=== PATIENT | female | born 1955 | race Caucasian/White ===

== ENCOUNTER → 2016-02-09 | Outpatient (CLI) | payer OTHER ==
[~2016-02-09] MED LIST: /CELE20CA OR; /DULO30CA; /DULO30CA OR; ACET500C; ACET500C OR; ADVAIR INH; ALLE180T33 PO; ALLO100T PO; ASPI32ECTA PO; ASPI81TA83 OR; ASTELIN; BENT20TA OR; BUPIVACAINE HCL 0.25% 30 ML VIAL As Ordered ONE; CALC500T49 OR; CAPRYLIC ACID OR; CELE100C; CETI10TA OR; CYMB60CA3 PO; DICY10EL; DICY10EL OR; DOSTINEX OR; DOSTINEX PO; DULO20CA; FLUC10TA OR; FOLI1TAB OR; GLUC500T OR; HYDR12CA PO; HYDR25TA6 OR; IODORAL PO; ISOVUE-M 300 61% 15ML VIAL (Q9967) As Ordered ONE; K-TA10TA PO; KLOR10TA OR; LATA5OPD OU; LEVA31IN IN; LEVA31IN OR; LIDO5DIS EX; LIDO5DIS TOP; LIDOCAINE 1% SDV INJ 30 ML VIAL As Ordered ONE; MELATONIN OR; MULTIVIT OR; OXYB5TAB PO; OYST500T OR; PRIL20CA OR; PROB1TAB PO; RESTASIS EYE DROPS; RHINOCORT; SING10TA31 OR; SKEL-29 PO; SKEL800T5 OR; SUPETAB27 OR; SYMB80AE INH; TOVI4TAB PO; TPS PAIN TOP; TRAM50TA2 OR; TRAM50TA2 PO; VENTAER INH; VESICARE OR; ZANT150T PO; ZYRT10CA PO; [UNRECOGNIZED DRUG - OTHER]; [UNRECOGNIZED DRUG - OTHER]; [UNRECOGNIZED DRUG - OTHER]; [UNRECOGNIZED DRUG - OTHER] OR; [UNRECOGNIZED DRUG - OTHER] PO; [UNRECOGNIZED DRUG - OTHER] PO; [UNRECOGNIZED DRUG - OTHER] PO; [UNRECOGNIZED DRUG - OTHER] TOP; [UNRECOGNIZED DRUG - REMARK] PO; curamed PO
--- NOTE | 2016-02-09 18:38 | REP ---
FACET BLOCK: The images were reviewed with Dr. Worrell. The patient has a history of low back pain. The portable C-Arm is provided in the OR for Dr. Hoover for fluoroscopic guidance. Four intraoperative fluoro spot films were obtained for needle placement verification for bilateral lumbar facet injection. The films are on the PACs system and are available for review. 36 seconds of fluoroscopy time was utilized for this procedure. Reviewed by WILDER Cody 02/10/2016 09:08 AEdited and Signed by Ryan Worrell MD 02/10/2016 03:18 P
--- NOTE | 2016-02-19 01:25 | ECWPNPC ---
PATIENT NAME: NATALIE CABALLERO : 1955 GENDER: FEMALE VISIT DATE: 02/09/2016 DISCHARGE DATE: 02/09/161713 VISIT LOCKED DATE TIME: PHYSICIAN: ZELDA KRAMER RESOURCE: ZELDA KRAMER REASON FOR APPOINTMENT 1. LFBD HISTORY OF PRESENT ILLNESS HISTORY OF PRESENT ILLNESS: PAIN THE PATIENT DESCRIBES THE PAIN... FALL RISK SCREENING: SCREENING :NO FALLS IN THE PAST YEAR CURRENT MEDICATIONS TAKING CYMBALTA 60 MG CAPSULE DELAYED RELEASE PARTICLES 1 CAPSULE ORALLY TWICE A DAY, NOTES: 02/09/16 0800 TAKING SKELAXIN 800 MG TABLET 1 TABLET ORALLY BID PRN, NOTES: 02/09/16 08 TAKING GABAPENTIN 300 MG CAPSULE 1 CAPSULE ORALLY THREE TIMES A DAY FOR PAINMDD3, NOTES: 02/06/16 TAKING ALLOPURINOL 300 MG TABLET 1 TABLET ORALLY ONCE A DAY, NOTES: 02/09/16 08 TAKING SINGULAIR 10 MG TABLET 1 TABLET IN THE EVENING ORALLY ONCE A DAY, NOTES: 02/09/16 08 TAKING BENTYL 20 MG TABLET 1 TABLET ORALLY EVERY 4 HOURS NEEDED, NOTES: 02/09/16 0800 TAKING VENTOLIN HFA 108 (90 BASE) MCG/ACT AEROSOL SOLUTION 2 PUFFS INHALATION NEEDED, NOTES: NONE RECENTLY TAKING VITAMIN B COMPLEX CAPSULE DIRECTED ORALLY DAILY, NOTES: 02/09/16 0800 TAKING HYDROCHLOROTHIAZIDE 25 25 MG TABLET DIRECTED ORAL DAILY, NOTES: 02/09/16 0800 TAKING LATANOPROST 0.005 % SOLUTION 1 DROP INTO BOTH EYES EVENING OPHTHALMIC ONCE A DAY, NOTES: 02/08/16 2100 TAKING SYMBICORT 80-4.5 MCG/ACT AEROSOL 2 PUFFS INHALATION TWICE A DAY, NOTES: 02/09/16 0800 TAKING PREMARIN 0.625 MG/GM CREAM VAGINAL THREE TIMES A WEEK, NOTES: 02/06/16 TAKING TYLENOL 500 MG TABLET 1 TABLET NEEDED ORALLY EVERY 6 HRS, NOTES: NONE RECENTLY TAKING BENTYL 10 MG CAPSULE 1 CAPSULE ORALLY TWO TIMES A DAY, NOTES: NONE RECENTLY TAKING REFRESH CELLUVISC 1 % SOLUTION 1 DROP INTO AFFECTED EYE NEEDED OPHTHALMIC 24 TIME(S) A DAY, NOTES: 02/09/16 1400 TAKING DIFLUCAN 200 MG TABLET 1 TABLET ORALLY DIRECTED, NOTES: MONTHS TAKING FIBER 58.6 % POWDER ORALLY NEEDED, NOTES: 02/09/16 0800 TAKING CRANBERRY 405 MG CAPSULE ORALLY DAILY, NOTES: 02/09/16 0800 TAKING ZYRTEC 10 MG TABLET CHEWABLE 1 TABLET ORALLY ONCE A DAY, NOTES: 02/09/16 10095 TAKING TRAMADOL HCL 50 MG TABLET 1 TABLET NEEDED ORALLY Q8H PRN MDD3, NOTES: 02/04/17 TAKING FLONASE ALLERGY RELIEF 50 MCG/ACT SUSPENSION 1 SPRAY IN EACH NOSTRIL NASALLY ONCE A DAY, NOTES: 02/09/16 0800 TAKING OXYBUTYNIN CHLORIDE 5 MG TABLET 2 TABLETS ORALLY 2 TIMES A DAY, NOTES: 02/09/16 0800 TAKING CABERGOLINE 0.5 MG TABLET 0.5 TABLET ORALLY TWICE A WEEK (TAKES 0.05 MG 1/2 TABLET), NOTES: MEDICATION DISCONTINUED NOT-TAKING XIIDRA 5 % SOLUTION 1 DROP INTO AFFECTED EYE OPHTHALMIC TWICE A DAY NOT-TAKING MONOVISC 88 MG/4ML SOLUTION PREFILLED SYRINGE INTRA-ARTICULAR EVERY 6 MONTHS, NOTES: EVERY 6 MO (LAST 12/17/15) NOT-TAKING RHINOCORT AQUA 32 MCG/ACT SUSPENSION 1 SPRAY IN EACH NOSTRIL NASALLY NEEDED NOT-TAKING OXYBUTYNIN CHLORIDE ER 10 MG TABLET EXTENDED RELEASE 24 HOUR 1 TABLET ORALLY BID NOT-TAKING ULTRAM 50 MG TABLET 1 TABLET NEEDED FOR PAIN ORALLY EVERY 6 HRS MDD1 NOT-TAKING NASACORT ALLERGY 24HR 55 MCG/ACT AEROSOL 1 PUFF IN EACH NOSTRIL NASALLY ONCE A DAY NOT-TAKING CELEBREX 100 MG CAPSULE 1 CAPSULE ORALLY TWICE A DAY NOT-TAKING VITAMIN C 500 MG TABLET DIRECTED ORALLY DAILY, NOTES: 09/02/15 0900 MEDICATION LIST REVIEWED AND RECONCILED WITH THE PATIENT PAST MEDICAL HISTORY DIABETES BLOOD PRESSURE ASTHMA PITUITARY ADENOMA ARTHRITIS 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 NO . CHILLS NO . FEVER NO . INFECTION: DO YOU HAVE NEW INFECTIONS? NO . DO YOU HAVE HISTORY OF MRSA? NO . MUSCULOSKELETAL: ANY NEW PATTERNS OF PAIN OR NUMBNESS? NO . GASTROENTEROLOGY: ANY NEW CHANGE IN BOWEL CONTROL? NO . GENITOURINARY: ANY NEW CHANGE IN BLADDER CONTROL? NO . IS THERE A CHANCE YOU COULD BE ? NO . HEMATOLOGY/LYMPH: DO YOU TAKE ANY BLOOD THINNERS? (FOR EXAMPLE- COUMADIN, PLAVIX, AGGRENOX, PLATEL, PRADAXA, OR XARELTO) NO . WHEN WAS YOUR LAST DOSE? DATE: TIME: . NEUROLOGY: HAVE YOU FALLEN IN THE PAST 6 MONTHS? NO . ANY NEW EXTREMITY NUMBNESS OR WEAKNESS? NO . CARDIOLOGY: DO YOU HAVE A PACEMAKER OR DEFIBRILLATOR? NO . RESPIRATORY: HAVE YOU BEEN SICK IN THE PAST WEEK? NO . FEVER NO . FLU LIKE SYMPTOMS? NO . COUGH NO . INTEGUMENTARY: DO YOU HAVE ANY RASHES OR OPEN SORES? NO . ALLERGIC/IMMUNO: ARE YOU ALLERGIC TO SHELLFISH OR IV DYE? NO . ANY NEW ALLERGIES? NO . PSYCHIATRIC: DO YOU HAVE THOUGHTS OF HURTING YOURSELF OR SOMEONE ELSE? NO . ARE YOU ABUSED, NEGLECTED, OR IN AN UNSAFE ENVIRONMENT? NO . ENDOCRINOLOGY: ARE YOU DIABETIC? NO . OTHER: DO YOU NEED ANY PRESCRIPTIONS? NO . IF YES, PLEASE LIST: ____ . ANY NEW PROBLEMS WITH YOUR MEDICATIONS? NO . WHEN DID YOU LAST EAT? 02/08 8AM . WHEN DID YOU LAST DRINK? 12AM . WHAT DID YOU LAST DRINK? COFFEE . NAME OF PERSON DRIVING YOU HOME? DELBERT . DO YOU HAVE ANY OTHER QUESTIONS OR CONCERNS PT STATES THAT SHE IS NOT ABLE TO FILL NEURONTIN SCRIPT, CALL SPECIAL FUNDS . REVIEWED BY: PROVIDER: . VITAL SIGNS WT 235 LBS, HT 65", BMI 39.10 INDEX, BP 117/68 MM HG, HR 61 /MIN, RR 16 /MIN, TEMP 95.6 F, OXYGEN SAT % 92%, NA INITIALS SC 14:30, REVIEWED BY: LS. ASSESSMENTS SPONDYLOSIS WITHOUT MYELOPATHY OR RADICULOPATHY, LUMBAR REGION - M47.816 (PRIMARY) SPONDYLOSIS WITHOUT MYELOPATHY OR RADICULOPATHY, LUMBOSACRAL REGION - M47.817 PROCEDURES PN LUMBAR FACET BLOCK DIAGNOSTIC PRE PROCEDURE DIAGNOSIS LUMBAR SPONDYLOSIS, LUMBOSACRAL SPONDYLOSIS POST PROCEDURE DIAGNOSIS LUMBAR SPONDYLOSIS, LUMBOSACRAL SPONDYLOSIS PROCEDURE BILATERAL L4-L5 AND BILATERAL L5-S1 FACET BLOCK DIAGNOSTIC NUMBER [address] ZELDA KRAMER BULK PLANT OPERATOR NONE ANESTHESIA LOCAL PRE PROCEDURE NOTE THE PATIENT WITH HISTORY OF CHRONIC LOW BACK PAIN. I EVALUATED THE PATIENT AND REVIEWED THE CHART. I WENT OVER THE RISKS, ALTERNATIVES, AND BENEFITS ASSOCIATED WITH THIS PROCEDURE. THE PATIENT WOULD LIKE TO PROCEED AND GAVE CONSENT TO PERFORM THE PROCEDURE. AGREED WITH THE PATIENT WE ARE DOING THIS PROCEDURE TO DETERMINE IF THE PATIENT IS A CANDIDATE FOR A RADIOFREQUENCY ABLATION OF THE FACETS JOINTS. THE PATIENT DENIES UNEXPLAINABLE WEIGHT LOSS, FEVER, CHILLS, OR NEW CHANGES IN URINARY OR BOWEL CONTROL DESCRIPTION OF PROCEDURE THE PATIENT WAS BROUGHT TO THE PROCEDURE ROOM AND PLACED IN THE PRONE POSITION. THE LUMBOSACRAL AREA WAS CLEANED WITH CHLORAPREP SOLUTION AND DRAPED ASEPTICALLY. THE PROCEDURE WAS DONE UNDER STERILE CONDITIONS. I CHECKED LATERALITY AND THE LEVEL WHERE THE PROCEDURE WAS GOING TO BE PERFORMED WITH THE PATIENT AND THE SUPPORTING STAFF AT THE MOMENT OF THE TIME OUT IN THE PROCEDURE ROOM. UNDER FLUOROSCOPIC GUIDANCE, TARGETS WERE SELECTED AT THE INTERSECTION OF THE RIGHT AND LEFT TRANSVERSE PROCESS OF L4, L5 AND ALA OF S1 WITH ITS RESPECTIVE SUPERIOR ARTICULAR PROCESS. LIDOCAINE WAS USED TO NUMB THE SKIN AND THE SUBCUTANEOUS TISSUE BELOW IT. SPINAL NEEDLE, 22-GAUGE WAS ADVANCED UNDER FLUOROSCOPIC GUIDANCE AND FOLLOWING PATIENT FEEDBACK UNTIL THE TARGETS WERE REACHED. POSITION OF THE NEEDLES WAS VERIFIED WITH AP AND LATERAL VIEWS. AFTER PROPER POSITION OF THE NEEDLES WAS ACHIEVED, ISOVUE-M DYE 30% 0.1 ML WAS INJECTED AT EACH SITE SHOWING ADEQUATE SPREAD OF THE DYE. THEN A SOLUTION OF 0.4 ML OF BUPIVACAINE 0.25% WAS INJECTED AT EACH SITE. THERE WAS NO EVIDENCE OF BLOOD, PARESTHESIA OR CEREBROSPINAL FLUID DURING THE PROCEDURE. THE PATIENT WAS SENT TO THE RECOVERY ROOM. THE PATIENT WAS MOVING THE EXTREMITIES AND DOING WELL. THERE WAS NO COMPLICATION DURING THE PROCEDURE. FLUOROSCOPY TIME WAS 36 SECONDS POST PROCEDURE NOTE THE PATIENT WILL DOCUMENT HIS PAIN LEVEL AND RESPONSE TO THIS PROCEDURE EVERY 30 MINUTES. THE PATIENT WILL BE SEEN IN A FOLLOW UP IN THE NEXT FEW WEEKS. FURTHER DETERMINATION FOR HIS CASE WILL BE DONE AT THE NEXT VISIT. INSTRUCTIONS WERE GIVEN, QUESTIONS WERE ANSWERED, AND THE PATIENT EXPRESSED UNDERSTANDING AND AGREED WITH THE PLAN. I, MARILYN SANTAMARIA, DOCUMENTED THE ABOVE INFORMATION ACTING A SCRIBE FOR DR. KRAMER. I, DR. KRAMER, HAVE REVIEWED THE ABOVE DOCUMENT, SCRIBED BY MARILYN SANTAMARIA, AND I VERIFY THAT IT IS ACCURATE DIAGNOSTIC IMAGING [facility] FACET BLOCK (PAIN)[id number] PROCEDURE CODES 85090 INJ PARAVERT F JNT L/S 1 LEV 27418 INJ PARAVERT F JNT L/S 2 LEV 6045F RADXPS IN END [id number] PXD FOLLOW UP 3 WEEKS ELECTRONICALLY SIGNED BY ZELDA KRAMER MD ON 02/18/2016 AT 02:31 PM EST DISCLAIMER : THIS IS A VISIT SUMMARY EXTRACTED FROM THE [employer] CHART. IT IS NOT A COPY OF THE [employer] PROGRESS NOTE. MTDD
== END ==
LOC: M PAIN 14:20
PROVIDERS: ATTEND Anesthesiology
DX: G89.21 Chronic pain due to trauma (principal); M47.816 Spondylosis without myelopathy or radiculopathy, lumbar region; M47.817 Spondylosis without myelopathy or radiculopathy, lumbosacral region; E11.9 Type 2 diabetes mellitus without complications; I10 Essential (primary) hypertension; J45.909 Unspecified asthma, uncomplicated; D35.2 Benign neoplasm of pituitary gland; M19.90 Unspecified osteoarthritis, unspecified site; K58.0 Irritable bowel syndrome with diarrhea; H40.059 Ocular hypertension, unspecified eye; Z88.0 Allergy status to penicillin; Z88.2 Allergy status to sulfonamides; Z91.040 Latex allergy status; L23.0 Allergic contact dermatitis due to metals; Z88.8 Allergy status to other drugs, medicaments and biological substances; Z79.891 Long term (current) use of opiate analgesic; Z79.899 Other long term (current) drug therapy; Z87.39 Personal history of other diseases of the musculoskeletal system and connective tissue
CPT/HCPCS: 64493; 64494; Q9967

== ENCOUNTER → 2016-02-23 | Outpatient (CLI) | payer OTHER ==
[~2016-02-23] MED LIST changes: -BUPIVACAINE HCL 0.25% 30 ML VIAL As Ordered ONE; -ISOVUE-M 300 61% 15ML VIAL (Q9967) As Ordered ONE; -LIDOCAINE 1% SDV INJ 30 ML VIAL As Ordered ONE
--- NOTE | 2016-02-24 00:10 | ECWPNPC ---
PATIENT NAME: NATALIE CABALLERO : 1955 GENDER: FEMALE VISIT DATE: 02/23/2016 DISCHARGE DATE: 02/23/16 1012 VISIT LOCKED DATE TIME: PHYSICIAN: ZELDA KRAMER RESOURCE: ZELDA KRAMER REASON FOR APPOINTMENT 1. LOW BACK PAIN W/C HISTORY OF PRESENT ILLNESS HISTORY OF PRESENT ILLNESS: PAIN THE PATIENT DESCRIBES THE PAIN... 60 YEAR OLD FEMALE PATIENT WITH HISTORY OF CHRONIC LOW BACK PAIN. PATIENT DESCRIBES THE PAIN ACHING, TENDER, THROBBING, SORE, AND SHOOTING. 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 PATIENT RECEIVED A DIAGNOSTIC LUMBAR FACET BLOCK ON 02/09/16 AND REPORTS HAVING OVER 50% PAIN RELIEF FOR 24 HOURS. CURRENTLY THE PATIENT IS USING TRAMADOL NEEDED, SKELAXIN 800 MG 2 TIMES A DAY, AND CYMBALTA 2 TIMES A DAY. PATIENT STATES THAT THE MEDICATION HELPS HER TO STAY FUNCTIONAL AND MOBILE. MRS. CABALLERO IS WAITING FOR COMP TO APPROVE THE GABAPENTIN PRESCRIPTION. AT THIS TIME THE PATIENT STATES THAT SITTING, STANDING, OR WALKING FOR LONG PERIODS OF TIME THE PAIN IN HER LOWER BACK IS INCREASED. MEDICATIONS, INTERVENTIONS, RESTING, ICE AND HEAT HELP TO RELIEVE THE BACK PAIN. PATIENT DENIES UNEXPLAINABLE WEIGHT LOSS, FEVER, CHILLS, NEW CHANGES ON HER URINARY OR BOWEL CONTROL. FALL RISK SCREENING: SCREENING :NO FALLS IN THE PAST YEAR CURRENT MEDICATIONS TAKING CYMBALTA 30 MG CAPSULE DELAYED RELEASE PARTICLES 1 CAPSULE ORALLY TWICE A DAY, NOTES: 02/09/16 08 TAKING SKELAXIN 800 MG TABLET 1 TABLET ORALLY BID PRN, NOTES: 02/09/16799 TAKING GABAPENTIN 300 MG CAPSULE 1 CAPSULE ORALLY THREE TIMES A DAY FOR PAINMDD3, NOTES: 02/06/16 TAKING ALLOPURINOL 300 MG TABLET 1 TABLET ORALLY ONCE A DAY, NOTES: 02/09/16799 TAKING SINGULAIR 10 MG TABLET 1 TABLET IN THE EVENING ORALLY ONCE A DAY, NOTES: 02/09/16 08 TAKING BENTYL 20 MG TABLET 1 TABLET ORALLY EVERY 4 HOURS NEEDED, NOTES: 02/09/16 0800 TAKING VENTOLIN HFA 108 (90 BASE) MCG/ACT AEROSOL SOLUTION 2 PUFFS INHALATION NEEDED, NOTES: NONE RECENTLY TAKING VITAMIN B COMPLEX CAPSULE DIRECTED ORALLY DAILY, NOTES: 02/09/16 08 TAKING HYDROCHLOROTHIAZIDE 25 25 MG TABLET DIRECTED ORAL DAILY, NOTES: 02/09/16 08 TAKING LATANOPROST 0.005 % SOLUTION 1 DROP INTO BOTH EYES EVENING OPHTHALMIC ONCE A DAY, NOTES: 02/08/16 2100 TAKING SYMBICORT 80-4.5 MCG/ACT AEROSOL 2 PUFFS INHALATION TWICE A DAY, NOTES: 02/09/16 08 TAKING PREMARIN 0.625 MG/GM CREAM VAGINAL THREE TIMES A WEEK, NOTES: 02/06/16 TAKING TYLENOL 500 MG TABLET 1 TABLET NEEDED ORALLY EVERY 6 HRS, NOTES: NONE RECENTLY TAKING BENTYL 10 MG CAPSULE 1 CAPSULE ORALLY TWO TIMES A DAY, NOTES: NONE RECENTLY TAKING REFRESH CELLUVISC 1 % SOLUTION 1 DROP INTO AFFECTED EYE NEEDED OPHTHALMIC 24 TIME(S) A DAY, NOTES: 02/09/16 1400 TAKING DIFLUCAN 200 MG TABLET 1 TABLET ORALLY DIRECTED, NOTES: MONTHS TAKING FIBER 58.6 % POWDER ORALLY NEEDED, NOTES: 02/09/16 08 TAKING CRANBERRY 405 MG CAPSULE ORALLY DAILY, NOTES: 02/09/16 08 TAKING ZYRTEC 10 MG TABLET CHEWABLE 1 TABLET ORALLY ONCE A DAY, NOTES: 02/09/16 14953 TAKING TRAMADOL HCL 50 MG TABLET 1 TABLET NEEDED ORALLY Q8H PRN MDD3, NOTES: 02/04/17 TAKING FLONASE ALLERGY RELIEF 50 MCG/ACT SUSPENSION 1 SPRAY IN EACH NOSTRIL NASALLY ONCE A DAY, NOTES: 02/09/16 08 TAKING OXYBUTYNIN CHLORIDE 5 MG TABLET 2 TABLETS ORALLY 2 TIMES A DAY, NOTES: 02/09/16 08 TAKING CABERGOLINE 0.5 MG TABLET 0.5 TABLET ORALLY TWICE A WEEK (TAKES 0.05 MG 1/2 TABLET), NOTES: MEDICATION DISCONTINUED TAKING ALPHA LIPOIC ACID 100 MG CAPSULE 1 CAP ORALLY DAILY NOT-TAKING XIIDRA 5 % SOLUTION 1 DROP INTO AFFECTED EYE OPHTHALMIC TWICE A DAY NOT-TAKING MONOVISC 88 MG/4ML SOLUTION PREFILLED SYRINGE INTRA-ARTICULAR EVERY 6 MONTHS, NOTES: EVERY 6 MO (LAST 12/17/15) NOT-TAKING RHINOCORT AQUA 32 MCG/ACT SUSPENSION 1 SPRAY IN EACH NOSTRIL NASALLY NEEDED NOT-TAKING OXYBUTYNIN CHLORIDE ER 10 MG TABLET EXTENDED RELEASE 24 HOUR 1 TABLET ORALLY BID NOT-TAKING ULTRAM 50 MG TABLET 1 TABLET NEEDED FOR PAIN ORALLY EVERY 6 HRS MDD1 NOT-TAKING NASACORT ALLERGY 24HR 55 MCG/ACT AEROSOL 1 PUFF IN EACH NOSTRIL NASALLY ONCE A DAY NOT-TAKING CELEBREX 100 MG CAPSULE 1 CAPSULE ORALLY TWICE A DAY NOT-TAKING VITAMIN C 500 MG TABLET DIRECTED ORALLY DAILY, NOTES: 09/02/15 0900 MEDICATION LIST REVIEWED AND RECONCILED WITH THE PATIENT PAST MEDICAL HISTORY DIABETES BLOOD PRESSURE ASTHMA PITUITARY ADENOMA ARTHRITIS 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 SOCIAL HISTORY GENERAL: TOBACCO USE ARE YOU A:NONSMOKER LEARNING BARRIERS / SPECIAL NEEDS ORIENTED TO PLAN OF CARE: PATIENT, PAIN MANAGEMENT PATIENT, ORIENTED TO PLAN OF CARE: PATIENT, PAIN MANAGEMENT PATIENT. NEW PATIENT PAIN DIARY TODAY'S VISITNOTES FROM 0-10, WHAT LEVEL IS YOUR PAIN TODAY?0 PAIN CLINIC PFS, CLERGY, PUBLIC HEALTH REFERRALS PFS REFERRAL NEEDED?NO CLERGY REFERRAL NEEDED?NO PUBLIC HEALTH REFERRAL NEEDED?NO WAS THE PROVIDER NOTIFIED OF ANY PERTINENT INFO?NO PFS REFERRAL NEEDED?NO CLERGY REFERRAL NEEDED?NO PUBLIC HEALTH REFERRAL NEEDED?NO WAS THE PROVIDER NOTIFIED OF ANY PERTINENT INFO?NO HOSPITALIZATION/MAJOR DIAGNOSTIC PROCEDURE SURGERY RELATED ASTHMA REVIEW OF SYSTEMS CONSTITUTIONAL: ANY CHANGE IN YOUR MEDICAL CONDITION? NO . CHILLS NO . FEVER NO . INFECTION: DO YOU HAVE NEW INFECTIONS? NO . DO YOU HAVE HISTORY OF MRSA? NO . MUSCULOSKELETAL: ANY NEW PATTERNS OF PAIN OR NUMBNESS? NO . GASTROENTEROLOGY: ANY NEW CHANGE IN BOWEL CONTROL? NO . GENITOURINARY: ANY NEW CHANGE IN BLADDER CONTROL? NO . IS THERE A CHANCE YOU COULD BE ? NO . HEMATOLOGY/LYMPH: DO YOU TAKE ANY BLOOD THINNERS? (FOR EXAMPLE- COUMADIN, PLAVIX, AGGRENOX, PLATEL, PRADAXA, OR XARELTO) NO . WHEN WAS YOUR LAST DOSE? DATE: TIME: . NEUROLOGY: HAVE YOU FALLEN IN THE PAST 6 MONTHS? NO . ANY NEW EXTREMITY NUMBNESS OR WEAKNESS? NO . CARDIOLOGY: DO YOU HAVE A PACEMAKER OR DEFIBRILLATOR? NO . RESPIRATORY: HAVE YOU BEEN SICK IN THE PAST WEEK? NO . FEVER NO . FLU LIKE SYMPTOMS? NO . COUGH NO . INTEGUMENTARY: DO YOU HAVE ANY RASHES OR OPEN SORES? NO . ALLERGIC/IMMUNO: ARE YOU ALLERGIC TO SHELLFISH OR IV DYE? NO . ANY NEW ALLERGIES? NO . PSYCHIATRIC: DO YOU HAVE THOUGHTS OF HURTING YOURSELF OR SOMEONE ELSE? NO . ARE YOU ABUSED, NEGLECTED, OR IN AN UNSAFE ENVIRONMENT? NO . ENDOCRINOLOGY: ARE YOU DIABETIC? NO . OTHER: DO YOU NEED ANY PRESCRIPTIONS? NO . IF YES, PLEASE LIST: ____ . ANY NEW PROBLEMS WITH YOUR MEDICATIONS? NO . WHEN DID YOU LAST EAT? ____ . WHEN DID YOU LAST DRINK? ____ . WHAT DID YOU LAST DRINK? ____ . NAME OF PERSON DRIVING YOU HOME? ____ . DO YOU HAVE ANY OTHER QUESTIONS OR CONCERNS YES, GABAPENTIN STILL HAS NOT BEEN FILLED, INSURANCE HASN'T APPROVED IT YET. . REVIEWED BY: PROVIDER: ZELDA KRAMER MD . VITAL SIGNS WT 232 LBS, HT 65", BMI 38.60 INDEX, BP 138/74 MM HG, HR 84 /MIN, RR 16 /MIN, TEMP 97.4 F, OXYGEN SAT % 97, REVIEWED BY: AD. EXAMINATION : PATIENT IS ALERT O X 3 AND COOPERATIVE. ANTALGIC GAIT, LIMPING FROM THE LEFT SIDE. TENDERNESS IN THE LOWER BACK AND PARASPINAL MUSCLE GROUP MOSTLY THE LEFT SIDE. PATIENT ABLE TO FLEX BACK 90 DEGREES AND EXTEND THE BACK 35 WITH DISCOMFORT. MRI DONE ON 05/25/15 OF THE LUMBAR SPINE SHOWS DISC BULGES AT L2-L3 AND L3-L4 ALONG WITH STENOSIS AT L3-L4. 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 CABALLERO'S PAIN MANAGEMENT CASE. PATIENT WILL CONTINUE WITH THE SAME MEDICATION MANAGEMENT BEFORE. PATIENT DENIES ABUSE OF ANY MEDICATION, DENIES USE OF ILLEGAL SUBSTANCES, AND STATES THAT SHE IS ONLY USING THE MEDICATION FOR PAIN MANAGEMENT. DUE TO THE FIRST DIAGNOSTIC TEST HAVING ADEQUATE RESULTS I WOULD LIKE TO MOVE FORWARD WITH A LEFT DIAGNOSTIC LUMBAR FACET TO CONSIDER RADIOFREQUENCY. WE DISCUSSED THE RISKS, BENEFITS, AND ALTERNATIVES OF THE INJECTION AND THE PATIENT WOULD LIKE TO PROCEED. INSTRUCTIONS WERE GIVEN, QUESTIONS WERE ANSWERED, PATIENT REPORTS UNDERSTANDING AND AGREES WITH THE PLAN. I, MARILYN SANTAMARIA, DOCUMENTED THE ABOVE INFORMATION ACTING A SCRIBE FOR DR. KRAMER. I HAVE REVIEWED THE ABOVE DOCUMENT, WRITTEN BY MARILYN SANTAMARIA SCRIBRuth AND I VERIFY THAT IT IS ACCURATE. OTHERS REFILL GABAPENTIN CAPSULE, 300 MG, 1 CAPSULE, ORALLY SPECIAL FUNDS, TWO TIMES A DAY FOR PAINMDD2, 30 DAY(S), 60, REFILLS 2, NOTES: 02/06/16 PROCEDURES PN WORKMANS' COMP OPINION IN YOUR OPINION, WAS THE INCIDENT THAT THE PATIENT DESCRIBED THE COMPETENT MEDICAL CAUSE OF THIS INJURY/ILLNESS? YES ARE THE PATIENT'S COMPLAINTS CONSISTENT WITH HIS/HER HISTORY OF THE INJURY/ILLNESS? YES IS THE PATIENT'S HISTORY OF THE INJURY/ILLNESS CONSISTENT WITH YOUR OBJECTIVE FINDING? YES WHAT IS THE PERCENTAGE OF TEMPORARY IMPAIRMENT? MODERATE TO MARKED = 66.7% IS THE PATIENT WORKING? NO DOCTOR ON SITE: ZELDA JOHNSTON MD PREVENTIVE MEDICINE PAIN CLINIC TEACHING: PROCEDURE TEACHING PT. DECLINED PRINTED INFORMATION ON DIAGNOSTIC FACET BLOCK. AD. PROCEDURE CODES FA211 ESTABILISHED PATIENT [facility] FAC[facility] CHARGE G8427 DOC MEDS VERIFIED W/PT OR RE G8730 PAIN ASSESS POS TOOL F/U PLAN DOC FOLLOW UP LFBD AFTER APPROVAL ELECTRONICALLY SIGNED BY ZELDA KRAMER MD ON 02/23/2016 AT 04:21 PM EST DISCLAIMER : THIS IS A VISIT SUMMARY EXTRACTED FROM THE [employer] CHART. IT IS NOT A COPY OF THE [employer] PROGRESS NOTE. ALLI
== END ==
LOC: M PAIN 09:20
PROVIDERS: ATTEND Anesthesiology
DX: M47.816 Spondylosis without myelopathy or radiculopathy, lumbar region (principal); M47.817 Spondylosis without myelopathy or radiculopathy, lumbosacral region; M51.16 Intervertebral disc disorders with radiculopathy, lumbar region; M51.17 Intervertebral disc disorders with radiculopathy, lumbosacral region; Z79.891 Long term (current) use of opiate analgesic; Z79.899 Other long term (current) drug therapy; I10 Essential (primary) hypertension; E11.9 Type 2 diabetes mellitus without complications; M19.90 Unspecified osteoarthritis, unspecified site; Z88.0 Allergy status to penicillin; Z88.8 Allergy status to other drugs, medicaments and biological substances; Z88.1 Allergy status to other antibiotic agents; Z88.2 Allergy status to sulfonamides; Z91.040 Latex allergy status; Z91.09 Other allergy status, other than to drugs and biological substances; Z91.018 Allergy to other foods

== ENCOUNTER → 2016-03-03 | Outpatient (CLI) | payer OTHER ==
[~2016-03-03] MED LIST changes: +BUPIVACAINE HCL 0.25% 30 ML VIAL As Ordered ONE; +ISOVUE-M 300 61% 15ML VIAL (Q9967) As Ordered ONE; +LIDOCAINE 1% SDV INJ 30 ML VIAL As Ordered ONE
--- NOTE | 2016-03-03 16:35 | REP ---
Partial lumbar spine series: Single view. History: Facet block for pain. 27 seconds of fluoroscopy time is reported. Findings: A single fluoroscopically obtained intraprocedural spot radiograph of the lumbar spine documents various needle positions and contrast injections associated with lumbar facet injection procedure. Signed by Joaquin Carias MD 03/03/2016 04:58 P
--- NOTE | 2016-03-12 23:51 | ECWPNPC ---
PATIENT NAME: NATALIE CABALLERO : 1955 GENDER: FEMALE VISIT DATE: 03/03/2016 DISCHARGE DATE: 03/03/16 1443 VISIT LOCKED DATE TIME: PHYSICIAN: ZELDA KRAMER RESOURCE: ZELDA KRAMER REASON FOR APPOINTMENT 1. LFBD #2 MTG HISTORY OF PRESENT ILLNESS HISTORY OF PRESENT ILLNESS: PAIN THE PATIENT DESCRIBES THE PAIN... FALL RISK SCREENING: SCREENING :NO FALLS IN THE PAST YEAR CURRENT MEDICATIONS TAKING GABAPENTIN 300 MG CAPSULE 1 CAPSULE ORALLY SPECIAL FUNDS TWO TIMES A DAY FOR PAINMDD2, NOTES: 3 DAYS AGO TAKING CYMBALTA 30 MG CAPSULE DELAYED RELEASE PARTICLES 1 CAPSULE ORALLY TWICE A DAY, NOTES: 03/02 9AM TAKING SKELAXIN 800 MG TABLET 1 TABLET ORALLY BID PRN, NOTES: 2 WEEKS AGO TAKING ALLOPURINOL 300 MG TABLET 1 TABLET ORALLY ONCE A DAY, NOTES: 03/02 9AM TAKING SINGULAIR 10 MG TABLET 1 TABLET IN THE EVENING ORALLY ONCE A DAY, NOTES: 03/02 9PM TAKING BENTYL 20 MG TABLET 1 TABLET ORALLY EVERY 4 HOURS NEEDED, NOTES: 03/03 9AM TAKING VENTOLIN HFA 108 (90 BASE) MCG/ACT AEROSOL SOLUTION 2 PUFFS INHALATION NEEDED, NOTES: 2 MONTHS AGO TAKING VITAMIN B COMPLEX CAPSULE DIRECTED ORALLY DAILY, NOTES: 03/02 9AM TAKING HYDROCHLOROTHIAZIDE 25 25 MG TABLET DIRECTED ORAL DAILY, NOTES: 03/03 9AM TAKING LATANOPROST 0.005 % SOLUTION 1 DROP INTO BOTH EYES EVENING OPHTHALMIC ONCE A DAY, NOTES: 03/02 11PM TAKING SYMBICORT 80-4.5 MCG/ACT AEROSOL 2 PUFFS INHALATION TWICE A DAY, NOTES: 03/03 8AM TAKING PREMARIN 0.625 MG/GM CREAM VAGINAL THREE TIMES A WEEK, NOTES: SUNDAY TAKING TYLENOL 500 MG TABLET 1 TABLET NEEDED ORALLY EVERY 6 HRS, NOTES: NONE RECENTLY TAKING BENTYL 10 MG CAPSULE 1 CAPSULE ORALLY TWO TIMES A DAY, NOTES: NONE RECENTLY TAKING REFRESH CELLUVISC 1 % SOLUTION 1 DROP INTO AFFECTED EYE NEEDED OPHTHALMIC 24 TIME(S) A DAY, NOTES: 03/03 10AM TAKING DIFLUCAN 200 MG TABLET 1 TABLET ORALLY DIRECTED, NOTES: MONTHS TAKING FIBER 58.6 % POWDER ORALLY NEEDED, NOTES: 03/03 9AM TAKING CRANBERRY 405 MG CAPSULE ORALLY DAILY, NOTES: 03/03 9AM TAKING ZYRTEC 10 MG TABLET CHEWABLE 1 TABLET ORALLY ONCE A DAY, NOTES: 03/03 9AM TAKING TRAMADOL HCL 50 MG TABLET 1 TABLET NEEDED ORALLY Q8H PRN MDD3, NOTES: 1 WEEK AGO TAKING FLONASE ALLERGY RELIEF 50 MCG/ACT SUSPENSION 1 SPRAY IN EACH NOSTRIL NASALLY ONCE A DAY, NOTES: 03/02 9AM TAKING OXYBUTYNIN CHLORIDE 5 MG TABLET 2 TABLETS ORALLY 2 TIMES A DAY, NOTES: 03/03 9AM TAKING ALPHA LIPOIC ACID 100 MG CAPSULE 1 CAP ORALLY DAILY, NOTES: 03/03 9AM TAKING XIIDRA 5 % SOLUTION 1 DROP INTO AFFECTED EYE OPHTHALMIC TWICE A DAY, NOTES: 03/03 10AM NOT-TAKING CABERGOLINE 0.5 MG TABLET 0.5 TABLET ORALLY TWICE A WEEK (TAKES 0.05 MG 1/2 TABLET), NOTES: MEDICATION DISCONTINUED NOT-TAKING MONOVISC 88 MG/4ML SOLUTION PREFILLED SYRINGE INTRA-ARTICULAR EVERY 6 MONTHS, NOTES: EVERY 6 MO (LAST 12/17/15) NOT-TAKING RHINOCORT AQUA 32 MCG/ACT SUSPENSION 1 SPRAY IN EACH NOSTRIL NASALLY NEEDED NOT-TAKING OXYBUTYNIN CHLORIDE ER 10 MG TABLET EXTENDED RELEASE 24 HOUR 1 TABLET ORALLY BID NOT-TAKING ULTRAM 50 MG TABLET 1 TABLET NEEDED FOR PAIN ORALLY EVERY 6 HRS MDD1 NOT-TAKING NASACORT ALLERGY 24HR 55 MCG/ACT AEROSOL 1 PUFF IN EACH NOSTRIL NASALLY ONCE A DAY NOT-TAKING CELEBREX 100 MG CAPSULE 1 CAPSULE ORALLY TWICE A DAY NOT-TAKING VITAMIN C 500 MG TABLET DIRECTED ORALLY DAILY, NOTES: 09/02/15 0900 MEDICATION LIST REVIEWED AND RECONCILED WITH THE PATIENT PAST MEDICAL HISTORY DIABETES BLOOD PRESSURE ASTHMA PITUITARY ADENOMA ARTHRITIS 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 NEW PATIENT PAIN DIARY TODAY'S VISITNOTES FROM 0-10, WHAT LEVEL IS YOUR PAIN TODAY?0 PAIN CLINIC PFS, CLERGY, PUBLIC HEALTH REFERRALS PFS REFERRAL NEEDED?NO CLERGY REFERRAL NEEDED?NO PUBLIC HEALTH REFERRAL NEEDED?NO WAS THE PROVIDER NOTIFIED OF ANY PERTINENT INFO?NO PFS REFERRAL NEEDED?NO CLERGY REFERRAL NEEDED?NO PUBLIC HEALTH REFERRAL NEEDED?NO WAS THE PROVIDER NOTIFIED OF ANY PERTINENT INFO?NO REVIEW OF SYSTEMS CONSTITUTIONAL: ANY CHANGE IN YOUR MEDICAL CONDITION? NO . CHILLS NO . FEVER NO . INFECTION: DO YOU HAVE NEW INFECTIONS? NO . DO YOU HAVE HISTORY OF MRSA? NO . MUSCULOSKELETAL: ANY NEW PATTERNS OF PAIN OR NUMBNESS? NO . GASTROENTEROLOGY: ANY NEW CHANGE IN BOWEL CONTROL? NO . GENITOURINARY: ANY NEW CHANGE IN BLADDER CONTROL? NO . IS THERE A CHANCE YOU COULD BE ? NO . HEMATOLOGY/LYMPH: DO YOU TAKE ANY BLOOD THINNERS? (FOR EXAMPLE- COUMADIN, PLAVIX, AGGRENOX, PLATEL, PRADAXA, OR XARELTO) NO . WHEN WAS YOUR LAST DOSE? DATE: TIME: . NEUROLOGY: HAVE YOU FALLEN IN THE PAST 6 MONTHS? NO . ANY NEW EXTREMITY NUMBNESS OR WEAKNESS? NO . CARDIOLOGY: DO YOU HAVE A PACEMAKER OR DEFIBRILLATOR? NO . RESPIRATORY: HAVE YOU BEEN SICK IN THE PAST WEEK? NO . FEVER NO . FLU LIKE SYMPTOMS? NO . COUGH NO . INTEGUMENTARY: DO YOU HAVE ANY RASHES OR OPEN SORES? NO . ALLERGIC/IMMUNO: ARE YOU ALLERGIC TO SHELLFISH OR IV DYE? NO . ANY NEW ALLERGIES? NO . PSYCHIATRIC: DO YOU HAVE THOUGHTS OF HURTING YOURSELF OR SOMEONE ELSE? NO . ARE YOU ABUSED, NEGLECTED, OR IN AN UNSAFE ENVIRONMENT? NO . ENDOCRINOLOGY: ARE YOU DIABETIC? NO . OTHER: DO YOU NEED ANY PRESCRIPTIONS? NO . IF YES, PLEASE LIST: ____ . ANY NEW PROBLEMS WITH YOUR MEDICATIONS? NO . WHEN DID YOU LAST EAT? 03/03 7:15AM . WHEN DID YOU LAST DRINK? 03/03 11:15AM . WHAT DID YOU LAST DRINK? KOOLAID . NAME OF PERSON DRIVING YOU HOME? DELBERT . DO YOU HAVE ANY OTHER QUESTIONS OR CONCERNS NO . REVIEWED BY: PROVIDER: . VITAL SIGNS WT 232 LBS, HT 65", BMI 38.60 INDEX, BP 143/81 MM HG, HR 64 /MIN, RR 16 /MIN, TEMP 96.0 F, OXYGEN SAT % 98, SAFE IN ENV? (Y/N) Y, NA INITIALS TL 1328, REVIEWED BY: GRISELDA. ASSESSMENTS SPONDYLOSIS WITHOUT MYELOPATHY OR RADICULOPATHY, LUMBAR REGION - M47.816 (PRIMARY) SPONDYLOSIS WITHOUT MYELOPATHY OR RADICULOPATHY, LUMBOSACRAL REGION - M47.817 PROCEDURES PN WORKMANS' COMP OPINION IN YOUR OPINION, WAS THE INCIDENT THAT THE PATIENT DESCRIBED THE COMPETENT MEDICAL CAUSE OF THIS INJURY/ILLNESS? YES ARE THE PATIENT'S COMPLAINTS CONSISTENT WITH HIS/HER HISTORY OF THE INJURY/ILLNESS? YES IS THE PATIENT'S HISTORY OF THE INJURY/ILLNESS CONSISTENT WITH YOUR OBJECTIVE FINDING? YES WHAT IS THE PERCENTAGE OF TEMPORARY IMPAIRMENT? MODERATE TO MARKED = 66.7% IS THE PATIENT WORKING? NO DOCTOR ON SITE: ZELDA JOHNSTON MD PN LUMBAR FACET BLOCK DIAGNOSTIC PRE PROCEDURE DIAGNOSIS LUMBAR SPONDYLOSIS, LUMBOSACRAL SPONDYLOSIS POST PROCEDURE DIAGNOSIS LUMBAR SPONDYLOSIS, LUMBOSACRAL SPONDYLOSIS PROCEDURE LEFT L4-L5 AND LEFT L5-S1 FACET BLOCK DIAGNOSTIC NUMBER [address] ZELDA KRAMER ICE CREAM SERVER NONE ANESTHESIA LOCAL PRE PROCEDURE NOTE THE PATIENT WITH HISTORY OF CHRONIC LOW BACK PAIN. I EVALUATED THE PATIENT AND REVIEWED THE CHART. I WENT OVER THE RISKS, ALTERNATIVES, AND BENEFITS ASSOCIATED WITH THIS PROCEDURE. THE PATIENT WOULD LIKE TO PROCEED AND GAVE CONSENT TO PERFORM THE PROCEDURE. AGREED WITH THE PATIENT WE ARE DOING THIS PROCEDURE TO DETERMINE IF THE PATIENT IS A CANDIDATE FOR A RADIOFREQUENCY ABLATION OF THE FACETS JOINTS. THE PATIENT DENIES UNEXPLAINABLE WEIGHT LOSS, FEVER, CHILLS, OR NEW CHANGES IN URINARY OR BOWEL CONTROL DESCRIPTION OF PROCEDURE THE PATIENT WAS BROUGHT TO THE PROCEDURE ROOM AND PLACED IN THE PRONE POSITION. THE LUMBOSACRAL AREA WAS CLEANED WITH CHLORAPREP SOLUTION AND DRAPED ASEPTICALLY. THE PROCEDURE WAS DONE UNDER STERILE CONDITIONS. I CHECKED LATERALITY AND THE LEVEL WHERE THE PROCEDURE WAS GOING TO BE PERFORMED WITH THE PATIENT AND THE SUPPORTING STAFF AT THE MOMENT OF THE TIME OUT IN THE PROCEDURE ROOM. UNDER FLUOROSCOPIC GUIDANCE, TARGETS WERE SELECTED AT THE INTERSECTION OF THE LEFT TRANSVERSE PROCESS OF L4, L5 AND ALA OF S1 WITH ITS RESPECTIVE SUPERIOR ARTICULAR PROCESS. LIDOCAINE WAS USED TO NUMB THE SKIN AND THE SUBCUTANEOUS TISSUE BELOW IT. SPINAL NEEDLE, 22-GAUGE WAS ADVANCED UNDER FLUOROSCOPIC GUIDANCE AND FOLLOWING PATIENT FEEDBACK UNTIL THE TARGETS WERE REACHED. POSITION OF THE NEEDLES WAS VERIFIED WITH AP AND LATERAL VIEWS. AFTER PROPER POSITION OF THE NEEDLES WAS ACHIEVED, ISOVUE-M DYE 30% 0.1 ML WAS INJECTED AT EACH SITE SHOWING ADEQUATE SPREAD OF THE DYE. THEN A SOLUTION OF 0.4 ML OF BUPIVACAINE 0.25% WAS INJECTED AT EACH SITE. THERE WAS NO EVIDENCE OF BLOOD, PARESTHESIA OR CEREBROSPINAL FLUID DURING THE PROCEDURE. THE PATIENT WAS SENT TO THE RECOVERY ROOM. THE PATIENT WAS MOVING THE EXTREMITIES AND DOING WELL. THERE WAS NO COMPLICATION DURING THE PROCEDURE. FLUOROSCOPY TIME WAS 27 SECONDS POST PROCEDURE NOTE THE PATIENT WILL DOCUMENT HIS PAIN LEVEL AND RESPONSE TO THIS PROCEDURE EVERY 30 MINUTES. THE PATIENT WILL BE SEEN IN A FOLLOW UP IN THE NEXT FEW WEEKS. FURTHER DETERMINATION FOR HIS CASE WILL BE DONE AT THE NEXT VISIT. INSTRUCTIONS WERE GIVEN, QUESTIONS WERE ANSWERED, AND THE PATIENT EXPRESSED UNDERSTANDING AND AGREED WITH THE PLAN. INSTRUCTIONS WERE GIVEN, QUESTIONS WERE ANSWERED, PATIENT REPORTS UNDERSTANDING AND AGREES WITH THE PLAN. I, LARON HOLMAN, DOCUMENTED THE ABOVE INFORMATION ACTING A SCRIBE FOR DR. KRAMER. I HAVE REVIEWED THE ABOVE DOCUMENT, WRITTEN BY LARON HOLMAN SCRIBRuth AND I VERIFY THAT IT IS ACCURATE. DIAGNOSTIC IMAGING [facility] FACET BLOCK (PAIN)[id number] PROCEDURE CODES 53467 INJ PARAVERT F JNT L/S 1 LEV 53707 INJ PARAVERT F JNT L/S 2 LEV 6045F RADXPS IN END [id number] PXD FOLLOW UP 3 WEEKS ELECTRONICALLY SIGNED BY ZELDA KRAMER MD ON 03/12/2016 AT 07:47 PM EST DISCLAIMER : THIS IS A VISIT SUMMARY EXTRACTED FROM THE [employer] CHART. IT IS NOT A COPY OF THE [employer] PROGRESS NOTE. MTDD
== END ==
LOC: M PAIN 13:20
PROVIDERS: ATTEND Anesthesiology
DX: G89.29 Other chronic pain (principal); M47.816 Spondylosis without myelopathy or radiculopathy, lumbar region; M47.817 Spondylosis without myelopathy or radiculopathy, lumbosacral region; E11.9 Type 2 diabetes mellitus without complications; J45.909 Unspecified asthma, uncomplicated; M19.90 Unspecified osteoarthritis, unspecified site; K58.0 Irritable bowel syndrome with diarrhea; H40.059 Ocular hypertension, unspecified eye; Z88.0 Allergy status to penicillin; Z88.2 Allergy status to sulfonamides; Z88.8 Allergy status to other drugs, medicaments and biological substances; Z91.040 Latex allergy status; Z88.1 Allergy status to other antibiotic agents; L23.0 Allergic contact dermatitis due to metals; Z91.018 Allergy to other foods; Z79.891 Long term (current) use of opiate analgesic; Z79.899 Other long term (current) drug therapy
CPT/HCPCS: 64493; 64494; Q9967

== ENCOUNTER → 2016-03-20 | Outpatient (CLI) | payer OTHER ==
[~2016-03-20] MED LIST changes: -BUPIVACAINE HCL 0.25% 30 ML VIAL As Ordered ONE; -ISOVUE-M 300 61% 15ML VIAL (Q9967) As Ordered ONE; -LIDOCAINE 1% SDV INJ 30 ML VIAL As Ordered ONE
--- NOTE | 2016-03-25 23:34 | ECWPNPC ---
PATIENT NAME: NATALIE CABALLERO : 1955 GENDER: FEMALE VISIT DATE: 03/20/2016 DISCHARGE DATE: 03/20/16 1001 VISIT LOCKED DATE TIME: PHYSICIAN: ZELDA KRAMER RESOURCE: ZELDA KRAMER REASON FOR APPOINTMENT 1. W/C POST PROCEDURE HISTORY OF PRESENT ILLNESS HISTORY OF PRESENT ILLNESS: PAIN THE PATIENT DESCRIBES THE PAIN... 60 YEAR OLD FEMALE PATIENT WITH HISTORY OF CHRONIC BACK PAIN. PATIENT DESCRIBES THE PAIN ACHING, SHARP, TENDER, THROBBING, SORE, AND HAVING IT ALL THE TIME WITH A PAIN SCORE OF 8/10 ON TODAY'S VISIT. 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 PATIENT RECEIVE A LUMBAR FACET BLOCK DIAGNOSTIC ON 03/03/2016 AND HER PAIN WENT FROM A 8/10 TO 0/10 FOR 5 HOURS. PATIENT REPORTS THAT MEDICATIONS SHE IS TAKING HELPS WITH KEEPING HER PAIN MANAGEABLE. PATIENT STATES THAT SHE DOES GENTLE PT EXERCISES AT HOME. PATIENT DENIES UNEXPLAINABLE WEIGHT LOSS, FEVER, CHILLS, NEW CHANGES ON HIS/HER URINARY OR BOWEL CONTROL. FALL RISK SCREENING: SCREENING :NO FALLS IN THE PAST YEAR CURRENT MEDICATIONS TAKING GABAPENTIN 300 MG CAPSULE 1 CAPSULE ORALLY [facility] TWO TIMES A DAY FOR PAINMDD2 TAKING CYMBALTA 30 MG CAPSULE DELAYED RELEASE PARTICLES 1 CAPSULE ORALLY TWICE A DAY TAKING SKELAXIN 800 MG TABLET 1 TABLET ORALLY BID PRN TAKING ALLOPURINOL 300 MG TABLET 1 TABLET ORALLY ONCE A DAY TAKING SINGULAIR 10 MG TABLET 1 TABLET IN THE EVENING ORALLY ONCE A DAY TAKING BENTYL 20 MG TABLET 1 TABLET ORALLY EVERY 4 HOURS NEEDED TAKING VENTOLIN HFA 108 (90 BASE) MCG/ACT AEROSOL SOLUTION 2 PUFFS INHALATION NEEDED TAKING VITAMIN B COMPLEX CAPSULE DIRECTED ORALLY DAILY TAKING HYDROCHLOROTHIAZIDE 25 25 MG TABLET DIRECTED ORAL DAILY TAKING LATANOPROST 0.005 % SOLUTION 1 DROP INTO BOTH EYES EVENING OPHTHALMIC ONCE A DAY TAKING SYMBICORT 80-4.5 MCG/ACT AEROSOL 2 PUFFS INHALATION TWICE A DAY TAKING PREMARIN 0.625 MG/GM CREAM VAGINAL THREE TIMES A WEEK TAKING TYLENOL 500 MG TABLET 1 TABLET NEEDED ORALLY EVERY 6 HRS TAKING BENTYL 10 MG CAPSULE 1 CAPSULE ORALLY TWO TIMES A DAY TAKING REFRESH CELLUVISC 1 % SOLUTION 1 DROP INTO AFFECTED EYE NEEDED OPHTHALMIC 24 TIME(S) A DAY TAKING DIFLUCAN 200 MG TABLET 1 TABLET ORALLY DIRECTED TAKING FIBER 58.6 % POWDER 2 CAPSULES WITH 8 OUNCES OF LIQUID ORALLY DAILY TAKING CRANBERRY 405 MG CAPSULE ORALLY DAILY TAKING ZYRTEC 10 MG TABLET CHEWABLE 1 TABLET ORALLY ONCE A DAY TAKING TRAMADOL HCL 50 MG TABLET 1 TABLET NEEDED ORALLY Q8H PRN MDD3 TAKING FLONASE ALLERGY RELIEF 50 MCG/ACT SUSPENSION 1 SPRAY IN EACH NOSTRIL NASALLY ONCE A DAY TAKING OXYBUTYNIN CHLORIDE 5 MG TABLET 2 TABLETS ORALLY 2 TIMES A DAY TAKING ALPHA LIPOIC ACID 100 MG CAPSULE 1 CAP ORALLY DAILY TAKING XIIDRA 5 % SOLUTION 1 DROP INTO AFFECTED EYE OPHTHALMIC TWICE A DAY NOT-TAKING CABERGOLINE 0.5 MG TABLET 0.5 TABLET ORALLY TWICE A WEEK (TAKES 0.05 MG 1/2 TABLET), NOTES: MEDICATION DISCONTINUED NOT-TAKING MONOVISC 88 MG/4ML SOLUTION PREFILLED SYRINGE INTRA-ARTICULAR EVERY 6 MONTHS, NOTES: EVERY 6 MO (LAST 12/17/15) NOT-TAKING RHINOCORT AQUA 32 MCG/ACT SUSPENSION 1 SPRAY IN EACH NOSTRIL NASALLY NEEDED NOT-TAKING OXYBUTYNIN CHLORIDE ER 10 MG TABLET EXTENDED RELEASE 24 HOUR 1 TABLET ORALLY BID NOT-TAKING ULTRAM 50 MG TABLET 1 TABLET NEEDED FOR PAIN ORALLY EVERY 6 HRS MDD1 NOT-TAKING NASACORT ALLERGY 24HR 55 MCG/ACT AEROSOL 1 PUFF IN EACH NOSTRIL NASALLY ONCE A DAY NOT-TAKING CELEBREX 100 MG CAPSULE 1 CAPSULE ORALLY TWICE A DAY NOT-TAKING VITAMIN C 500 MG TABLET DIRECTED ORALLY DAILY, NOTES: 09/02/15 0900 MEDICATION LIST REVIEWED AND RECONCILED WITH THE PATIENT PAST MEDICAL HISTORY DIABETES BLOOD PRESSURE ASTHMA PITUITARY ADENOMA ARTHRITIS 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 SOCIAL HISTORY GENERAL: TOBACCO USE ARE YOU A:NONSMOKER LEARNING BARRIERS / SPECIAL NEEDS ORIENTED TO PLAN OF CARE: PATIENT, PAIN MANAGEMENT PATIENT, ORIENTED TO PLAN OF CARE: PATIENT, PAIN MANAGEMENT PATIENT. NEW PATIENT PAIN DIARY TODAY'S VISITNOTES FROM 0-10, WHAT LEVEL IS YOUR PAIN TODAY?0 PAIN CLINIC PFS, CLERGY, PUBLIC HEALTH REFERRALS PFS REFERRAL NEEDED?NO CLERGY REFERRAL NEEDED?NO PUBLIC HEALTH REFERRAL NEEDED?NO WAS THE PROVIDER NOTIFIED OF ANY PERTINENT INFO?NO PFS REFERRAL NEEDED?NO CLERGY REFERRAL NEEDED?NO PUBLIC HEALTH REFERRAL NEEDED?NO WAS THE PROVIDER NOTIFIED OF ANY PERTINENT INFO?NO HOSPITALIZATION/MAJOR DIAGNOSTIC PROCEDURE SURGERY RELATED ASTHMA REVIEW OF SYSTEMS CONSTITUTIONAL: ANY CHANGE IN YOUR MEDICAL CONDITION? NO . CHILLS NO . FEVER NO . INFECTION: DO YOU HAVE NEW INFECTIONS? NO . DO YOU HAVE HISTORY OF MRSA? NO . MUSCULOSKELETAL: ANY NEW PATTERNS OF PAIN OR NUMBNESS? NO . GASTROENTEROLOGY: ANY NEW CHANGE IN BOWEL CONTROL? NO . GENITOURINARY: ANY NEW CHANGE IN BLADDER CONTROL? NO . IS THERE A CHANCE YOU COULD BE ? NO . HEMATOLOGY/LYMPH: DO YOU TAKE ANY BLOOD THINNERS? (FOR EXAMPLE- COUMADIN, PLAVIX, AGGRENOX, PLATEL, PRADAXA, OR XARELTO) NO . WHEN WAS YOUR LAST DOSE? DATE: TIME: . NEUROLOGY: HAVE YOU FALLEN IN THE PAST 6 MONTHS? NO . ANY NEW EXTREMITY NUMBNESS OR WEAKNESS? NO . CARDIOLOGY: DO YOU HAVE A PACEMAKER OR DEFIBRILLATOR? NO . RESPIRATORY: HAVE YOU BEEN SICK IN THE PAST WEEK? NO . FEVER NO . FLU LIKE SYMPTOMS? NO . COUGH NO . INTEGUMENTARY: DO YOU HAVE ANY RASHES OR OPEN SORES? NO . ALLERGIC/IMMUNO: ARE YOU ALLERGIC TO SHELLFISH OR IV DYE? NO . ANY NEW ALLERGIES? NO . PSYCHIATRIC: DO YOU HAVE THOUGHTS OF HURTING YOURSELF OR SOMEONE ELSE? NO . ARE YOU ABUSED, NEGLECTED, OR IN AN UNSAFE ENVIRONMENT? NO . ENDOCRINOLOGY: ARE YOU DIABETIC? NO . OTHER: DO YOU NEED ANY PRESCRIPTIONS? NO . IF YES, PLEASE LIST: ____ . ANY NEW PROBLEMS WITH YOUR MEDICATIONS? NO . WHEN DID YOU LAST EAT? ____ . WHEN DID YOU LAST DRINK? ____ . WHAT DID YOU LAST DRINK? ____ . NAME OF PERSON DRIVING YOU HOME? ____ . DO YOU HAVE ANY OTHER QUESTIONS OR CONCERNS NO . REVIEWED BY: PROVIDER: ZELDA KRAMER MD . VITAL SIGNS WT 232.2 LBS, HT 65", BMI 38.64 INDEX, BP 143/76 MM HG, HR 69 /MIN, RR 16 /MIN, TEMP 96.7 F, OXYGEN SAT % 98%, NA INITIALS SC 09:15, REVIEWED BY: LS. EXAMINATION : PATIENT IS ALERT O X 3 AND COOPERATIVE. ANTALGIC GAIT, LIMPING FROM THE LEFT SIDE. TENDERNESS IN THE LOWER BACK AND PARASPINAL MUSCLE GROUP MOSTLY THE LEFT SIDE. PATIENT IS ABLE TO EXTEND HER BACK AT 15 DEGREES WITH PAIN AND DISCOMFORT, PATIENT IS FLEXIBLE IS FLEXING HER BACK. MRI DONE ON 05/25/15 OF THE LUMBAR SPINE SHOWS DISC BULGES AT L2-L3 AND L3-L4 ALONG WITH STENOSIS AT L3-L4. ASSESSMENTS SPONDYLOSIS WITHOUT MYELOPATHY OR RADICULOPATHY, LUMBAR REGION - M47.816 (PRIMARY) SPONDYLOSIS WITHOUT MYELOPATHY OR RADICULOPATHY, LUMBOSACRAL REGION - M47.817 INTERVERTEBRAL DISC DISORDERS WITH RADICULOPATHY, LUMBAR REGION - M51.16 INTERVERTEBRAL DISC DISORDERS WITH RADICULOPATHY, LUMBOSACRAL REGION - M51.17 TREATMENT SPONDYLOSIS WITHOUT MYELOPATHY OR RADICULOPATHY, LUMBAR REGION NOTES: WE DISCUSSED SEVERAL ISSUES WITH MS. CABALLERO'S PAIN MANAGEMENT CASE. AT THIS TIME THE PATIENT WILL CONTINUE ON THE SAME MEDICATION REGIMEN BEFORE, AND WILL RECEIVE A REFILL OF THE NEEDED MEDICATIONS. DUE TO THE SUCCESS OF THE DIAGNOSTIC BLOCK PATIENT IS A GOOD CANDIDATE FOR A LEFT L4-L5 AND LEFT L5-S1 RADIOFREQUENCY, WE DISCUSSED THE RISK, BENEFITS, AND ALTERNATIVES AND THE PATIENT WOULD LIKE TO PROCEED. PATIENT WILL BE BOOKED PENDING APPROVAL. INSTRUCTIONS WERE GIVEN, QUESTIONS WERE ANSWERED, PATIENT REPORTS UNDERSTANDING AND AGREES WITH THE PLAN. I, LARON HOLMAN, DOCUMENTED THE ABOVE INFORMATION ACTING A SCRIBE FOR DR. KRAMER. I HAVE REVIEWED THE ABOVE DOCUMENT, WRITTEN BY LARON ENGLANDIBRuth AND I VERIFY THAT IT IS ACCURATE. OTHERS CONTINUE CYMBALTA CAPSULE DELAYED RELEASE PARTICLES, 30 MG, 1 CAPSULE, ORALLY FOR PAIN, TWICE A DAY MDD2, 30 DAY(S), 60, REFILLS 2 PROCEDURES PN WORKMANS' COMP OPINION IN YOUR OPINION, WAS THE INCIDENT THAT THE PATIENT DESCRIBED THE COMPETENT MEDICAL CAUSE OF THIS INJURY/ILLNESS? YES ARE THE PATIENT'S COMPLAINTS CONSISTENT WITH HIS/HER HISTORY OF THE INJURY/ILLNESS? YES IS THE PATIENT'S HISTORY OF THE INJURY/ILLNESS CONSISTENT WITH YOUR OBJECTIVE FINDING? YES WHAT IS THE PERCENTAGE OF TEMPORARY IMPAIRMENT? MODERATE TO MARKED = 66.7% IS THE PATIENT WORKING? YES DOCTOR ON SITE: ZELDA JOHNSTON MD PREVENTIVE MEDICINE PAIN CLINIC TEACHING: PROCEDURE TEACHING PRE RADIOFREQUENCY FACET BLOCK INSTRUCTIONS REVIEWED WITH PT. VERBALZIED UNDERSTANDING.. PROCEDURE CODES FA211 ESTABILISHED PATIENT [facility] CHARGE [id number] PAIN ASSESS POS TOOL F/U PLAN DOC [id number] DOC MEDS VERIFIED W/PT OR RE DISPOSITION & COMMUNICATION FOLLOW UP LT L4-L5 N LT L5-S1 RF PENDING APPROVAL ELECTRONICALLY SIGNED BY ZELDA KRAMER MD ON 03/25/2016 AT 09:15 PM EST DISCLAIMER : THIS IS A VISIT SUMMARY EXTRACTED FROM THE [employer] CHART. IT IS NOT A COPY OF THE [employer] PROGRESS NOTE. ALLI
== END ==
LOC: M PAIN 09:00
PROVIDERS: ATTEND Anesthesiology
DX: Z09 Encounter for follow-up examination after completed treatment for conditions other than malignant neoplasm (principal); G89.29 Other chronic pain; M47.816 Spondylosis without myelopathy or radiculopathy, lumbar region; M47.817 Spondylosis without myelopathy or radiculopathy, lumbosacral region; M51.16 Intervertebral disc disorders with radiculopathy, lumbar region; M51.17 Intervertebral disc disorders with radiculopathy, lumbosacral region; E11.9 Type 2 diabetes mellitus without complications; J45.909 Unspecified asthma, uncomplicated; D35.2 Benign neoplasm of pituitary gland; M19.90 Unspecified osteoarthritis, unspecified site; I10 Essential (primary) hypertension; K58.0 Irritable bowel syndrome with diarrhea; J32.9 Chronic sinusitis, unspecified; H40.059 Ocular hypertension, unspecified eye; R26.9 Unspecified abnormalities of gait and mobility; Z88.0 Allergy status to penicillin; Z88.2 Allergy status to sulfonamides; Z91.040 Latex allergy status; Z88.1 Allergy status to other antibiotic agents; Z91.018 Allergy to other foods; Z79.899 Other long term (current) drug therapy; Z79.891 Long term (current) use of opiate analgesic

== ENCOUNTER → 2016-05-02 | Outpatient (CLI) | payer OTHER ==
[~2016-05-02] MED LIST changes: +BUPIVACAINE HCL 0.25% 30 ML VIAL As Ordered ONE; +ISOVUE-M 300 61% 15ML VIAL (Q9967) As Ordered ONE; +LIDOCAINE 1% SDV INJ 30 ML VIAL As Ordered ONE; +TRIAMCINOLONE ACETONIDE SUSP 40 MG/ML VIAL (J3301) As Ordered ONE
--- NOTE | 2016-05-02 14:05 | REP ---
FLUOROSCOPIC GUIDANCE FOR LUMBAR FACET BLOCK: 05/02/2016 CLINICAL HISTORY: back pain. Three images from fluoroscopic guidance for lumbar radiofrequency ablation left facets from L3-4 through L5, S1. Three needles were seen on the AP oblique and lateral views. Fluoroscopy time: 1 minute 16 seconds. Signed by Brett Cordova MD 05/02/2016 05:08 P
--- NOTE | 2016-05-05 00:46 | ECWPNPC ---
PATIENT NAME: NATALIE CABALLERO : 1955 GENDER: FEMALE VISIT DATE: 05/02/2016 DISCHARGE DATE: 05/02/16 1315 VISIT LOCKED DATE TIME: PHYSICIAN: ZELDA KRAMER RESOURCE: ZELDA KRAMER REASON FOR APPOINTMENT 1. LEFT L4-L5 AND LEFT L5-S1 RADIOFREQUENCY HISTORY OF PRESENT ILLNESS HISTORY OF PRESENT ILLNESS: PAIN THE PATIENT DESCRIBES THE PAIN... FALL RISK SCREENING: SCREENING :NO FALLS IN THE PAST YEAR CURRENT MEDICATIONS TAKING CYMBALTA 30 MG CAPSULE DELAYED RELEASE PARTICLES 1 CAPSULE ORALLY FOR PAIN TWICE A DAY MDD2, NOTES: 04-30-16 TAKING GABAPENTIN 300 MG CAPSULE 1 CAPSULE ORALLY SPECIAL FUNDS TWO TIMES A DAY FOR PAINMDD2, NOTES: 04-30-16 TAKING SKELAXIN 800 MG TABLET 1 TABLET ORALLY BID PRN, NOTES: NONE TAKING ALLOPURINOL 300 MG TABLET 1 TABLET ORALLY ONCE A DAY, NOTES: 04-30-16 TAKING SINGULAIR 10 MG TABLET 1 TABLET IN THE EVENING ORALLY ONCE A DAY, NOTES: 04-30-16 TAKING BENTYL 20 MG TABLET 1 TABLET ORALLY EVERY 4 HOURS NEEDED, NOTES: 04-30-16 TAKING VENTOLIN HFA 108 (90 BASE) MCG/ACT AEROSOL SOLUTION 2 PUFFS INHALATION NEEDED, NOTES: NONE TAKING VITAMIN B COMPLEX CAPSULE DIRECTED ORALLY DAILY, NOTES: 04-30-16 TAKING HYDROCHLOROTHIAZIDE 25 25 MG TABLET DIRECTED ORAL DAILY, NOTES: 04-30-16 TAKING LATANOPROST 0.005 % SOLUTION 1 DROP INTO BOTH EYES EVENING OPHTHALMIC ONCE A DAY, NOTES: 05-01-16 PM TAKING SYMBICORT 80-4.5 MCG/ACT AEROSOL 2 PUFFS INHALATION TWICE A DAY, NOTES: NONE TAKING PREMARIN 0.625 MG/GM CREAM VAGINAL THREE TIMES A WEEK, NOTES: WEEKS AGO TAKING TYLENOL 500 MG TABLET 1 TABLET NEEDED ORALLY EVERY 6 HRS, NOTES: NONE TAKING BENTYL 10 MG CAPSULE 1 CAPSULE ORALLY TWO TIMES A DAY, NOTES: NONE TAKING REFRESH CELLUVISC 1 % SOLUTION 1 DROP INTO AFFECTED EYE NEEDED OPHTHALMIC 24 TIME(S) A DAY, NOTES: 05-02-16 TAKING DIFLUCAN 200 MG TABLET 1 TABLET ORALLY DIRECTED TAKING FIBER 58.6 % POWDER 2 CAPSULES WITH 8 OUNCES OF LIQUID ORALLY DAILY, NOTES: 04-30-16 TAKING CRANBERRY 405 MG CAPSULE ORALLY DAILY, NOTES: 04-30-16 TAKING TRAMADOL HCL 50 MG TABLET 1 TABLET NEEDED ORALLY Q8H PRN MDD3, NOTES: 04-29-16 TAKING FLONASE ALLERGY RELIEF 50 MCG/ACT SUSPENSION 1 SPRAY IN EACH NOSTRIL NASALLY ONCE A DAY, NOTES: 05-02-16 TAKING OXYBUTYNIN CHLORIDE 5 MG TABLET 2 TABLETS ORALLY 2 TIMES A DAY, NOTES: 04-30-16 TAKING ALPHA LIPOIC ACID 100 MG CAPSULE 1 CAP ORALLY DAILY, NOTES: 04-30-16 TAKING POTASSIUM CHLORIDE 10 MEQ CAPSULE EXTENDED RELEASE 1 CAPSULE WITH FOOD ORALLY ONCE A DAY, NOTES: 04-30-16 TAKING OMEPRAZOLE 20 MG CAPSULE DELAYED RELEASE 2 CAPSULES ORALLY ONCE A DAY, NOTES: 04-30-16 TAKING PROBIOTIC - CAPSULE ORALLY DAILY, NOTES: 04-30-16 NOT-TAKING XIIDRA 5 % SOLUTION 1 DROP INTO AFFECTED EYE OPHTHALMIC TWICE A DAY NOT-TAKING CABERGOLINE 0.5 MG TABLET 0.5 TABLET ORALLY TWICE A WEEK (TAKES 0.05 MG 1/2 TABLET), NOTES: MEDICATION DISCONTINUED NOT-TAKING MONOVISC 88 MG/4ML SOLUTION PREFILLED SYRINGE INTRA-ARTICULAR EVERY 6 MONTHS, NOTES: EVERY 6 MO (LAST 12/17/15) NOT-TAKING RHINOCORT AQUA 32 MCG/ACT SUSPENSION 1 SPRAY IN EACH NOSTRIL NASALLY NEEDED NOT-TAKING OXYBUTYNIN CHLORIDE ER 10 MG TABLET EXTENDED RELEASE 24 HOUR 1 TABLET ORALLY BID NOT-TAKING ULTRAM 50 MG TABLET 1 TABLET NEEDED FOR PAIN ORALLY EVERY 6 HRS MDD1 NOT-TAKING NASACORT ALLERGY 24HR 55 MCG/ACT AEROSOL 1 PUFF IN EACH NOSTRIL NASALLY ONCE A DAY NOT-TAKING CELEBREX 100 MG CAPSULE 1 CAPSULE ORALLY TWICE A DAY NOT-TAKING VITAMIN C 500 MG TABLET DIRECTED ORALLY DAILY, NOTES: 09/02/15 0900 DISCONTINUED ZYRTEC 10 MG TABLET CHEWABLE 1 TABLET ORALLY ONCE A DAY MEDICATION LIST REVIEWED AND RECONCILED WITH THE PATIENT PAST MEDICAL HISTORY DIABETES BLOOD PRESSURE ASTHMA PITUITARY ADENOMA ARTHRITIS 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 NO . CHILLS NO . FEVER NO . INFECTION: DO YOU HAVE NEW INFECTIONS? NO . DO YOU HAVE HISTORY OF MRSA? NO . MUSCULOSKELETAL: ANY NEW PATTERNS OF PAIN OR NUMBNESS? NO . GASTROENTEROLOGY: ANY NEW CHANGE IN BOWEL CONTROL? NO . GENITOURINARY: ANY NEW CHANGE IN BLADDER CONTROL? NO . IS THERE A CHANCE YOU COULD BE ? NO . HEMATOLOGY/LYMPH: DO YOU TAKE ANY BLOOD THINNERS? (FOR EXAMPLE- COUMADIN, PLAVIX, AGGRENOX, PLATEL, PRADAXA, OR XARELTO) NO . WHEN WAS YOUR LAST DOSE? DATE: TIME: . NEUROLOGY: HAVE YOU FALLEN IN THE PAST 6 MONTHS? NO . ANY NEW EXTREMITY NUMBNESS OR WEAKNESS? NO . CARDIOLOGY: DO YOU HAVE A PACEMAKER OR DEFIBRILLATOR? NO . RESPIRATORY: HAVE YOU BEEN SICK IN THE PAST WEEK? NO . FEVER NO . FLU LIKE SYMPTOMS? NO . COUGH NO . INTEGUMENTARY: DO YOU HAVE ANY RASHES OR OPEN SORES? NO . ALLERGIC/IMMUNO: ARE YOU ALLERGIC TO SHELLFISH OR IV DYE? NO . ANY NEW ALLERGIES? NO . PSYCHIATRIC: DO YOU HAVE THOUGHTS OF HURTING YOURSELF OR SOMEONE ELSE? NO . ARE YOU ABUSED, NEGLECTED, OR IN AN UNSAFE ENVIRONMENT? NO . ENDOCRINOLOGY: ARE YOU DIABETIC? NO . OTHER: DO YOU NEED ANY PRESCRIPTIONS? NO . IF YES, PLEASE LIST: ____ . ANY NEW PROBLEMS WITH YOUR MEDICATIONS? NO . WHEN DID YOU LAST EAT? 05-01-16 2100 . WHEN DID YOU LAST DRINK? 05-02-16 0800 . WHAT DID YOU LAST DRINK? WATER . NAME OF PERSON DRIVING YOU HOME? DELBERT . DO YOU HAVE ANY OTHER QUESTIONS OR CONCERNS NO . REVIEWED BY: PROVIDER: . VITAL SIGNS WT 232.0 LBS, HT 65", BMI 38.60 INDEX, BP 124/84 MM HG, HR 69 /MIN, RR 18 /MIN, TEMP 98.0 F, OXYGEN SAT % 98, NA INITIALS [id number], REVIEWED BY: CM. ASSESSMENTS SPONDYLOSIS WITHOUT MYELOPATHY OR RADICULOPATHY, LUMBAR REGION - M47.816 (PRIMARY) SPONDYLOSIS WITHOUT MYELOPATHY OR RADICULOPATHY, LUMBOSACRAL REGION - M47.817 TREATMENT OTHERS CONTINUE OMEPRAZOLE CAPSULE DELAYED RELEASE, 20 MG, 1 CAP, ORALLY, ONCE A DAY, 30 DAY(S), 30 CAPSULE, REFILLS 2, NOTES: 3--17 PROCEDURES PN RADIOFREQUENCY PRE PROCEDURE DIAGNOSES 1. LUMBAR SPONDYLOSIS 2. LUMBOSACRAL SPONDYLOSIS POST PROCEDURE DIAGNOSES 1. LUMBAR SPONDYLOSIS 2. LUMBOSACRAL SPONDYLOSIS PROCEDURE LEFT L4-L5 AND LEFT L5-S1 LUMBAR FACET RADIOFREQUENCY SURGEON DR. ZELDA KRAMER BUILDING CODE ADMINISTRATOR NONE ANESTHESIA LOCAL PRE PROCEDURE REPORT THE PATIENT HAS HISTORY OF CHRONIC LOW BACK PAIN. I EVALUATE THE PATIENT AND REVIEWED THE CHART. I WENT OVER THE RISKS, ALTERNATIVES, AND BENEFITS ASSOCIATED WITH THIS PROCEDURE. THE PATIENT WOULD LIKE TO PROCEED AND GIVE CONSENT TO PERFORMED THE PROCEDURE. THE PATIENT DENIES UNEXPLAINABLE WEIGHT LOSS, FEVER, CHILLS, OR NEW CHANGES IN URINARY OR BOWEL CONTROL DESCRIPTION OF PROCEDURE THE PATIENT WAS BROUGHT TO THE PROCEDURE ROOM AND PLACED IN THE PRONE POSITION. THE LUMBOSACRAL AREA WAS CLEANED WITH CHLORAPREP SOLUTION AND DRAPED ASEPTICALLY. THE PROCEDURE WAS DONE UNDER STERILE CONDITIONS. I CHECKED LATERALITY AND THE LEVEL WHERE THE PROCEDURE WAS GOING TO BE PERFORMED WITH THE PATIENT AND THE SUPPORTING STAFF AT THE MOMENT OF THE TIME OUT IN THE PROCEDURE ROOM. UNDER FLUOROSCOPIC GUIDANCE, TARGETS WERE SELECTED AT THE INTERSECTION OF THE LEFT TRANSVERSE PROCESS OF L4, L5 AND ALA OF S1 WITH ITS RESPECTIVE SUPERIOR ARTICULAR PROCESS. LIDOCAINE WAS USED TO NUMB THE SKIN AND THE SUBCUTANEOUS TISSUE BELOW IT. RADIOFREQUENCY NEEDLES 22-GAUGE 15 CM LONG WITH 10 MM ACTIVE CURVE TIP WERE ADVANCED UNDER FLUOROSCOPIC GUIDANCE AND FOLLOWING PATIENT FEEDBACK UNTIL THE TARGET AREA WAS REACHED. POSITION OF THE NEEDLES WAS VERIFIED WITH AP AND LATERAL VIEWS. AFTER PROPER POSITION OF THE NEEDLE WAS ACHIEVED, WE WORKED WITH THE LEFT SELECTED MEDIAN BRANCHES OF L3, L4 AND THE DORSAL RAMI OF L5. WE MEASURED THE CORRESPONDING IMPEDANCES, SENSORY STIMULATION AND MOTOR RESPONSES INDICATED IN THE RADIOFREQUENCY WORK SHEET. POSITION OF THE NEEDLES WAS VERIFIED AGAIN WITH AP AND LATERAL VIEWS. LIDOCAINE 1%, 2 ML, WAS INJECTED AT EACH LEVEL. RADIOFREQUENCY WAS DONE AT EACH LEVEL AT 80 DEGREES FOR 90 SECONDS. AFTER RADIOFREQUENCY WAS DONE, THE PATIENT RECEIVED BUPIVACAINE 0.125% 1 CC WITH KENALOG 5 MG AT EACH SITE. THERE WAS NO EVIDENCE OF BLOOD, PARESTHESIA OR CEREBROSPINAL FLUID DURING THE PROCEDURE. THE PATIENT WAS SENT TO THE RECOVERY ROOM. THE PATIENT WAS MOVING THE EXTREMITIES AND DOING WELL. THERE WAS NO COMPLICATION DURING THE PROCEDURE. FLUOROSCOPY TIME WAS 1 MIN 16 SECONDS POST PROCEDURE NOTE THE PATIENT WILL BE SEEN IN A FOLLOW UP IN THE NEXT FEW WEEKS. INSTRUCTIONS WERE GIVEN, QUESTIONS WERE ANSWERED, AND THE PATIENT EXPRESSED UNDERSTANDING AND AGREES WITH THE PLAN. I, MARILYN SANTAMARIA, DOCUMENTED THE ABOVE INFORMATION ACTING A SCRIBE FOR DR. KRAMER. I, DR. KRAMER, HAVE REVIEWED THE ABOVE DOCUMENT, SCRIBED BY MARILYN SANTAMARIA, AND I VERIFY THAT IT IS ACCURATE DIAGNOSTIC IMAGING [facility] FACET BLOCK (PAIN)[id number] PROCEDURE CODES FA211 ESTABILISHED PATIENT [facility] FACILITY CHARGE 33756 DESTROY LUMB/S[place] JNT 28764 DESTROY L/S FACET JNT ADDL [id number] RADXPS IN END [id number] PXD DISPOSITION & COMMUNICATION FOLLOW UP 3 WEEKS ELECTRONICALLY SIGNED BY ZELDA KRAMER MD ON 05/04/2016 AT 01:46 PM EDT DISCLAIMER : THIS IS A VISIT SUMMARY EXTRACTED FROM THE [employer] CHART. IT IS NOT A COPY OF THE N[email or web address] PROGRESS NOTE. MTDOdalis
== END ==
LOC: M PAIN 10:20
PROVIDERS: ATTEND Anesthesiology
DX: G89.29 Other chronic pain (principal); M47.816 Spondylosis without myelopathy or radiculopathy, lumbar region; M47.817 Spondylosis without myelopathy or radiculopathy, lumbosacral region; E11.9 Type 2 diabetes mellitus without complications; I10 Essential (primary) hypertension; J45.909 Unspecified asthma, uncomplicated; M19.90 Unspecified osteoarthritis, unspecified site; Z88.0 Allergy status to penicillin; Z88.2 Allergy status to sulfonamides; Z91.040 Latex allergy status; Z88.1 Allergy status to other antibiotic agents; L23.0 Allergic contact dermatitis due to metals; Z91.018 Allergy to other foods; Z79.899 Other long term (current) drug therapy
CPT/HCPCS: 64635; 64636; J3301; Q9967

== ENCOUNTER → 2016-06-07 | Outpatient (CLI) | payer OTHER ==
[~2016-06-07] MED LIST changes: -BUPIVACAINE HCL 0.25% 30 ML VIAL As Ordered ONE; -ISOVUE-M 300 61% 15ML VIAL (Q9967) As Ordered ONE; -LIDOCAINE 1% SDV INJ 30 ML VIAL As Ordered ONE; -TRIAMCINOLONE ACETONIDE SUSP 40 MG/ML VIAL (J3301) As Ordered ONE
--- NOTE | 2016-06-19 00:02 | ECWPNPC ---
PATIENT NAME: NATALIE CABALLERO : 1955 GENDER: FEMALE VISIT DATE: 06/07/2016 DISCHARGE DATE: 06/07/16 1607 VISIT LOCKED DATE TIME: PHYSICIAN: ZELDA KRAMER RESOURCE: ZELDA KRAMER REASON FOR APPOINTMENT 1. LOW BACK PAIN W/C HISTORY OF PRESENT ILLNESS HISTORY OF PRESENT ILLNESS: PAIN THE PATIENT DESCRIBES THE PAIN... 60 YEAR OLD FEMALE PATIENT WITH HISTORY OF CHRONIC LOW BACK PAIN. PATIENT DESCRIBES THE PAIN ACHING, STABBING, TENDER, THROBBING, SORE, SHOOTING, AND HAVING IT ALL THE TIME ON THE LEFT LOWER BACK WITH A PAIN SCORE OF 7/10. 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 MRS. CABALLERO RECEIVED A RIGHT RADIOFREQUENCY ON 05/02/16 AND REPORTS HAVING OVER 50% RELIEF IN PAIN AND INCREASED MOBILITY AND FUNCTIONALITY HOWEVER SHE FEELS A LOT OF PAIN OVER THE LEFT SIDE AT THIS TIME. CURRENTLY THE PATIENT IS USING GABAPENTIN, SKELAXIN, CYMBALTA, AND TRAMADOL AND STATES THAT THE MEDICATION KEEPS HER MOBILE AND FUNCTIONAL. PATIENT DENIES UNEXPLAINABLE WEIGHT LOSS, FEVER, CHILLS, NEW CHANGES ON HER URINARY OR BOWEL CONTROL. FALL RISK SCREENING: SCREENING :NO FALLS IN THE PAST YEAR CURRENT MEDICATIONS TAKING CYMBALTA 30 MG CAPSULE DELAYED RELEASE PARTICLES 1 CAPSULE ORALLY FOR PAIN TWICE A DAY MDD2 TAKING GABAPENTIN 300 MG CAPSULE 1 CAPSULE ORALLY [facility] TWO TIMES A DAY FOR PAINMDD2 TAKING SKELAXIN 800 MG TABLET 1 TABLET ORALLY BID PRN TAKING ALLOPURINOL 300 MG TABLET 1 TABLET ORALLY ONCE A DAY TAKING SINGULAIR 10 MG TABLET 1 TABLET IN THE EVENING ORALLY ONCE A DAY TAKING BENTYL 20 MG TABLET 1 TABLET ORALLY EVERY 4 HOURS NEEDED TAKING VENTOLIN HFA 108 (90 BASE) MCG/ACT AEROSOL SOLUTION 2 PUFFS INHALATION NEEDED TAKING VITAMIN B COMPLEX CAPSULE DIRECTED ORALLY DAILY TAKING HYDROCHLOROTHIAZIDE 25 25 MG TABLET DIRECTED ORAL DAILY TAKING LATANOPROST 0.005 % SOLUTION 1 DROP INTO BOTH EYES EVENING OPHTHALMIC ONCE A DAY TAKING SYMBICORT 80-4.5 MCG/ACT AEROSOL 2 PUFFS INHALATION TWICE A DAY TAKING PREMARIN 0.625 MG/GM CREAM VAGINAL THREE TIMES A WEEK TAKING TYLENOL 500 MG TABLET 1 TABLET NEEDED ORALLY EVERY 6 HRS TAKING BENTYL 10 MG CAPSULE 1 CAPSULE ORALLY TWO TIMES A DAY TAKING REFRESH CELLUVISC 1 % SOLUTION 1 DROP OU OPHTHALMIC 24 TIME(S) A DAY TAKING DIFLUCAN 200 MG TABLET 1 TABLET ORALLY DIRECTED TAKING FIBER 58.6 % POWDER 2 CAPSULES WITH 8 OUNCES OF LIQUID ORALLY DAILY TAKING CRANBERRY 405 MG CAPSULE ORALLY DAILY TAKING TRAMADOL HCL 50 MG TABLET 1 TABLET NEEDED ORALLY Q8H PRN MDD3 TAKING FLONASE ALLERGY RELIEF 50 MCG/ACT SUSPENSION 1 SPRAY IN EACH NOSTRIL NASALLY ONCE A DAY TAKING OXYBUTYNIN CHLORIDE 5 MG TABLET 2 TABLETS ORALLY 2 TIMES A DAY TAKING ALPHA LIPOIC ACID 100 MG CAPSULE 1 CAP ORALLY DAILY TAKING POTASSIUM CHLORIDE 10 MEQ CAPSULE EXTENDED RELEASE 1 CAPSULE WITH FOOD ORALLY ONCE A DAY TAKING PROBIOTIC - CAPSULE ORALLY DAILY TAKING OMEPRAZOLE 20 MG CAPSULE DELAYED RELEASE 1 CAP ORALLY ONCE A DAY TAKING ALLERX 1 DROP OU BID NOT-TAKING XIIDRA 5 % SOLUTION 1 DROP INTO AFFECTED EYE OPHTHALMIC TWICE A DAY NOT-TAKING CABERGOLINE 0.5 MG TABLET 0.5 TABLET ORALLY TWICE A WEEK (TAKES 0.05 MG 1/2 TABLET), NOTES: MEDICATION DISCONTINUED NOT-TAKING MONOVISC 88 MG/4ML SOLUTION PREFILLED SYRINGE INTRA-ARTICULAR EVERY 6 MONTHS, NOTES: EVERY 6 MO (LAST 12/17/15) NOT-TAKING RHINOCORT AQUA 32 MCG/ACT SUSPENSION 1 SPRAY IN EACH NOSTRIL NASALLY NEEDED NOT-TAKING OXYBUTYNIN CHLORIDE ER 10 MG TABLET EXTENDED RELEASE 24 HOUR 1 TABLET ORALLY BID NOT-TAKING ULTRAM 50 MG TABLET 1 TABLET NEEDED FOR PAIN ORALLY EVERY 6 HRS MDD1 NOT-TAKING NASACORT ALLERGY 24HR 55 MCG/ACT AEROSOL 1 PUFF IN EACH NOSTRIL NASALLY ONCE A DAY NOT-TAKING CELEBREX 100 MG CAPSULE 1 CAPSULE ORALLY TWICE A DAY NOT-TAKING VITAMIN C 500 MG TABLET DIRECTED ORALLY DAILY, NOTES: 09/02/15 0900 MEDICATION LIST REVIEWED AND RECONCILED WITH THE PATIENT PAST MEDICAL HISTORY DIABETES BLOOD PRESSURE ASTHMA PITUITARY ADENOMA ARTHRITIS 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 DUE TO HYPERTENSION CHRONIC SINUSITIS ALLERGIES PENICILLIN (FOR ALLERGIES USE ONLY): RASH: ALLERGY SULFA (FOR ALLERGY USE ONLY): RASH: ALLERGY PHENERGAN: BLOOD CLOT: SIDE EFFECTS LATEX CONDOMS, RUBBER BANDS, GLOVES: RASH: ALLERGY ERYTHROMYCIN: RASH: ALLERGY NICLKEL: RASH: ALLERGY SULFITES: DYSPNEA: ALLERGY WHEAT: GI UPSET, WATERY EYES AND SINUS CONGERSTION: SIDE EFFECTS SURGICAL HISTORY BTL 1987 GB 1991 ACL 2001 RIGHT ROTATOR CUFF 02/2014 FAMILY HISTORY NO FAMILY HISTORY DOCUMENTED. SOCIAL HISTORY GENERAL: TOBACCO USE ARE YOU A:NONSMOKER LEARNING BARRIERS / SPECIAL NEEDS ORIENTED TO PLAN OF CARE: PATIENT, PAIN MANAGEMENT PATIENT, ORIENTED TO PLAN OF CARE: PATIENT, PAIN MANAGEMENT PATIENT. NEW PATIENT PAIN DIARY TODAY'S VISITNOTES FROM 0-10, WHAT LEVEL IS YOUR PAIN TODAY?0 PAIN CLINIC PFS, CLERGY, PUBLIC HEALTH REFERRALS PFS REFERRAL NEEDED?NO CLERGY REFERRAL NEEDED?NO PUBLIC HEALTH REFERRAL NEEDED?NO WAS THE PROVIDER NOTIFIED OF ANY PERTINENT INFO?NO PFS REFERRAL NEEDED?NO CLERGY REFERRAL NEEDED?NO PUBLIC HEALTH REFERRAL NEEDED?NO WAS THE PROVIDER NOTIFIED OF ANY PERTINENT INFO?NO HOSPITALIZATION/MAJOR DIAGNOSTIC PROCEDURE SURGERY RELATED ASTHMA REVIEW OF SYSTEMS CONSTITUTIONAL: ANY CHANGE IN YOUR MEDICAL CONDITION? NO . CHILLS NO . FEVER NO . INFECTION: DO YOU HAVE NEW INFECTIONS? NO . DO YOU HAVE HISTORY OF MRSA? NO . MUSCULOSKELETAL: ANY NEW PATTERNS OF PAIN OR NUMBNESS? NO . GASTROENTEROLOGY: ANY NEW CHANGE IN BOWEL CONTROL? NO . GENITOURINARY: ANY NEW CHANGE IN BLADDER CONTROL? NO . IS THERE A CHANCE YOU COULD BE ? NO . HEMATOLOGY/LYMPH: DO YOU TAKE ANY BLOOD THINNERS? (FOR EXAMPLE- COUMADIN, PLAVIX, AGGRENOX, PLATEL, PRADAXA, OR XARELTO) NO . WHEN WAS YOUR LAST DOSE? DATE: TIME: . NEUROLOGY: HAVE YOU FALLEN IN THE PAST 6 MONTHS? NO . ANY NEW EXTREMITY NUMBNESS OR WEAKNESS? NO . CARDIOLOGY: DO YOU HAVE A PACEMAKER OR DEFIBRILLATOR? NO . RESPIRATORY: HAVE YOU BEEN SICK IN THE PAST WEEK? NO . FEVER NO . FLU LIKE SYMPTOMS? NO . COUGH NO . INTEGUMENTARY: DO YOU HAVE ANY RASHES OR OPEN SORES? NO . ALLERGIC/IMMUNO: ARE YOU ALLERGIC TO SHELLFISH OR IV DYE? NO . ANY NEW ALLERGIES? NO . PSYCHIATRIC: DO YOU HAVE THOUGHTS OF HURTING YOURSELF OR SOMEONE ELSE? NO . ARE YOU ABUSED, NEGLECTED, OR IN AN UNSAFE ENVIRONMENT? NO . ENDOCRINOLOGY: ARE YOU DIABETIC? NO . OTHER: DO YOU NEED ANY PRESCRIPTIONS? NO . IF YES, PLEASE LIST: ____ . ANY NEW PROBLEMS WITH YOUR MEDICATIONS? NO . WHEN DID YOU LAST EAT? ____ . WHEN DID YOU LAST DRINK? ____ . WHAT DID YOU LAST DRINK? ____ . NAME OF PERSON DRIVING YOU HOME? ____ . DO YOU HAVE ANY OTHER QUESTIONS OR CONCERNS WOULD LIKE RF ON RIGHT . REVIEWED BY: PROVIDER: ZELDA KRAMER MD . VITAL SIGNS WT 238 LBS, HT 65", BMI 39.60 INDEX, BP 133/69 MM HG, HR 73 /MIN, RR 16 /MIN, TEMP 98.2 F, OXYGEN SAT % 99, REVIEWED BY: AD. EXAMINATION : PATIENT IS ALERT O X 3 AND COOPERATIVE. ANTALGIC GAIT. TENDERNESS IN THE LOWER BACK AND PARASPINAL MUSCLE GROUP MOSTLY THE RIGHT SIDE. PATIENT IS ABLE TO EXTEND HER BACK AT 15 DEGREES WITH PAIN AND DISCOMFORT, PATIENT IS FLEXIBLE IS FLEXING HER BACK. MRI DONE ON 05/25/15 OF THE LUMBAR SPINE SHOWS DISC BULGES AT L2-L3 AND L3-L4 ALONG WITH STENOSIS AT L3-L4. ASSESSMENTS SPONDYLOSIS WITHOUT MYELOPATHY OR RADICULOPATHY, LUMBAR REGION - M47.816 (PRIMARY) SPONDYLOSIS WITHOUT MYELOPATHY OR RADICULOPATHY, LUMBOSACRAL REGION - M47.817 INTERVERTEBRAL DISC DISORDERS WITH RADICULOPATHY, LUMBAR REGION - M51.16 TREATMENT SPONDYLOSIS WITHOUT MYELOPATHY OR RADICULOPATHY, LUMBAR REGION NOTES: WE DISCUSSED SEVERAL ISSUES WITH MRS. CABALLERO'S PAIN MANAGEMENT CASE. AT THIS TIME THE PATIENT WILL CONTINUE WITH THE SAME MEDICATION REGIME BEFORE. PATIENT WILL USE THE CYMBALTA FOR THE NEUROPATHIC PAIN, GABAPENTIN FOR THE NEUROPATHIC PAIN, TRAMADOL FOR THE SOMATIC PAIN, AND SKELAXIN FOR THE MUSCLE SPASMS. PATIENT RECEIVED A LEFT RADIOFREQUENCY ON 05/02/16 AND STATES THAT SHE HAS HAD OVER 50% PAIN RELIEF AND INCREASED MOBILITY AND FUNCTIONALITY. PATIENT REPORTS HAVING SEVERE PAIN ON THE RIGHT SIDE NOW. WE DISCUSSED MOVING FORWARD WITH A DIAGNOSTIC TEST ON THE RIGHT SIDE TO CONSIDER RADIOFREQUENCY. WE DISCUSSED THE RISKS, BENENFITS, AND ALTNERATIVES OF THE INJECTION AND THE PATIENT WOULD LIKE TO PROCEED AT THIS TIME. INSTRUCTIONS WERE GIVEN, QUESTIONS WERE ANSWERED, PATIENT REPORTS UNDERSTANDING AND AGREES WITH THE PLAN. I, MARILYN SANTAMARIA, DOCUMENTED THE ABOVE INFORMATION ACTING A SCRIBE FOR DR. KRAMER. I HAVE REVIEWED THE ABOVE DOCUMENT, WRITTEN BY MARILYN CLEANING AND I VERIFY THAT IT IS ACCURATE. OTHERS REFILL CYMBALTA CAPSULE DELAYED RELEASE PARTICLES, 30 MG, 1 CAPSULE, ORALLY FOR PAIN, TWICE A DAY MDD2, 30 DAY(S), 60, REFILLS 2 REFILL GABAPENTIN CAPSULE, 300 MG, 1 CAPSULE, ORALLY SPECIAL FUNDS, TWO TIMES A DAY FOR PAINMDD2, 30 DAY(S), 60, REFILLS 2 NOTES: FACET JOINT INJECTION MATERIAL WAS PRINTED. PROCEDURES PN WORKMANS' COMP OPINION IN YOUR OPINION, WAS THE INCIDENT THAT THE PATIENT DESCRIBED THE COMPETENT MEDICAL CAUSE OF THIS INJURY/ILLNESS? YES ARE THE PATIENT'S COMPLAINTS CONSISTENT WITH HIS/HER HISTORY OF THE INJURY/ILLNESS? YES IS THE PATIENT'S HISTORY OF THE INJURY/ILLNESS CONSISTENT WITH YOUR OBJECTIVE FINDING? YES WHAT IS THE PERCENTAGE OF TEMPORARY IMPAIRMENT? MODERATE TO MARKED = 66.7% IS THE PATIENT WORKING? YES DOCTOR ON SITE: ZELDA JOHNSTON MD PROCEDURE CODES FA211 ESTABILISHED PATIENT [facility] FACILITY CHARGE G8427 DOC MEDS VERIFIED W/PT OR RE G8730 PAIN ASSESS POS TOOL F/U PLAN DOC DISPOSITION & COMMUNICATION FOLLOW UP RIGHT LFBD AFTER APPROVAL ELECTRONICALLY SIGNED BY ZELDA KRAMER MD ON 06/18/2016 AT 12:14 PM EDT DISCLAIMER : THIS IS A VISIT SUMMARY EXTRACTED FROM THE [employer] CHART. IT IS NOT A COPY OF THE [employer] PROGRESS NOTE. ALLI
== END ==
LOC: M PAIN 14:40
PROVIDERS: ATTEND Anesthesiology
DX: G89.29 Other chronic pain (principal); M47.816 Spondylosis without myelopathy or radiculopathy, lumbar region; M47.817 Spondylosis without myelopathy or radiculopathy, lumbosacral region; M51.16 Intervertebral disc disorders with radiculopathy, lumbar region; E11.9 Type 2 diabetes mellitus without complications; J45.909 Unspecified asthma, uncomplicated; M19.90 Unspecified osteoarthritis, unspecified site; Z88.0 Allergy status to penicillin; Z88.2 Allergy status to sulfonamides; Z88.8 Allergy status to other drugs, medicaments and biological substances; Z91.040 Latex allergy status; Z88.1 Allergy status to other antibiotic agents; L23.0 Allergic contact dermatitis due to metals; Z91.018 Allergy to other foods; Z79.899 Other long term (current) drug therapy

== ENCOUNTER → 2016-07-07 | Outpatient (CLI) | payer OTHER ==
[~2016-07-07] MED LIST changes: +BUPIVACAINE HCL 0.25% 30 ML VIAL As Ordered ONE; +ISOVUE-M 300 61% 15ML VIAL (Q9967) As Ordered ONE; +LIDOCAINE 1% SDV INJ 30 ML VIAL As Ordered ONE
--- NOTE | 2016-07-07 14:47 | REP ---
C-ARM VIEWS OF THE LUMBAR SPINE: CLINICAL HISTORY: Pain. Two C-arm views of the lumbar spine are performed during injection by Dr. Hoover. Gilbert are seen along the lower lumbar spine. 19 seconds of fluoroscopy time is utilized for the procedure. Signed by Ryan Worrell MD 07/07/2016 03:59 P
--- NOTE | 2016-07-12 01:02 | ECWPNPC ---
PATIENT NAME: NATALIE CABALLERO : 1955 GENDER: FEMALE VISIT DATE: 07/07/2016 DISCHARGE DATE: 07/07/16 1133 VISIT LOCKED DATE TIME: PHYSICIAN: ZELDA KRAMER RESOURCE: ZELDA KRAMER REASON FOR APPOINTMENT 1. LFBD #2 HISTORY OF PRESENT ILLNESS HISTORY OF PRESENT ILLNESS: PAIN THE PATIENT DESCRIBES THE PAIN... FALL RISK SCREENING: SCREENING :NO FALLS IN THE PAST YEAR CURRENT MEDICATIONS TAKING CYMBALTA 30 MG CAPSULE DELAYED RELEASE PARTICLES 1 CAPSULE ORALLY FOR PAIN TWICE A DAY MDD2, NOTES: 07-06-162199 TAKING GABAPENTIN 300 MG CAPSULE 1 CAPSULE ORALLY SPECIAL FUNDS TWO TIMES A DAY FOR PAINMDD2, NOTES: 07-06-162199 TAKING SKELAXIN 800 MG TABLET 1 TABLET ORALLY BID PRN, NOTES: 899 TAKING ALLOPURINOL 300 MG TABLET 1 TABLET ORALLY ONCE A DAY, NOTES: 07-06-16899 TAKING SINGULAIR 10 MG TABLET 1 TABLET IN THE EVENING ORALLY ONCE A DAY, NOTES: 07-06-16899 TAKING BENTYL 20 MG TABLET 1 TABLET ORALLY EVERY 4 HOURS NEEDED, NOTES: 07-06-162199 TAKING VENTOLIN HFA 108 (90 BASE) MCG/ACT AEROSOL SOLUTION 2 PUFFS INHALATION NEEDED, NOTES: 2099 TAKING VITAMIN B COMPLEX CAPSULE DIRECTED ORALLY DAILY, NOTES: 07-06-16899 TAKING HYDROCHLOROTHIAZIDE 25 25 MG TABLET DIRECTED ORAL DAILY, NOTES: 07-06-16899 TAKING LATANOPROST 0.005 % SOLUTION 1 DROP INTO BOTH EYES EVENING OPHTHALMIC ONCE A DAY, NOTES: 07-06-162199 TAKING SYMBICORT 80-4.5 MCG/ACT AEROSOL 2 PUFFS INHALATION TWICE A DAY, NOTES: 07-06-162199 TAKING PREMARIN 0.625 MG/GM CREAM VAGINAL THREE TIMES A WEEK, NOTES: 07-06-16 TAKING TYLENOL 500 MG TABLET 1 TABLET NEEDED ORALLY EVERY 6 HRS, NOTES: [id number] TAKING BENTYL 10 MG CAPSULE 1 CAPSULE ORALLY TWO TIMES A DAY, NOTES: 06-19-162199 TAKING REFRESH CELLUVISC 1 % SOLUTION 1 DROP OU OPHTHALMIC 24 TIME(S) A DAY, NOTES: 07-06-162199 TAKING DIFLUCAN 200 MG TABLET 1 TABLET ORALLY DIRECTED, NOTES: 06-19-162199 TAKING FIBER 58.6 % POWDER 2 CAPSULES WITH 8 OUNCES OF LIQUID ORALLY DAILY, NOTES: 07-06-16899 TAKING CRANBERRY 405 MG CAPSULE ORALLY DAILY, NOTES: 07-06-162199 TAKING TRAMADOL HCL 50 MG TABLET 1 TABLET NEEDED ORALLY Q8H PRN MDD3, NOTES: 07-06-162099 TAKING FLONASE ALLERGY RELIEF 50 MCG/ACT SUSPENSION 1 SPRAY IN EACH NOSTRIL NASALLY ONCE A DAY, NOTES: 07-06-16899 TAKING OXYBUTYNIN CHLORIDE 5 MG TABLET 2 TABLETS ORALLY 2 TIMES A DAY, NOTES: 07-07-16799 TAKING ALPHA LIPOIC ACID 100 MG CAPSULE 1 CAP ORALLY DAILY, NOTES: 07-06-16899 TAKING POTASSIUM CHLORIDE 10 MEQ CAPSULE EXTENDED RELEASE 1 CAPSULE WITH FOOD ORALLY ONCE A DAY, NOTES: 07-06-16899 TAKING PROBIOTIC - CAPSULE ORALLY DAILY, NOTES: 07-06-16899 TAKING OMEPRAZOLE 20 MG CAPSULE DELAYED RELEASE 1 CAP ORALLY ONCE A DAY, NOTES: 07-06-16899 TAKING ALLERX 1 DROP OU BID, NOTES: 07-06-162199 NOT-TAKING XIIDRA 5 % SOLUTION 1 DROP INTO AFFECTED EYE OPHTHALMIC TWICE A DAY NOT-TAKING CABERGOLINE 0.5 MG TABLET 0.5 TABLET ORALLY TWICE A WEEK (TAKES 0.05 MG 1/2 TABLET), NOTES: MEDICATION DISCONTINUED NOT-TAKING MONOVISC 88 MG/4ML SOLUTION PREFILLED SYRINGE INTRA-ARTICULAR EVERY 6 MONTHS, NOTES: EVERY 6 MO (LAST 12/17/15) NOT-TAKING RHINOCORT AQUA 32 MCG/ACT SUSPENSION 1 SPRAY IN EACH NOSTRIL NASALLY NEEDED NOT-TAKING OXYBUTYNIN CHLORIDE ER 10 MG TABLET EXTENDED RELEASE 24 HOUR 1 TABLET ORALLY BID NOT-TAKING ULTRAM 50 MG TABLET 1 TABLET NEEDED FOR PAIN ORALLY EVERY 6 HRS MDD1 NOT-TAKING NASACORT ALLERGY 24HR 55 MCG/ACT AEROSOL 1 PUFF IN EACH NOSTRIL NASALLY ONCE A DAY NOT-TAKING CELEBREX 100 MG CAPSULE 1 CAPSULE ORALLY TWICE A DAY NOT-TAKING VITAMIN C 500 MG TABLET DIRECTED ORALLY DAILY, NOTES: 09/02/15 0900 MEDICATION LIST REVIEWED AND RECONCILED WITH THE PATIENT PAST MEDICAL HISTORY DIABETES BLOOD PRESSURE ASTHMA PITUITARY ADENOMA ARTHRITIS 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 NO . CHILLS NO . FEVER NO . INFECTION: DO YOU HAVE NEW INFECTIONS? NO . DO YOU HAVE HISTORY OF MRSA? NO . MUSCULOSKELETAL: ANY NEW PATTERNS OF PAIN OR NUMBNESS? NO . GASTROENTEROLOGY: ANY NEW CHANGE IN BOWEL CONTROL? NO . GENITOURINARY: ANY NEW CHANGE IN BLADDER CONTROL? NO . IS THERE A CHANCE YOU COULD BE ? NO . HEMATOLOGY/LYMPH: DO YOU TAKE ANY BLOOD THINNERS? (FOR EXAMPLE- COUMADIN, PLAVIX, AGGRENOX, PLATEL, PRADAXA, OR XARELTO) NO . WHEN WAS YOUR LAST DOSE? DATE: TIME: . NEUROLOGY: HAVE YOU FALLEN IN THE PAST 6 MONTHS? NO . ANY NEW EXTREMITY NUMBNESS OR WEAKNESS? NO . CARDIOLOGY: DO YOU HAVE A PACEMAKER OR DEFIBRILLATOR? NO . RESPIRATORY: HAVE YOU BEEN SICK IN THE PAST WEEK? NO . FEVER NO . FLU LIKE SYMPTOMS? NO . COUGH NO . INTEGUMENTARY: DO YOU HAVE ANY RASHES OR OPEN SORES? NO . ALLERGIC/IMMUNO: ARE YOU ALLERGIC TO SHELLFISH OR IV DYE? NO . ANY NEW ALLERGIES? NO . PSYCHIATRIC: DO YOU HAVE THOUGHTS OF HURTING YOURSELF OR SOMEONE ELSE? NO . ARE YOU ABUSED, NEGLECTED, OR IN AN UNSAFE ENVIRONMENT? NO . ENDOCRINOLOGY: ARE YOU DIABETIC? NO . OTHER: DO YOU NEED ANY PRESCRIPTIONS? NO . IF YES, PLEASE LIST: ____ . ANY NEW PROBLEMS WITH YOUR MEDICATIONS? NO . WHEN DID YOU LAST EAT? ____7 PM LAST NIGHT . WHEN DID YOU LAST DRINK? ____0800 TODAY . WHAT DID YOU LAST DRINK? ____WATER . NAME OF PERSON DRIVING YOU HOME? ____MARK . DO YOU HAVE ANY OTHER QUESTIONS OR CONCERNS NO . REVIEWED BY: PROVIDER: . VITAL SIGNS WT 230.0 LBS, HT 65", BMI 38.27 INDEX, BP 133/60 MM HG, HR 69 /MIN, RR 16 /MIN, TEMP 98.0 F, OXYGEN SAT % 98%, NA INITIALS TL 0958. ASSESSMENTS SPONDYLOSIS WITHOUT MYELOPATHY OR RADICULOPATHY, LUMBAR REGION - M47.816 (PRIMARY) SPONDYLOSIS WITHOUT MYELOPATHY OR RADICULOPATHY, LUMBOSACRAL REGION - M47.817 PROCEDURES PN WORKMANS' COMP OPINION IN YOUR OPINION, WAS THE INCIDENT THAT THE PATIENT DESCRIBED THE COMPETENT MEDICAL CAUSE OF THIS INJURY/ILLNESS? YES ARE THE PATIENT'S COMPLAINTS CONSISTENT WITH HIS/HER HISTORY OF THE INJURY/ILLNESS? YES IS THE PATIENT'S HISTORY OF THE INJURY/ILLNESS CONSISTENT WITH YOUR OBJECTIVE FINDING? YES WHAT IS THE PERCENTAGE OF TEMPORARY IMPAIRMENT? MODERATE TO MARKED = 66.7% IS THE PATIENT WORKING? YES DOCTOR ON SITE: ZELDA JOHNSTON MD PN LUMBAR FACET BLOCK DIAGNOSTIC PRE PROCEDURE DIAGNOSIS LUMBAR SPONDYLOSIS, LUMBOSACRAL SPONDYLOSIS POST PROCEDURE DIAGNOSIS LUMBAR SPONDYLOSIS, LUMBOSACRAL SPONDYLOSIS PROCEDURE RIGHT L4-L5 AND L5-S1 FACET BLOCK DIAGNOSTIC NUMBER #[address] ZELDA KRAMER DIRECTOR BUSINESS TRAVEL NONE ANESTHESIA LOCAL PRE PROCEDURE NOTE THE PATIENT WITH HISTORY OF CHRONIC LOW BACK PAIN. I EVALUATED THE PATIENT AND REVIEWED THE CHART. I WENT OVER THE RISKS, ALTERNATIVES, AND BENEFITS ASSOCIATED WITH THIS PROCEDURE. THE PATIENT WOULD LIKE TO PROCEED AND GAVE CONSENT TO PERFORM THE PROCEDURE. AGREED WITH THE PATIENT WE ARE DOING THIS PROCEDURE TO DETERMINE IF THE PATIENT IS A CANDIDATE FOR A RADIOFREQUENCY ABLATION OF THE FACETS JOINTS. THE PATIENT DENIES UNEXPLAINABLE WEIGHT LOSS, FEVER, CHILLS, OR NEW CHANGES IN URINARY OR BOWEL CONTROL DESCRIPTION OF PROCEDURE THE PATIENT WAS BROUGHT TO THE PROCEDURE ROOM AND PLACED IN THE PRONE POSITION. THE LUMBOSACRAL AREA WAS CLEANED WITH CHLORAPREP SOLUTION AND DRAPED ASEPTICALLY. THE PROCEDURE WAS DONE UNDER STERILE CONDITIONS. I CHECKED LATERALITY AND THE LEVEL WHERE THE PROCEDURE WAS GOING TO BE PERFORMED WITH THE PATIENT AND THE SUPPORTING STAFF AT THE MOMENT OF THE TIME OUT IN THE PROCEDURE ROOM. UNDER FLUOROSCOPIC GUIDANCE, TARGETS WERE SELECTED AT THE INTERSECTION OF THE RIGHT TRANSVERSE PROCESS OF L4, L5 AND ALA OF S1 WITH ITS RESPECTIVE SUPERIOR ARTICULAR PROCESS. LIDOCAINE WAS USED TO NUMB THE SKIN AND THE SUBCUTANEOUS TISSUE BELOW IT. SPINAL NEEDLE, 22-GAUGE WAS ADVANCED UNDER FLUOROSCOPIC GUIDANCE AND FOLLOWING PATIENT FEEDBACK UNTIL THE TARGETS WERE REACHED. POSITION OF THE NEEDLES WAS VERIFIED WITH AP AND LATERAL VIEWS. AFTER PROPER POSITION OF THE NEEDLES WAS ACHIEVED, ISOVUE-M DYE 30% 0.1 ML WAS INJECTED AT EACH SITE SHOWING ADEQUATE SPREAD OF THE DYE. THEN A SOLUTION OF 0.4 ML OF BUPIVACAINE 0.25% WAS INJECTED AT EACH SITE. THERE WAS NO EVIDENCE OF BLOOD, PARESTHESIA OR CEREBROSPINAL FLUID DURING THE PROCEDURE. THE PATIENT WAS SENT TO THE RECOVERY ROOM. THE PATIENT WAS MOVING THE EXTREMITIES AND DOING WELL. THERE WAS NO COMPLICATION DURING THE PROCEDURE. FLUOROSCOPY TIME WAS 19 SECONDS POST PROCEDURE NOTE THE PATIENT WILL DOCUMENT HIS PAIN LEVEL AND RESPONSE TO THIS PROCEDURE EVERY 30 MINUTES. THE PATIENT WILL BE SEEN IN A FOLLOW UP IN THE NEXT FEW WEEKS. FURTHER DETERMINATION FOR HIS CASE WILL BE DONE AT THE NEXT VISIT. INSTRUCTIONS WERE GIVEN, QUESTIONS WERE ANSWERED, AND THE PATIENT EXPRESSED UNDERSTANDING AND AGREED WITH THE PLAN. I, LARON HOLMAN, DOCUMENTED THE ABOVE INFORMATION ACTING A SCRIBE FOR DR. KRAMER. I HAVE REVIEWED THE ABOVE DOCUMENT, WRITTEN BY LARON HOLMAN SCRIBE AND I VERIFY THAT IT IS ACCURATE DIAGNOSTIC IMAGING [facility] FACET BLOCK (PAIN)[id number] PROCEDURE CODES 39168 INJ PARAVERT F JNT L/S 1 LEV 19093 INJ PARAVERT F JNT L/S 2 LEV 6045F RADXPS IN END [id number] PXD DISPOSITION & COMMUNICATION FOLLOW UP 3 WEEKS ELECTRONICALLY SIGNED BY ZELDA KRAMER MD ON 07/11/2016 AT 06:56 PM EDT DISCLAIMER : THIS IS A VISIT SUMMARY EXTRACTED FROM THE [employer] CHART. IT IS NOT A COPY OF THE [employer] PROGRESS NOTE. MTDD
== END ==
LOC: M PAIN 10:20
PROVIDERS: ATTEND Anesthesiology
DX: G89.29 Other chronic pain (principal); M47.816 Spondylosis without myelopathy or radiculopathy, lumbar region; M47.817 Spondylosis without myelopathy or radiculopathy, lumbosacral region; E11.9 Type 2 diabetes mellitus without complications; J45.909 Unspecified asthma, uncomplicated; M19.90 Unspecified osteoarthritis, unspecified site; I10 Essential (primary) hypertension; Z88.0 Allergy status to penicillin; Z88.2 Allergy status to sulfonamides; Z88.8 Allergy status to other drugs, medicaments and biological substances; Z91.040 Latex allergy status; Z88.1 Allergy status to other antibiotic agents; L23.0 Allergic contact dermatitis due to metals; Z91.018 Allergy to other foods; Z79.891 Long term (current) use of opiate analgesic; Z79.899 Other long term (current) drug therapy
CPT/HCPCS: 64493; 64494; Q9967

== ENCOUNTER → 2016-07-21 | Outpatient (CLI) | payer OTHER ==
[~2016-07-21] MED LIST changes: +ALLO15TA GT; +BENT20TA PO; -BUPIVACAINE HCL 0.25% 30 ML VIAL As Ordered ONE; +COUM2.5T11 PO; +DITR5TAB PO; +DULO30CA PO; +HYDR12.55 PO; -ISOVUE-M 300 61% 15ML VIAL (Q9967) As Ordered ONE; -LIDOCAINE 1% SDV INJ 30 ML VIAL As Ordered ONE; +MULT1CHW39 PO; +OYST1TAB PO; +PERC5TAB6 PO; +PROA1AER INH; +SING10TA32 PO; +SYMB16INH INH; +TYLE500T78 PO
--- NOTE | 2016-07-29 00:38 | ECWPNPC ---
PATIENT NAME: NATALIE CABALLERO : 1955 GENDER: FEMALE VISIT DATE: 07/21/2016 DISCHARGE DATE: 07/21/16 1429 VISIT LOCKED DATE TIME: PHYSICIAN: ZELDA KRAMER RESOURCE: ZELDA KRAMER REASON FOR APPOINTMENT 1. LOW BACK PAIN W/C HISTORY OF PRESENT ILLNESS HISTORY OF PRESENT ILLNESS: PAIN THE PATIENT DESCRIBES THE PAIN... 60 YEAR OLD FEMALE PATIENT WITH HISTORY OF CHRONIC LOW BACK PAIN. PATIENT DESCRIBES THE PAIN ACHING, STABBING, TENDER, THROBBING, SORE, SHOOTING, AND HAVING IT ALL THE TIME ON THE LEFT LOWER BACK WITH A PAIN SCORE OF 7/10. 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 MRS. CABALLERO RECEIVED A DIAGNOSTIC FACET BLOCK ON 07/07/16 AND REPORTS HAVING OVER 50% RELIEF IN PAIN AND INCREASED MOBILITY AND FUNCTIONALITY FOR OVER 12 HOURS. CURRENTLY THE PATIENT IS USING GABAPENTIN, SKELAXIN, CYMBALTA, AND TRAMADOL AND STATES THAT THE MEDICATION KEEPS HER MOBILE AND FUNCTIONAL. PATIENT DENIES UNEXPLAINABLE WEIGHT LOSS, FEVER, CHILLS, NEW CHANGES ON HER URINARY OR BOWEL CONTROL. FALL RISK SCREENING: SCREENING :NO FALLS IN THE PAST YEAR CURRENT MEDICATIONS TAKING CYMBALTA 30 MG CAPSULE DELAYED RELEASE PARTICLES 1 CAPSULE ORALLY FOR PAIN TWICE A DAY MDD2 TAKING GABAPENTIN 300 MG CAPSULE 1 CAPSULE ORALLY [facility] TWO TIMES A DAY FOR PAINMDD2 TAKING SKELAXIN 800 MG TABLET 1 TABLET ORALLY BID PRN TAKING ALLOPURINOL 300 MG TABLET 1 TABLET ORALLY ONCE A DAY TAKING SINGULAIR 10 MG TABLET 1 TABLET IN THE EVENING ORALLY ONCE A DAY TAKING BENTYL 20 MG TABLET 1 TABLET ORALLY EVERY 4 HOURS NEEDED TAKING VENTOLIN HFA 108 (90 BASE) MCG/ACT AEROSOL SOLUTION 2 PUFFS INHALATION NEEDED TAKING VITAMIN B COMPLEX CAPSULE DIRECTED ORALLY DAILY TAKING HYDROCHLOROTHIAZIDE 25 25 MG TABLET DIRECTED ORAL DAILY TAKING LATANOPROST 0.005 % SOLUTION 1 DROP INTO BOTH EYES EVENING OPHTHALMIC ONCE A DAY TAKING SYMBICORT 80-4.5 MCG/ACT AEROSOL 2 PUFFS INHALATION TWICE A DAY TAKING PREMARIN 0.625 MG/GM CREAM VAGINAL THREE TIMES A WEEK TAKING TYLENOL 500 MG TABLET 1 TABLET NEEDED ORALLY EVERY 6 HRS TAKING BENTYL 10 MG CAPSULE 1 CAPSULE ORALLY TWO TIMES A DAY TAKING REFRESH CELLUVISC 1 % SOLUTION 1 DROP OU OPHTHALMIC 24 TIME(S) A DAY TAKING DIFLUCAN 200 MG TABLET 1 TABLET ORALLY DIRECTED TAKING FIBER 58.6 % POWDER 2 CAPSULES WITH 8 OUNCES OF LIQUID ORALLY DAILY TAKING CRANBERRY 405 MG CAPSULE ORALLY DAILY TAKING TRAMADOL HCL 50 MG TABLET 1 TABLET NEEDED ORALLY Q8H PRN MDD3 TAKING FLONASE ALLERGY RELIEF 50 MCG/ACT SUSPENSION 1 SPRAY IN EACH NOSTRIL NASALLY ONCE A DAY TAKING OXYBUTYNIN CHLORIDE 5 MG TABLET 2 TABLETS ORALLY 2 TIMES A DAY TAKING ALPHA LIPOIC ACID 100 MG CAPSULE 1 CAP ORALLY DAILY TAKING POTASSIUM CHLORIDE 10 MEQ CAPSULE EXTENDED RELEASE 1 CAPSULE WITH FOOD ORALLY ONCE A DAY TAKING PROBIOTIC - CAPSULE ORALLY DAILY TAKING OMEPRAZOLE 20 MG CAPSULE DELAYED RELEASE 1 CAP ORALLY ONCE A DAY TAKING ALLERX 1 DROP OU BID NOT-TAKING XIIDRA 5 % SOLUTION 1 DROP INTO AFFECTED EYE OPHTHALMIC TWICE A DAY NOT-TAKING CABERGOLINE 0.5 MG TABLET 0.5 TABLET ORALLY TWICE A WEEK (TAKES 0.05 MG 1/2 TABLET), NOTES: MEDICATION DISCONTINUED NOT-TAKING MONOVISC 88 MG/4ML SOLUTION PREFILLED SYRINGE INTRA-ARTICULAR EVERY 6 MONTHS, NOTES: EVERY 6 MO (LAST 12/17/15) NOT-TAKING RHINOCORT AQUA 32 MCG/ACT SUSPENSION 1 SPRAY IN EACH NOSTRIL NASALLY NEEDED NOT-TAKING OXYBUTYNIN CHLORIDE ER 10 MG TABLET EXTENDED RELEASE 24 HOUR 1 TABLET ORALLY BID NOT-TAKING ULTRAM 50 MG TABLET 1 TABLET NEEDED FOR PAIN ORALLY EVERY 6 HRS MDD1 NOT-TAKING NASACORT ALLERGY 24HR 55 MCG/ACT AEROSOL 1 PUFF IN EACH NOSTRIL NASALLY ONCE A DAY NOT-TAKING CELEBREX 100 MG CAPSULE 1 CAPSULE ORALLY TWICE A DAY NOT-TAKING VITAMIN C 500 MG TABLET DIRECTED ORALLY DAILY, NOTES: 09/02/15 0900 MEDICATION LIST REVIEWED AND RECONCILED WITH THE PATIENT PAST MEDICAL HISTORY DIABETES BLOOD PRESSURE ASTHMA PITUITARY ADENOMA ARTHRITIS 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 DUE TO HYPERTENSION CHRONIC SINUSITIS ALLERGIES PENICILLIN (FOR ALLERGIES USE ONLY): RASH: ALLERGY SULFA (FOR ALLERGY USE ONLY): RASH: ALLERGY PHENERGAN: BLOOD CLOT: SIDE EFFECTS LATEX CONDOMS, RUBBER BANDS, GLOVES: RASH: ALLERGY ERYTHROMYCIN: RASH: ALLERGY NICLKEL: RASH: ALLERGY SULFITES: DYSPNEA: ALLERGY WHEAT: GI UPSET, WATERY EYES AND SINUS CONGERSTION: SIDE EFFECTS REVIEW OF SYSTEMS REVIEWED BY: PROVIDER: . CONSTITUTIONAL: ANY CHANGE IN YOUR MEDICAL CONDITION? HAVING TOTAL KNEE ON JULY 31 . CHILLS NO . FEVER NO . INFECTION: DO YOU HAVE NEW INFECTIONS? NO . DO YOU HAVE HISTORY OF MRSA? NO . MUSCULOSKELETAL: ANY NEW PATTERNS OF PAIN OR NUMBNESS? NO . GASTROENTEROLOGY: ANY NEW CHANGE IN BOWEL CONTROL? NO . GENITOURINARY: ANY NEW CHANGE IN BLADDER CONTROL? NO . IS THERE A CHANCE YOU COULD BE ? NO . HEMATOLOGY/LYMPH: DO YOU TAKE ANY BLOOD THINNERS? (FOR EXAMPLE- COUMADIN, PLAVIX, AGGRENOX, PLATEL, PRADAXA, OR XARELTO) NO . WHEN WAS YOUR LAST DOSE? DATE: TIME: . NEUROLOGY: HAVE YOU FALLEN IN THE PAST 6 MONTHS? NO . ANY NEW EXTREMITY NUMBNESS OR WEAKNESS? NO . CARDIOLOGY: DO YOU HAVE A PACEMAKER OR DEFIBRILLATOR? NO . RESPIRATORY: HAVE YOU BEEN SICK IN THE PAST WEEK? NO . FEVER NO . FLU LIKE SYMPTOMS? NO . COUGH NO . INTEGUMENTARY: DO YOU HAVE ANY RASHES OR OPEN SORES? NO . ALLERGIC/IMMUNO: ARE YOU ALLERGIC TO SHELLFISH OR IV DYE? NO . ANY NEW ALLERGIES? NO . PSYCHIATRIC: DO YOU HAVE THOUGHTS OF HURTING YOURSELF OR SOMEONE ELSE? NO . ARE YOU ABUSED, NEGLECTED, OR IN AN UNSAFE ENVIRONMENT? NO . ENDOCRINOLOGY: ARE YOU DIABETIC? NO . OTHER: DO YOU NEED ANY PRESCRIPTIONS? NO . IF YES, PLEASE LIST: ____ . ANY NEW PROBLEMS WITH YOUR MEDICATIONS? NO . WHEN DID YOU LAST EAT? ____ . WHEN DID YOU LAST DRINK? ____ . WHAT DID YOU LAST DRINK? ____ . NAME OF PERSON DRIVING YOU HOME? ____ . DO YOU HAVE ANY OTHER QUESTIONS OR CONCERNS NO . VITAL SIGNS WT 236 LBS, HT 65", BMI 39.27 INDEX, BP 137/71 MM HG, HR 79 /MIN, RR 16 /MIN, TEMP 96.7 F, OXYGEN SAT % 95%, NA INITIALS AW 1334. EXAMINATION : PATIENT IS ALERT O X 3 AND COOPERATIVE. ANTALGIC GAIT. TENDERNESS IN THE LOWER BACK AND PARASPINAL MUSCLE GROUP MOSTLY THE RIGHT SIDE. PATIENT IS ABLE TO EXTEND HER BACK AT 15 DEGREES WITH PAIN AND DISCOMFORT, PATIENT IS FLEXIBLE IS FLEXING HER BACK. MRI DONE ON 05/25/15 OF THE LUMBAR SPINE SHOWS DISC BULGES AT L2-L3 AND L3-L4 ALONG WITH STENOSIS AT L3-L4. ASSESSMENTS SPONDYLOSIS WITHOUT MYELOPATHY OR RADICULOPATHY, LUMBAR REGION - M47.816 (PRIMARY) LOW BACK PAIN OF OVER 3 MONTHS DURATION - M54.5 SPONDYLOSIS WITHOUT MYELOPATHY OR RADICULOPATHY, LUMBOSACRAL REGION - M47.817 TREATMENT SPONDYLOSIS WITHOUT MYELOPATHY OR RADICULOPATHY, LUMBAR REGION NOTES: WE DISCUSSED SEVERAL ISSUES WITH MRS. CABALLERO'S PAIN MANAGEMENT CASE. AT THIS TIME THE PATIENT WILL CONTINUE WITH THE SAME MEDICATION REGIME BEFORE. PATIENT WILL USE THE CYMBALTA FOR THE NEUROPATHIC PAIN, GABAPENTIN FOR THE NEUROPATHIC PAIN, TRAMADOL FOR THE SOMATIC PAIN, AND SKELAXIN FOR THE MUSCLE SPASMS. PATIENT DENIES ABUSE OF ANY MEDICATION, DENIES USE OF ILLEGAL SUBSTANCES, AND STATES THAT SHE IS ONLY USING THE MEDICATION FOR PAIN MANAGEMENT. PATIENT WILL PREFORM A URINE TOXICOLOGY REPORT AT TODAY'S VISIT. PATIENT HAS HAD TWO DIAGNOSTIC TEST FOR A RADIOFREQUENCY AND BOTH TESTS HAVE HAD ADEQUATE RESULTS TO MOVE FORWARD WITH A RADIOFREQUENCY. WE DISCUSSED THE RISKS, BENENFITS, AND ALTNERATIVES OF THE INJECTION AND THE PATIENT WOULD LIKE TO PROCEED AT THIS TIME. INSTRUCTIONS WERE GIVEN, QUESTIONS WERE ANSWERED, PATIENT REPORTS UNDERSTANDING AND AGREES WITH THE PLAN. I, MARILYN SANTAMARIA, DOCUMENTED THE ABOVE INFORMATION ACTING A SCRIBE FOR DR. KRAMER. I HAVE REVIEWED THE ABOVE DOCUMENT, WRITTEN BY MARILYN CLEANING AND I VERIFY THAT IT IS ACCURATE. LOW BACK PAIN OF OVER 3 MONTHS DURATION REFILL TRAMADOL HCL TABLET, 50 MG, 1 TABLET NEEDED, ORALLY, Q8H PRN MDD3, 30 DAY(S), 45, REFILLS 2 OTHERS REFILL CYMBALTA CAPSULE DELAYED RELEASE PARTICLES, 30 MG, 1 CAPSULE, ORALLY FOR PAIN, TWICE A DAY MDD2, 30 DAY(S), 60, REFILLS 2 REFILL GABAPENTIN CAPSULE, 300 MG, 1 CAPSULE, ORALLY SPECIAL FUNDS, TWO TIMES A DAY FOR PAINMDD2, 30 DAY(S), 60, REFILLS 2 REFILL SKELAXIN TABLET, 800 MG, 1 TABLET, ORALLY, BID PRN FOR SPASMS AND PAIN MDD 2, 30 DAY(S), 55, REFILLS 2 START ACETAMINOPHEN TABLET, 500 MG, 2 TABLETS NEEDED, ORALLY, EVERY 6 HRS FOR PAIN MDD4, 30 DAY(S), 120, REFILLS 2 PROCEDURES PN WORKMANS' COMP OPINION IN YOUR OPINION, WAS THE INCIDENT THAT THE PATIENT DESCRIBED THE COMPETENT MEDICAL CAUSE OF THIS INJURY/ILLNESS? YES ARE THE PATIENT'S COMPLAINTS CONSISTENT WITH HIS/HER HISTORY OF THE INJURY/ILLNESS? YES IS THE PATIENT'S HISTORY OF THE INJURY/ILLNESS CONSISTENT WITH YOUR OBJECTIVE FINDING? YES WHAT IS THE PERCENTAGE OF TEMPORARY IMPAIRMENT? MODERATE TO MARKED = 66.7% IS THE PATIENT WORKING? 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 PROCEDURE CODES FA211 ESTABILISHED PATIENT [facility] FACILITY CHARGE [id number] DOC MEDS VERIFIED W/PT OR RE G8730 PAIN ASSESS POS TOOL F/U PLAN DOC DISPOSITION & COMMUNICATION FOLLOW UP RF AFTER APPROVAL ELECTRONICALLY SIGNED BY ZELDA KRAMER MD ON 07/28/2016 AT 08:28 AM EDT DISCLAIMER : THIS IS A VISIT SUMMARY EXTRACTED FROM THE [employer] CHART. IT IS NOT A COPY OF THE [employer] PROGRESS NOTE. ALLI
== END ==
LOC: M PAIN 13:20
PROVIDERS: ATTEND Anesthesiology
DX: G89.29 Other chronic pain (principal); M47.816 Spondylosis without myelopathy or radiculopathy, lumbar region; M54.5 Low back pain; M47.817 Spondylosis without myelopathy or radiculopathy, lumbosacral region; E11.9 Type 2 diabetes mellitus without complications; J45.909 Unspecified asthma, uncomplicated; M19.90 Unspecified osteoarthritis, unspecified site; Z88.0 Allergy status to penicillin; Z88.2 Allergy status to sulfonamides; Z91.040 Latex allergy status; Z88.1 Allergy status to other antibiotic agents; L23.0 Allergic contact dermatitis due to metals; Z91.018 Allergy to other foods; Z79.899 Other long term (current) drug therapy

== ENCOUNTER → 2016-07-24 | Outpatient (CLI) | payer OTHER ==
[2016-07-24 11:54] LABS: MEAN CORPUSCULAR HEMOGLOBIN 31.9 pg (27.0-33.0); MEAN CORPUSCULAR HGB CONC 33.6 g/dl (32.0-36.5); MEAN CORPUSCULAR VOLUME 95.1 fl (80.0-96.0); RED CELL DISTRIBUTION WIDTH 13.2 % (11.5-14.5); WHITE BLOOD COUNT 4.9 K/mm3 (4.0-10.0)
[2016-07-24 11:55] LABS: INR 1.04
[2016-07-24 11:57] LABS: ALBUMIN 3.9 GM/DL (3.2-5.2); ALBUMIN/GLOBULIN RATIO 1.44 (1.00-1.93); ALKALINE PHOSPHATASE 77 U/L (45-117); ALT/SGPT 30 U/L (12-78); ANION GAP 6 MEQ/L (8-16); AST/SGOT 19 U/L (15-37); BILIRUBIN,TOTAL 0.3 MG/DL (0.2-1.0); BLOOD UREA NITROGEN 10 MG/DL (7-18); CALCIUM LEVEL 9.9 MG/DL (8.8-10.2); CARBON DIOXIDE LEVEL 31 MEQ/L (21-32); CHLORIDE LEVEL 106 MEQ/L (98-107); CREATININE FOR GFR 0.79 MG/DL (0.55-1.02); GLOMERULAR FILTRATION RATE > 60.0 (>45); GLUCOSE, FASTING 118 MG/DL (80-110); POTASSIUM SERUM 4.1 MEQ/L (3.5-5.1); SODIUM LEVEL 143 MEQ/L (136-145); TOTAL PROTEIN 6.6 GM/DL (6.4-8.2)
--- NOTE | 2016-07-25 00:33 | ECGEPIP ---
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
--- NOTE | 2016-07-25 00:44 | REP ---
Clinical: Sleep apnea . Comparison: 02/24/2013 . Technique: PA and lateral. Findings: The mediastinum and cardiac silhouette are normal. The lung littlejohn are clear and without acute consolidation, effusion, or pneumothorax. The skeletal structures are intact and normal. Impression: 1. No acute cardiopulmonary process. Signed by Michael Aguirre MD 07/25/2016 12:36 A
== END ==
LOC: M ADMPAT 09:25
PROVIDERS: ATTEND Orthopaedic Surgery
DX: M17.9 Osteoarthritis of knee, unspecified (principal); Z18.89 Other specified retained foreign body fragments

== ENCOUNTER 2016-07-31 07:30 | Inpatient (IN) | payer OTHER ==
[2016-07-24 09:46] VITALS: BP 139/78
--- NOTE | 2016-07-27 13:44 | HPE ---
DATE OF ADMISSION: 07/31/2016 REASON FOR ADMISSION: Left knee pain and stiffness. ATTENDING PHYSICIAN: Dr. Jamal Cramer HISTORY OF PRESENT ILLNESS: This is a pleasant 61-year-old female patient who comes in for her persistent pain in her left knee. She has pain with weightbearing activities and activities of daily living. She has elected for surgery for continued symptoms. She has consented for a left total knee arthroplasty by Dr. Cramer. X-rays of her left knee are notable for end-stage degenerative changes of the left knee, as well as Interferon screw consistent with anterior cruciate ligament (ACL) reconstruction. ALLERGIES: PENICILLIN, SULFA DRUGS, PHENERGAN, ERYTHROMYCIN, LATEX, NICKEL, SULFITES. MEDICAL HISTORY: Includes asthma, hypertension, chronic urinary incontinence, history of a pituitary adenoma, chronic back pain, as well as history of gout. SURGICAL HISTORY: Includes eye surgery, tubal ligation, ACL reconstruction of her left knee, rotator cuff repair and gallbladder removed. CURRENT MEDICATIONS: - allopurinol 300 mg one tablet once per day - Singulair 10 mg one tablet once a day - hydrochlorothiazide 25 mg one tablet once per day - Proventil inhaler two puffs as needed - Cymbalta 60 mg one tablet twice per day - Tylenol as needed for pain - Symbicort one puff two times a day - Skelaxin 100 mg one tablet three times a day as needed - potassium 10 mEq one tablet in the morning - tramadol as needed for pain - cabergoline 0.5 mg half a tab twice weekly Tuesdays and Fridays - lipoic acid 200 mg three tablets twice a day - Aleve as needed, she will discontinue that 5 days prior to surgery - daily multivitamin FAMILY HISTORY: Noncontributory. REVIEW OF SYSTEMS: Denies fever or chills. Denies chest pain, shortness breath or cough. Denies difficulty breathing. Denies abdominal pain. Denies nausea or vomiting. Notes persistent pain in her left knee with weightbearing activities. Denies recent upper respiratory infection or urinary tract infection (UTI) symptoms. PHYSICAL EXAMINATION: Exam today reveals alert female patient. She walks with a limping gait. She favors her left side. She uses a cane for ambulation. She has a normal mood and affect. Exam of the left knee reveals skin to be intact. There is a 1 cm x 1/2 cm healing abrasion to the distal one third of the lateral elliott without gross signs of infection. The leg is intact to light touch. Dorsalis pedis, posterior tibialis pulses are palpable. There is irritability on knee range of motion. Tenderness mainly medially. Neck is supple without adenopathy or jugular venous distention (JVD). LUNGS: Clear to auscultation without rales or wheeze. HEART: Regular rate and rhythm. ABDOMEN: Bowel sounds are present. Height 64 inches, weight 234 pounds, temperature 97.2, blood pressure 120/80, pulse 70, respirations 18. LABORATORY DATA Chest x-ray with acute cardiopulmonary process noted. EKG sinus rhythm. Urine culture contaminated. Nasal culture normal jaspal. Urinalysis within normal limits. Sed rate 16, PT 13.7, INR 1.04, glucose 118, BUN 10, creatinine 0.79, sodium 143, potassium 4.1, WBC count of 4.9, RBC count of 4.6, hemoglobin 14.8, hematocrit 44.0. IMPRESSION: Symptomatic osteoarthritis of the left knee. PLAN: Consented for left total knee arthroplasty by Dr. Cramer.
[~2016-07-31] VITALS: Ht 165.1 cm; Wt 106.6 kg
[~2016-07-31 07:30] MED LIST changes: +BUPIVACAINE LIPOSOME/PF 1.3% 20 ML VIAL (13.3MG/ML)(EXPAREL) As Ordered ONE; +CLINDAMYCIN INJ 900MG/6ML VIAL As Ordered ONE; -COUM2.5T11 PO; +EPINEPHrine INJ 1 MG/ML 1ML AMP As Ordered ONE; -PERC5TAB6 PO; +TRANEXAMIC ACID 100 MG/ML 10ML VIAL As Ordered ONE; +ceFAZolin 1GM INJ (J0690) As Ordered ONE
[2016-07-31] MEDS ORDERED: LR 1,000 ML IV ONE (07:45)
[2016-07-31] MEDS ORDERED: ACETAMINOPHEN 500 MG TAB PO ONE (07:45)
[2016-07-31] MEDS ORDERED: MIDAZOLAM INJ 2 MG/2 ML VIAL (J2250) As Ordered ONE ×2 (08:12→09:33)
[2016-07-31] MEDS ORDERED: fentaNYL 100 MCG/2 ML INJECTION (J3010) As Ordered ONE ×2 (08:12→09:33)
[2016-07-31] MEDS ORDERED: MIDAZOLAM INJ 2 MG/2 ML VIAL (J2250) IV ONE (09:15)
[2016-07-31] MEDS ORDERED: fentaNYL 100 MCG/2 ML INJECTION (J3010) IV ONE (09:15)
[2016-07-31] MEDS ORDERED: PROPOFOL 500 MG/50 ML VIAL As Ordered ONE (09:33)
[2016-07-31] MEDS ORDERED: METOCLOPRAMIDE INJ 10MG/2ML VIAL (J2765) As Ordered ONE (09:34)
[2016-07-31] MEDS ORDERED: dexameTHASONE 4 MG/ML 1ML VIAL (J1100) As Ordered ONE (09:34)
[2016-07-31] MEDS ORDERED: ONDANSETRON 4MG/2ML VIAL (J2405) As Ordered ONE (09:34)
[2016-07-31] MEDS ORDERED: LIDOCAINE 2% INJ 100 MG/5 ML SDV (FOR ANES.) As Ordered ONE (09:34)
[2016-07-31] MEDS ORDERED: ePHEDrine SULFATE 25 MG/5 ML(5MG/ML) SYRINGE As Ordered ONE (09:41)
[2016-07-31] MEDS ORDERED: MORPHINE 1MG/ML IN 0.9% NACL 100ML IV BAG As Ordered ONE (11:33)
[2016-07-31] MEDS ORDERED: PERCOCET 5MG/325MG TAB As Ordered ONE (11:34)
[2016-07-31] MEDS ORDERED: EPINEPHrine INJ 1 MG/ML 1ML AMP ONE (12:06)
[2016-07-31] MEDS ORDERED: ROPIvacaine 0.5% 30 ML INJECTION (J2795) ONE (12:06)
[2016-07-31] MEDS ORDERED: dexameTHASONE 10 MG/1 ML VIAL PRES.FREE (J1100) ONE (12:06)
[2016-07-31] MEDS ORDERED: diphenhydrAMINE INJ 50MG/ML VIAL (J1200) IV PRN (12:15)
[2016-07-31] MEDS ORDERED: ONDANSETRON 4MG/2ML VIAL (J2405) IV PRN ×2 (12:15)
[2016-07-31] MEDS ORDERED: ACETAMINOPHEN TAB 650MG DOSE (2X325MG) PO PRN (12:15)
[2016-07-31] MEDS ORDERED: EPIDURAL/PCA KEYS XX PRN (12:15)
[2016-07-31] MEDS ORDERED: MORPHINE 1MG/ML IN 0.9% NACL 100ML IV BAG IV PRN (12:15)
[2016-07-31] MEDS ORDERED: LR 1,000 ML IV SCH (12:15)
[2016-07-31] MEDS ORDERED: NALOXONE INJ 0.4 MG/1 ML VIAL (J2310) IV PRN (12:15)
[2016-07-31] MEDS ORDERED: fentaNYL 100 MCG/2 ML INJECTION (J3010) IV PRN (12:15)
[2016-07-31] MEDS ORDERED: NALBUPHINE HCL 10 MG/ML AMP (J2300) IV PRN (12:15)
[2016-07-31] MEDS ORDERED: FLEET ENEMA PR PRN (12:15)
[2016-07-31 12:30] VITALS: BP 117/57
[2016-07-31 13:00] VITALS: BP 115/55
[2016-07-31 13:30] VITALS: BP 125/76
[2016-07-31 14:30] VITALS: BP 127/60
[2016-07-31 15:30] VITALS: BP_SYST 116; BP_SYST 118; BP_DIAS 58; BP_DIAS 61
[2016-07-31] MEDS: LR 1,000 ML IV SCH (15:55)
[2016-07-31] MEDS ORDERED: WARFARIN SOD 5 MG TAB PO SCH (17:00)
[2016-07-31 20:00] VITALS: BP 109/56
[2016-08-01] VITALS: BP 109/61
[2016-08-01] MEDS: LR 1,000 ML IV SCH (00:45)
[2016-08-01 04:00] VITALS: BP 111/58
--- NOTE | 2016-08-01 06:27 | RO ---
DATE OF PROCEDURE: 07/31/2016 PREPROCEDURE DIAGNOSES: 1. Left knee valgus degenerative arthritis. 2. Left knee retained tibial interference screw. POSTPROCEDURE DIAGNOSES: 1. Left knee valgus degenerative arthritis. 2. Left knee retained tibial interference screw. PROCEDURE: 1. Left total knee arthroplasty using a size 3 cruciate retaining femoral component and a size 3 tibial tray and a 10 mm rotating platform polyethylene insert, 35 mm polyethylene button. All components were cemented. Prosthesis made by [employer]. It was a PFC knee. 2. Removal of tibial Acufex interference screw. SURGEON: Dr. Good Cramer. GRIPPER ATTACHER: Mr. Benjamin Merritt. ANESTHESIA: Left femoral nerve block with spinal anesthetic. COMPLICATIONS: None. ESTIMATED BLOOD LOSS: Less than 20 mL. SPECIMENS: The joint surface and the proximal tibial Acufex screw. PROCEDURE: Antibiotics were given intravenously preoperatively and successful left femoral nerve block and then spinal anesthetic was induced, and a tourniquet was placed on the left upper thigh and not inflated and the left lower extremity was then carefully prepped and draped in the usual sterile fashion. Then the leg was elevated. Then after appropriate time out, tourniquet was inflated, then a longitudinal incision was made for medial parapatellar approach to the knee. Bovie cautery was used to coagulate crossing vessels. The arthrotomy was then performed medially and subperiosteal dissection around the proximal medial portion of the tibial was performed as well as along the proximal lateral tibia was performed. The patella was everted and the knee was flexed. The drill was placed down the center of the femoral canal and then the intramedullary johanne with the distal femoral cutting jig set at 5 degree valgus cut at a 10 mm resection level for a left knee. It was pinned in position and then the distal femoral osteotomy was performed. The AP sizer jig measured right at about a size #3, thus we chose that size for the femoral component. The 3 degree external rotation block was pinned into position followed by the 4-in-1 block then we performed the anterior posterior chamfer cuts without difficulty. We then exposed the proximal tibia and used the extramedullary alignment jig to be sure we were parallel to the mechanical axis. Then we referenced off the medial tibial condyle at 4 mm resection level. Then we pinned the block into position. Then the extramedullary johanne was used for a secondary check to be sure we were parallel to the mechanical access of the tibia. Once we were satisfied with that, the proximal tibial osteotomy was then performed. The laminar automotive service professional was then placed laterally and we performed a completion medial meniscectomy with debridement of the posterior medial osteophytes, then we placed the laminar automotive service professional medially and performed a completion lateral meniscectomy and debridement of the posterior lateral osteophytes. At this point, placed spacer blocks and the size 10 mm spacer block fit the best with excellent balance between flexion extension gaps and good varus valgus stress test in both flexion and in extension. We then exposed the proximal tibia once again and at this point, I then dissected a little bit more distally and medially and found the old Acufex screw head and had to use a small Osteotome and a drill to open up the screw hole to allow the introduction of the screwdriver and once I was able to get it seated, the screw backed out without difficulty. However, her bone was noteworthy to be quite hard. We then exposed the proximal tibia size for #3 tibial tray which was then pinned into position followed by the reamer and the broach. Then the trial 10 mm polyethylene was placed, then we applied the distal femoral trial. It fit nicely, brought the knee into extension, everted the patella, performed a patellar osteotomy size for a 35 button. Lug holes were drilled. The trial polyethylene was placed and the patellofemoral tracking was anatomic. We then felt this was the appropriate size components to use. I drilled the lug holes for the femur and then removed the trial components. At this point, I started instilling the Exparel long acting Marcaine into the subperiosteal surfaces around the femur to include the posterior capsule as well as around the tibia and the parapatellar area and then the quad tendon edges. Hollis Hairkandace mixed the cement on the back table as I prepared the bony surfaces for cementing with a copious amount of pulsatile lavage irrigant solution and then once surfaces were all thoroughly dried, I submitted the tibial tray, removed excess cement, then cemented the femoral component, removed excess cement and then placed the polyethylene, brought the knee out into extension and then cemented the patellar button, held the clamp until it was in good position and then copiously pulsatile lavage irrigated out the knee joint and held the knee in extension until the cement had hardened. While we were waiting for the cement to harden, the tranexamic acid was placed and then we began closing the arthrotomy by placing two #1 PDS sutures in the apex of the arthrotomy, one at the parapatellar area, then we used a double armed running #1 Stratafix to close the capsule. The tourniquet was then released and we irrigated the subdermal tissues, closed then with interrupted #2-0 PDS sutures, skin was closed with rakesh covered by Adaptic dry sterile bulky dressing. She was then transferred to the recovery room in stable condition. There were no intraoperative complications.
[2016-08-01 06:40] LABS: MEAN CORPUSCULAR HEMOGLOBIN 32.6 pg (27.0-33.0); MEAN CORPUSCULAR HGB CONC 33.6 g/dl (32.0-36.5); RED CELL DISTRIBUTION WIDTH 13.4 % (11.5-14.5)
[2016-08-01] MEDS ORDERED: ONDANSETRON 4 MG TAB (S0181) PO PRN (06:45)
[2016-08-01] MEDS ORDERED: PERCOCET 5MG/325MG TAB PO PRN (06:45)
[2016-08-01 06:57] LABS: ANION GAP 5 MEQ/L (8-16); BLOOD UREA NITROGEN 11 MG/DL (7-18); CALCIUM LEVEL 8.6 MG/DL (8.8-10.2); CARBON DIOXIDE LEVEL 31 MEQ/L (21-32); CHLORIDE LEVEL 105 MEQ/L (98-107); CREATININE FOR GFR 0.76 MG/DL (0.55-1.02); GLOMERULAR FILTRATION RATE > 60.0 (>45); GLUCOSE, FASTING 121 MG/DL (80-110); POTASSIUM SERUM 3.6 MEQ/L (3.5-5.1); SODIUM LEVEL 141 MEQ/L (136-145)
[2016-08-01 06:58] LABS: INR 1.05
[2016-08-01 08:00] VITALS: BP 139/72
[2016-08-01] MEDS ORDERED: ALBUTEROL 90 MCG/ACT 8GM HFA INHALER INH PRN (08:30)
[2016-08-01] MEDS ORDERED: ALLOPURINOL 300 MG TAB GT SCH (09:00)
[2016-08-01] MEDS: SYMBICORT 160/4.5MCG INHALER 6GM INH SCH ×2 (09:00→19:46)
[2016-08-01] MEDS: MOM 30ML SUSPENSION UDC PO SCH (09:01)
[2016-08-01] MEDS: SENOKOT S TAB PO SCH ×2 (09:01→21:00)
[2016-08-01] MEDS: MIRALAX *UNIT DOSE* 17GM PACKET PO SCH (09:01)
[2016-08-01] MEDS ORDERED: ALLOPURINOL 300 MG TAB PO SCH (09:34)
[2016-08-01] MEDS: POTASSIUM CHLORIDE 10 MEQ SR TABLET PO SCH (10:15)
[2016-08-01] MEDS: PERCOCET 5MG/325MG TAB PO PRN ×4 (10:15→22:39)
[2016-08-01] MEDS: CETIRIZINE (ZyrTEC) 10 MG TAB PO SCH (10:15)
[2016-08-01] MEDS: oxyBUTYnin *DITROPAN XL* 5 MG TABCR PO SCH ×2 (10:15→20:59)
[2016-08-01] MEDS: DULoxetine 30 MG CAP (CYMBALTA) PO SCH ×2 (10:16→21:00)
[2016-08-01] MEDS: OYSTER SHELL CALCIUM 500 MG TAB PO SCH (10:16)
--- NOTE | 2016-08-01 12:09 | REP ---
Clinical: Status post arthroplasty. Technique: AP and cross-table lateral views. Findings: The patient is status post left knee replacement with normal positioning and appearance to the femoral and tibial components. Overlying postsurgical changes appreciated. Impression: Satisfactory left knee replacement radiographs. Signed by Michael Aguirre MD 08/01/2016 12:01 P
[2016-08-01 14:00] VITALS: BP 125/62
--- NOTE | 2016-08-01 14:43 | CR ---
DATE OF CONSULT: 08/01/2016 CONSULT FOR: Jamal Cramer MD REASON FOR CONSULT: Medical management. SUBJECTIVE: The patient tells me that she is feeling nauseous after receiving her morphine, but otherwise denies any other specific complaints. OBJECTIVE: VITAL SIGNS: Temperature 98.8, pulse 63, respiratory rate 20, blood pressure (BP) 139/72, oxygen saturation 94% on room air. GENERAL: She is obese, elderly female lying flat in bed. She does not appear to be in any acute distress. She is very pleasant. HEENT: Cranial nerves II/XII are grossly intact. She has moist mucous membranes. No elevation of central venous pressure (CVP). CARDIOVASCULAR EXAM: S1, S2 regular. She has not bradycardiac. RESPIRATORY EXAM: Clear. ABDOMINAL EXAM: Grossly obese. Bowel sounds present. The abdomen is soft. EXTREMITIES: The left knee is bandage. Dressing is clean, dry and intact. LABORATORY STUDIES: White blood count (WBC) 13.0, hemoglobin 12.5, hematocrit 37.2, platelet count 319. Chemistry panel: Sodium 141, potassium 3.6, chloride 105, bicarbonate 31, BUN 11, creatine 0.7. INR is 1.0. She had an x-ray of the knee, which revealed satisfactory left knee replacement radiographs. ASSESSMENT AND PLAN: This 61-year-old female postoperative day one for an elective left total knee replacement. PROBLEM: 1. Left total knee replacement. Pain control and deep vein thrombosis (DVT) prophylaxis, physical therapy management as per orthopedic surgery. 2. Glaucoma. Continue with Xalatan. 3. Seasonal allergies. Continue with Singulair and Zyrtec. 4. Gout. Continue with Allopurinol. 5. Asthma. Continue with Symbicort and albuterol as needed. 6. Chronic pain. Continue with Cymbalta, otherwise as per orthopedic surgery. 7. Hypokalemia. Continue with chronic potassium chloride 10 mEq daily 8. Overactive bladder. Continue with Ditropan. 9. History of pituitary adenoma. Continue with Cabergoline as per her home dosing. 10. Hypertension. She is normotensive and receiving significant opiates and just received anesthesia. Will hold her hydrochlorothiazide for now and restart as needed. Thank you for involving us in this interesting patient's care. Will continue to follow along with you. Please call with any specific questions.
[2016-08-01] MEDS ORDERED: WARFARIN SOD 5 MG TAB PO ONE (17:00)
[2016-08-01] MEDS ORDERED: LATANOPROST 0.005% OPHTH SOLN 2.5 ML OU SCH (21:00)
[2016-08-01] MEDS ORDERED: MONTELUKAST 10 MG TAB PO SCH (21:00)
[2016-08-01 22:00] VITALS: BP 112/55
[2016-08-02] MEDS: PERCOCET 5MG/325MG TAB PO PRN ×2 (04:01→08:12)
[2016-08-02 06:00] VITALS: BP 155/80
[2016-08-02 07:10] LABS: MEAN CORPUSCULAR HEMOGLOBIN 31.9 pg (27.0-33.0); MEAN CORPUSCULAR HGB CONC 32.9 g/dl (32.0-36.5); MEAN CORPUSCULAR VOLUME 96.9 fl (80.0-96.0); RED CELL DISTRIBUTION WIDTH 13.3 % (11.5-14.5); WHITE BLOOD COUNT 9.4 K/mm3 (4.0-10.0)
[2016-08-02 07:12] LABS: INR 1.29
[2016-08-02] MEDS: SYMBICORT 160/4.5MCG INHALER 6GM INH SCH (07:14)
[2016-08-02 07:21] LABS: ANION GAP 5 MEQ/L (8-16); BLOOD UREA NITROGEN 10 MG/DL (7-18); CALCIUM LEVEL 8.5 MG/DL (8.8-10.2); CARBON DIOXIDE LEVEL 31 MEQ/L (21-32); CHLORIDE LEVEL 106 MEQ/L (98-107); CREATININE FOR GFR 0.63 MG/DL (0.55-1.02); GLOMERULAR FILTRATION RATE > 60.0 (>45); GLUCOSE, FASTING 106 MG/DL (80-110); POTASSIUM SERUM 3.9 MEQ/L (3.5-5.1); SODIUM LEVEL 142 MEQ/L (136-145)
--- NOTE | 2016-08-02 07:35 | ECGEPIP ---
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
[2016-08-02] MEDS: MOM 30ML SUSPENSION UDC PO SCH (08:11)
[2016-08-02] MEDS: CETIRIZINE (ZyrTEC) 10 MG TAB PO SCH (08:11)
[2016-08-02] MEDS: MIRALAX *UNIT DOSE* 17GM PACKET PO SCH (08:11)
[2016-08-02] MEDS: OYSTER SHELL CALCIUM 500 MG TAB PO SCH (08:11)
[2016-08-02] MEDS: SENOKOT S TAB PO SCH (08:12)
[2016-08-02] MEDS: POTASSIUM CHLORIDE 10 MEQ SR TABLET PO SCH (08:12)
[2016-08-02] MEDS: oxyBUTYnin *DITROPAN XL* 5 MG TABCR PO SCH (08:12)
[2016-08-02] MEDS: DULoxetine 30 MG CAP (CYMBALTA) PO SCH (08:12)
[2016-08-02] MEDS ORDERED: COUM2.5T11 PO (08:27)
[2016-08-02] MEDS ORDERED: PERC5TAB6 PO (08:27)
--- NOTE | 2016-08-04 11:34 | DSES ---
DATE OF ADMISSION: 07/31/2016 DATE OF DISCHARGE: 08/02/2016 ADMITTING PROVIDER: Dr. Cramer ADMITTING DIAGNOSES: 1. Left knee valgus degenerative arthritis. 2. Left knee retained tibial interference screw from previous anterior cruciate ligament reconstruction. OTHER DIAGNOSES: 1. Asthma. 2. Hypertension. 3. Urinary incontinence. 4. Pituitary adenoma. 5. Gout. 6. Glaucoma. 7. Seasonal allergies. 8. Chronic back pain. DISCHARGE DIAGNOSIS: Status post left total knee arthroplasty and removal of interference screw. HISTORY OF PRESENT ILLNESS: The patient is a 61-year-old female with continuing left knee pain and stiffness. She failed to improve with conservative measures so she elected for a left total knee arthroplasty and removal of interference screw from previous ACL surgery. OPERATION PERFORMED: Left total knee arthroplasty with removal of Accufix interference screw. HOSPITAL COURSE: The patient underwent a left total knee arthroplasty and removal of interference screw under spinal anesthesia which was uneventful. She was up with physical therapy per their protocol, weight bearing as tolerated on the left lower extremity. The hospital team did feel comfortable discharging the patient. She will be discharged on oral pain medications and will resume her preoperative medications and diet. She will use her thromboembolic deterrent stockings and take her Coumadin for 30 days postoperative to prevent deep venous thrombosis. She will followup in our office in 12-14 days or sooner for staple removal. She is encouraged to contact our office sooner if she has any increased pain, drainage, bleeding, redness, numbness and tingling down into her left lower extremity, fever greater than 101 degrees, or any other concerns. Please see medical record for additional details.
== END 2016-08-02 11:45 | disposition home health service (06) | DRG 470 ==
LOC: M OR 07:33 → M MS5PR 12:25
PROVIDERS: ADMIT Orthopaedic Surgery; ATTEND Orthopaedic Surgery
PROC: 0QPH04Z Removal of Internal Fixation Device from Left Tibia, Open Approach (ICD-10-PCS; 2016-07-31)
PROC: 0SRD0J9 Replacement of Left Knee Joint with Synthetic Substitute, Cemented, Open Approach (ICD-10-PCS; principal; 2016-07-31 09:00)
DX: M17.12 Unilateral primary osteoarthritis, left knee (principal); Z88.0 Allergy status to penicillin; Z88.1 Allergy status to other antibiotic agents; Z88.2 Allergy status to sulfonamides; Z88.8 Allergy status to other drugs, medicaments and biological substances; Z91.040 Latex allergy status; J45.909 Unspecified asthma, uncomplicated; I10 Essential (primary) hypertension; M10.9 Gout, unspecified; Z79.899 Other long term (current) drug therapy; H40.9 Unspecified glaucoma; E87.6 Hypokalemia; G89.29 Other chronic pain; N32.81 Overactive bladder

== ENCOUNTER → 2016-08-03 | Outpatient (REF) | payer OTHER ==
[~2016-08-03] MED LIST changes: +ASPI325T24 PO; -ASPI32ECTA PO; -BUPIVACAINE LIPOSOME/PF 1.3% 20 ML VIAL (13.3MG/ML)(EXPAREL) As Ordered ONE; -CLINDAMYCIN INJ 900MG/6ML VIAL As Ordered ONE; +COUM2.5T17 PO; -EPINEPHrine INJ 1 MG/ML 1ML AMP As Ordered ONE; +PERC5TAB12 PO; -PROA1AER INH; +PROAAER10 INH; -SKEL-29 PO; +SKEL800T97 PO; -TRANEXAMIC ACID 100 MG/ML 10ML VIAL As Ordered ONE; -ceFAZolin 1GM INJ (J0690) As Ordered ONE
[2016-08-03 16:14] LABS: INR 1.67
== END ==
LOC: M LAB REF 15:40
PROVIDERS: ATTEND Nurse Practitioner Family
DX: Z51.81 Encounter for therapeutic drug level monitoring (principal); Z79.01 Long term (current) use of anticoagulants

== ENCOUNTER → 2016-08-10 | Outpatient (REF) | payer OTHER ==
[2016-08-10 12:50] LABS: INR 2.83
== END ==
LOC: M SHH 12:08
PROVIDERS: ATTEND Nurse Practitioner Family
DX: Z51.81 Encounter for therapeutic drug level monitoring (principal); Z79.01 Long term (current) use of anticoagulants

== ENCOUNTER → 2016-08-17 | Outpatient (REF) | payer OTHER ==
[2016-08-17 12:56] LABS: INR 1.75
== END ==
LOC: M SHH 12:33
PROVIDERS: ATTEND Nurse Practitioner Family
DX: Z79.01 Long term (current) use of anticoagulants (principal)

== ENCOUNTER → 2016-10-20 | Outpatient (CLI) | payer OTHER ==
--- NOTE | 2016-10-27 01:51 | ECWPNPC ---
PATIENT NAME: NATALIE CABALLERO : 1955 GENDER: FEMALE VISIT DATE: 10/20/2016 DISCHARGE DATE: 10/20/16 1459 VISIT LOCKED DATE TIME: PHYSICIAN: ZELDA KRAMER RESOURCE: ZELDA KRAMER REASON FOR APPOINTMENT 1. LOW BACK PAIN W.C HISTORY OF PRESENT ILLNESS HISTORY OF PRESENT ILLNESS: PAIN THE PATIENT DESCRIBES THE PAIN... 60 YEAR OLD FEMALE PATIENT WITH HISTORY OF CHRONIC LOW BACK PAIN. PATIENT DESCRIBES THE PAIN ACHING, STABBING, TENDER, THROBBING, SORE, SHOOTING, AND HAVING IT ALL THE TIME ON THE LEFT LOWER BACK WITH A PAIN SCORE OF 7/10. 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 MRS. CABALLERO RECEIVED A DIAGNOSTIC FACET BLOCK ON 07/07/16 AND REPORTS HAVING OVER 50% RELIEF IN PAIN AND INCREASED MOBILITY AND FUNCTIONALITY FOR OVER 12 HOURS AND SHE WOULD LIKE TO MOVE FORWARD WITH THE RADIOFREQUENCY. . CURRENTLY THE PATIENT IS USING GABAPENTIN, SKELAXIN, CYMBALTA, AND TRAMADOL AND STATES THAT THE MEDICATION KEEPS HER MOBILE AND FUNCTIONAL. PATIENT DENIES UNEXPLAINABLE WEIGHT LOSS, FEVER, CHILLS, NEW CHANGES ON HER URINARY OR BOWEL CONTROL. FALL RISK SCREENING: SCREENING :NO FALLS IN THE PAST YEAR CURRENT MEDICATIONS TAKING ALLOPURINOL 300 MG TABLET 1 TABLET ORALLY ONCE A DAY TAKING SINGULAIR 10 MG TABLET 1 TABLET IN THE EVENING ORALLY ONCE A DAY TAKING BENTYL 20 MG TABLET 1 TABLET ORALLY EVERY 4 HOURS NEEDED TAKING VENTOLIN HFA 108 (90 BASE) MCG/ACT AEROSOL SOLUTION 2 PUFFS INHALATION NEEDED TAKING VITAMIN B COMPLEX CAPSULE DIRECTED ORALLY DAILY TAKING HYDROCHLOROTHIAZIDE 25 25 MG TABLET DIRECTED ORAL DAILY TAKING LATANOPROST 0.005 % SOLUTION 1 DROP INTO BOTH EYES EVENING OPHTHALMIC ONCE A DAY TAKING SYMBICORT 80-4.5 MCG/ACT AEROSOL 2 PUFFS INHALATION TWICE A DAY TAKING PREMARIN 0.625 MG/GM CREAM VAGINAL THREE TIMES A WEEK TAKING TYLENOL 500 MG TABLET 1 TABLET NEEDED ORALLY EVERY 6 HRS TAKING BENTYL 10 MG CAPSULE 1 CAPSULE ORALLY TWO TIMES A DAY TAKING REFRESH CELLUVISC 1 % SOLUTION 1 DROP OU OPHTHALMIC 24 TIME(S) A DAY TAKING DIFLUCAN 200 MG TABLET 1 TABLET ORALLY DIRECTED TAKING FIBER 58.6 % POWDER 2 CAPSULES WITH 8 OUNCES OF LIQUID ORALLY DAILY TAKING CRANBERRY 405 MG CAPSULE ORALLY DAILY TAKING FLONASE ALLERGY RELIEF 50 MCG/ACT SUSPENSION 1 SPRAY IN EACH NOSTRIL NASALLY ONCE A DAY TAKING OXYBUTYNIN CHLORIDE 5 MG TABLET 2 TABLETS ORALLY 2 TIMES A DAY TAKING ALPHA LIPOIC ACID 100 MG CAPSULE 1 CAP ORALLY DAILY TAKING POTASSIUM CHLORIDE 10 MEQ CAPSULE EXTENDED RELEASE 1 CAPSULE WITH FOOD ORALLY ONCE A DAY TAKING PROBIOTIC - CAPSULE ORALLY DAILY TAKING OMEPRAZOLE 20 MG CAPSULE DELAYED RELEASE 1 CAP ORALLY ONCE A DAY TAKING ALLERX 1 DROP OU BID TAKING TRAMADOL HCL 50 MG TABLET 1 TABLET NEEDED ORALLY Q8H PRN MDD3 TAKING CYMBALTA 30 MG CAPSULE DELAYED RELEASE PARTICLES 1 CAPSULE ORALLY FOR PAIN TWICE A DAY MDD2 TAKING GABAPENTIN 300 MG CAPSULE 1 CAPSULE ORALLY SPECIAL FUNDS TWO TIMES A DAY FOR PAINMDD2 TAKING SKELAXIN 800 MG TABLET 1 TABLET ORALLY BID PRN FOR SPASMS AND PAIN MDD 2 NOT-TAKING ACETAMINOPHEN 500 MG TABLET 2 TABLETS NEEDED ORALLY EVERY 6 HRS FOR PAIN MDD4 NOT-TAKING XIIDRA 5 % SOLUTION 1 DROP INTO AFFECTED EYE OPHTHALMIC TWICE A DAY NOT-TAKING CABERGOLINE 0.5 MG TABLET 0.5 TABLET ORALLY TWICE A WEEK (TAKES 0.05 MG 1/2 TABLET), NOTES: MEDICATION DISCONTINUED NOT-TAKING MONOVISC 88 MG/4ML SOLUTION PREFILLED SYRINGE INTRA-ARTICULAR EVERY 6 MONTHS, NOTES: EVERY 6 MO (LAST 12/17/15) NOT-TAKING RHINOCORT AQUA 32 MCG/ACT SUSPENSION 1 SPRAY IN EACH NOSTRIL NASALLY NEEDED NOT-TAKING OXYBUTYNIN CHLORIDE ER 10 MG TABLET EXTENDED RELEASE 24 HOUR 1 TABLET ORALLY BID NOT-TAKING ULTRAM 50 MG TABLET 1 TABLET NEEDED FOR PAIN ORALLY EVERY 6 HRS MDD1 NOT-TAKING NASACORT ALLERGY 24HR 55 MCG/ACT AEROSOL 1 PUFF IN EACH NOSTRIL NASALLY ONCE A DAY NOT-TAKING CELEBREX 100 MG CAPSULE 1 CAPSULE ORALLY TWICE A DAY NOT-TAKING VITAMIN C 500 MG TABLET DIRECTED ORALLY DAILY, NOTES: 09/02/15 0900 MEDICATION LIST REVIEWED AND RECONCILED WITH THE PATIENT PAST MEDICAL HISTORY DIABETES BLOOD PRESSURE ASTHMA PITUITARY ADENOMA ARTHRITIS 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 DUE TO HYPERTENSION CHRONIC SINUSITIS ALLERGIES PENICILLIN (FOR ALLERGIES USE ONLY): RASH: ALLERGY SULFA (FOR ALLERGY USE ONLY): RASH: ALLERGY PHENERGAN: BLOOD CLOT: SIDE EFFECTS LATEX CONDOMS, RUBBER BANDS, GLOVES: RASH: ALLERGY ERYTHROMYCIN: RASH: ALLERGY NICLKEL: RASH: ALLERGY SULFITES: DYSPNEA: ALLERGY WHEAT: GI UPSET, WATERY EYES AND SINUS CONGERSTION: SIDE EFFECTS REVIEW OF SYSTEMS REVIEWED BY: PROVIDER: ZELDA KRAMER MD . CONSTITUTIONAL: ANY CHANGE IN YOUR MEDICAL CONDITION? YES, TOTAL KNEE REPLACEMENT 07/31/16 . CHILLS NO . FEVER NO . INFECTION: DO YOU HAVE NEW INFECTIONS? NO . DO YOU HAVE HISTORY OF MRSA? NO . MUSCULOSKELETAL: ANY NEW PATTERNS OF PAIN OR NUMBNESS? NO . GASTROENTEROLOGY: ANY NEW CHANGE IN BOWEL CONTROL? NO . GENITOURINARY: ANY NEW CHANGE IN BLADDER CONTROL? NO . IS THERE A CHANCE YOU COULD BE ? NO . HEMATOLOGY/LYMPH: DO YOU TAKE ANY BLOOD THINNERS? (FOR EXAMPLE- COUMADIN, PLAVIX, AGGRENOX, PLATEL, PRADAXA, OR XARELTO) NO . WHEN WAS YOUR LAST DOSE? DATE: TIME: . NEUROLOGY: HAVE YOU FALLEN IN THE PAST 6 MONTHS? NO . ANY NEW EXTREMITY NUMBNESS OR WEAKNESS? NO . CARDIOLOGY: DO YOU HAVE A PACEMAKER OR DEFIBRILLATOR? NO . RESPIRATORY: HAVE YOU BEEN SICK IN THE PAST WEEK? NO . FEVER NO . FLU LIKE SYMPTOMS? NO . COUGH NO . INTEGUMENTARY: DO YOU HAVE ANY RASHES OR OPEN SORES? NO . ALLERGIC/IMMUNO: ARE YOU ALLERGIC TO SHELLFISH OR IV DYE? NO . ANY NEW ALLERGIES? NO . PSYCHIATRIC: DO YOU HAVE THOUGHTS OF HURTING YOURSELF OR SOMEONE ELSE? NO . ARE YOU ABUSED, NEGLECTED, OR IN AN UNSAFE ENVIRONMENT? NO . ENDOCRINOLOGY: ARE YOU DIABETIC? NO . OTHER: DO YOU NEED ANY PRESCRIPTIONS? YES, CYMBALTA, NEURONTIN, SKELAXIN . IF YES, PLEASE LIST: ____ . ANY NEW PROBLEMS WITH YOUR MEDICATIONS? NO . WHEN DID YOU LAST EAT? ____ . WHEN DID YOU LAST DRINK? ____ . WHAT DID YOU LAST DRINK? ____ . NAME OF PERSON DRIVING YOU HOME? ____ . DO YOU HAVE ANY OTHER QUESTIONS OR CONCERNS YES, SCHEDULE RIGHT RADIOFREQUENCY . VITAL SIGNS WT 235.2 LBS, HT 65", BMI 39.14 INDEX, BP 140/75 MM HG, HR 90 /MIN, RR 18 /MIN, TEMP 98.5 F, OXYGEN SAT % 99%, NA INITIALS SC 14:10. EXAMINATION : PATIENT IS ALERT O X 3 AND COOPERATIVE. ANTALGIC GAIT. TENDERNESS IN THE LOWER BACK AND PARASPINAL MUSCLE GROUP MOSTLY THE RIGHT SIDE. PATIENT IS ABLE TO EXTEND HER BACK AT 15 DEGREES WITH PAIN AND DISCOMFORT, PATIENT IS FLEXIBLE IS FLEXING HER BACK. MRI DONE ON 05/25/15 OF THE LUMBAR SPINE SHOWS DISC BULGES AT L2-L3 AND L3-L4 ALONG WITH STENOSIS AT L3-L4. ASSESSMENTS SPONDYLOSIS OF LUMBAR REGION WITHOUT MYELOPATHY OR RADICULOPATHY - M47.816 (PRIMARY) LOW BACK PAIN OF OVER 3 MONTHS DURATION - M54.5 SPONDYLOSIS OF LUMBOSACRAL REGION WITHOUT MYELOPATHY OR RADICULOPATHY - M47.817 TREATMENT LOW BACK PAIN OF OVER 3 MONTHS DURATION REFILL TRAMADOL HCL TABLET, 50 MG, 1 TABLET NEEDED, ORALLY, Q8H PRN MDD3, 30 DAY(S), 45, REFILLS 2 NOTES: WE DISCUSSED SEVERAL ISSUES WITH MRS. CABALLERO'S PAIN MANAGEMENT CASE. AT THIS TIME THE PATIENT WILL CONTINUE WITH THE SAME MEDICATION REGIME BEFORE. PATIENT WILL USE THE CYMBALTA FOR THE NEUROPATHIC PAIN, GABAPENTIN FOR THE NEUROPATHIC PAIN, TRAMADOL FOR THE SOMATIC PAIN, AND SKELAXIN FOR THE MUSCLE SPASMS. PATIENT DENIES ABUSE OF ANY MEDICATION, DENIES USE OF ILLEGAL SUBSTANCES, AND STATES THAT SHE IS ONLY USING THE MEDICATION FOR PAIN MANAGEMENT. URINE TOXICOLOGY REPORT DONE ON 07/21/16 SHOWS CONSISTENT RESULTS WITH THE PATIENT'S MEDICATION LIST. PATIENT HAS HAD TWO DIAGNOSTIC TEST FOR A RADIOFREQUENCY AND BOTH TESTS HAVE HAD ADEQUATE RESULTS TO MOVE FORWARD WITH A RADIOFREQUENCY. WE DISCUSSED THE RISKS, BENENFITS, AND ALTNERATIVES OF THE INJECTION AND THE PATIENT WOULD LIKE TO PROCEED AT THIS TIME. I WOULD ALSO LIKE THE PATIENT TO BEGIN PHYSICAL THERAPY IT HAS AIDED THE PATIENT IN PAIN RELIEF IN THE PAST WELL INCREASING MOBILITY AND FUNCTIONALITY. PATIENT REPORTS IT WAS EASIER TO BEND OVER TO TIE HER SHOES AND TO DO HOUSEHOLD ACTIVITIES. INSTRUCTIONS WERE GIVEN, QUESTIONS WERE ANSWERED, PATIENT REPORTS UNDERSTANDING AND AGREES WITH THE PLAN. I, MARILYN SANTAMARIA, DOCUMENTED THE ABOVE INFORMATION ACTING A SCRIBE FOR DR. KRAMER. I HAVE REVIEWED THE ABOVE DOCUMENT, WRITTEN BY MARILYN CLEANING AND I VERIFY THAT IT IS ACCURATE. OTHERS REFILL CYMBALTA CAPSULE DELAYED RELEASE PARTICLES, 30 MG, 1 CAPSULE, ORALLY FOR PAIN, TWICE A DAY MDD2, 30 DAY(S), 60, REFILLS 2 REFILL GABAPENTIN CAPSULE, 300 MG, 1 CAPSULE, ORALLY SPECIAL FUNDS, TWO TIMES A DAY FOR PAINMDD2, 30 DAY(S), 60, REFILLS 2 REFILL SKELAXIN TABLET, 800 MG, 1 TABLET, ORALLY, BID PRN FOR SPASMS AND PAIN MDD 2, 30 DAY(S), 55, REFILLS 2 PROCEDURES PN WORKMANS' COMP OPINION IN YOUR OPINION, WAS THE INCIDENT THAT THE PATIENT DESCRIBED THE COMPETENT MEDICAL CAUSE OF THIS INJURY/ILLNESS? YES ARE THE PATIENT'S COMPLAINTS CONSISTENT WITH HIS/HER HISTORY OF THE INJURY/ILLNESS? YES IS THE PATIENT'S HISTORY OF THE INJURY/ILLNESS CONSISTENT WITH YOUR OBJECTIVE FINDING? YES WHAT IS THE PERCENTAGE OF TEMPORARY IMPAIRMENT? MODERATE TO MARKED = 66.7% IS THE PATIENT WORKING? NO DOCTOR ON SITE: ZELDA JOHNSTON MD PREVENTIVE MEDICINE DISCUSSED PRE PROCEDURE CARE AND RADIOFREQUENCY WITH PT EXPRESSING UNDERSTANDING. PROCEDURE CODES FA211 ESTABILISHED PATIENT [facility] FACILITY CHARGE G8427 DOC MEDS VERIFIED W/PT OR RE G8730 PAIN ASSESS POS TOOL F/U PLAN DOC DISPOSITION & COMMUNICATION FOLLOW UP RF AFTER APPROVAL ELECTRONICALLY SIGNED BY ZELDA KRAMER MD ON 10/25/2016 AT 01:32 PM EDT DISCLAIMER : THIS IS A VISIT SUMMARY EXTRACTED FROM THE [employer] CHART. IT IS NOT A COPY OF THE [employer] PROGRESS NOTE. ALLI
== END ==
LOC: M PAIN 13:00
PROVIDERS: ATTEND Anesthesiology
DX: G89.29 Other chronic pain (principal); M47.816 Spondylosis without myelopathy or radiculopathy, lumbar region; M54.5 Low back pain; M47.817 Spondylosis without myelopathy or radiculopathy, lumbosacral region; E11.9 Type 2 diabetes mellitus without complications; I10 Essential (primary) hypertension; J45.909 Unspecified asthma, uncomplicated; M17.10 Unilateral primary osteoarthritis, unspecified knee; Z91.040 Latex allergy status; Z91.018 Allergy to other foods; L23.0 Allergic contact dermatitis due to metals; Z88.0 Allergy status to penicillin; Z88.2 Allergy status to sulfonamides; Z88.1 Allergy status to other antibiotic agents; Z88.8 Allergy status to other drugs, medicaments and biological substances; Z79.899 Other long term (current) drug therapy

== ENCOUNTER → 2016-10-25 | Outpatient (REF) | payer OTHER | LOC: M LAB REF 15:41 | PROVIDERS: ATTEND Nurse Practitioner Family | DX: B35.3 Tinea pedis (principal) ==

== ENCOUNTER → 2016-11-02 | Outpatient (CLI) | payer OTHER ==
[~2016-11-02] MED LIST changes: +BUPIVACAINE HCL 0.25% 30 ML VIAL As Ordered ONE; +ISOVUE-M 300 61% 15ML VIAL (Q9967) As Ordered ONE; +LIDOCAINE 1% SDV INJ 30 ML VIAL As Ordered ONE; +TRIAMCINOLONE ACETONIDE SUSP 40 MG/ML VIAL (J3301) As Ordered ONE
--- NOTE | 2016-11-03 13:06 | REP ---
FACET BLOCK: The images were reviewed with Dr. Worrell prior to dictation. The portable C-arm is provided in the OR for Dr. Hoover for fluoroscopic guidance. Five intraoperative fluoroscopic spot films were obtained using last image hold technology for needle placement verification for this right lumbar facet injection. The films are on the PACS system and are available for review. 47 seconds of fluoroscopy time were utilized for this procedure. Reviewed by WILDER Aldrich 11/03/2016 01:24 PEdited and Signed by Ryan Worrell MD 11/03/2016 05:12 P
--- NOTE | 2016-11-14 00:52 | ECWPNPC ---
PATIENT NAME: NATALIE CABALLERO : 1955 GENDER: FEMALE VISIT DATE: 11/02/2016 DISCHARGE DATE: 11/02/161652 VISIT LOCKED DATE TIME: PHYSICIAN: ZELDA KRAMER RESOURCE: ZELDA KRAMER REASON FOR APPOINTMENT 1. RIGHT RF W/C HISTORY OF PRESENT ILLNESS HISTORY OF PRESENT ILLNESS: PAIN THE PATIENT DESCRIBES THE PAIN... FALL RISK SCREENING: SCREENING :NO FALLS IN THE PAST YEAR CURRENT MEDICATIONS TAKING ALLOPURINOL 300 MG TABLET 1 TABLET ORALLY ONCE A DAY, NOTES: 11/02/16799 TAKING SINGULAIR 10 MG TABLET 1 TABLET IN THE EVENING ORALLY ONCE A DAY, NOTES: 11/02/16799 TAKING BENTYL 20 MG TABLET 1 TABLET ORALLY EVERY 4 HOURS NEEDED, NOTES: > 3 DAYS TAKING VENTOLIN HFA 108 (90 BASE) MCG/ACT AEROSOL SOLUTION 2 PUFFS INHALATION NEEDED, NOTES: > 1 YEAR TAKING VITAMIN B COMPLEX CAPSULE DIRECTED ORALLY DAILY, NOTES: 11/02/16799 TAKING HYDROCHLOROTHIAZIDE 25 25 MG TABLET DIRECTED ORAL DAILY, NOTES: 11/02/16799 TAKING LATANOPROST 0.005 % SOLUTION 1 DROP INTO BOTH EYES EVENING OPHTHALMIC ONCE A DAY, NOTES: 11/01/162099 TAKING SYMBICORT 80-4.5 MCG/ACT AEROSOL 2 PUFFS INHALATION TWICE A DAY, NOTES: 11/01/162099 TAKING PREMARIN 0.625 MG/GM CREAM VAGINAL THREE TIMES A WEEK, NOTES: > 3 WEEKS TAKING TYLENOL 500 MG TABLET 1 TABLET NEEDED ORALLY EVERY 6 HRS, NOTES: 11/02/1699 TAKING BENTYL 10 MG CAPSULE 1 CAPSULE ORALLY TWO TIMES A DAY, NOTES: > 3 DAYS TAKING REFRESH CELLUVISC 1 % SOLUTION 1 DROP OU OPHTHALMIC 24 TIME(S) A DAY, NOTES: 11/01/162099 TAKING DIFLUCAN 200 MG TABLET 1 TABLET ORALLY DIRECTED, NOTES: 5 DAYS AGO TAKING FIBER 58.6 % POWDER 2 CAPSULES WITH 8 OUNCES OF LIQUID ORALLY DAILY, NOTES: 11/02/16799 TAKING CRANBERRY 405 MG CAPSULE ORALLY DAILY, NOTES: 11/02/16799 TAKING FLONASE ALLERGY RELIEF 50 MCG/ACT SUSPENSION 1 SPRAY IN EACH NOSTRIL NASALLY ONCE A DAY NEEDED, NOTES: NONE RECENTLY TAKING OXYBUTYNIN CHLORIDE 5 MG TABLET 1 TABLET ORALLY 2 TIMES A DAY, NOTES: 11/02/16 08 TAKING ALPHA LIPOIC ACID 100 MG CAPSULE 1 CAP ORALLY DAILY, NOTES: 11/02/16 08 TAKING POTASSIUM CHLORIDE 10 MEQ CAPSULE EXTENDED RELEASE 1 CAPSULE WITH FOOD ORALLY ONCE A DAY, NOTES: 11/02/16 08 TAKING PROBIOTIC - CAPSULE ORALLY DAILY, NOTES: 11/02/16 08 TAKING OMEPRAZOLE 20 MG CAPSULE DELAYED RELEASE 1 CAP ORALLY ONCE A DAY NEEDED, NOTES: NONE RECCENTLY TAKING ALLERX 1 DROP BOTH EYES DAILY, NOTES: 11/01/16 2100 TAKING TRAMADOL HCL 50 MG TABLET 1 TABLET NEEDED ORALLY Q8H PRN MDD3, NOTES: 11/01/16 1200 TAKING CYMBALTA 30 MG CAPSULE DELAYED RELEASE PARTICLES 1 CAPSULE ORALLY FOR PAIN TWICE A DAY MDD2, NOTES: 11/02/16 08 TAKING GABAPENTIN 300 MG CAPSULE 1 CAPSULE ORALLY SPECIAL FUNDS TWO TIMES A DAY FOR PAINMDD2, NOTES: 11/02/16 08 TAKING SKELAXIN 800 MG TABLET 1 TABLET ORALLY BID PRN FOR SPASMS AND PAIN MDD 2, NOTES: 11/01/161999 TAKING CABERGOLINE 0.5 MG TABLET 0.5 TABLET ORALLY TWICE A WEEK (TAKES 0.05 MG 1/2 TABLET), NOTES: 10/29/16 NOT-TAKING ACETAMINOPHEN 500 MG TABLET 2 TABLETS NEEDED ORALLY EVERY 6 HRS FOR PAIN MDD4 NOT-TAKING XIIDRA 5 % SOLUTION 1 DROP INTO AFFECTED EYE OPHTHALMIC TWICE A DAY NOT-TAKING MONOVISC 88 MG/4ML SOLUTION PREFILLED SYRINGE INTRA-ARTICULAR EVERY 6 MONTHS, NOTES: EVERY 6 MO (LAST 12/17/15) NOT-TAKING RHINOCORT AQUA 32 MCG/ACT SUSPENSION 1 SPRAY IN EACH NOSTRIL NASALLY NEEDED NOT-TAKING OXYBUTYNIN CHLORIDE ER 10 MG TABLET EXTENDED RELEASE 24 HOUR 1 TABLET ORALLY BID NOT-TAKING ULTRAM 50 MG TABLET 1 TABLET NEEDED FOR PAIN ORALLY EVERY 6 HRS MDD1 NOT-TAKING NASACORT ALLERGY 24HR 55 MCG/ACT AEROSOL 1 PUFF IN EACH NOSTRIL NASALLY ONCE A DAY NOT-TAKING CELEBREX 100 MG CAPSULE 1 CAPSULE ORALLY TWICE A DAY NOT-TAKING VITAMIN C 500 MG TABLET DIRECTED ORALLY DAILY, NOTES: 09/02/15 0900 MEDICATION LIST REVIEWED AND RECONCILED WITH THE PATIENT PAST MEDICAL HISTORY DIABETES BLOOD PRESSURE ASTHMA PITUITARY ADENOMA ARTHRITIS 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 DUE TO HYPERTENSION CHRONIC SINUSITIS ALLERGIES PENICILLIN (FOR ALLERGIES USE ONLY): RASH: ALLERGY SULFA (FOR ALLERGY USE ONLY): RASH: ALLERGY PHENERGAN: BLOOD CLOT: SIDE EFFECTS LATEX CONDOMS, RUBBER BANDS, GLOVES: RASH: ALLERGY ERYTHROMYCIN: RASH: ALLERGY NICLKEL: RASH: ALLERGY SULFITES: DYSPNEA: ALLERGY WHEAT: GI UPSET, WATERY EYES AND SINUS CONGERSTION: SIDE EFFECTS SURGICAL HISTORY BTL 1987 GB 1991 ACL 2001 RIGHT ROTATOR CUFF 02/2014 LEFT TOTAL KNEE REPLACEMENT 07/2016 SOCIAL HISTORY GENERAL: TOBACCO USE ARE YOU A:NONSMOKER ALCOHOL SCREENING POINTS0 INTERPRETATIONNEGATIVE ISLAM [id number] [employer] LEARNING BARRIERS / SPECIAL NEEDS CHANGE FROM LAST VISIT?NO BARRIERS TO LEARNING?NO HEARING IMPAIRED?NO VISION IMPAIRED?YES ENLARGED OPTIC NERVE RELATED TO GESTATIONAL HYPERTENSION. :CORRECTIVE LENSES COGNITIVELY IMPAIRED?NO READINESS TO LEARN?YES LEARNING PREFERENCES?NO LEARNING CAPABILITIES PRESENT?YES EMOTIONAL BARRIERS?NO SPECIAL DEVICES?NO SCRAP BALER NEEDED?NO NEW PATIENT PAIN DIARY TODAY'S VISITNOTES FROM 0-10, WHAT LEVEL IS YOUR PAIN TODAY?0 PAIN CLINIC PFS, CLERGY, PUBLIC HEALTH REFERRALS PFS REFERRAL NEEDED?NO CLERGY REFERRAL NEEDED?NO PUBLIC HEALTH REFERRAL NEEDED?NO WAS THE PROVIDER NOTIFIED OF ANY PERTINENT INFO?NO HAS THE PATIENT BEEN EDUCATED REGARDING HIS/HER PLAN OF CARE?YES HAS THE PATIENT BEEN EDUCATED REGARDING PAIN, THE RISK FOR PAIN, THE IMPORTANCE OF EFFECTIVE PAIN MANAGEMENT, AND THE PAIN ASSESSMENT PROCESS?YES ADVANCE DIRECTIVES HEALTH CARE PROXY?YES NAME OF HCP DELBERT [facility] CONTACT # FOR HCP [phone] AND ASK FOR DELBERT DO YOU HAVE A COPY WITH YOU?NO STATES HAS ALREADY BROUGHT COPY IN FOR SCANNING AT 07/2016 HOSPITALIZATION. DO YOU HAVE A DNR?NO WOULD YOU LIKE MORE INFORMATION?NO LIVING WILL?NO WOULD YOU LIKE MORE INFORMATION?NO POWER OF MANAGER APPLE?NO WOULD YOU LIKE MORE INFORMATION?NO HOSPITALIZATION/MAJOR DIAGNOSTIC PROCEDURE SURGERY RELATED ASTHMA REVIEW OF SYSTEMS REVIEWED BY: PROVIDER: . CONSTITUTIONAL: ANY CHANGE IN YOUR MEDICAL CONDITION? NO . CHILLS NO . FEVER NO . INFECTION: DO YOU HAVE NEW INFECTIONS? NO . DO YOU HAVE HISTORY OF MRSA? NO . MUSCULOSKELETAL: ANY NEW PATTERNS OF PAIN OR NUMBNESS? NO . GASTROENTEROLOGY: ANY NEW CHANGE IN BOWEL CONTROL? NO . GENITOURINARY: ANY NEW CHANGE IN BLADDER CONTROL? NO . IS THERE A CHANCE YOU COULD BE ? NO . HEMATOLOGY/LYMPH: DO YOU TAKE ANY BLOOD THINNERS? (FOR EXAMPLE- COUMADIN, PLAVIX, AGGRENOX, PLATEL, PRADAXA, OR XARELTO) NO . WHEN WAS YOUR LAST DOSE? DATE: TIME: . NEUROLOGY: HAVE YOU FALLEN IN THE PAST 6 MONTHS? NO . ANY NEW EXTREMITY NUMBNESS OR WEAKNESS? NO . CARDIOLOGY: DO YOU HAVE A PACEMAKER OR DEFIBRILLATOR? NO . RESPIRATORY: HAVE YOU BEEN SICK IN THE PAST WEEK? NO . FEVER NO . FLU LIKE SYMPTOMS? NO . COUGH NO . INTEGUMENTARY: DO YOU HAVE ANY RASHES OR OPEN SORES? NO . ALLERGIC/IMMUNO: ARE YOU ALLERGIC TO SHELLFISH OR IV DYE? NO . ANY NEW ALLERGIES? NO . PSYCHIATRIC: DO YOU HAVE THOUGHTS OF HURTING YOURSELF OR SOMEONE ELSE? NO . ARE YOU ABUSED, NEGLECTED, OR IN AN UNSAFE ENVIRONMENT? NO . ENDOCRINOLOGY: ARE YOU DIABETIC? NO . OTHER: DO YOU NEED ANY PRESCRIPTIONS? NO . IF YES, PLEASE LIST: ____ . ANY NEW PROBLEMS WITH YOUR MEDICATIONS? NO . WHEN DID YOU LAST EAT? 0800 . WHEN DID YOU LAST DRINK? 0800 . WHAT DID YOU LAST DRINK? WATER . NAME OF PERSON DRIVING YOU HOME? DELBERT . DO YOU HAVE ANY OTHER QUESTIONS OR CONCERNS NO . VITAL SIGNS WT 231 LBS, HT 65", BMI 38.44 INDEX, BP 138/71 MM HG, HR 70 /MIN, RR 18 /MIN, TEMP 98.9 F, OXYGEN SAT % 94%, REVIEWED BY: LS. ASSESSMENTS SPONDYLOSIS OF LUMBAR REGION WITHOUT MYELOPATHY OR RADICULOPATHY - M47.816 (PRIMARY) SPONDYLOSIS OF LUMBOSACRAL REGION WITHOUT MYELOPATHY OR RADICULOPATHY - M47.817 PROCEDURES PN RADIOFREQUENCY PRE PROCEDURE DIAGNOSES 1. LUMBAR SPONDYLOSIS. 2. LUMBOSACRAL SPONDYLOSIS POST PROCEDURE DIAGNOSES 1. LUMBAR SPONDYLOSIS. 2. LUMBOSACRAL SPONDYLOSIS PROCEDURE RIGHT L4-L5 AND RIGHT L5-S1 LUMBAR FACET RADIOFREQUENCY SURGEON DR. 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 I EVALUATE THE PATIENT AND REVIEWED THE CHART. I WENT OVER THE RISKS, ALTERNATIVES, AND BENEFITS ASSOCIATED WITH THIS PROCEDURE. THE PATIENT WOULD LIKE TO PROCEED AND GIVE CONSENT TO PERFORMED THE PROCEDURE. THE PATIENT DENIES UNEXPLAINABLE WEIGHT LOSS, FEVER, CHILLS, OR NEW CHANGES IN URINARY OR BOWEL CONTROL DESCRIPTION OF PROCEDURE THE PATIENT WAS BROUGHT TO THE PROCEDURE ROOM AND PLACED IN THE PRONE POSITION. THE LUMBOSACRAL AREA WAS CLEANED WITH CHLORAPREP SOLUTION AND DRAPED ASEPTICALLY. THE PROCEDURE WAS DONE UNDER STERILE CONDITIONS. I CHECKED LATERALITY AND THE LEVEL WHERE THE PROCEDURE WAS GOING TO BE PERFORMED WITH THE PATIENT AND THE SUPPORTING STAFF AT THE MOMENT OF THE TIME OUT IN THE PROCEDURE ROOM. UNDER FLUOROSCOPIC GUIDANCE, TARGETS WERE SELECTED AT THE INTERSECTION OF THE RIGHT TRANSVERSE PROCESS OF L4, L5 AND ALA OF S1 WITH ITS RESPECTIVE SUPERIOR ARTICULAR PROCESS. LIDOCAINE WAS USED TO NUMB THE SKIN AND THE SUBCUTANEOUS TISSUE BELOW IT. RADIOFREQUENCY NEEDLES 22-GAUGE 15 CM LONG WITH 10 MM ACTIVE CURVE TIP WERE ADVANCED UNDER FLUOROSCOPIC GUIDANCE AND FOLLOWING PATIENT FEEDBACK UNTIL THE TARGET AREA WAS REACHED. POSITION OF THE NEEDLES WAS VERIFIED WITH AP AND LATERAL VIEWS. AFTER PROPER POSITION OF THE NEEDLE WAS ACHIEVED, WE WORKED WITH THE RIGHT SELECTED MEDIAN BRANCHES OF L3, L4 AND THE DORSAL RAMI OF L5. WE MEASURED THE CORRESPONDING IMPEDANCES, SENSORY STIMULATION AND MOTOR RESPONSES INDICATED IN THE RADIOFREQUENCY WORK SHEET. POSITION OF THE NEEDLES WAS VERIFIED AGAIN WITH AP AND LATERAL VIEWS. LIDOCAINE 1%, 2 ML, WAS INJECTED AT EACH LEVEL. RADIOFREQUENCY WAS DONE AT EACH LEVEL AT 80 DEGREES FOR 90 SECONDS. AFTER RADIOFREQUENCY WAS DONE, THE PATIENT RECEIVED BUPIVACAINE 0.125% 1 CC WITH KENALOG 5 MG AT EACH SITE. THERE WAS NO EVIDENCE OF BLOOD, PARESTHESIA OR CEREBROSPINAL FLUID DURING THE PROCEDURE. THE PATIENT WAS SENT TO THE RECOVERY ROOM. THE PATIENT WAS MOVING THE EXTREMITIES AND DOING WELL. THERE WAS NO COMPLICATION DURING THE PROCEDURE. FLUOROSCOPY TIME WAS 47 SECONDS POST PROCEDURE NOTE THE PATIENT WILL BE SEEN IN A FOLLOW UP IN THE NEXT FEW WEEKS. INSTRUCTIONS WERE GIVEN, QUESTIONS WERE ANSWERED, AND THE PATIENT EXPRESSED UNDERSTANDING AND AGREES WITH THE PLAN. I, MARILYN SANTAMARIA, DOCUMENTED THE ABOVE INFORMATION ACTING A SCRIBE FOR DR. KRAMER. I HAVE REVIEWED THE ABOVE DOCUMENT, WRITTEN BY MARILYN CLEANING AND I VERIFY THAT IT IS ACCURATE DIAGNOSTIC IMAGING [facility] FACET BLOCK (PAIN)[id number] PROCEDURE CODES 32812 DESTROY LUMB/SAC FACET JNT, [place]IFI[place]: RT [address]1400 DESTROY L/S FACET JNT ADDL, MODIFIERS: RT 6045F RADXPS IN END [id number] PXD DISPOSITION & COMMUNICATION FOLLOW UP 3 WEEKS ELECTRONICALLY SIGNED BY ZELDA KRAMER MD ON 11/13/2016 AT 03:34 PM EDT DISCLAIMER : THIS IS A VISIT SUMMARY EXTRACTED FROM THE [employer] CHART. IT IS NOT A COPY OF THE [employer] PROGRESS NOTE. ALLI
== END ==
LOC: M PAIN 14:15
PROVIDERS: ATTEND Anesthesiology
DX: G89.29 Other chronic pain (principal); M47.816 Spondylosis without myelopathy or radiculopathy, lumbar region; M47.817 Spondylosis without myelopathy or radiculopathy, lumbosacral region; E11.9 Type 2 diabetes mellitus without complications; J45.909 Unspecified asthma, uncomplicated; I10 Essential (primary) hypertension; Z88.0 Allergy status to penicillin; Z88.2 Allergy status to sulfonamides; Z91.040 Latex allergy status; Z88.1 Allergy status to other antibiotic agents; L23.0 Allergic contact dermatitis due to metals; Z91.02 Food additives allergy status; Z79.51 Long term (current) use of inhaled steroids; Z79.891 Long term (current) use of opiate analgesic; Z79.899 Other long term (current) drug therapy
CPT/HCPCS: 64635; 64636; J3301; Q9967

== ENCOUNTER → 2016-11-15 | Outpatient (CLI) | payer OTHER ==
[~2016-11-15] MED LIST changes: -BUPIVACAINE HCL 0.25% 30 ML VIAL As Ordered ONE; -ISOVUE-M 300 61% 15ML VIAL (Q9967) As Ordered ONE; -LIDOCAINE 1% SDV INJ 30 ML VIAL As Ordered ONE; -TRIAMCINOLONE ACETONIDE SUSP 40 MG/ML VIAL (J3301) As Ordered ONE
--- NOTE | 2016-11-17 00:34 | ECWPNPC ---
PATIENT NAME: NATALIE CABALLERO : 1955 GENDER: FEMALE VISIT DATE: 11/15/2016 DISCHARGE DATE: 11/15/16 1009 VISIT LOCKED DATE TIME: PHYSICIAN: BRITTNEY PAULINO RESOURCE: BRITTNEY PAULINO REASON FOR APPOINTMENT 1. POST PROC HISTORY OF PRESENT ILLNESS HISTORY OF PRESENT ILLNESS: PAIN THE PATIENT DESCRIBES THE PAIN... THE PATIENT DESCRIBES THE PAIN... THE PATIENT DESCRIBES THE PAIN... HERE FOR POST PROC. F/U. HAD RADIOFREQUENCY RIGHTL5/S1 ON 11-02-16.REPORTS > 50% IMPROVEMENT IN PAIN POST PROCEDURE THAT CONTINUES TODAY . RATING PAIN VAS 1/10.PAIN IS LOCATED ACROSS LOW BACK AND IS INTERMITTENT AND DESCRIBED ACHING.HAS NOT NEEDED TO TAKE PAIN MEDICATION SINCE PROCEDURE. PAIN AGGREVATED BY WEATHER CHANGE.THIS IS CHRONIC PAIN RELATED TO WORK RELATED INJURY DOI:09-01-2006.CURRENTLY USING TRAMADOL 50MG Q8H PRN,SKELAXIN 800MG Q12H PRN AND CYMBALTA 30MG BID FOR CHRONIC PAIN. FALL RISK SCREENING: SCREENING :NO FALLS IN THE PAST YEAR CURRENT MEDICATIONS TAKING ALLOPURINOL 300 MG TABLET 1 TABLET ORALLY ONCE A DAY TAKING SINGULAIR 10 MG TABLET 1 TABLET IN THE EVENING ORALLY ONCE A DAY TAKING BENTYL 20 MG TABLET 1 TABLET ORALLY EVERY 4 HOURS NEEDED TAKING VENTOLIN HFA 108 (90 BASE) MCG/ACT AEROSOL SOLUTION 2 PUFFS INHALATION NEEDED TAKING VITAMIN B COMPLEX CAPSULE DIRECTED ORALLY DAILY TAKING HYDROCHLOROTHIAZIDE 25 25 MG TABLET DIRECTED ORAL DAILY TAKING LATANOPROST 0.005 % SOLUTION 1 DROP INTO BOTH EYES EVENING OPHTHALMIC ONCE A DAY TAKING SYMBICORT 80-4.5 MCG/ACT AEROSOL 2 PUFFS INHALATION TWICE A DAY TAKING PREMARIN 0.625 MG/GM CREAM VAGINAL THREE TIMES A WEEK TAKING TYLENOL 500 MG TABLET 1 TABLET NEEDED ORALLY EVERY 6 HRS TAKING BENTYL 10 MG CAPSULE 1 CAPSULE ORALLY TWO TIMES A DAY TAKING REFRESH CELLUVISC 1 % SOLUTION 1 DROP OU OPHTHALMIC 24 TIME(S) A DAY TAKING DIFLUCAN 200 MG TABLET 1 TABLET ORALLY DIRECTED TAKING FIBER 58.6 % POWDER 2 CAPSULES WITH 8 OUNCES OF LIQUID ORALLY DAILY TAKING CRANBERRY 405 MG CAPSULE ORALLY DAILY TAKING FLONASE ALLERGY RELIEF 50 MCG/ACT SUSPENSION 1 SPRAY IN EACH NOSTRIL NASALLY ONCE A DAY NEEDED TAKING OXYBUTYNIN CHLORIDE 5 MG TABLET 1 TABLET ORALLY 2 TIMES A DAY TAKING ALPHA LIPOIC ACID 100 MG CAPSULE 1 CAP ORALLY DAILY TAKING POTASSIUM CHLORIDE 10 MEQ CAPSULE EXTENDED RELEASE 1 CAPSULE WITH FOOD ORALLY ONCE A DAY TAKING PROBIOTIC - CAPSULE ORALLY DAILY TAKING OMEPRAZOLE 20 MG CAPSULE DELAYED RELEASE 1 CAP ORALLY ONCE A DAY NEEDED TAKING ALLERX 1 DROP BOTH EYES DAILY TAKING TRAMADOL HCL 50 MG TABLET 1 TABLET NEEDED ORALLY Q8H PRN MDD3 TAKING CYMBALTA 30 MG CAPSULE DELAYED RELEASE PARTICLES 1 CAPSULE ORALLY FOR PAIN TWICE A DAY MDD2 TAKING GABAPENTIN 300 MG CAPSULE 1 CAPSULE ORALLY SPECIAL FUNDS TWO TIMES A DAY FOR PAINMDD2 TAKING SKELAXIN 800 MG TABLET 1 TABLET ORALLY BID PRN FOR SPASMS AND PAIN MDD 2 TAKING CABERGOLINE 0.5 MG TABLET 0.5 TABLET ORALLY TWICE A WEEK (TAKES 0.05 MG 1/2 TABLET) NOT-TAKING ACETAMINOPHEN 500 MG TABLET 2 TABLETS NEEDED ORALLY EVERY 6 HRS FOR PAIN MDD4 NOT-TAKING XIIDRA 5 % SOLUTION 1 DROP INTO AFFECTED EYE OPHTHALMIC TWICE A DAY NOT-TAKING MONOVISC 88 MG/4ML SOLUTION PREFILLED SYRINGE INTRA-ARTICULAR EVERY 6 MONTHS, NOTES: EVERY 6 MO (LAST 12/17/15) NOT-TAKING RHINOCORT AQUA 32 MCG/ACT SUSPENSION 1 SPRAY IN EACH NOSTRIL NASALLY NEEDED NOT-TAKING OXYBUTYNIN CHLORIDE ER 10 MG TABLET EXTENDED RELEASE 24 HOUR 1 TABLET ORALLY BID NOT-TAKING ULTRAM 50 MG TABLET 1 TABLET NEEDED FOR PAIN ORALLY EVERY 6 HRS MDD1 NOT-TAKING NASACORT ALLERGY 24HR 55 MCG/ACT AEROSOL 1 PUFF IN EACH NOSTRIL NASALLY ONCE A DAY NOT-TAKING CELEBREX 100 MG CAPSULE 1 CAPSULE ORALLY TWICE A DAY NOT-TAKING VITAMIN C 500 MG TABLET DIRECTED ORALLY DAILY, NOTES: 09/02/15 0900 MEDICATION LIST REVIEWED AND RECONCILED WITH THE PATIENT PAST MEDICAL HISTORY DIABETES BLOOD PRESSURE ASTHMA PITUITARY ADENOMA ARTHRITIS 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 DUE TO HYPERTENSION CHRONIC SINUSITIS ALLERGIES PENICILLIN (FOR ALLERGIES USE ONLY): RASH: ALLERGY SULFA (FOR ALLERGY USE ONLY): RASH: ALLERGY PHENERGAN: BLOOD CLOT: SIDE EFFECTS LATEX CONDOMS, RUBBER BANDS, GLOVES: RASH: ALLERGY ERYTHROMYCIN: RASH: ALLERGY NICLKEL: RASH: ALLERGY SULFITES: DYSPNEA: ALLERGY WHEAT: GI UPSET, WATERY EYES AND SINUS CONGERSTION: SIDE EFFECTS SOCIAL HISTORY GENERAL: TOBACCO USE ARE YOU A:NONSMOKER ALCOHOL SCREENING DID YOU HAVE A DRINK CONTAINING ALCOHOL IN THE PAST YEAR?NO POINTS0 INTERPRETATIONNEGATIVE SCIENTOLOGIST [id number] RELIGIOUS LANGUAGE LANGUAGES SPOKEN:[place]AKUT LEARNING BARRIERS / SPECIAL NEEDS CHANGE FROM LAST VISIT?NO BARRIERS TO LEARNING?NO HEARING IMPAIRED?NO VISION IMPAIRED?YES ENLARGED OPTIC NERVE RELATED TO GESTATIONAL HYPERTENSION. :CORRECTIVE LENSES COGNITIVELY IMPAIRED?NO READINESS TO LEARN?YES LEARNING PREFERENCES?NO LEARNING CAPABILITIES PRESENT?YES EMOTIONAL BARRIERS?NO SPECIAL DEVICES?NO NUISANCE ANIMAL DAMAGE CONTROL AGENT NEEDED?NO NEW PATIENT PAIN DIARY TODAY'S VISITNOTES FROM 0-10, WHAT LEVEL IS YOUR PAIN TODAY?0 PAIN CLINIC PFS, CLERGY, PUBLIC HEALTH REFERRALS PFS REFERRAL NEEDED?NO CLERGY REFERRAL NEEDED?NO PUBLIC HEALTH REFERRAL NEEDED?NO WAS THE PROVIDER NOTIFIED OF ANY PERTINENT INFO?NO HAS THE PATIENT BEEN EDUCATED REGARDING HIS/HER PLAN OF CARE?YES HAS THE PATIENT BEEN EDUCATED REGARDING PAIN, THE RISK FOR PAIN, THE IMPORTANCE OF EFFECTIVE PAIN MANAGEMENT, AND THE PAIN ASSESSMENT PROCESS?YES ADVANCE DIRECTIVES HEALTH CARE PROXY?YES NAME OF HCP DELBERT CABALLERO CONTACT # FOR HCP [phone] AND ASK FOR DELBERT DO YOU HAVE A COPY WITH YOU?NO STATES HAS ALREADY BROUGHT COPY IN FOR SCANNING AT 07/2016 HOSPITALIZATION. DO YOU HAVE A DNR?NO WOULD YOU LIKE MORE INFORMATION?NO LIVING WILL?NO WOULD YOU LIKE MORE INFORMATION?NO POWER OF BIODIESEL OPERATIONS MANAGER?NO WOULD YOU LIKE MORE INFORMATION?NO REVIEW OF SYSTEMS REVIEWED BY: PROVIDER: BRITTNEY THORNTON . CONSTITUTIONAL: ANY CHANGE IN YOUR MEDICAL CONDITION? NO . CHILLS NO . FEVER NO . INFECTION: DO YOU HAVE NEW INFECTIONS? NO . DO YOU HAVE HISTORY OF MRSA? NO . MUSCULOSKELETAL: ANY NEW PATTERNS OF PAIN OR NUMBNESS? NO . GASTROENTEROLOGY: ANY NEW CHANGE IN BOWEL CONTROL? NO . GENITOURINARY: ANY NEW CHANGE IN BLADDER CONTROL? NO . IS THERE A CHANCE YOU COULD BE ? NO . HEMATOLOGY/LYMPH: DO YOU TAKE ANY BLOOD THINNERS? (FOR EXAMPLE- COUMADIN, PLAVIX, AGGRENOX, PLATEL, PRADAXA, OR XARELTO) NO . WHEN WAS YOUR LAST DOSE? DATE: TIME: . NEUROLOGY: HAVE YOU FALLEN IN THE PAST 6 MONTHS? NO . ANY NEW EXTREMITY NUMBNESS OR WEAKNESS? NO . CARDIOLOGY: DO YOU HAVE A PACEMAKER OR DEFIBRILLATOR? NO . RESPIRATORY: HAVE YOU BEEN SICK IN THE PAST WEEK? YES, BRONCHITIS . FEVER NO . FLU LIKE SYMPTOMS? NO . COUGH NO . INTEGUMENTARY: DO YOU HAVE ANY RASHES OR OPEN SORES? NO . ALLERGIC/IMMUNO: ARE YOU ALLERGIC TO SHELLFISH OR IV DYE? NO . ANY NEW ALLERGIES? NO . PSYCHIATRIC: DO YOU HAVE THOUGHTS OF HURTING YOURSELF OR SOMEONE ELSE? NO . ARE YOU ABUSED, NEGLECTED, OR IN AN UNSAFE ENVIRONMENT? NO . ENDOCRINOLOGY: ARE YOU DIABETIC? NO . OTHER: DO YOU NEED ANY PRESCRIPTIONS? NO . IF YES, PLEASE LIST: ____ . ANY NEW PROBLEMS WITH YOUR MEDICATIONS? NO . WHEN DID YOU LAST EAT? ____ . WHEN DID YOU LAST DRINK? ____ . WHAT DID YOU LAST DRINK? ____ . NAME OF PERSON DRIVING YOU HOME? ____ . DO YOU HAVE ANY OTHER QUESTIONS OR CONCERNS NO . VITAL SIGNS WT 235 LBS, HT 65", BMI 39.10 INDEX, BP 142/66 MM HG, HR 95 /MIN, RR 18 /MIN, TEMP 96.4 F, OXYGEN SAT % 97%, SAFE IN ENV? (Y/N) YES, NA INITIALS OH 09:30, REVIEWED BY: ROSIO. EXAMINATION GENERAL EXAMINATION: LUNGS:LUNG SOUNDS ARE CLEAR. HEART:HEART RATE REGULAR. MUSCULOSKELETAL:*, MUSCLE STRENGTH TESTING 5/5 BILATERAL, PALPATION: POSITIVE FOR PAIN OVER L/S SPINE. POSITIVE FOR PAIN OVER L/S PARSPINALS. ASSESSMENTS LOW BACK PAIN OF OVER 3 MONTHS DURATION - M54.5 (PRIMARY) LUMBAR AND SACRAL SPONDYLARTHRITIS - M48.9 TREATMENT LOW BACK PAIN OF OVER 3 MONTHS DURATION CONTINUE TRAMADOL HCL TABLET, 50 MG, 1 TABLET NEEDED, ORALLY, Q8H PRN MDD3 CONTINUE CYMBALTA CAPSULE DELAYED RELEASE PARTICLES, 30 MG, 1 CAPSULE, ORALLY FOR PAIN, TWICE A DAY MDD2 CONTINUE GABAPENTIN CAPSULE, 300 MG, 1 CAPSULE, ORALLY SPECIAL FUNDS, TWO TIMES A DAY FOR PAINMDD2 CONTINUE SKELAXIN TABLET, 800 MG, 1 TABLET, ORALLY, BID PRN FOR SPASMS AND PAIN MDD 2 PROCEDURES PN WORKMANS' COMP OPINION IN YOUR OPINION, WAS THE INCIDENT THAT THE PATIENT DESCRIBED THE COMPETENT MEDICAL CAUSE OF THIS INJURY/ILLNESS? YES ARE THE PATIENT'S COMPLAINTS CONSISTENT WITH HIS/HER HISTORY OF THE INJURY/ILLNESS? YES IS THE PATIENT'S HISTORY OF THE INJURY/ILLNESS CONSISTENT WITH YOUR OBJECTIVE FINDING? YES WHAT IS THE PERCENTAGE OF TEMPORARY IMPAIRMENT? MODERATE TO MARKED = 66.7% IS THE PATIENT WORKING? YES DOCTOR ON SITE: ZELDA JOHNSTON MD PROCEDURE CODES FA211 ESTABILISHED PATIENT [facility] CHARGE DISPOSITION & COMMUNICATION FOLLOW UP 2 MONTHS ELECTRONICALLY SIGNED BY HILLARY GEIGER ON 11/16/2016 AT 09:26 AM EDT DISCLAIMER : THIS IS A VISIT SUMMARY EXTRACTED FROM THE [employer] CHART. IT IS NOT A COPY OF THE [employer] PROGRESS NOTE. ALLI
== END ==
LOC: M PAIN 09:00
PROVIDERS: ATTEND Nurse Practitioner Family
DX: G89.29 Other chronic pain (principal); M54.5 Low back pain; M47.816 Spondylosis without myelopathy or radiculopathy, lumbar region; M47.817 Spondylosis without myelopathy or radiculopathy, lumbosacral region; E11.9 Type 2 diabetes mellitus without complications; J44.9 Chronic obstructive pulmonary disease, unspecified; M19.90 Unspecified osteoarthritis, unspecified site; L23.0 Allergic contact dermatitis due to metals; Z88.0 Allergy status to penicillin; Z88.1 Allergy status to other antibiotic agents; Z88.2 Allergy status to sulfonamides; Z91.018 Allergy to other foods; Z91.040 Latex allergy status; Z79.899 Other long term (current) drug therapy

== ENCOUNTER → 2017-01-17 | Outpatient (CLI) | payer OTHER ==
--- NOTE | 2017-01-17 23:39 | ECWPNPC ---
PATIENT NAME: NATALIE CABALLERO : 1955 GENDER: FEMALE VISIT DATE: 01/17/2017 DISCHARGE DATE: 01/17/17 1403 VISIT LOCKED DATE TIME: PHYSICIAN: BRITTNEY PAULINO RESOURCE: BRITTNEY PAULINO REASON FOR APPOINTMENT 1. W/C, BACK HISTORY OF PRESENT ILLNESS HISTORY OF PRESENT ILLNESS: PAIN THE PATIENT DESCRIBES THE PAIN... THE PATIENT DESCRIBES THE PAIN... THE PATIENT DESCRIBES THE PAIN... THE PATIENT DESCRIBES THE PAIN... HERE FO F/U OF CHRONIC LOW BACK PAIN.HAS HAD PT LAST MONTH THAT WAS HELPFUL.USING LESS TYLENOL AND HAVING IMPROVED ACTIVITY TOLERANCE.CONTINUES TO REPORT SIGNIFICANT LOW BACK PAIN WITH ROJM OF SPINE AND PT IS SUGGESTING SHE CONTINUE TO HAVE PT X 6 MORE WEEKS. HAD RADIOFREQUENCY RIGHTL5/S1 ON 11-02-16.REPORTS > 50% IMPROVEMENT IN PAIN POST PROCEDURE THAT CONTINUES TODAY . RATING PAIN VAS 3/10.PAIN IS LOCATED ACROSS LOW BACK AND IS INTERMITTENT AND DESCRIBED ACHING.HAS NOT NEEDED TO TAKE PAIN MEDICATION SINCE PROCEDURE. PAIN AGGREVATED BY WEATHER CHANGE.THIS IS CHRONIC PAIN RELATED TO WORK RELATED INJURY DOI:09-01-2006.CURRENTLY USING TRAMADOL 50MG Q8H PRN,SKELAXIN 800MG Q12H PRN AND CYMBALTA 30MG BID FOR CHRONIC PAIN. FALL RISK SCREENING: SCREENING :NO FALLS IN THE PAST YEAR CURRENT MEDICATIONS TAKING ALLOPURINOL 300 MG TABLET 1 TABLET ORALLY ONCE A DAY TAKING SINGULAIR 10 MG TABLET 1 TABLET IN THE EVENING ORALLY ONCE A DAY TAKING BENTYL 20 MG TABLET 1 TABLET ORALLY EVERY 4 HOURS NEEDED TAKING VENTOLIN HFA 108 (90 BASE) MCG/ACT AEROSOL SOLUTION 2 PUFFS INHALATION NEEDED TAKING VITAMIN B COMPLEX CAPSULE DIRECTED ORALLY DAILY TAKING HYDROCHLOROTHIAZIDE 25 25 MG TABLET DIRECTED ORAL DAILY TAKING LATANOPROST 0.005 % SOLUTION 1 DROP INTO BOTH EYES EVENING OPHTHALMIC ONCE A DAY TAKING SYMBICORT 80-4.5 MCG/ACT AEROSOL 2 PUFFS INHALATION TWICE A DAY TAKING PREMARIN 0.625 MG/GM CREAM VAGINAL THREE TIMES A WEEK TAKING TYLENOL 500 MG TABLET 1 TABLET NEEDED ORALLY EVERY 6 HRS TAKING BENTYL 10 MG CAPSULE 1 CAPSULE ORALLY TWO TIMES A DAY TAKING REFRESH CELLUVISC 1 % SOLUTION 1 DROP OU OPHTHALMIC 24 TIME(S) A DAY TAKING DIFLUCAN 200 MG TABLET 1 TABLET ORALLY DIRECTED TAKING FIBER 58.6 % POWDER 2 CAPSULES WITH 8 OUNCES OF LIQUID ORALLY DAILY TAKING CRANBERRY 405 MG CAPSULE ORALLY DAILY TAKING FLONASE ALLERGY RELIEF 50 MCG/ACT SUSPENSION 1 SPRAY IN EACH NOSTRIL NASALLY ONCE A DAY NEEDED TAKING OXYBUTYNIN CHLORIDE 5 MG TABLET 1 TABLET ORALLY 2 TIMES A DAY TAKING ALPHA LIPOIC ACID 100 MG CAPSULE 1 CAP ORALLY DAILY TAKING POTASSIUM CHLORIDE 10 MEQ CAPSULE EXTENDED RELEASE 1 CAPSULE WITH FOOD ORALLY ONCE A DAY TAKING PROBIOTIC - CAPSULE ORALLY DAILY TAKING OMEPRAZOLE 20 MG CAPSULE DELAYED RELEASE 1 CAP ORALLY ONCE A DAY NEEDED TAKING ALLERX 1 DROP BOTH EYES DAILY TAKING CABERGOLINE 0.5 MG TABLET 0.5 TABLET ORALLY TWICE A WEEK (TAKES 0.05 MG 1/2 TABLET) TAKING TRAMADOL HCL 50 MG TABLET 1 TABLET NEEDED ORALLY Q8H PRN MDD3 TAKING CYMBALTA 30 MG CAPSULE DELAYED RELEASE PARTICLES 1 CAPSULE ORALLY FOR PAIN TWICE A DAY MDD2 TAKING GABAPENTIN 300 MG CAPSULE 1 CAPSULE ORALLY SPECIAL FUNDS TWO TIMES A DAY FOR PAINMDD2 TAKING SKELAXIN 800 MG TABLET 1 TABLET ORALLY BID PRN FOR SPASMS AND PAIN MDD 2 TAKING XIIDRA 5 % SOLUTION 1 DROP INTO AFFECTED EYE OPHTHALMIC TWICE A DAY NOT-TAKING ACETAMINOPHEN 500 MG TABLET 2 TABLETS NEEDED ORALLY EVERY 6 HRS FOR PAIN MDD4 NOT-TAKING MONOVISC 88 MG/4ML SOLUTION PREFILLED SYRINGE INTRA-ARTICULAR EVERY 6 MONTHS, NOTES: EVERY 6 MO (LAST 12/17/15) NOT-TAKING RHINOCORT AQUA 32 MCG/ACT SUSPENSION 1 SPRAY IN EACH NOSTRIL NASALLY NEEDED NOT-TAKING OXYBUTYNIN CHLORIDE ER 10 MG TABLET EXTENDED RELEASE 24 HOUR 1 TABLET ORALLY BID NOT-TAKING ULTRAM 50 MG TABLET 1 TABLET NEEDED FOR PAIN ORALLY EVERY 6 HRS MDD1 NOT-TAKING NASACORT ALLERGY 24HR 55 MCG/ACT AEROSOL 1 PUFF IN EACH NOSTRIL NASALLY ONCE A DAY NOT-TAKING CELEBREX 100 MG CAPSULE 1 CAPSULE ORALLY TWICE A DAY NOT-TAKING VITAMIN C 500 MG TABLET DIRECTED ORALLY DAILY, NOTES: 09/02/15 0900 MEDICATION LIST REVIEWED AND RECONCILED WITH THE PATIENT PAST MEDICAL HISTORY DIABETES BLOOD PRESSURE ASTHMA PITUITARY ADENOMA ARTHRITIS 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 ALCOHOL SCREENING DID YOU HAVE A DRINK CONTAINING ALCOHOL IN THE PAST YEAR?NO POINTS0 INTERPRETATIONNEGATIVE VOODOO [id number] BAPTIST LANGUAGE LANGUAGES SPOKEN:[place] LEARNING BARRIERS / SPECIAL NEEDS CHANGE FROM LAST VISIT?NO BARRIERS TO LEARNING?NO HEARING IMPAIRED?NO VISION IMPAIRED?YES ENLARGED OPTIC NERVE RELATED TO GESTATIONAL HYPERTENSION. :CORRECTIVE LENSES COGNITIVELY IMPAIRED?NO READINESS TO LEARN?YES LEARNING PREFERENCES?NO LEARNING CAPABILITIES PRESENT?YES EMOTIONAL BARRIERS?NO SPECIAL DEVICES?NO CUSTOMER ACCOUNT MANAGER NEEDED?NO NEW PATIENT PAIN DIARY TODAY'S VISIT NOTES, FROM 0-10, WHAT LEVEL IS YOUR PAIN TODAY? 0. PAIN CLINIC PFS, CLERGY, PUBLIC HEALTH REFERRALS PFS REFERRAL NEEDED?NO CLERGY REFERRAL NEEDED?NO PUBLIC HEALTH REFERRAL NEEDED?NO WAS THE PROVIDER NOTIFIED OF ANY PERTINENT INFO?NO HAS THE PATIENT BEEN EDUCATED REGARDING HIS/HER PLAN OF CARE?YES HAS THE PATIENT BEEN EDUCATED REGARDING PAIN, THE RISK FOR PAIN, THE IMPORTANCE OF EFFECTIVE PAIN MANAGEMENT, AND THE PAIN ASSESSMENT PROCESS?YES ADVANCE DIRECTIVES HEALTH CARE PROXY?YES NAME OF HCP DELB[facility] CONTACT # FOR HCP [phone] AND ASK FOR DELBERT DO YOU HAVE A COPY WITH YOU?NO STATES HAS ALREADY BROUGHT COPY IN FOR SCANNING AT 07/2016 HOSPITALIZATION. DO YOU HAVE A DNR?NO WOULD YOU LIKE MORE INFORMATION?NO LIVING WILL?NO WOULD YOU LIKE MORE INFORMATION?NO POWER OF FOURDRINIER WIRE WEAVER?NO WOULD YOU LIKE MORE INFORMATION?NO HOSPITALIZATION/MAJOR DIAGNOSTIC PROCEDURE SURGERY RELATED ASTHMA REVIEW OF SYSTEMS REVIEWED BY: PROVIDER: BRITTNEY THORNTON . CONSTITUTIONAL: ANY CHANGE IN YOUR MEDICAL CONDITION? NO . CHILLS NO . FEVER NO . INFECTION: DO YOU HAVE NEW INFECTIONS? NO . DO YOU HAVE HISTORY OF MRSA? NO . MUSCULOSKELETAL: ANY NEW PATTERNS OF PAIN OR NUMBNESS? NO . GASTROENTEROLOGY: ANY NEW CHANGE IN BOWEL CONTROL? NO . GENITOURINARY: ANY NEW CHANGE IN BLADDER CONTROL? NO . IS THERE A CHANCE YOU COULD BE ? NO . HEMATOLOGY/LYMPH: DO YOU TAKE ANY BLOOD THINNERS? (FOR EXAMPLE- COUMADIN, PLAVIX, AGGRENOX, PLATEL, PRADAXA, OR XARELTO) NO . WHEN WAS YOUR LAST DOSE? DATE: TIME: . NEUROLOGY: HAVE YOU FALLEN IN THE PAST 6 MONTHS? NO . ANY NEW EXTREMITY NUMBNESS OR WEAKNESS? NO . CARDIOLOGY: DO YOU HAVE A PACEMAKER OR DEFIBRILLATOR? NO . RESPIRATORY: HAVE YOU BEEN SICK IN THE PAST WEEK? NO . FEVER NO . FLU LIKE SYMPTOMS? NO . COUGH NO . INTEGUMENTARY: DO YOU HAVE ANY RASHES OR OPEN SORES? NO . ALLERGIC/IMMUNO: ARE YOU ALLERGIC TO SHELLFISH OR IV DYE? NO . ANY NEW ALLERGIES? NO . PSYCHIATRIC: DO YOU HAVE THOUGHTS OF HURTING YOURSELF OR SOMEONE ELSE? NO . ARE YOU ABUSED, NEGLECTED, OR IN AN UNSAFE ENVIRONMENT? NO . ENDOCRINOLOGY: ARE YOU DIABETIC? NO . OTHER: DO YOU NEED ANY PRESCRIPTIONS? YES, OMEPRAZOLE . IF YES, PLEASE LIST: ____ . ANY NEW PROBLEMS WITH YOUR MEDICATIONS? NO . WHEN DID YOU LAST EAT? ____ . WHEN DID YOU LAST DRINK? ____ . WHAT DID YOU LAST DRINK? ____ . NAME OF PERSON DRIVING YOU HOME? ____ . DO YOU HAVE ANY OTHER QUESTIONS OR CONCERNS NO . VITAL SIGNS WT 228.6 LBS, HT 65", BMI 38.04 INDEX, BP 130/68 MM HG, HR 68 /MIN, RR 16 /MIN, TEMP 97.7 F, OXYGEN SAT % 98%, NA INITIALS TL 1335, REVIEWED BY: EMPATIENT WEIGHED ON PMC SCALE- TL. EXAMINATION GENERAL EXAMINATION: LUNGS:LUNG SOUNDS ARE CLEAR. HEART:HEART RATE REGULAR. MUSCULOSKELETAL:*, MUSCLE STRENGTH TESTING 5/5 BILATERAL, PALPATION: POSITIVE FOR PAIN OVER L/S SPINE. POSITIVE FOR PAIN OVER L/S PARSPINALS. 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 PROCEDURES PN WORKMANS' COMP OPINION IN YOUR OPINION, WAS THE INCIDENT THAT THE PATIENT DESCRIBED THE COMPETENT MEDICAL CAUSE OF THIS INJURY/ILLNESS? YES ARE THE PATIENT'S COMPLAINTS CONSISTENT WITH HIS/HER HISTORY OF THE INJURY/ILLNESS? YES IS THE PATIENT'S HISTORY OF THE INJURY/ILLNESS CONSISTENT WITH YOUR OBJECTIVE FINDING? YES WHAT IS THE PERCENTAGE OF TEMPORARY IMPAIRMENT? MODERATE TO MARKED = 66.7% IS THE PATIENT WORKING? YES DOCTOR ON SITE: ZELDA JOHNSTON MD PROCEDURE CODES FA211 ESTABILISHED PATIENT [facility] FAC[facility] CHARGE DISPOSITION & COMMUNICATION FOLLOW UP 3 MONTHS ELECTRONICALLY SIGNED BY HILLARY GEIGER ON 01/17/2017 AT 02:07 PM EST DISCLAIMER : THIS IS A VISIT SUMMARY EXTRACTED FROM THE [employer] CHART. IT IS NOT A COPY OF THE [employer] PROGRESS NOTE. ALLI
== END ==
LOC: M PAIN 13:45
PROVIDERS: ATTEND Nurse Practitioner Family
DX: G89.29 Other chronic pain (principal); M54.5 Low back pain; M48.9 Spondylopathy, unspecified; E11.9 Type 2 diabetes mellitus without complications; I10 Essential (primary) hypertension; J45.909 Unspecified asthma, uncomplicated; Z88.0 Allergy status to penicillin; Z88.2 Allergy status to sulfonamides; Z91.040 Latex allergy status; Z88.1 Allergy status to other antibiotic agents; L23.0 Allergic contact dermatitis due to metals; Z91.018 Allergy to other foods; Z79.891 Long term (current) use of opiate analgesic; Z79.899 Other long term (current) drug therapy

== ENCOUNTER → 2017-05-02 | Outpatient (CLI) | payer OTHER | LOC: M PAIN 13:45 | DX: M54.5 Low back pain (principal); G89.29 Other chronic pain; E11.9 Type 2 diabetes mellitus without complications; J45.909 Unspecified asthma, uncomplicated; M19.90 Unspecified osteoarthritis, unspecified site; I10 Essential (primary) hypertension; L23.0 Allergic contact dermatitis due to metals; Z79.899 Other long term (current) drug therapy; Z88.0 Allergy status to penicillin; Z88.1 Allergy status to other antibiotic agents; Z88.2 Allergy status to sulfonamides; Z88.8 Allergy status to other drugs, medicaments and biological substances; Z91.040 Latex allergy status; Z91.011 Allergy to milk products | CPT/HCPCS: G0463 ==

== ENCOUNTER → 2017-05-30 | Outpatient (CLI) | payer OTHER ==
[2017-05-30 18:35] LABS: ALBUMIN 3.9 GM/DL (3.2-5.2); ALBUMIN/GLOBULIN RATIO 1.22 (1.00-1.93); ALKALINE PHOSPHATASE 109 U/L (45-117); ALT/SGPT 34 U/L (12-78); AST/SGOT 25 U/L (7-37); BILIRUBIN,DIRECT < 0.1 MG/DL (0.0-0.2); BILIRUBIN,TOTAL 0.3 MG/DL (0.2-1.0); TOTAL PROTEIN 7.1 GM/DL (6.4-8.2)
== END ==
LOC: M LRY 13:40
DX: L60.3 Nail dystrophy (principal)

== ENCOUNTER → 2017-08-06 | Outpatient (CLI) | payer OTHER | LOC: M PAIN 14:45 | DX: M47.897 Other spondylosis, lumbosacral region (principal); M48.061 Spinal stenosis, lumbar region without neurogenic claudication; G89.29 Other chronic pain; E11.9 Type 2 diabetes mellitus without complications; I10 Essential (primary) hypertension; J45.909 Unspecified asthma, uncomplicated; M19.90 Unspecified osteoarthritis, unspecified site; Z79.899 Other long term (current) drug therapy; Z88.0 Allergy status to penicillin; Z88.1 Allergy status to other antibiotic agents; Z88.2 Allergy status to sulfonamides; Z88.8 Allergy status to other drugs, medicaments and biological substances; Z91.040 Latex allergy status; Z91.09 Other allergy status, other than to drugs and biological substances; Z91.011 Allergy to milk products; Z96.652 Presence of left artificial knee joint | CPT/HCPCS: G0463 ==

== ENCOUNTER → 2017-09-10 | Outpatient (CLI) | payer OTHER ==
[~2017-09-10] MED LIST changes: -/CELE20CA OR; -/DULO30CA; -/DULO30CA OR; -ACET500C; -ACET500C OR; -ADVAIR INH; -ALLE180T33 PO; -ALLO100T PO; -ALLO15TA GT; -ASPI325T24 PO; -ASPI81TA83 OR; -ASTELIN; -BENT20TA OR; -BENT20TA PO; -CALC500T49 OR; -CAPRYLIC ACID OR; -CELE100C; -CETI10TA OR; -COUM2.5T17 PO; -CYMB60CA3 PO; -DICY10EL; -DICY10EL OR; -DITR5TAB PO; -DOSTINEX OR; -DOSTINEX PO; -DULO20CA; -DULO30CA PO; -FLUC10TA OR; -FOLI1TAB OR; -GLUC500T OR; -HYDR12.55 PO; -HYDR12CA PO; -HYDR25TA6 OR; -IODORAL PO; +ISOVUE-M 300 61% 15ML VIAL (Q9967) As Ordered; -K-TA10TA PO; -KLOR10TA OR; -LATA5OPD OU; -LEVA31IN IN; -LEVA31IN OR; -LIDO5DIS EX; -LIDO5DIS TOP; +LIDOCAINE 1% SDV INJ 30 ML VIAL As Ordered; -MELATONIN OR; -MULT1CHW39 PO; -MULTIVIT OR; -OXYB5TAB PO; -OYST1TAB PO; -OYST500T OR; -PERC5TAB12 PO; -PRIL20CA OR; -PROAAER10 INH; -PROB1TAB PO; -RESTASIS EYE DROPS; -RHINOCORT; -SING10TA31 OR; -SING10TA32 PO; -SKEL800T5 OR; -SKEL800T97 PO; -SUPETAB27 OR; -SYMB16INH INH; -SYMB80AE INH; -TOVI4TAB PO; -TPS PAIN TOP; -TRAM50TA2 OR; -TRAM50TA2 PO; -TYLE500T78 PO; -VENTAER INH; -VESICARE OR; -ZANT150T PO; -ZYRT10CA PO; -[UNRECOGNIZED DRUG - OTHER]; -[UNRECOGNIZED DRUG - OTHER]; -[UNRECOGNIZED DRUG - OTHER]; -[UNRECOGNIZED DRUG - OTHER] OR; -[UNRECOGNIZED DRUG - OTHER] PO; -[UNRECOGNIZED DRUG - OTHER] PO; -[UNRECOGNIZED DRUG - OTHER] PO; -[UNRECOGNIZED DRUG - OTHER] TOP; -[UNRECOGNIZED DRUG - REMARK] PO; -curamed PO; +methylPREDNISolone SUSP 40 MG/ML (DEPO-medrol) VIAL (J1030) As Ordered
== END ==
LOC: M PAIN 10:30
DX: M51.16 Intervertebral disc disorders with radiculopathy, lumbar region (principal); M48.062 Spinal stenosis, lumbar region with neurogenic claudication; E11.9 Type 2 diabetes mellitus without complications; J45.909 Unspecified asthma, uncomplicated; K58.0 Irritable bowel syndrome with diarrhea; J32.9 Chronic sinusitis, unspecified; Z96.652 Presence of left artificial knee joint; Z88.0 Allergy status to penicillin; Z88.2 Allergy status to sulfonamides; Z88.8 Allergy status to other drugs, medicaments and biological substances; Z91.040 Latex allergy status; Z88.1 Allergy status to other antibiotic agents; Z91.048 Other nonmedicinal substance allergy status; Z91.011 Allergy to milk products; Z79.899 Other long term (current) drug therapy
CPT/HCPCS: J1030

== ENCOUNTER → 2017-12-06 | Outpatient (CLI) | payer OTHER | LOC: M PAIN 13:45 | DX: M51.16 Intervertebral disc disorders with radiculopathy, lumbar region (principal); M53.3 Sacrococcygeal disorders, not elsewhere classified; G89.29 Other chronic pain; E11.9 Type 2 diabetes mellitus without complications; I10 Essential (primary) hypertension; J45.909 Unspecified asthma, uncomplicated; M19.90 Unspecified osteoarthritis, unspecified site; Z79.899 Other long term (current) drug therapy; Z88.0 Allergy status to penicillin; Z88.1 Allergy status to other antibiotic agents; Z88.2 Allergy status to sulfonamides; Z88.8 Allergy status to other drugs, medicaments and biological substances; Z91.09 Other allergy status, other than to drugs and biological substances; Z91.040 Latex allergy status; Z96.652 Presence of left artificial knee joint | CPT/HCPCS: G0463 ==

== ENCOUNTER → 2018-02-12 | Outpatient (CLI) | payer OTHER ==
[~2018-02-12] MED LIST changes: +/CELE20CA OR; +/DULO30CA; +/DULO30CA OR; +ACET500C; +ACET500C OR; +ADVAIR INH; +ALLE180T33 PO; +ALLO100T PO; +ALLO15TA GT; +ASPI325T25 PO; +ASPI81TA83 OR; +ASTELIN; +BENT20TA OR; +BENT20TA PO; +BUPIVACAINE HCL 0.25% 30 ML VIAL As Ordered ONE; +CALC500T49 OR; +CAPRYLIC ACID OR; +CELE100C; +CETI10TA OR; +COUM2.5T17 PO; +CYMB60CA3 PO; +DICY10EL; +DICY10EL OR; +DITR5TAB PO; +DOSTINEX OR; +DOSTINEX PO; +DULO20CA; +DULO30CA PO; +FLUC10TA OR; +FOLI1TAB OR; +GLUC500T OR; +HYDR12.55 PO; +HYDR12CA PO; +HYDR25TA6 OR; +IODORAL PO; -ISOVUE-M 300 61% 15ML VIAL (Q9967) As Ordered; +ISOVUE-M 300 61% 15ML VIAL (Q9967) As Ordered ONE; +K-TA10TA PO; +KLOR10TA OR; +LATA5OPD OU; +LEVA31IN IN; +LEVA31IN OR; +LIDO5DIS EX; +LIDO5DIS TOP; -LIDOCAINE 1% SDV INJ 30 ML VIAL As Ordered; +LIDOCAINE 1% SDV INJ 30 ML VIAL As Ordered ONE; +MELATONIN OR; +MULT1CHW39 PO; +MULTIVIT OR; +OXYB5TAB PO; +OYST1TAB PO; +OYST500T OR; +PERC5TAB12 PO; +PRIL20CA OR; +PROAAER10 INH; +PROB1TAB PO; +RESTASIS EYE DROPS; +RHINOCORT; +SING10TA31 OR; +SING10TA32 PO; +SKEL800T5 OR; +SKEL800T97 PO; +SUPETAB27 OR; +SYMB16INH INH; +SYMB80AE INH; +TOVI4TAB PO; +TPS PAIN TOP; +TRAM50TA2 OR; +TRAM50TA2 PO; +TRIAMCINOLONE ACETONIDE SUSP 40 MG/ML VIAL (J3301) As Ordered ONE; +TYLE500T78 PO; +VENTAER INH; +VESICARE OR; +ZANT150T PO; +ZYRT10CA PO; +[UNRECOGNIZED DRUG - OTHER]; +[UNRECOGNIZED DRUG - OTHER]; +[UNRECOGNIZED DRUG - OTHER]; +[UNRECOGNIZED DRUG - OTHER] OR; +[UNRECOGNIZED DRUG - OTHER] PO; +[UNRECOGNIZED DRUG - OTHER] PO; +[UNRECOGNIZED DRUG - OTHER] PO; +[UNRECOGNIZED DRUG - OTHER] TOP; +[UNRECOGNIZED DRUG - REMARK] PO; +curamed PO; -methylPREDNISolone SUSP 40 MG/ML (DEPO-medrol) VIAL (J1030) As Ordered
--- NOTE | 2018-02-12 13:44 | REP ---
SI joint views: History: Left SI joint injection for pain. 11 seconds of fluoroscopy time is reported. Findings: A sequence of three last image hold fluoroscopically obtained spot radiographs of the left SI joint document needle positions and contrast injections associated with SI joint injection procedure. Electronically Signed by Joaquin Carias MD 02/12/2018 01:52 P
--- NOTE | 2018-02-27 01:08 | ECWPNPC ---
PATIENT NAME: NATALIE CABALLERO : 1955 GENDER: FEMALE VISIT DATE: 02/12/2018 DISCHARGE DATE: 02/12/18 1232 VISIT LOCKED DATE TIME: PHYSICIAN: ZELDA KRAMER MD RESOURCE: ZELDA KRAMER MD REASON FOR APPOINTMENT 1. W/C LEFT SIJ HISTORY OF PRESENT ILLNESS HISTORY OF PRESENT ILLNESS: PAIN THE PATIENT DESCRIBES THE PAIN... FALL RISK SCREENING: SCREENING :NO FALLS IN THE PAST YEAR CURRENT MEDICATIONS TAKING ALLOPURINOL 300 MG TABLET 1 TABLET ORALLY ONCE A DAY, NOTES: 02/11 899 TAKING SINGULAIR 10 MG TABLET 1 TABLET IN THE EVENING ORALLY ONCE A DAY, NOTES: 02/11 899 TAKING BENTYL 20 MG TABLET 1 TABLET ORALLY EVERY 4 HOURS NEEDED, NOTES: NONE RECENT TAKING VENTOLIN HFA 108 (90 BASE) MCG/ACT AEROSOL SOLUTION 2 PUFFS INHALATION NEEDED, NOTES: NONE RECENT TAKING VITAMIN B COMPLEX CAPSULE DIRECTED ORALLY DAILY, NOTES: 02/11 899 TAKING HYDROCHLOROTHIAZIDE 25 25 MG TABLET DIRECTED ORAL DAILY, NOTES: 02/11 899 TAKING LATANOPROST 0.005 % SOLUTION 1 DROP INTO BOTH EYES EVENING OPHTHALMIC ONCE A DAY, NOTES: 02/11 2099 TAKING SYMBICORT 80-4.5 MCG/ACT AEROSOL 2 PUFFS INHALATION TWICE A DAY, NOTES: 02/11 899 TAKING TYLENOL 500 MG TABLET 1 TABLET NEEDED ORALLY EVERY 6 HRS, NOTES: NONE RECENT TAKING REFRESH CELLUVISC 1 % SOLUTION 1 DROP OU OPHTHALMIC 24 TIME(S) A DAY, NOTES: 02/11 2099 TAKING DIFLUCAN 200 MG TABLET 1 TABLET ORALLY DIRECTED, NOTES: NONE RECENT TAKING FIBER 58.6 % POWDER 2 CAPSULES WITH 8 OUNCES OF LIQUID ORALLY DAILY, NOTES: 02/11 899 TAKING CRANBERRY 405 MG CAPSULE ORALLY DAILY, NOTES: 02/11 899 TAKING FLONASE ALLERGY RELIEF 50 MCG/ACT SUSPENSION 1 SPRAY IN EACH NOSTRIL NASALLY ONCE A DAY NEEDED, NOTES: 02/11 899 TAKING OXYBUTYNIN CHLORIDE 5 MG TABLET 1 TABLET ORALLY 2 TIMES A DAY, NOTES: 02/11 2099 TAKING POTASSIUM CHLORIDE 10 MEQ CAPSULE EXTENDED RELEASE 1 CAPSULE WITH FOOD ORALLY ONCE A DAY, NOTES: 02/11 2099 TAKING PROBIOTIC - CAPSULE ORALLY DAILY, NOTES: 02/11 899 TAKING OMEPRAZOLE 20 MG CAPSULE DELAYED RELEASE 1 CAP ORALLY ONCE A DAY, NOTES: 02/11 899 TAKING CABERGOLINE 0.5 MG TABLET 1 TAB ORALLY WEEKLY, NOTES: 02/10 TAKING TRAMADOL HCL 50 MG TABLET 1 TABLET NEEDED ORALLY Q8H PRN MDD3, NOTES: 02/11 2099 TAKING GABAPENTIN 300 MG CAPSULE 1 CAPSULE ORALLY SPECIAL FUNDS TWO TIMES A DAY FOR PAINMDD2, NOTES: 02/11 2099 TAKING ZYRTEC ALLERGY 10 MG TABLET 1 TABLET ORALLY ONCE A DAY, NOTES: 02/11 899 TAKING CYMBALTA 30 MG CAPSULE DELAYED RELEASE PARTICLES 1 CAPSULE ORALLY FOR PAIN TWICE A DAY MDD2, NOTES: 02/11 2099 TAKING SKELAXIN 800 MG TABLET 1 TABLET ORALLY BID PRN FOR SPASMS AND PAIN MDD 2, NOTES: 400 MGS 02/11 2099 TAKING ALEVE 220 MG TABLET 1 TABLET WITH FOOD OR MILK NEEDED ORALLY EVERY 12 HRS, NOTES: 02/11 2099 NOT-TAKING BENTYL 10 MG CAPSULE 1 CAPSULE ORALLY TWO TIMES A DAY NOT-TAKING XIIDRA 5 % SOLUTION 1 DROP INTO AFFECTED EYE OPHTHALMIC TWICE A DAY NOT-TAKING PREMARIN 0.625 MG/GM CREAM VAGINAL THREE TIMES A WEEK, NOTES: CURRENTLY ON HOLD DISCONTINUED LAMISIL 250 MG TABLET 1 TABLET ORALLY ONCE A DAY MEDICATION LIST REVIEWED AND RECONCILED WITH THE PATIENT PAST MEDICAL HISTORY DIABETES BLOOD PRESSURE ASTHMA PITUITARY ADENOMA ARTHRITIS 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 DAD-SKIN CAMOM-COPD, PULMONARY FIBROSISSON AND DAUGHTER-ASTHMA - SARCOMA. SOCIAL HISTORY GENERAL: TOBACCO USE ARE YOU A:NONSMOKER ALCOHOL SCREENING DID YOU HAVE A DRINK CONTAINING ALCOHOL IN THE PAST YEAR?NO POINTS0 INTERPRETATIONNEGATIVE RECREATIONAL DRUG USE DRUG USE?NO CAFFEINE CAFFEINE USE?YES HOW OFTEN AND HOW MUCH? 1-2 CUPS COFFEE/DAY EVANGELICAL [id number] SAMARITAN LANGUAGE LANGUAGES SPOKEN:ECUADOREAN LEARNING BARRIERS / SPECIAL NEEDS CHANGE FROM LAST VISIT?NO BARRIERS TO LEARNING?NO HEARING IMPAIRED?NO VISION IMPAIRED?YES ENLARGED OPTIC NERVE RELATED TO GESTATIONAL HYPERTENSION. COGNITIVELY IMPAIRED?NO :CORRECTIVE LENSES READINESS TO LEARN?YES LEARNING PREFERENCES?NO LEARNING CAPABILITIES PRESENT?YES EMOTIONAL BARRIERS?NO SPECIAL DEVICES?NO INDOOR LANDSCAPER/GARDENER NEEDED?NO DOMESTIC VIOLENCE DO YOU FEEL SAFE IN YOUR ENVIRONMENT?YES NEW PATIENT PAIN DIARY TODAY'S VISITNOTES FROM 0-10, WHAT LEVEL IS YOUR PAIN TODAY?7 PAIN CLINIC PFS, CLERGY, PUBLIC HEALTH REFERRALS PFS REFERRAL NEEDED?NO CLERGY REFERRAL NEEDED?NO PUBLIC HEALTH REFERRAL NEEDED?NO WAS THE PROVIDER NOTIFIED OF ANY PERTINENT INFO?NO HAS THE PATIENT BEEN EDUCATED REGARDING HIS/HER PLAN OF CARE?YES HAS THE PATIENT BEEN EDUCATED REGARDING PAIN, THE RISK FOR PAIN, THE IMPORTANCE OF EFFECTIVE PAIN MANAGEMENT, AND THE PAIN ASSESSMENT PROCESS?YES ADVANCE DIRECTIVE ADVANCE DIRECTIVE DISCUSSED WITH PATIENT:YES HCP INFORMATION GIVEN TO PATIENT, DECLINED ASSISTANCE IN FILLING OUT. 02/12/18 1113 JS 09/10/17 1050 REVIEWED WITH PT. AD 12/06/17 1413 BV REVIEWED WITH NATHAN WITH PATIENT 02/12/18 1113 JS. HOSPITALIZATION/MAJOR DIAGNOSTIC PROCEDURE SURGERY RELATED ASTHMA REVIEW OF SYSTEMS REVIEWED BY: PROVIDER: . CONSTITUTIONAL: ANY CHANGE IN YOUR MEDICAL CONDITION? NO . CHILLS NO . FEVER NO . INFECTION: DO YOU HAVE NEW INFECTIONS? NO . DO YOU HAVE HISTORY OF MRSA? NO . MUSCULOSKELETAL: ANY NEW PATTERNS OF PAIN OR NUMBNESS? NO . GASTROENTEROLOGY: ANY NEW CHANGE IN BOWEL CONTROL? NO . GENITOURINARY: ANY NEW CHANGE IN BLADDER CONTROL? NO . IS THERE A CHANCE YOU COULD BE ? NO . HEMATOLOGY/LYMPH: DO YOU TAKE ANY BLOOD THINNERS? (FOR EXAMPLE- COUMADIN, PLAVIX, AGGRENOX, PLATEL, PRADAXA, OR XARELTO) NO . WHEN WAS YOUR LAST DOSE? DATE: TIME: . NEUROLOGY: HAVE YOU FALLEN IN THE PAST 6 MONTHS? NO . ANY NEW EXTREMITY NUMBNESS OR WEAKNESS? NO . CARDIOLOGY: DO YOU HAVE A PACEMAKER OR DEFIBRILLATOR? NO . RESPIRATORY: HAVE YOU BEEN SICK IN THE PAST WEEK? NO . FEVER NO . FLU LIKE SYMPTOMS? NO . COUGH NO . INTEGUMENTARY: DO YOU HAVE ANY RASHES OR OPEN SORES? NO . ALLERGIC/IMMUNO: ARE YOU ALLERGIC TO SHELLFISH OR IV DYE? NO . ANY NEW ALLERGIES? NO . PSYCHIATRIC: DO YOU HAVE THOUGHTS OF HURTING YOURSELF OR SOMEONE ELSE? NO . ARE YOU ABUSED, NEGLECTED, OR IN AN UNSAFE ENVIRONMENT? NO . ENDOCRINOLOGY: ARE YOU DIABETIC? NO . OTHER: DO YOU NEED ANY PRESCRIPTIONS? NO . IF YES, PLEASE LIST: ____ . ANY NEW PROBLEMS WITH YOUR MEDICATIONS? NO . WHEN DID YOU LAST EAT? ____02/11/18 1800 . WHEN DID YOU LAST DRINK? ____02/12/18 0900 . WHAT DID YOU LAST DRINK? ____APPLE JUICE . NAME OF PERSON DRIVING YOU HOME? ____KIM . DO YOU HAVE ANY OTHER QUESTIONS OR CONCERNS PATIENT TAKES ALLOPURINOL, STATES NOT TOLD TO HOLD MEDICATION AND HAS NEVER HELD IT IN THE PAST FOR PREVIOUS PROCEDURES. INFORMED PATIENT OF INCREASED RISK OF INFECTION. PATIENT VERBALIZED UNDERSTANDING AND WOULD LIKE TO PROCEED PLANNED WITH PROCEDURE. NOTIFIED DR. KRAMER AT 1126, DR. KRAMER DISCUSSED WITH PATIENT ALSO, OK TO PROCEED WITH PLANNED PROCEDURE . VITAL SIGNS WT 224 LBS, HT 65", BMI 37.27 INDEX, BP 134/65 MM HG, HR 65 /MIN, RR 18 /MIN, TEMP 97.4 F, OXYGEN SAT % 97%, SAFE IN ENV? (Y/N) YES, NA INITIALS AW 1052, REVIEWED BY: MADELINE. ASSESSMENTS SACROILIITIS, NOT ELSEWHERE CLASSIFIED - M46.1 (PRIMARY) PROCEDURES PN SI PRE PROCEDURE DIAGNOSIS SACROILIITIS, SACROILIAC JOINT DYSFUNCTION POST PROCEDURE DIAGNOSIS SACROILIITIS, SACROILIAC JOINT DYSFUNCTION PROCEDURE LEFT SACROILIAC JOINT BLOCK SURGEON DR. ZELDA KRAMER QUALITY ASSURANCE PROJECT MANAGER NONE ANESTHESIA LOCAL PRE PROCEDURE NOTE PATIENT WITH HISTORY OF CHRONIC LOW BACK PAIN. I EVALUATED THE PATIENT AND REVIEWED THE CHART. I WENT OVER THE RISKS, ALTERNATIVES, AND BENEFITS ASSOCIATED WITH THIS PROCEDURE. THE PATIENT WOULD LIKE TO PROCEED AND GAVE CONSENT TO PERFORM THE PROCEDURE. THE PATIENT DENIES UNEXPLAINABLE WEIGHT LOSS, FEVER, CHILLS, OR NEW CHANGES IN URINARY OR BOWEL CONTROL DESCRIPTION OF PROCEDURE THE PATIENT WAS BROUGHT TO THE PROCEDURE ROOM AND PLACED IN THE PRONE POSITION. THE LUMBOSACRAL AREA WAS CLEANED WITH CHLORAPREP SOLUTION AND DRAPED ASEPTICALLY. THE PROCEDURE WAS DONE UNDER STERILE CONDITIONS. I CHECKED LATERALITY AND THE LEVEL WHERE THE PROCEDURE WAS GOING TO BE PERFORMED WITH THE PATIENT AND THE SUPPORTING STAFF AT THE MOMENT OF THE TIME OUT IN THE PROCEDURE ROOM. UNDER FLUOROSCOPIC GUIDANCE, TARGET POINT WAS SELECTED AT THE LOWER BORDER OF THE LEFT SACROILIAC JOINT. TARGET POINT WAS SELECTED AFTER MEDIAL ROTATION AND TILT OF THE MAGNIFIER OF THE C-ARM. LIDOCAINE WAS USED TO NUMB THE SKIN AND SUBCUTANEOUS TISSUE BELOW IT. A SPINAL NEEDLE, 22-GAUGE, WAS ADVANCED UNDER FLUOROSCOPIC GUIDANCE AND FOLLOWING PATIENT FEEDBACK UNTIL THE TARGET AREA WAS TOUCHED. THE POSITION OF THE NEEDLE WAS VERIFIED WITH AP AND LATERAL VIEWS. AFTER PROPER POSITION OF THE NEEDLE WAS ACHIEVED, ISOVUE M DYE 30%, 0.25 ML, WAS INJECTED SHOWING SPREAD OF THE DYE. THEN, A SOLUTION OF 20 MG OF KENALOG WAS INJECTED IN LEFT JOINT WITH 3 ML OF BUPIVACAINE 0.125%. THERE WAS NO EVIDENCE OF BLOOD, PARESTHESIA OR CEREBROSPINAL FLUID DURING THE PROCEDURE. THE PATIENT WAS SENT TO THE RECOVERY ROOM. THE PATIENT WAS MOVING THE EXTREMITIES AND DOING WELL. THERE WAS NO COMPLICATION DURING THE PROCEDURE. FLUOROSCOPY TIME WAS 11 SECONDS POST PROCEDURE NOTE THE PATIENT WILL BE SEEN IN A FOLLOW UP IN THE NEXT FEW WEEKS. INSTRUCTIONS WERE GIVEN, QUESTIONS WERE ANSWERED, AND THE PATIENT EXPRESSED UNDERSTANDING AND AGREED WITH THE PLAN. I, DEAN BURCH, DOCUMENTED THE ABOVE INFORMATION ACTING A SCRIBE FOR DR. KRAMER. I HAVE REVIEWED THE ABOVE DOCUMENT, WRITTEN BY DEAN CLEANING AND I VERIFY THAT IT IS ACCURATE. PN WORKMANS' COMP OPINION IN YOUR OPINION, WAS THE INCIDENT THAT THE PATIENT DESCRIBED THE COMPETENT MEDICAL CAUSE OF THIS INJURY/ILLNESS? YES ARE THE PATIENT'S COMPLAINTS CONSISTENT WITH HIS/HER HISTORY OF THE INJURY/ILLNESS? YES IS THE PATIENT'S HISTORY OF THE INJURY/ILLNESS CONSISTENT WITH YOUR OBJECTIVE FINDING? YES WHAT IS THE PERCENTAGE OF TEMPORARY IMPAIRMENT? MODERATE TO MARKED = 66.7% IS THE PATIENT WORKING? YES DOCTOR ON SITE: ZELDA JOHNSTON MD DIAGNOSTIC IMAGING [facility] FLUORO GUIDANCE (PAIN)[id number] PROCEDURE CODES 6045F RADXPS IN END [id number] PXD [id number] INJECT SACROILIAC JOINT, MODIFIERS: LT DISPOSITION & COMMUNICATION FOLLOW UP 3 WEEKS ELECTRONICALLY SIGNED BY ZELDA KRAMER MD, MD ON 02/26/2018 AT 02:52 PM EST DISCLAIMER : THIS IS A VISIT SUMMARY EXTRACTED FROM THE [employer] CHART. IT IS NOT A COPY OF THE [employer] PROGRESS NOTE. ALLI
== END ==
LOC: M PAIN 10:45
PROVIDERS: ATTEND Anesthesiology
DX: G89.29 Other chronic pain (principal); M46.1 Sacroiliitis, not elsewhere classified; M53.88 Other specified dorsopathies, sacral and sacrococcygeal region; E11.9 Type 2 diabetes mellitus without complications; J45.909 Unspecified asthma, uncomplicated; M19.90 Unspecified osteoarthritis, unspecified site; E66.01 Morbid (severe) obesity due to excess calories; Z68.37 Body mass index [BMI] 37.0-37.9, adult; Z79.899 Other long term (current) drug therapy; Z88.0 Allergy status to penicillin; Z88.1 Allergy status to other antibiotic agents; Z88.2 Allergy status to sulfonamides; Z88.8 Allergy status to other drugs, medicaments and biological substances; Z91.011 Allergy to milk products; Z91.09 Other allergy status, other than to drugs and biological substances; Z91.040 Latex allergy status; Z96.652 Presence of left artificial knee joint
CPT/HCPCS: G0260; J3301; Q9967

== ENCOUNTER → 2018-05-29 | Outpatient (CLI) | payer OTHER ==
[~2018-05-29] MED LIST changes: -/CELE20CA OR; -/DULO30CA; -/DULO30CA OR; -ALLO15TA GT; +ALLO300T2 GT; +ASPI-255 PO; -ASPI325T25 PO; -BUPIVACAINE HCL 0.25% 30 ML VIAL As Ordered ONE; +CELE1CAP4 OR; +CYMB1CAP4; +CYMB1CAP5; +CYMB1CAP5 OR; -DULO20CA; -DULO30CA PO; +DULO30CA9 PO; -ISOVUE-M 300 61% 15ML VIAL (Q9967) As Ordered ONE; +LATA0.0013 OU; -LATA5OPD OU; +LEVA0.3131 IN; +LEVA0.3131 OR; -LEVA31IN IN; -LEVA31IN OR; -LIDOCAINE 1% SDV INJ 30 ML VIAL As Ordered ONE; -MULT1CHW39 PO; +MULT200T7 PO; -TRIAMCINOLONE ACETONIDE SUSP 40 MG/ML VIAL (J3301) As Ordered ONE
--- NOTE | 2018-06-10 00:10 | ECWPNPC ---
PATIENT NAME: NATALIE CABALLERO : 1955 GENDER: FEMALE VISIT DATE: 05/29/2018 DISCHARGE DATE: 05/29/18 1345 VISIT LOCKED DATE TIME: PHYSICIAN: BRITTNEY PAULINO RESOURCE: BRITTNEY PAULINO REASON FOR APPOINTMENT 1. W/C LOW BACK HISTORY OF PRESENT ILLNESS HISTORY OF PRESENT ILLNESS: HERE FOR POST PROCEDURE F/U.HAD LEFT SIJ ON 02-12-18.REPORTING >80 % IMPROVEMENT IN PAIN X 2 MONTHS THEN PAIN GRADUALLY RETURNED TO BASELINE THAT CONTINUES TODAY.CURRENTLY USING GABAPENTIN 300MG BID,METAXALONE 800MG BID AND CYMBALTA 30MG BID FOR CHRONIC PAIN.THIS IS A WORK RELATED INJURY WITH DOI:7-25-05.RATING LOW BACK PAIN 4/10 VAS.PAIN IS LOCATED OVER BILATERAL SIJ REGION L>R. PAIN THE PATIENT DESCRIBES THE PAIN... THE PATIENT DESCRIBES THE PAIN... FALL RISK SCREENING: SCREENING :NO FALLS REPORTED IN THE LAST YEAR CURRENT MEDICATIONS TAKING ALLOPURINOL 300 MG TABLET 1 TABLET ORALLY ONCE A DAY TAKING SINGULAIR 10 MG TABLET 1 TABLET IN THE EVENING ORALLY ONCE A DAY TAKING BENTYL 20 MG TABLET 1 TABLET ORALLY EVERY 4 HOURS NEEDED TAKING VENTOLIN HFA 108 (90 BASE) MCG/ACT AEROSOL SOLUTION 2 PUFFS INHALATION NEEDED TAKING VITAMIN B COMPLEX CAPSULE DIRECTED ORALLY DAILY TAKING HYDROCHLOROTHIAZIDE 25 25 MG TABLET DIRECTED ORAL DAILY TAKING LATANOPROST 0.005 % SOLUTION 1 DROP INTO BOTH EYES EVENING OPHTHALMIC ONCE A DAY TAKING SYMBICORT 80-4.5 MCG/ACT AEROSOL 2 PUFFS INHALATION TWICE A DAY TAKING TYLENOL 500 MG TABLET 1 TABLET NEEDED ORALLY EVERY 6 HRS TAKING REFRESH CELLUVISC 1 % SOLUTION 1 DROP OU OPHTHALMIC 24 TIME(S) A DAY TAKING DIFLUCAN 200 MG TABLET 1 TABLET ORALLY DIRECTED TAKING FIBER 58.6 % POWDER 2 CAPSULES WITH 8 OUNCES OF LIQUID ORALLY DAILY TAKING CRANBERRY 405 MG CAPSULE ORALLY DAILY TAKING FLONASE ALLERGY RELIEF 50 MCG/ACT SUSPENSION 1 SPRAY IN EACH NOSTRIL NASALLY ONCE A DAY NEEDED TAKING OXYBUTYNIN CHLORIDE 5 MG TABLET 1 TABLET ORALLY 2 TIMES A DAY TAKING POTASSIUM CHLORIDE 10 MEQ CAPSULE EXTENDED RELEASE 1 CAPSULE WITH FOOD ORALLY ONCE A DAY TAKING PROBIOTIC - CAPSULE ORALLY DAILY TAKING OMEPRAZOLE 20 MG CAPSULE DELAYED RELEASE 1 CAP ORALLY ONCE A DAY TAKING CABERGOLINE 0.5 MG TABLET 1 TAB ORALLY WEEKLY TAKING TRAMADOL HCL 50 MG TABLET 1 TABLET NEEDED ORALLY Q8H PRN MDD3 TAKING GABAPENTIN 300 MG CAPSULE 1 CAPSULE ORALLY SPECIAL FUNDS TWO TIMES A DAY FOR PAINMDD2 TAKING ZYRTEC ALLERGY 10 MG TABLET 1 TABLET ORALLY ONCE A DAY TAKING ALEVE 220 MG TABLET 1 TABLET WITH FOOD OR MILK NEEDED ORALLY EVERY 12 HRS TAKING SKELAXIN 800 MG TABLET 1 TABLET ORALLY BID PRN FOR SPASMS AND PAIN MDD 2 TAKING CYMBALTA 30 MG CAPSULE DELAYED RELEASE PARTICLES 1 CAPSULE ORALLY FOR PAIN TWICE A DAY MDD2 NOT-TAKING BENTYL 10 MG CAPSULE 1 CAPSULE ORALLY TWO TIMES A DAY NOT-TAKING XIIDRA 5 % SOLUTION 1 DROP INTO AFFECTED EYE OPHTHALMIC TWICE A DAY NOT-TAKING PREMARIN 0.625 MG/GM CREAM VAGINAL THREE TIMES A WEEK, NOTES: CURRENTLY ON HOLD MEDICATION LIST REVIEWED AND RECONCILED WITH THE PATIENT PAST MEDICAL HISTORY DIABETES BLOOD PRESSURE ASTHMA PITUITARY ADENOMA ARTHRITIS 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 DAD-SKIN CA\\NMOM-COPD, PULMONARY FIBROSIS\\NSON AND DAUGHTER-ASTHMA \\NHUSBAND - SARCOMA. SOCIAL HISTORY GENERAL: TOBACCO USE ARE YOU A: NONSMOKER . LATEX QUESTIONNAIRE LATEX ALLERGY : HAVE YOU EVER DEVELOPED ANY TYPE OF REACTION AFTER HANDLING LATEX PRODUCTS SUCH RUBBER GLOVES, CONDOMS, DIAPHRAGMS, BALLOONS, SOCKS, OR UNDERWEAR?NO LATEX ALLERGY : HAVE YOU EVER DEVELOPED ANY TYPE OF REACTION DURING OR AFTER DENTAL APPOINTMENT, VAGINAL/RECTAL EXAMINATION, SURGICAL PROCEDURE, OR ANY OTHER EXPOSURE?NO LATEX RISK : HAVE YOU EVER HAD ANY DIFFICULTY BREATHING OR HIVES AFTER EATING OR HANDLING ANY FRUITS, OR VEGETABLES; SUCH KIWI, BANANAS, STONE FRUITS, OR CHESTNUTSNO LATEX RISK : DO YOU HAVE A PREVIOUS PERSONAL HISTORY OF MORE THAN NINE SURGERIES, SPINA BIFIDA, OR REPEATED CATHERTIZATIONS? NO LATEX RISK : ARE YOU FREQUENTLY EXPOSED TO LATEX PRODUCTS IN YOUR OCCUPATION?NO DATE ASKED : 05/29/2018 ALCOHOL SCREENING DID YOU HAVE A DRINK CONTAINING ALCOHOL IN THE PAST YEAR?NO POINTS0 INTERPRETATIONNEGATIVE RECREATIONAL DRUG USE DRUG USE?NO CAFFEINE CAFFEINE USE?YES HOW OFTEN AND HOW MUCH? 1-2 CUPS COFFEE/DAY EVANGELICAL [id number] UAT[employer]IN LANGUAGE LANGUAGES SPOKEN:ITALIAN LEARNING BARRIERS / SPECIAL NEEDS CHANGE FROM LAST VISIT?NO BARRIERS TO LEARNING?NO HEARING IMPAIRED?NO VISION IMPAIRED?YES ENLARGED OPTIC NERVE RELATED TO GESTATIONAL HYPERTENSION. :CORRECTIVE LENSES COGNITIVELY IMPAIRED?NO READINESS TO LEARN?YES LEARNING PREFERENCES?NO LEARNING CAPABILITIES PRESENT?YES EMOTIONAL BARRIERS?NO SPECIAL DEVICES?NO CDA TEACHER NEEDED?NO DOMESTIC VIOLENCE DO YOU FEEL SAFE IN YOUR ENVIRONMENT?YES NEW PATIENT PAIN DIARY TODAY'S VISITNOTES FROM 0-10, WHAT LEVEL IS YOUR PAIN TODAY?7 PAIN CLINIC PFS, CLERGY, PUBLIC HEALTH REFERRALS PFS REFERRAL NEEDED?NO CLERGY REFERRAL NEEDED?NO PUBLIC HEALTH REFERRAL NEEDED?NO WAS THE PROVIDER NOTIFIED OF ANY PERTINENT INFO?YES HAS THE PATIENT BEEN EDUCATED REGARDING HIS/HER PLAN OF CARE?YES HAS THE PATIENT BEEN EDUCATED REGARDING PAIN, THE RISK FOR PAIN, THE IMPORTANCE OF EFFECTIVE PAIN MANAGEMENT, AND THE PAIN ASSESSMENT PROCESS?YES ADVANCE DIRECTIVE ADVANCE DIRECTIVE DISCUSSED WITH PATIENT:YES PT STATES THAT SHE HAS HCP PAPERWORK, DECLINES ASSISTANCE WITH FILLING OUT PAPERWORK 09/10/17 1050 REVIEWED WITH PT. AD 12/06/17 1413 BV REVIEWED WITH NATHAN WITH PATIENT 02/12/18 1113 JS. HOSPITALIZATION/MAJOR DIAGNOSTIC PROCEDURE SURGERY RELATED ASTHMA REVIEW OF SYSTEMS REVIEWED BY: PROVIDER: BRITTNEY THORNTON . CONSTITUTIONAL: ANY CHANGE IN YOUR MEDICAL CONDITION? NO . CHILLS NO . FEVER NO . INFECTION: DO YOU HAVE NEW INFECTIONS? NO . DO YOU HAVE HISTORY OF MRSA? NO . MUSCULOSKELETAL: ANY NEW PATTERNS OF PAIN OR NUMBNESS? NO . GASTROENTEROLOGY: ANY NEW CHANGE IN BOWEL CONTROL? NO . GENITOURINARY: ANY NEW CHANGE IN BLADDER CONTROL? NO . IS THERE A CHANCE YOU COULD BE ? NO . HEMATOLOGY/LYMPH: DO YOU TAKE ANY BLOOD THINNERS? (FOR EXAMPLE- COUMADIN, PLAVIX, AGGRENOX, PLATEL, PRADAXA, OR XARELTO) NO . WHEN WAS YOUR LAST DOSE? DATE: TIME: . NEUROLOGY: HAVE YOU FALLEN IN THE PAST 12 MONTHS? YES, PT STATES THAT SHE WAS AT HOME, OUTSIDE, CLEARING BRUSH, TRIPPED ON ROOT, BRUISING, NO INJURY, NO REPORT TO ED . ANY NEW EXTREMITY NUMBNESS OR WEAKNESS? NO . CARDIOLOGY: DO YOU HAVE A PACEMAKER OR DEFIBRILLATOR? NO . RESPIRATORY: HAVE YOU BEEN SICK IN THE PAST WEEK? NO . FEVER NO . FLU LIKE SYMPTOMS? NO . COUGH NO . INTEGUMENTARY: DO YOU HAVE ANY RASHES OR OPEN SORES? NO . ALLERGIC/IMMUNO: ARE YOU ALLERGIC TO IV DYE? NO . ANY NEW ALLERGIES? NO . PSYCHIATRIC: DO YOU HAVE THOUGHTS OF HURTING YOURSELF OR SOMEONE ELSE? NO . ARE YOU ABUSED, NEGLECTED, OR IN AN UNSAFE ENVIRONMENT? NO . ENDOCRINOLOGY: ARE YOU DIABETIC? NO . OTHER: DO YOU NEED ANY PRESCRIPTIONS? NO . IF YES, PLEASE LIST: ____ . ANY NEW PROBLEMS WITH YOUR MEDICATIONS? NO . WHEN DID YOU LAST EAT? ____ . WHEN DID YOU LAST DRINK? ____ . WHAT DID YOU LAST DRINK? ____ . NAME OF PERSON DRIVING YOU HOME? ____ . 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 PT TEARFUL. . VITAL SIGNS WT 213.6 LBS, HT 65", BMI 35.54 INDEX, BP 111/63 MM HG, HR 68 /MIN, RR 18 /MIN, TEMP 98.1 F, OXYGEN SAT % 98%, SAFE IN ENV? (Y/N) Y, REVIEWED BY: GRISELDA. EXAMINATION GENERAL EXAMINATION: LUNGS:LUNG SOUNDS ARE CLEAR. HEART:HEART RATE REGULAR. MUSCULOSKELETAL:*, MUSCLE STRENGTH TESTING 5/5 BILATERAL, PALPATION: POSITIVE FOR PAIN OVER L/S SPINE. POSITIVE FOR PAIN OVER L/S PARSPINALS.SPECIFIC POINT TENDERNESS OVER BILAT. SIJ L>R.POSITIVE FOR THEODORE TEST BILAT. LOWER EXTREMITIES. ASSESSMENTS SACROILIAC JOINT PAIN - M53.3 (PRIMARY) TREATMENT SACROILIAC JOINT PAIN NOTES: BILAT SIJ W/C. PROCEDURES PN WORKMANS' COMP OPINION IN YOUR OPINION, WAS THE INCIDENT THAT THE PATIENT DESCRIBED THE COMPETENT MEDICAL CAUSE OF THIS INJURY/ILLNESS? YES ARE THE PATIENT'S COMPLAINTS CONSISTENT WITH HIS/HER HISTORY OF THE INJURY/ILLNESS? YES IS THE PATIENT'S HISTORY OF THE INJURY/ILLNESS CONSISTENT WITH YOUR OBJECTIVE FINDING? YES WHAT IS THE PERCENTAGE OF TEMPORARY IMPAIRMENT? MODERATE TO MARKED = 66.7% IS THE PATIENT WORKING? YES DOCTOR ON SITE: ZELDA JOHNSTON MD PROCEDURE CODES FA211 ESTABILISHED PATIENT [facility] FACILITY CHARGE DISPOSITION & COMMUNICATION FOLLOW UP POST (REASON: BILAT SIJ W/C) ELECTRONICALLY SIGNED BY HILLARY HAMILTON ON 06/09/2018 AT 12:02 PM EDT DISCLAIMER : THIS IS A VISIT SUMMARY EXTRACTED FROM THE [employer] CHART. IT IS NOT A COPY OF THE [employer] PROGRESS NOTE. ALLI
== END ==
LOC: M PAIN 13:00
PROVIDERS: ATTEND Nurse Practitioner Family
DX: M53.3 Sacrococcygeal disorders, not elsewhere classified (principal); E11.9 Type 2 diabetes mellitus without complications; I10 Essential (primary) hypertension; J45.909 Unspecified asthma, uncomplicated; M19.90 Unspecified osteoarthritis, unspecified site; Z79.899 Other long term (current) drug therapy; Z88.0 Allergy status to penicillin; Z88.1 Allergy status to other antibiotic agents; Z88.2 Allergy status to sulfonamides; Z91.09 Other allergy status, other than to drugs and biological substances; Z91.011 Allergy to milk products; Z91.040 Latex allergy status; Z96.652 Presence of left artificial knee joint

== ENCOUNTER → 2018-07-25 | Outpatient (CLI) | payer OTHER ==
[~2018-07-25] MED LIST changes: +BUPIVACAINE HCL 0.25% 30 ML VIAL As Ordered ONE; +ISOVUE-M 300 61% 15ML VIAL (Q9967) As Ordered ONE; +LIDOCAINE 1% SDV INJ 30 ML VIAL As Ordered ONE; +TRIAMCINOLONE ACETONIDE SUSP 40 MG/ML VIAL (J3301) As Ordered ONE
--- NOTE | 2018-07-25 16:13 | REP ---
SI joint series: Six views bilateral: History: Bilateral SI joint injection for pain. 10 seconds of fluoroscopy time is reported. Findings: A sequence of six last image hold fluoroscopically obtained spot radiographs of the SI joints document needle position and contrast injection associated with SI joint injection procedure. Electronically Signed by Joaquin Carias MD 07/25/2018 07:52 P
--- NOTE | 2018-08-05 00:19 | ECWPNPC ---
PATIENT NAME: NATALIE CABALLERO : 1955 GENDER: FEMALE VISIT DATE: 07/25/2018 DISCHARGE DATE: 07/25/181534 VISIT LOCKED DATE TIME: PHYSICIAN: ZELDA KRAMER MD RESOURCE: ZELDA KRAMER MD REASON FOR APPOINTMENT 1. HAYLEYRAAD GIA W/C HISTORY OF PRESENT ILLNESS HISTORY OF PRESENT ILLNESS: PAIN THE PATIENT DESCRIBES THE PAIN... FALL RISK SCREENING: SCREENING :NO FALLS REPORTED IN THE LAST YEAR CURRENT MEDICATIONS TAKING ALLOPURINOL 300 MG TABLET 1 TABLET ORALLY ONCE A DAY, NOTES: 07/25/18 AM TAKING SINGULAIR 10 MG TABLET 1 TABLET IN THE EVENING ORALLY ONCE A DAY, NOTES: 07/24/18 AM TAKING BENTYL 20 MG TABLET 1 TABLET ORALLY EVERY 4 HOURS NEEDED, NOTES: NONE LATLEY TAKING VENTOLIN HFA 108 (90 BASE) MCG/ACT AEROSOL SOLUTION 2 PUFFS INHALATION NEEDED, NOTES: NONE LATELY TAKING VITAMIN B COMPLEX CAPSULE DIRECTED ORALLY DAILY, NOTES: 07/25/18 AM TAKING HYDROCHLOROTHIAZIDE 25 25 MG TABLET DIRECTED ORAL DAILY, NOTES: 07/25/18 AM TAKING LATANOPROST 0.005 % SOLUTION 1 DROP INTO BOTH EYES EVENING OPHTHALMIC ONCE A DAY, NOTES: 07/24/18 TAKING SYMBICORT 80-4.5 MCG/ACT AEROSOL 2 PUFFS INHALATION TWICE A DAY, NOTES: 07/25/18 AM TAKING REFRESH CELLUVISC 1 % SOLUTION 1 DROP OU OPHTHALMIC 24 TIME(S) A DAY, NOTES: 07/25/18 AM TAKING FIBER 58.6 % POWDER 2 CAPSULES WITH 8 OUNCES OF LIQUID ORALLY DAILY, NOTES: 07/25/18 AM TAKING CRANBERRY 405 MG CAPSULE ORALLY DAILY, NOTES: 07/25/18 AM TAKING FLONASE ALLERGY RELIEF 50 MCG/ACT SUSPENSION 1 SPRAY IN EACH NOSTRIL NASALLY ONCE A DAY NEEDED, NOTES: 07/24/18 TAKING OXYBUTYNIN CHLORIDE 5 MG TABLET 1 TABLET ORALLY 2 TIMES A DAY, NOTES: 07/25/18 AM TAKING POTASSIUM CHLORIDE 10 MEQ CAPSULE EXTENDED RELEASE 1 CAPSULE WITH FOOD ORALLY ONCE A DAY, NOTES: 07/25/18 AM TAKING PROBIOTIC - CAPSULE ORALLY DAILY, NOTES: 07/25/18 AM TAKING OMEPRAZOLE 20 MG CAPSULE DELAYED RELEASE 1 CAP ORALLY ONCE A DAY, NOTES: NONE LATELY TAKING CABERGOLINE 0.5 MG TABLET 1 TAB ORALLY WEEKLY, NOTES: SUNDAY TAKING TRAMADOL HCL 50 MG TABLET 1 TABLET NEEDED ORALLY Q8H PRN MDD3, NOTES: 07/21/18 TAKING GABAPENTIN 300 MG CAPSULE 1 CAPSULE ORALLY SPECIAL FUNDS TWO TIMES A DAY FOR PAINMDD2, NOTES: NONE LATELY TAKING ZYRTEC ALLERGY 10 MG TABLET 1 TABLET ORALLY ONCE A DAY, NOTES: 07/25/18 AM TAKING ALEVE 220 MG TABLET 1 TABLET WITH FOOD OR MILK NEEDED ORALLY EVERY 12 HRS, NOTES: 07/24/18 TAKING SKELAXIN 800 MG TABLET 1 TABLET ORALLY BID PRN FOR SPASMS AND PAIN MDD 2, NOTES: 07/25/18 AM TAKING CYMBALTA 30 MG CAPSULE DELAYED RELEASE PARTICLES 1 CAPSULE ORALLY FOR PAIN TWICE A DAY MDD2, NOTES: 07/25/18 AM NOT-TAKING BENTYL 10 MG CAPSULE 1 CAPSULE ORALLY TWO TIMES A DAY NOT-TAKING XIIDRA 5 % SOLUTION 1 DROP INTO AFFECTED EYE OPHTHALMIC TWICE A DAY NOT-TAKING PREMARIN 0.625 MG/GM CREAM VAGINAL THREE TIMES A WEEK, NOTES: CURRENTLY ON HOLD DISCONTINUED TYLENOL 500 MG TABLET 1 TABLET NEEDED ORALLY EVERY 6 HRS DISCONTINUED DIFLUCAN 200 MG TABLET 1 TABLET ORALLY DIRECTED MEDICATION LIST REVIEWED AND RECONCILED WITH THE PATIENT PAST MEDICAL HISTORY DIABETES BLOOD PRESSURE ASTHMA PITUITARY ADENOMA ARTHRITIS 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 DAD-SKIN CA\\NMOM-COPD, PULMONARY FIBROSIS\\NSON AND DAUGHTER-ASTHMA \\NHUSBAND - SARCOMA. SOCIAL HISTORY GENERAL: TOBACCO USE ARE YOU A: NONSMOKER. PAIN CLINIC PFS, CLERGY, PUBLIC HEALTH REFERRALS PFS REFERRAL NEEDED?NO CLERGY REFERRAL NEEDED?NO PUBLIC HEALTH REFERRAL NEEDED?NO WAS THE PROVIDER NOTIFIED OF ANY PERTINENT INFO?YES HAS THE PATIENT BEEN EDUCATED REGARDING HIS/HER PLAN OF CARE?YES HAS THE PATIENT BEEN EDUCATED REGARDING PAIN, THE RISK FOR PAIN, THE IMPORTANCE OF EFFECTIVE PAIN MANAGEMENT, AND THE PAIN ASSESSMENT PROCESS?YES LATEX QUESTIONNAIRE LATEX ALLERGY : HAVE YOU EVER DEVELOPED ANY TYPE OF REACTION AFTER HANDLING LATEX PRODUCTS SUCH RUBBER GLOVES, CONDOMS, DIAPHRAGMS, BALLOONS, SOCKS, OR UNDERWEAR?NO LATEX ALLERGY : HAVE YOU EVER DEVELOPED ANY TYPE OF REACTION DURING OR AFTER DENTAL APPOINTMENT, VAGINAL/RECTAL EXAMINATION, SURGICAL PROCEDURE, OR ANY OTHER EXPOSURE?NO LATEX RISK : HAVE YOU EVER HAD ANY DIFFICULTY BREATHING OR HIVES AFTER EATING OR HANDLING ANY FRUITS, OR VEGETABLES; SUCH KIWI, BANANAS, STONE FRUITS, OR CHESTNUTSNO LATEX RISK : DO YOU HAVE A PREVIOUS PERSONAL HISTORY OF MORE THAN NINE SURGERIES, SPINA BIFIDA, OR REPEATED CATHERTIZATIONS? NO LATEX RISK : ARE YOU FREQUENTLY EXPOSED TO LATEX PRODUCTS IN YOUR OCCUPATION?NO DATE ASKED : 05/29/2018 CAFFEINE CAFFEINE USE?YES HOW OFTEN AND HOW MUCH? 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 :CORRECTIVE LENSES COGNITIVELY IMPAIRED?NO READINESS TO LEARN?YES LEARNING PREFERENCES?NO LEARNING CAPABILITIES PRESENT?YES EMOTIONAL BARRIERS?NO SPECIAL DEVICES?NO OR DIRECTOR NEEDED?NO 09/10/17 1050 REVIEWED WITH PT. AD 12/06/17 1413 BV REVIEWED WITH PANDAWED WITH PATIENT 02/12/18 1113 JS. HOSPITALIZATION/MAJOR DIAGNOSTIC PROCEDURE SURGERY RELATED ASTHMA REVIEW OF SYSTEMS REVIEWED BY: PROVIDER: . CONSTITUTIONAL: ANY CHANGE IN YOUR MEDICAL CONDITION? NO . CHILLS NO . FEVER NO . INFECTION: DO YOU HAVE NEW INFECTIONS? NO . DO YOU HAVE HISTORY OF MRSA? NO . MUSCULOSKELETAL: ANY NEW PATTERNS OF PAIN OR NUMBNESS? NO . GASTROENTEROLOGY: ANY NEW CHANGE IN BOWEL CONTROL? NO . GENITOURINARY: ANY NEW CHANGE IN BLADDER CONTROL? NO . IS THERE A CHANCE YOU COULD BE ? NO . HEMATOLOGY/LYMPH: DO YOU TAKE ANY BLOOD THINNERS? (FOR EXAMPLE- COUMADIN, PLAVIX, AGGRENOX, PLATEL, PRADAXA, OR XARELTO) NO . WHEN WAS YOUR LAST DOSE? DATE: TIME: . NEUROLOGY: HAVE YOU FALLEN IN THE PAST 12 MONTHS? YES, PRIOR TO LAST VISIT . ANY NEW EXTREMITY NUMBNESS OR WEAKNESS? NO . CARDIOLOGY: DO YOU HAVE A PACEMAKER OR DEFIBRILLATOR? NO . RESPIRATORY: HAVE YOU BEEN SICK IN THE PAST WEEK? NO . FEVER NO . FLU LIKE SYMPTOMS? NO . COUGH NO . INTEGUMENTARY: DO YOU HAVE ANY RASHES OR OPEN SORES? YES, COLD SORE ON LIP HEALING . ALLERGIC/IMMUNO: ARE YOU ALLERGIC TO IV DYE? NO . ANY NEW ALLERGIES? NO . PSYCHIATRIC: DO YOU HAVE THOUGHTS OF HURTING YOURSELF OR SOMEONE ELSE? NO . ARE YOU ABUSED, NEGLECTED, OR IN AN UNSAFE ENVIRONMENT? NO . ENDOCRINOLOGY: ARE YOU DIABETIC? NO . OTHER: DO YOU NEED ANY PRESCRIPTIONS? NO . IF YES, PLEASE LIST: ____ . ANY NEW PROBLEMS WITH YOUR MEDICATIONS? NO . WHEN DID YOU LAST EAT? 07/24/181999 . WHEN DID YOU LAST DRINK? 07/25/18999 . WHAT DID YOU LAST DRINK? BLACK COFFEE . NAME OF PERSON DRIVING YOU HOME? ETHLE . DO YOU HAVE ANY OTHER QUESTIONS OR CONCERNS NO . VITAL SIGNS WT 203.6 LBS, HT 65", BMI 33.88 INDEX, BP 107/55 MM HG, HR 69 /MIN, RR 18 /MIN, TEMP 96.0 F, OXYGEN SAT % 99%, NA INITIALS AW 1259, REVIEWED BY: EM. ASSESSMENTS SACROILIITIS, NOT ELSEWHERE CLASSIFIED - M46.1 (PRIMARY) PROCEDURES PN WORKMANS' COMP OPINION IN YOUR OPINION, WAS THE INCIDENT THAT THE PATIENT DESCRIBED THE COMPETENT MEDICAL CAUSE OF THIS INJURY/ILLNESS? YES ARE THE PATIENT'S COMPLAINTS CONSISTENT WITH HIS/HER HISTORY OF THE INJURY/ILLNESS? YES IS THE PATIENT'S HISTORY OF THE INJURY/ILLNESS CONSISTENT WITH YOUR OBJECTIVE FINDING? YES WHAT IS THE PERCENTAGE OF TEMPORARY IMPAIRMENT? MODERATE TO MARKED = 66.7% IS THE PATIENT WORKING? YES DOCTOR ON SITE: ZELDA JOHNSTON MD PN SI PRE PROCEDURE DIAGNOSIS SACROILIITIS, SACROILIAC JOINT DYSFUNCTION POST PROCEDURE DIAGNOSIS SACROILIITIS, SACROILIAC JOINT DYSFUNCTION PROCEDURE BILATERAL SACROILIAC JOINT BLOCK SURGEON DR. ZELDA KRAMER CONTRACT TECHNICIAN NONE ANESTHESIA LOCAL PRE PROCEDURE NOTE PATIENT WITH HISTORY OF CHRONIC LOW BACK PAIN. I EVALUATED THE PATIENT AND REVIEWED THE CHART. I WENT OVER THE RISKS, ALTERNATIVES, AND BENEFITS ASSOCIATED WITH THIS PROCEDURE. THE PATIENT WOULD LIKE TO PROCEED AND GAVE CONSENT TO PERFORM THE PROCEDURE. THE PATIENT DENIES UNEXPLAINABLE WEIGHT LOSS, FEVER, CHILLS, OR NEW CHANGES IN URINARY OR BOWEL CONTROL DESCRIPTION OF PROCEDURE THE PATIENT WAS BROUGHT TO THE PROCEDURE ROOM AND PLACED IN THE PRONE POSITION. THE LUMBOSACRAL AREA WAS CLEANED WITH CHLORAPREP SOLUTION AND DRAPED ASEPTICALLY. THE PROCEDURE WAS DONE UNDER STERILE CONDITIONS. I CHECKED LATERALITY AND THE LEVEL WHERE THE PROCEDURE WAS GOING TO BE PERFORMED WITH THE PATIENT AND THE SUPPORTING STAFF AT THE MOMENT OF THE TIME OUT IN THE PROCEDURE ROOM. UNDER FLUOROSCOPIC GUIDANCE, TARGET POINT WAS SELECTED AT THE LOWER BORDER OF THE RIGHT AND LEFT SACROILIAC JOINT. TARGET POINT WAS SELECTED AFTER MEDIAL ROTATION AND TILT OF THE MAGNIFIER OF THE C-ARM. LIDOCAINE WAS USED TO NUMB THE SKIN AND SUBCUTANEOUS TISSUE BELOW IT. A SPINAL NEEDLE, 22-GAUGE, WAS ADVANCED UNDER FLUOROSCOPIC GUIDANCE AND FOLLOWING PATIENT FEEDBACK UNTIL THE TARGET AREA WAS TOUCHED. THE POSITION OF THE NEEDLE WAS VERIFIED WITH AP AND LATERAL VIEWS. AFTER PROPER POSITION OF THE NEEDLE WAS ACHIEVED, ISOVUE M DYE 30%, 0.25 ML, WAS INJECTED SHOWING SPREAD OF THE DYE. THEN, A SOLUTION OF 20 MG OF KENALOG WAS INJECTED IN RIGHT AND LEFT JOINT WITH 3 ML OF BUPIVACAINE 0.125%. THERE WAS NO EVIDENCE OF BLOOD, PARESTHESIA OR CEREBROSPINAL FLUID DURING THE PROCEDURE. THE PATIENT WAS SENT TO THE RECOVERY ROOM. THE PATIENT WAS MOVING THE EXTREMITIES AND DOING WELL. THERE WAS NO COMPLICATION DURING THE PROCEDURE. FLUOROSCOPY TIME WAS 10 SECONDS POST PROCEDURE NOTE THE PATIENT WILL BE SEEN IN A FOLLOW UP IN THE NEXT FEW WEEKS. INSTRUCTIONS WERE GIVEN, QUESTIONS WERE ANSWERED, AND THE PATIENT EXPRESSED UNDERSTANDING AND AGREED WITH THE PLAN. I, KAEL TSANG, DOCUMENTED THE ABOVE INFORMATION ACTING A SCRIBE FOR DR. KRAMER. I HAVE REVIEWED THE ABOVE DOCUMENT, WRITTEN BY KAEL CLEANING AND I VERIFY THAT IT IS ACCURATE. DIAGNOSTIC IMAG[facility] FLUORO GUIDANCE (PAIN)[id number] PROCEDURE CODES 15108 INJECT SACROILIAC JOINT, MODIFIERS: 50 [id number] RADXPS IN END [id number] PXD DISPOSITION & COMMUNICATION FOLLOW UP 3 WEEKS ELECTRONICALLY SIGNED BY ZELDA KRAMER MD, MD ON 08/04/2018 AT 07:52 PM EDT DISCLAIMER : THIS IS A VISIT SUMMARY EXTRACTED FROM THE [employer] CHART. IT IS NOT A COPY OF THE [employer] PROGRESS NOTE. MTDD
== END ==
LOC: M PAIN 13:30
PROVIDERS: ATTEND Anesthesiology
DX: M46.1 Sacroiliitis, not elsewhere classified (principal); E11.9 Type 2 diabetes mellitus without complications; J45.909 Unspecified asthma, uncomplicated; K58.0 Irritable bowel syndrome with diarrhea; Z96.652 Presence of left artificial knee joint; D35.2 Benign neoplasm of pituitary gland; I10 Essential (primary) hypertension; Z79.891 Long term (current) use of opiate analgesic; Z79.899 Other long term (current) drug therapy; Z88.0 Allergy status to penicillin; Z88.1 Allergy status to other antibiotic agents; Z88.2 Allergy status to sulfonamides; Z88.8 Allergy status to other drugs, medicaments and biological substances; Z91.040 Latex allergy status; Z91.048 Other nonmedicinal substance allergy status
CPT/HCPCS: G0260; J3301; Q9967

== ENCOUNTER → 2018-09-10 | Outpatient (CLI) | payer OTHER ==
[~2018-09-10] MED LIST changes: -BUPIVACAINE HCL 0.25% 30 ML VIAL As Ordered ONE; -ISOVUE-M 300 61% 15ML VIAL (Q9967) As Ordered ONE; -LIDOCAINE 1% SDV INJ 30 ML VIAL As Ordered ONE; -TRIAMCINOLONE ACETONIDE SUSP 40 MG/ML VIAL (J3301) As Ordered ONE
--- NOTE | 2018-09-25 02:00 | ECWPNPC ---
PATIENT NAME: NATALIE CABALLERO : 1955 GENDER: FEMALE VISIT DATE: 09/10/2018 DISCHARGE DATE: 09/10/18 1447 VISIT LOCKED DATE TIME: PHYSICIAN: BRITTNEY PAULINO RESOURCE: BRITTNEY PAULINO REASON FOR APPOINTMENT 1. WC POST PROC HISTORY OF PRESENT ILLNESS HISTORY OF PRESENT ILLNESS: HERE FOR POST PROCEDURE F/U.HAD BILAT. SIJ ON 07-25-18.REPORTING >80 % IMPROVEMENT IN PAIN THAT CONTINUES TODAY.CURRENTLY USING GABAPENTIN 300MG BID,METAXALONE 800MG BID AND CYMBALTA 30MG BID FOR CHRONIC PAIN.THIS IS A WORK RELATED INJURY WITH DOI:705.RATING LOW BACK PAIN 4/10 VAS. PAIN THE PATIENT DESCRIBES THE PAIN... THE PATIENT DESCRIBES THE PAIN... THE PATIENT DESCRIBES THE PAIN... FALL RISK SCREENING: SCREENING :NO FALLS REPORTED IN THE LAST YEAR CURRENT MEDICATIONS TAKING ALLOPURINOL 300 MG TABLET 1 TABLET ORALLY ONCE A DAY TAKING SINGULAIR 10 MG TABLET 1 TABLET IN THE EVENING ORALLY ONCE A DAY TAKING BENTYL 20 MG TABLET 1 TABLET ORALLY EVERY 4 HOURS NEEDED TAKING VENTOLIN HFA 108 (90 BASE) MCG/ACT AEROSOL SOLUTION 2 PUFFS INHALATION NEEDED TAKING VITAMIN B COMPLEX CAPSULE DIRECTED ORALLY DAILY TAKING HYDROCHLOROTHIAZIDE 25 25 MG TABLET DIRECTED ORAL DAILY TAKING LATANOPROST 0.005 % SOLUTION 1 DROP INTO BOTH EYES EVENING OPHTHALMIC ONCE A DAY TAKING SYMBICORT 80-4.5 MCG/ACT AEROSOL 2 PUFFS INHALATION TWICE A DAY TAKING REFRESH CELLUVISC 1 % SOLUTION 1 DROP OU OPHTHALMIC 24 TIME(S) A DAY TAKING FIBER 58.6 % POWDER 2 CAPSULES WITH 8 OUNCES OF LIQUID ORALLY DAILY TAKING CRANBERRY 405 MG CAPSULE ORALLY DAILY TAKING FLONASE ALLERGY RELIEF 50 MCG/ACT SUSPENSION 1 SPRAY IN EACH NOSTRIL NASALLY ONCE A DAY NEEDED TAKING OXYBUTYNIN CHLORIDE 5 MG TABLET 1 TABLET ORALLY 2 TIMES A DAY TAKING POTASSIUM CHLORIDE 10 MEQ CAPSULE EXTENDED RELEASE 1 CAPSULE WITH FOOD ORALLY ONCE A DAY TAKING PROBIOTIC - CAPSULE ORALLY DAILY TAKING OMEPRAZOLE 20 MG CAPSULE DELAYED RELEASE 1 CAP ORALLY ONCE A DAY TAKING CABERGOLINE 0.5 MG TABLET 1 TAB ORALLY WEEKLY TAKING TRAMADOL HCL 50 MG TABLET 1 TABLET NEEDED ORALLY Q8H PRN MDD3 TAKING GABAPENTIN 300 MG CAPSULE 1 CAPSULE ORALLY SPECIAL FUNDS TWO TIMES A DAY FOR PAINMDD2 TAKING ZYRTEC ALLERGY 10 MG TABLET 1 TABLET ORALLY ONCE A DAY TAKING ALEVE 220 MG TABLET 1 TABLET WITH FOOD OR MILK NEEDED ORALLY EVERY 12 HRS TAKING SKELAXIN 800 MG TABLET 1 TABLET ORALLY BID PRN FOR SPASMS AND PAIN MDD 2 TAKING CYMBALTA 30 MG CAPSULE DELAYED RELEASE PARTICLES 1 CAPSULE ORALLY FOR PAIN TWICE A DAY MDD2 TAKING BENTYL 10 MG CAPSULE 1 CAPSULE ORALLY TWO TIMES A DAY TAKING XIIDRA 5 % SOLUTION 1 DROP INTO AFFECTED EYE OPHTHALMIC TWICE A DAY TAKING PREMARIN 0.625 MG/GM CREAM VAGINAL THREE TIMES A WEEK MEDICATION LIST REVIEWED AND RECONCILED WITH THE PATIENT PAST MEDICAL HISTORY DIABETES BLOOD PRESSURE ASTHMA PITUITARY ADENOMA ARTHRITIS 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 DAD-SKIN CA\\NMOM-COPD, PULMONARY FIBROSIS\\NSON AND DAUGHTER-ASTHMA \\NHUSBAND - SARCOMAHUSBAND IN DECEMBER. SOCIAL HISTORY GENERAL: TOBACCO USE ARE YOU A: NONSMOKER. PAIN CLINIC PFS, CLERGY, PUBLIC HEALTH REFERRALS PFS REFERRAL NEEDED?NO CLERGY REFERRAL NEEDED?NO PUBLIC HEALTH REFERRAL NEEDED?NO WAS THE PROVIDER NOTIFIED OF ANY PERTINENT INFO?YES HAS THE PATIENT BEEN EDUCATED REGARDING HIS/HER PLAN OF CARE?YES HAS THE PATIENT BEEN EDUCATED REGARDING PAIN, THE RISK FOR PAIN, THE IMPORTANCE OF EFFECTIVE PAIN MANAGEMENT, AND THE PAIN ASSESSMENT PROCESS?YES LATEX QUESTIONNAIRE LATEX ALLERGY : HAVE YOU EVER DEVELOPED ANY TYPE OF REACTION AFTER HANDLING LATEX PRODUCTS SUCH RUBBER GLOVES, CONDOMS, DIAPHRAGMS, BALLOONS, SOCKS, OR UNDERWEAR?NO LATEX ALLERGY : HAVE YOU EVER DEVELOPED ANY TYPE OF REACTION DURING OR AFTER DENTAL APPOINTMENT, VAGINAL/RECTAL EXAMINATION, SURGICAL PROCEDURE, OR ANY OTHER EXPOSURE?NO LATEX RISK : HAVE YOU EVER HAD ANY DIFFICULTY BREATHING OR HIVES AFTER EATING OR HANDLING ANY FRUITS, OR VEGETABLES; SUCH KIWI, BANANAS, STONE FRUITS, OR CHESTNUTSNO LATEX RISK : DO YOU HAVE A PREVIOUS PERSONAL HISTORY OF MORE THAN NINE SURGERIES, SPINA BIFIDA, OR REPEATED CATHERIZATIONS? NO LATEX RISK : ARE YOU FREQUENTLY EXPOSED TO LATEX PRODUCTS IN YOUR OCCUPATION?NO DATE ASKED : 05/29/2018 CAFFEINE CAFFEINE USE?YES HOW OFTEN AND HOW MUCH? 1-2 CUPS COFFEE/DAY ADVANCE DIRECTIVE ADVANCE DIRECTIVE DISCUSSED WITH PATIENT:YES PT STATES THAT SHE HAS HCP PAPERWORK, DECLINES ASSISTANCE WITH FILLING OUT PAPERWORK PATIENT GIVEN PAPERWORK TO UPDATE HCP, DECLINES NEED FOR ASSISTANCE 09/10/18 1407 NLJ MANDAEN [id number] EVANGELICAL LANGUAGE LANGUAGES SPOKEN:MONEGASQUE DOMESTIC VIOLENCE DO YOU FEEL SAFE IN YOUR ENVIRONMENT?YES NEW PATIENT PAIN DIARY TODAY'S VISITNOTES FROM 0-10, WHAT LEVEL IS YOUR PAIN TODAY?7 ALCOHOL SCREENING DID YOU HAVE A DRINK CONTAINING ALCOHOL IN THE PAST YEAR?NO POINTS0 INTERPRETATIONNEGATIVE RECREATIONAL DRUG USE DRUG USE?NO LEARNING BARRIERS / SPECIAL NEEDS CHANGE FROM LAST VISIT?NO BARRIERS TO LEARNING?NO HEARING IMPAIRED?NO VISION IMPAIRED?YES ENLARGED OPTIC NERVE RELATED TO GESTATIONAL HYPERTENSION. :CORRECTIVE LENSES COGNITIVELY IMPAIRED?NO READINESS TO LEARN?YES LEARNING PREFERENCES?NO LEARNING CAPABILITIES PRESENT?YES EMOTIONAL BARRIERS?NO SPECIAL DEVICES?NO USER EXPERIENCE DEVELOPER NEEDED?NO 09/10/17 1050 REVIEWED WITH PT. AD 12/06/17 1413 BV REVIEWED WITH PANDAWED WITH PATIENT 02/12/18 1113 JSREVIEWED WITH PATEINT 09/10/18 1352 NLJ. HOSPITALIZATION/MAJOR DIAGNOSTIC PROCEDURE SURGERY RELATED ASTHMA REVIEW OF SYSTEMS REVIEWED BY: PROVIDER: BRITTNEY THORNTON . CONSTITUTIONAL: ANY CHANGE IN YOUR MEDICAL CONDITION? NO . CHILLS NO . FEVER NO . INFECTION: DO YOU HAVE NEW INFECTIONS? NO . DO YOU HAVE HISTORY OF MRSA? NO . MUSCULOSKELETAL: ANY NEW PATTERNS OF PAIN OR NUMBNESS? NO . GASTROENTEROLOGY: ANY NEW CHANGE IN BOWEL CONTROL? NO . GENITOURINARY: ANY NEW CHANGE IN BLADDER CONTROL? NO . IS THERE A CHANCE YOU COULD BE ? NO . HEMATOLOGY/LYMPH: DO YOU TAKE ANY BLOOD THINNERS? (FOR EXAMPLE- COUMADIN, PLAVIX, AGGRENOX, PLATEL, PRADAXA, OR XARELTO) NO . WHEN WAS YOUR LAST DOSE? DATE: TIME: . NEUROLOGY: HAVE YOU FALLEN IN THE PAST 12 MONTHS? NO . ANY NEW EXTREMITY NUMBNESS OR WEAKNESS? NO . CARDIOLOGY: DO YOU HAVE A PACEMAKER OR DEFIBRILLATOR? NO . RESPIRATORY: HAVE YOU BEEN SICK IN THE PAST WEEK? NO . FEVER NO . FLU LIKE SYMPTOMS? NO . COUGH NO . INTEGUMENTARY: DO YOU HAVE ANY RASHES OR OPEN SORES? NO . ALLERGIC/IMMUNO: ARE YOU ALLERGIC TO IV DYE? NO . ANY NEW ALLERGIES? NO . PSYCHIATRIC: DO YOU HAVE THOUGHTS OF HURTING YOURSELF OR SOMEONE ELSE? NO . ARE YOU ABUSED, NEGLECTED, OR IN AN UNSAFE ENVIRONMENT? NO . ENDOCRINOLOGY: ARE YOU DIABETIC? NO . OTHER: DO YOU NEED ANY PRESCRIPTIONS? YES . IF YES, PLEASE LIST: ____NEEDS CYMBALTA, SKELAXIN, TRAMADOL, AND GABAPENTIN REFILLED . ANY NEW PROBLEMS WITH YOUR MEDICATIONS? NO . WHEN DID YOU LAST EAT? ____ . WHEN DID YOU LAST DRINK? ____ . WHAT DID YOU LAST DRINK? ____ . NAME OF PERSON DRIVING YOU HOME? ____ . DO YOU HAVE ANY OTHER QUESTIONS OR CONCERNS NO- STATES SI[facility] WORKED VERY WELL- DECREASED PAIN STATES PAIN IS A 1-2 AND PRE PROCEDURE WAS A 7-8 . VITAL SIGNS WT 204 LBS, HT 65", BMI 33.94 INDEX, BP 124/67 MM HG, HR 57 /MIN, RR 18 /MIN, TEMP 98.8 F, OXYGEN SAT % 98%, SAFE IN ENV? (Y/N) YES, NA INITIALS SC 13:36, REVIEWED BY: YES. EXAMINATION GENERAL EXAMINATION: LUNGS:LUNG SOUNDS ARE CLEAR. HEART:HEART RATE REGULAR. MUSCULOSKELETAL:*, MUSCLE STRENGTH TESTING 5/5 BILATERAL LOWER EXTREMITIES. PALPATION: NEGATIVE FOR PAIN OVER L/S SPINE. NEGATIVE FOR PAIN OVER L/S PARASPINALS. ASSESSMENTS SACROILIITIS, NOT ELSEWHERE CLASSIFIED - M46.1 (PRIMARY) TREATMENT SACROILIITIS, NOT ELSEWHERE CLASSIFIED REFILL GABAPENTIN CAPSULE, 300 MG, 1 CAPSULE, ORALLY SPECIAL FUNDS, TWO TIMES A DAY FOR PAINMDD2, 30 DAY(S), 60, REFILLS 2 REFILL SKELAXIN TABLET, 800 MG, 1 TABLET, ORALLY, BID PRN FOR SPASMS AND PAIN MDD 2, 30 DAY(S), 60, REFILLS 2 REFILL CYMBALTA CAPSULE DELAYED RELEASE PARTICLES, 30 MG, 1 CAPSULE, ORALLY FOR PAIN, TWICE A DAY MDD2, 30 DAY(S), 60, REFILLS 2 PROCEDURES PN WORKMANS' COMP OPINION IN YOUR OPINION, WAS THE INCIDENT THAT THE PATIENT DESCRIBED THE COMPETENT MEDICAL CAUSE OF THIS INJURY/ILLNESS? YES IN YOUR OPINION, WAS THE INCIDENT THAT THE PATIENT DESCRIBED THE COMPETENT MEDICAL CAUSE OF THIS INJURY/ILLNESS? YES IN YOUR OPINION, WAS THE INCIDENT THAT THE PATIENT DESCRIBED THE COMPETENT MEDICAL CAUSE OF THIS INJURY/ILLNESS? YES ARE THE PATIENT'S COMPLAINTS CONSISTENT WITH HIS/HER HISTORY OF THE INJURY/ILLNESS? YES ARE THE PATIENT'S COMPLAINTS CONSISTENT WITH HIS/HER HISTORY OF THE INJURY/ILLNESS? YES ARE THE PATIENT'S COMPLAINTS CONSISTENT WITH HIS/HER HISTORY OF THE INJURY/ILLNESS? YES IS THE PATIENT'S HISTORY OF THE INJURY/ILLNESS CONSISTENT WITH YOUR OBJECTIVE FINDING? YES IS THE PATIENT'S HISTORY OF THE INJURY/ILLNESS CONSISTENT WITH YOUR OBJECTIVE FINDING? YES IS THE PATIENT'S HISTORY OF THE INJURY/ILLNESS CONSISTENT WITH YOUR OBJECTIVE FINDING? YES WHAT IS THE PERCENTAGE OF TEMPORARY IMPAIRMENT? MODERATE TO MARKED = 66.7% , MODERATE TO MARKED = 66.7% , MODERATE TO MARKED = 66.7% WHAT IS THE PERCENTAGE OF TEMPORARY IMPAIRMENT? MODERATE TO MARKED = 66.7% , MODERATE TO MARKED = 66.7% , MODERATE TO MARKED = 66.7% WHAT IS THE PERCENTAGE OF TEMPORARY IMPAIRMENT? MODERATE TO MARKED = 66.7% , MODERATE TO MARKED = 66.7% , MODERATE TO MARKED = 66.7% IS THE PATIENT WORKING? YES IS THE PATIENT WORKING? YES IS THE PATIENT WORKING? YES DOCTOR ON SITE: ZELDA JOHNSTON MD DOCTOR ON SITE: ZELDA JOHNSTON MD DOCTOR ON SITE: ZELDA JOHNSTON MD PROCEDURE CODES FA211 ESTABILISHED PATIENT [facility] CHARGE DISPOSITION & COMMUNICATION FOLLOW UP 2 MONTHS (REASON: MED MGMNT) ELECTRONICALLY SIGNED BY HILLARY HAMILTON ON 09/24/2018 AT 03:00 PM EDT DISCLAIMER : THIS IS A VISIT SUMMARY EXTRACTED FROM THE [employer] CHART. IT IS NOT A COPY OF THE [employer] PROGRESS NOTE. ALLI
== END ==
LOC: M PAIN 13:30
PROVIDERS: ATTEND Nurse Practitioner Family
DX: M46.1 Sacroiliitis, not elsewhere classified (principal); E11.9 Type 2 diabetes mellitus without complications; I10 Essential (primary) hypertension; J45.909 Unspecified asthma, uncomplicated; M19.90 Unspecified osteoarthritis, unspecified site; Z96.652 Presence of left artificial knee joint; Z88.0 Allergy status to penicillin; Z88.1 Allergy status to other antibiotic agents; Z88.2 Allergy status to sulfonamides; Z88.8 Allergy status to other drugs, medicaments and biological substances; Z91.011 Allergy to milk products; Z91.040 Latex allergy status; Z91.09 Other allergy status, other than to drugs and biological substances; Z79.899 Other long term (current) drug therapy

== ENCOUNTER → 2018-10-15 | Outpatient (CLI) | payer OTHER ==
[2018-10-18 00:07] LABS: Lyme Disease IgG/IgM Antibodie <0.91 ISR (0.00-0.90); Lyme Disease IgM Ab Quantitati <0.80 index (0.00-0.79)
== END ==
LOC: M LRY 14:14
PROVIDERS: ATTEND Nurse Practitioner Family
DX: Z11.9 Encounter for screening for infectious and parasitic diseases, unspecified (principal); W57.XXXA Bitten or stung by nonvenomous insect and other nonvenomous arthropods, initial encounter; Y92.9 Unspecified place or not applicable; Y93.9 Activity, unspecified

== ENCOUNTER → 2018-11-26 | Outpatient (CLI) | payer OTHER ==
--- NOTE | 2018-12-11 01:07 | ECWPNPC ---
PATIENT NAME: NATALIE CABALLERO : 1955 GENDER: FEMALE VISIT DATE: 11/26/2018 DISCHARGE DATE: 11/26/18 1541 VISIT LOCKED DATE TIME: PHYSICIAN: BRITTNEY PAULINO RESOURCE: BRITTNEY PAULINO REASON FOR APPOINTMENT 1. W/C 2 MONTHS HISTORY OF PRESENT ILLNESS HISTORY OF PRESENT ILLNESS: HERE FOR F/U OF CHRONIC LOW BACK PAIN.CURRENTLY USING GABAPENTIN 300MG BID,METAXALONE 800MG BID AND CYMBALTA 30MG BID FOR CHRONIC PAIN.THIS IS A WORK RELATED INJURY WITH DOI:[id number].RATING LOW BACK PAIN 3/10 VAS. PAIN THE PATIENT DESCRIBES THE PAIN... THE PATIENT DESCRIBES THE PAIN... THE PATIENT DESCRIBES THE PAIN... THE PATIENT DESCRIBES THE PAIN... FALL RISK SCREENING: SCREENING :NO FALLS REPORTED IN THE LAST YEAR CURRENT MEDICATIONS TAKING ALLOPURINOL 300 MG TABLET 1 TABLET ORALLY ONCE A DAY TAKING SINGULAIR 10 MG TABLET 1 TABLET IN THE EVENING ORALLY ONCE A DAY TAKING VENTOLIN HFA 108 (90 BASE) MCG/ACT AEROSOL SOLUTION 2 PUFFS INHALATION NEEDED TAKING VITAMIN B COMPLEX CAPSULE DIRECTED ORALLY DAILY TAKING HYDROCHLOROTHIAZIDE 25 25 MG TABLET DIRECTED ORAL DAILY TAKING LATANOPROST 0.005 % SOLUTION 1 DROP INTO BOTH EYES EVENING OPHTHALMIC ONCE A DAY TAKING SYMBICORT 80-4.5 MCG/ACT AEROSOL 2 PUFFS INHALATION TWICE A DAY TAKING REFRESH CELLUVISC 1 % SOLUTION 1 DROP OU OPHTHALMIC 24 TIME(S) A DAY TAKING FIBER 58.6 % POWDER 2 CAPSULES WITH 8 OUNCES OF LIQUID ORALLY DAILY TAKING CRANBERRY 405 MG CAPSULE ORALLY DAILY TAKING FLONASE ALLERGY RELIEF 50 MCG/ACT SUSPENSION 1 SPRAY IN EACH NOSTRIL NASALLY ONCE A DAY NEEDED TAKING OXYBUTYNIN CHLORIDE 5 MG TABLET 1 TABLET ORALLY 2 TIMES A DAY TAKING POTASSIUM CHLORIDE 10 MEQ CAPSULE EXTENDED RELEASE 1 CAPSULE WITH FOOD ORALLY ONCE A DAY TAKING PROBIOTIC - CAPSULE ORALLY DAILY TAKING OMEPRAZOLE 20 MG CAPSULE DELAYED RELEASE 1 CAP ORALLY ONCE A DAY TAKING CABERGOLINE 0.5 MG TABLET 1 TAB ORALLY WEEKLY TAKING TRAMADOL HCL 50 MG TABLET 1 TABLET NEEDED ORALLY Q8H PRN MDD3 TAKING ZYRTEC ALLERGY 10 MG TABLET 1 TABLET ORALLY ONCE A DAY TAKING ALEVE 220 MG TABLET 1 TABLET WITH FOOD OR MILK NEEDED ORALLY EVERY 12 HRS TAKING GABAPENTIN 300 MG CAPSULE 1 CAPSULE ORALLY SPECIAL FUNDS TWO TIMES A DAY FOR PAINMDD2 TAKING SKELAXIN 800 MG TABLET 1 TABLET ORALLY BID PRN FOR SPASMS AND PAIN MDD 2 TAKING CYMBALTA 30 MG CAPSULE DELAYED RELEASE PARTICLES 1 CAPSULE ORALLY FOR PAIN TWICE A DAY MDD2 NOT-TAKING BENTYL 20 MG TABLET 1 TABLET ORALLY EVERY 4 HOURS NEEDED NOT-TAKING BENTYL 10 MG CAPSULE 1 CAPSULE ORALLY TWO TIMES A DAY NOT-TAKING XIIDRA 5 % SOLUTION 1 DROP INTO AFFECTED EYE OPHTHALMIC TWICE A DAY NOT-TAKING PREMARIN 0.625 MG/GM CREAM VAGINAL THREE TIMES A WEEK MEDICATION LIST REVIEWED AND RECONCILED WITH THE PATIENT PAST MEDICAL HISTORY DIABETES BLOOD PRESSURE ASTHMA PITUITARY ADENOMA ARTHRITIS 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 DUE TO HYPERTENSION CHRONIC SINUSITIS ALLERGIES PENICILLIN (FOR ALLERGIES USE ONLY): RASH - ALLERGY SULFA (FOR ALLERGY USE ONLY): RASH - ALLERGY PHENERGAN: BLOOD CLOT - SIDE EFFECTS LATEX CONDOMS, RUBBER BANDS, GLOVES: RASH - ALLERGY ERYTHROMYCIN: RASH - ALLERGY NICLKEL: RASH - ALLERGY SULFITES: DYSPNEA - ALLERGY MILK: GI UPSET, WATERY EYES AND SINUS CONGERSTION - SIDE EFFECTS SURGICAL HISTORY BTL 1986 GB 1990 ACL 2000 RIGHT ROTATOR CUFF 02/2014 LEFT TOTAL KNEE REPLACEMENT 07/2016 FAMILY HISTORY FATHER: , DIAGNOSED WITH OTHER MALIGNANT NEOPLASM OF UNSPECIFIED SITE MOTHER: , DIABETES, OTHER SPECIFIED CONDITIONS INFLUENCING HEALTH STATUS 1 SON(S) , 1 DAUGHTER(S) . DAD-SKIN CA\\NMOM-COPD, PULMONARY FIBROSIS\\NSON AND DAUGHTER-ASTHMA \\NHUSBAND - [place] IN DECEMBER. SOCIAL HISTORY GENERAL: TOBACCO USE ARE YOU A: NONSMOKER. PAIN CLINIC PFS, CLERGY, PUBLIC HEALTH REFERRALS PFS REFERRAL NEEDED?NO CLERGY REFERRAL NEEDED?NO PUBLIC HEALTH REFERRAL NEEDED?NO WAS THE PROVIDER NOTIFIED OF ANY PERTINENT INFO?YES HAS THE PATIENT BEEN EDUCATED REGARDING HIS/HER PLAN OF CARE?YES HAS THE PATIENT BEEN EDUCATED REGARDING PAIN, THE RISK FOR PAIN, THE IMPORTANCE OF EFFECTIVE PAIN MANAGEMENT, AND THE PAIN ASSESSMENT PROCESS?YES LATEX QUESTIONNAIRE LATEX ALLERGY : HAVE YOU EVER DEVELOPED ANY TYPE OF REACTION AFTER HANDLING LATEX PRODUCTS SUCH RUBBER GLOVES, CONDOMS, DIAPHRAGMS, BALLOONS, SOCKS, OR UNDERWEAR?YES - PLEASE INDICATE :RUBBER GLOVES, CONDOMS LATEX ALLERGY : HAVE YOU EVER DEVELOPED ANY TYPE OF REACTION DURING OR AFTER DENTAL APPOINTMENT, VAGINAL/RECTAL EXAMINATION, SURGICAL PROCEDURE, OR ANY OTHER EXPOSURE?NO LATEX RISK : HAVE YOU EVER HAD ANY DIFFICULTY BREATHING OR HIVES AFTER EATING OR HANDLING ANY FRUITS, OR VEGETABLES; SUCH KIWI, BANANAS, STONE FRUITS, OR CHESTNUTSNO LATEX RISK : DO YOU HAVE A PREVIOUS PERSONAL HISTORY OF MORE THAN NINE SURGERIES, SPINA BIFIDA, OR REPEATED CATHERIZATIONS? NO LATEX RISK : ARE YOU FREQUENTLY EXPOSED TO LATEX PRODUCTS IN YOUR OCCUPATION?NO DATE ASKED : 05/29/2018 LATEX ALLERGY CAFFEINE CAFFEINE USE?YES HOW OFTEN AND HOW MUCH? 1-2 CUPS COFFEE/DAY ADVANCE DIRECTIVE ADVANCE DIRECTIVE DISCUSSED WITH PATIENT:YES STATES NO HCP AT THIS TIME, HAS PAPEROWRK AT HOME. DECLINED ASSISTANCE IN FILLING IT OUT. CHRISTIANITY [id number] MORAVIAN LANGUAGE LANGUAGES SPOKEN:KHMER DOMESTIC VIOLENCE DO YOU FEEL SAFE IN YOUR ENVIRONMENT?YES NEW PATIENT PAIN DIARY TODAY'S VISITNOTES FROM 0-10, WHAT LEVEL IS YOUR PAIN TODAY?7 ALCOHOL SCREENING DID YOU HAVE A DRINK CONTAINING ALCOHOL IN THE PAST YEAR?NO POINTS0 INTERPRETATIONNEGATIVE RECREATIONAL DRUG USE DRUG USE?NO LEARNING BARRIERS / SPECIAL NEEDS CHANGE FROM LAST VISIT?NO BARRIERS TO LEARNING?NO HEARING IMPAIRED?NO VISION IMPAIRED?YES ENLARGED OPTIC NERVE RELATED TO GESTATIONAL HYPERTENSION. COGNITIVELY IMPAIRED?NO :CORRECTIVE LENSES READINESS TO LEARN?YES LEARNING PREFERENCES?NO LEARNING CAPABILITIES PRESENT?YES EMOTIONAL BARRIERS?NO SPECIAL DEVICES?NO PAPER MACHINE OPERATOR NEEDED?NO 09/10/17 1050 REVIEWED WITH PT. AD 12/06/17 1413 BV REVIEWED WITH PTREVIEWED WITH PATIENT 02/12/18 1113 JSREVIEWED WITH PATEINT 09/10/18 1352 NLJREVIEWED WITH PATIENT 11/26/18 1506 JS. HOSPITALIZATION/MAJOR DIAGNOSTIC PROCEDURE SURGERY RELATED ASTHMA REVIEW OF SYSTEMS REVIEWED BY: PROVIDER: BRITTNEY THORNTON . CONSTITUTIONAL: ANY CHANGE IN YOUR MEDICAL CONDITION? NO . CHILLS NO . FEVER NO . INFECTION: DO YOU HAVE NEW INFECTIONS? NO . DO YOU HAVE HISTORY OF MRSA? NO . MUSCULOSKELETAL: ANY NEW PATTERNS OF PAIN OR NUMBNESS? NO . GASTROENTEROLOGY: ANY NEW CHANGE IN BOWEL CONTROL? NO . GENITOURINARY: ANY NEW CHANGE IN BLADDER CONTROL? NO . IS THERE A CHANCE YOU COULD BE ? NO . HEMATOLOGY/LYMPH: DO YOU TAKE ANY BLOOD THINNERS? (FOR EXAMPLE- COUMADIN, PLAVIX, AGGRENOX, PLATEL, PRADAXA, OR XARELTO) NO . WHEN WAS YOUR LAST DOSE? DATE: TIME: . NEUROLOGY: HAVE YOU FALLEN IN THE PAST 12 MONTHS? NO . ANY NEW EXTREMITY NUMBNESS OR WEAKNESS? NO . CARDIOLOGY: DO YOU HAVE A PACEMAKER OR DEFIBRILLATOR? NO . RESPIRATORY: HAVE YOU BEEN SICK IN THE PAST WEEK? NO . FEVER NO . FLU LIKE SYMPTOMS? NO . COUGH NO . INTEGUMENTARY: DO YOU HAVE ANY RASHES OR OPEN SORES? NO . ALLERGIC/IMMUNO: ARE YOU ALLERGIC TO IV DYE? NO . ANY NEW ALLERGIES? NO . PSYCHIATRIC: DO YOU HAVE THOUGHTS OF HURTING YOURSELF OR SOMEONE ELSE? NO . ARE YOU ABUSED, NEGLECTED, OR IN AN UNSAFE ENVIRONMENT? NO . ENDOCRINOLOGY: ARE YOU DIABETIC? NO . OTHER: DO YOU NEED ANY PRESCRIPTIONS? NO . IF YES, PLEASE LIST: ____ . ANY NEW PROBLEMS WITH YOUR MEDICATIONS? NO . WHEN DID YOU LAST EAT? ____ . WHEN DID YOU LAST DRINK? ____ . WHAT DID YOU LAST DRINK? ____ . NAME OF PERSON DRIVING YOU HOME? ____ . DO YOU HAVE ANY OTHER QUESTIONS OR CONCERNS NO . VITAL SIGNS WT 201.2 LBS, HT 65", BMI 33.48 INDEX, BP 134/62 MM HG, HR 55 /MIN, RR 18 /MIN, TEMP 97.7 F, OXYGEN SAT % 100%, SAFE IN ENV? (Y/N) YES, NA INITIALS TX 14:52, REVIEWED BY: MADELINE. EXAMINATION GENERAL EXAMINATION: GENERALAWAKE,ALERT ,PLEAASANT . PSYCHAFFECT NORMAL . LUNGS:LUNG DUPREE ARE CLEAR TO AUSCULTATION BILATERALLY. GOOD MOVEMENT OF AIR . HEART:S1, S2 IN A REGULAR RATE AND RHYTHM. NO SIGNIFICANT MURMURS, RUBS OR GALLOPS NOTED . ASSESSMENTS SACROILIITIS, NOT ELSEWHERE CLASSIFIED - M46.1 (PRIMARY) SPONDYLOSIS OF LUMBAR REGION WITHOUT MYELOPATHY OR RADICULOPATHY - M47.816 PROCEDURES PN WORKMANS' COMP OPINION IN YOUR OPINION, WAS THE INCIDENT THAT THE PATIENT DESCRIBED THE COMPETENT MEDICAL CAUSE OF THIS INJURY/ILLNESS? YES ARE THE PATIENT'S COMPLAINTS CONSISTENT WITH HIS/HER HISTORY OF THE INJURY/ILLNESS? YES IS THE PATIENT'S HISTORY OF THE INJURY/ILLNESS CONSISTENT WITH YOUR OBJECTIVE FINDING? YES WHAT IS THE PERCENTAGE OF TEMPORARY IMPAIRMENT? MODERATE TO MARKED = 66.7% IS THE PATIENT WORKING? YES DOCTOR ON SITE: ZELDA JOHNSTON MD PROCEDURE CODES FA211 ESTABILISHED PATIENT [facility] FACILITY CHARGE DISPOSITION & COMMUNICATION FOLLOW UP 2 MONTHS (REASON: W/C LBP) ELECTRONICALLY SIGNED BY HILLARY HAMILTON ON 12/10/2018 AT 02:35 PM EST DISCLAIMER : THIS IS A VISIT SUMMARY EXTRACTED FROM THE [email or web address] CHART. IT IS NOT A COPY OF THE [employer] PROGRESS NOTE. ALLI
== END ==
LOC: M PAIN 14:15
PROVIDERS: ATTEND Nurse Practitioner Family
DX: M46.1 Sacroiliitis, not elsewhere classified (principal); M47.816 Spondylosis without myelopathy or radiculopathy, lumbar region; G89.29 Other chronic pain; E11.9 Type 2 diabetes mellitus without complications; I10 Essential (primary) hypertension; J45.909 Unspecified asthma, uncomplicated; M19.90 Unspecified osteoarthritis, unspecified site; Z96.652 Presence of left artificial knee joint; Z88.0 Allergy status to penicillin; Z88.1 Allergy status to other antibiotic agents; Z88.2 Allergy status to sulfonamides; Z88.8 Allergy status to other drugs, medicaments and biological substances; Z91.011 Allergy to milk products; Z91.040 Latex allergy status; Z91.09 Other allergy status, other than to drugs and biological substances; Z79.899 Other long term (current) drug therapy

== ENCOUNTER → 2018-12-24 | Outpatient (CLI) | payer OTHER ==
--- NOTE | 2018-12-28 00:17 | ECWPNPC ---
PATIENT NAME: NATALIE CABALLERO : 1955 GENDER: FEMALE VISIT DATE: 12/24/2018 DISCHARGE DATE: 12/24/18 1441 VISIT LOCKED DATE TIME: PHYSICIAN: BRITTNEY PAULINO RESOURCE: BRITTNEY PAULINO REASON FOR APPOINTMENT 1. W/C LOW BACK HISTORY OF PRESENT ILLNESS HISTORY OF PRESENT ILLNESS: HERE FOR F/U OF CHRONIC LOW BACK PAIN.CURRENTLY USING GABAPENTIN 300MG BID,METAXALONE 800MG BID AND CYMBALTA 30MG BID FOR CHRONIC PAIN.THIS IS A WORK RELATED INJURY WITH DOI:[id number].RATING LOW BACK PAIN 8/10 VAS.PAIN HAS ESCALATED OVER THE PAST MONTH.FINDING IT DIFFICULT TO ESCALATE STAIRS AND SIT FOR PROLONGED PERIODS. PAIN THE PATIENT DESCRIBES THE PAIN... THE PATIENT DESCRIBES THE PAIN... THE PATIENT DESCRIBES THE PAIN... THE PATIENT DESCRIBES THE PAIN... THE PATIENT DESCRIBES THE PAIN... FALL RISK SCREENING: SCREENING :NO FALLS REPORTED IN THE LAST YEAR CURRENT MEDICATIONS TAKING ALLOPURINOL 300 MG TABLET 1 TABLET ORALLY ONCE A DAY TAKING SINGULAIR 10 MG TABLET 1 TABLET IN THE EVENING ORALLY ONCE A DAY TAKING VENTOLIN HFA 108 (90 BASE) MCG/ACT AEROSOL SOLUTION 2 PUFFS INHALATION NEEDED TAKING VITAMIN B COMPLEX CAPSULE DIRECTED ORALLY DAILY TAKING HYDROCHLOROTHIAZIDE 25 25 MG TABLET DIRECTED ORAL DAILY TAKING LATANOPROST 0.005 % SOLUTION 1 DROP INTO BOTH EYES EVENING OPHTHALMIC ONCE A DAY TAKING SYMBICORT 80-4.5 MCG/ACT AEROSOL 2 PUFFS INHALATION TWICE A DAY TAKING REFRESH CELLUVISC 1 % SOLUTION 1 DROP OU OPHTHALMIC 24 TIME(S) A DAY TAKING FIBER 58.6 % POWDER 2 CAPSULES WITH 8 OUNCES OF LIQUID ORALLY DAILY TAKING CRANBERRY 405 MG CAPSULE ORALLY DAILY TAKING FLONASE ALLERGY RELIEF 50 MCG/ACT SUSPENSION 1 SPRAY IN EACH NOSTRIL NASALLY ONCE A DAY NEEDED TAKING OXYBUTYNIN CHLORIDE 5 MG TABLET 1 TABLET ORALLY 2 TIMES A DAY TAKING POTASSIUM CHLORIDE 10 MEQ CAPSULE EXTENDED RELEASE 1 CAPSULE WITH FOOD ORALLY ONCE A DAY TAKING PROBIOTIC - CAPSULE ORALLY DAILY TAKING OMEPRAZOLE 20 MG CAPSULE DELAYED RELEASE 1 CAP ORALLY ONCE A DAY TAKING CABERGOLINE 0.5 MG TABLET 1 TAB ORALLY WEEKLY TAKING TRAMADOL HCL 50 MG TABLET 1 TABLET NEEDED ORALLY Q8H PRN MDD3 TAKING ZYRTEC ALLERGY 10 MG TABLET 1 TABLET ORALLY ONCE A DAY TAKING ALEVE 220 MG TABLET 1 TABLET WITH FOOD OR MILK NEEDED ORALLY EVERY 12 HRS TAKING GABAPENTIN 300 MG CAPSULE 1 CAPSULE ORALLY SPECIAL FUNDS TWO TIMES A DAY FOR PAINMDD2 TAKING SKELAXIN 800 MG TABLET 1 TABLET ORALLY BID PRN FOR SPASMS AND PAIN MDD 2 TAKING CYMBALTA 30 MG CAPSULE DELAYED RELEASE PARTICLES 1 CAPSULE ORALLY FOR PAIN TWICE A DAY MDD2 TAKING CLINDAMYCIN HCL 150 MG CAPSULE 1 CAPSULE ORALLY BID NOT-TAKING BENTYL 20 MG TABLET 1 TABLET ORALLY EVERY 4 HOURS NEEDED NOT-TAKING BENTYL 10 MG CAPSULE 1 CAPSULE ORALLY TWO TIMES A DAY NOT-TAKING XIIDRA 5 % SOLUTION 1 DROP INTO AFFECTED EYE OPHTHALMIC TWICE A DAY NOT-TAKING PREMARIN 0.625 MG/GM CREAM VAGINAL THREE TIMES A WEEK MEDICATION LIST REVIEWED AND RECONCILED WITH THE PATIENT PAST MEDICAL HISTORY DIABETES BLOOD PRESSURE ASTHMA PITUITARY ADENOMA ARTHRITIS 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 DUE TO HYPERTENSION CHRONIC SINUSITIS TICK BITE X2 IN - TEST FOR LYME, AWAITING RESULTS 12/24/18 ALLERGIES PENICILLIN (FOR ALLERGIES USE ONLY): RASH - ALLERGY SULFA (FOR ALLERGY USE ONLY): RASH - ALLERGY PHENERGAN: BLOOD CLOT - SIDE EFFECTS LATEX CONDOMS, RUBBER BANDS, GLOVES: RASH - ALLERGY ERYTHROMYCIN: RASH - ALLERGY NICLKEL: RASH - ALLERGY SULFITES: DYSPNEA - ALLERGY MILK: GI UPSET, WATERY EYES AND SINUS CONGERSTION - SIDE EFFECTS DOXYCYCLINE: HIVES - ALLERGY SURGICAL HISTORY BTL 1986 GB 1990 ACL 2000 RIGHT ROTATOR CUFF 02/2014 LEFT TOTAL KNEE REPLACEMENT 07/2016 FAMILY HISTORY FATHER: , DIAGNOSED WITH OTHER MALIGNANT NEOPLASM OF UNSPECIFIED SITE MOTHER: , DIABETES, OTHER SPECIFIED CONDITIONS INFLUENCING HEALTH STATUS 1 SON(S) , 1 DAUGHTER(S) . DAD-SKIN CA\\NMOM-COPD, PULMONARY FIBROSIS\\NSON AND DAUGHTER-ASTHMA \\NHUSBAND - [place] IN DECEMBER. SOCIAL HISTORY GENERAL: TOBACCO USE ARE YOU A: NONSMOKER. PAIN CLINIC PFS, CLERGY, PUBLIC HEALTH REFERRALS PFS REFERRAL NEEDED?NO CLERGY REFERRAL NEEDED?NO PUBLIC HEALTH REFERRAL NEEDED?NO WAS THE PROVIDER NOTIFIED OF ANY PERTINENT INFO?YES HAS THE PATIENT BEEN EDUCATED REGARDING HIS/HER PLAN OF CARE?YES HAS THE PATIENT BEEN EDUCATED REGARDING PAIN, THE RISK FOR PAIN, THE IMPORTANCE OF EFFECTIVE PAIN MANAGEMENT, AND THE PAIN ASSESSMENT PROCESS?YES LATEX QUESTIONNAIRE LATEX ALLERGY : HAVE YOU EVER DEVELOPED ANY TYPE OF REACTION AFTER HANDLING LATEX PRODUCTS SUCH RUBBER GLOVES, CONDOMS, DIAPHRAGMS, BALLOONS, SOCKS, OR UNDERWEAR?YES - PLEASE INDICATE :RUBBER GLOVES, CONDOMS LATEX ALLERGY : HAVE YOU EVER DEVELOPED ANY TYPE OF REACTION DURING OR AFTER DENTAL APPOINTMENT, VAGINAL/RECTAL EXAMINATION, SURGICAL PROCEDURE, OR ANY OTHER EXPOSURE?NO LATEX RISK : HAVE YOU EVER HAD ANY DIFFICULTY BREATHING OR HIVES AFTER EATING OR HANDLING ANY FRUITS, OR VEGETABLES; SUCH KIWI, BANANAS, STONE FRUITS, OR CHESTNUTSNO LATEX RISK : DO YOU HAVE A PREVIOUS PERSONAL HISTORY OF MORE THAN NINE SURGERIES, SPINA BIFIDA, OR REPEATED CATHERIZATIONS? NO LATEX RISK : ARE YOU FREQUENTLY EXPOSED TO LATEX PRODUCTS IN YOUR OCCUPATION?NO DATE ASKED : 05/29/2018 LATEX ALLERGY CAFFEINE CAFFEINE USE?YES HOW OFTEN AND HOW MUCH? 1-2 CUPS COFFEE/DAY ADVANCE DIRECTIVE ADVANCE DIRECTIVE DISCUSSED WITH PATIENT:YES STATES NO HCP AT THIS TIME, HAS PAPEROWRK AT HOME. DECLINED ASSISTANCE IN FILLING IT OUT. [employer] [id number] LANGUAGE LANGUAGES SPOKEN:NEPALI DOMESTIC VIOLENCE DO YOU FEEL SAFE IN YOUR ENVIRONMENT?YES NEW PATIENT PAIN DIARY TODAY'S VISITNOTES FROM 0-10, WHAT LEVEL IS YOUR PAIN TODAY?7 ALCOHOL SCREENING DID YOU HAVE A DRINK CONTAINING ALCOHOL IN THE PAST YEAR?NO POINTS0 INTERPRETATIONNEGATIVE RECREATIONAL DRUG USE DRUG USE?NO LEARNING BARRIERS / SPECIAL NEEDS CHANGE FROM LAST VISIT?NO BARRIERS TO LEARNING?NO HEARING IMPAIRED?NO VISION IMPAIRED?YES ENLARGED OPTIC NERVE RELATED TO GESTATIONAL HYPERTENSION. COGNITIVELY IMPAIRED?NO :CORRECTIVE LENSES READINESS TO LEARN?YES LEARNING PREFERENCES?NO LEARNING CAPABILITIES PRESENT?YES EMOTIONAL BARRIERS?NO SPECIAL DEVICES?NO RADIO DIVISION CAPTAIN NEEDED?NO 09/10/17 1050 REVIEWED WITH PT. AD 12/06/17 1413 BV REVIEWED WITH PTREVIEWED WITH PATIENT 02/12/18 1113 JSREVIEWED WITH PATEINT 09/10/18 1352 NLJREVIEWED WITH PATIENT 11/26/18 1506 JSREVIEWED WITH PATIENT 12/24/18 1357 JS. HOSPITALIZATION/MAJOR DIAGNOSTIC PROCEDURE SURGERY RELATED ASTHMA REVIEW OF SYSTEMS REVIEWED BY: PROVIDER: BRITTNEY THORNTON . CONSTITUTIONAL: ANY CHANGE IN YOUR MEDICAL CONDITION? NO . CHILLS NO . FEVER NO . INFECTION: DO YOU HAVE NEW INFECTIONS? NO . DO YOU HAVE HISTORY OF MRSA? NO . MUSCULOSKELETAL: ANY NEW PATTERNS OF PAIN OR NUMBNESS? YES, STATES PAIN WORSENING OVER THE PAST MONTH . GASTROENTEROLOGY: ANY NEW CHANGE IN BOWEL CONTROL? NO . GENITOURINARY: ANY NEW CHANGE IN BLADDER CONTROL? NO . IS THERE A CHANCE YOU COULD BE ? NO . HEMATOLOGY/LYMPH: DO YOU TAKE ANY BLOOD THINNERS? (FOR EXAMPLE- COUMADIN, PLAVIX, AGGRENOX, PLATEL, PRADAXA, OR XARELTO) NO . WHEN WAS YOUR LAST DOSE? DATE: TIME: . NEUROLOGY: HAVE YOU FALLEN IN THE PAST 12 MONTHS? NO . ANY NEW EXTREMITY NUMBNESS OR WEAKNESS? NO . CARDIOLOGY: DO YOU HAVE A PACEMAKER OR DEFIBRILLATOR? NO . RESPIRATORY: HAVE YOU BEEN SICK IN THE PAST WEEK? YES, STATES SHE HAD A HEAD COLD FOR ABOUT 2 AND 1/2 DAYS . FEVER NO . FLU LIKE SYMPTOMS? NO . COUGH NO . INTEGUMENTARY: DO YOU HAVE ANY RASHES OR OPEN SORES? NO . ALLERGIC/IMMUNO: ARE YOU ALLERGIC TO IV DYE? NO . ANY NEW ALLERGIES? YES, DOXYCYCLINE . PSYCHIATRIC: DO YOU HAVE THOUGHTS OF HURTING YOURSELF OR SOMEONE ELSE? NO . ARE YOU ABUSED, NEGLECTED, OR IN AN UNSAFE ENVIRONMENT? NO . ENDOCRINOLOGY: ARE YOU DIABETIC? NO . OTHER: DO YOU NEED ANY PRESCRIPTIONS? NO . IF YES, PLEASE LIST: ____ . ANY NEW PROBLEMS WITH YOUR MEDICATIONS? NO . WHEN DID YOU LAST EAT? ____ . WHEN DID YOU LAST DRINK? ____ . WHAT DID YOU LAST DRINK? ____ . NAME OF PERSON DRIVING YOU HOME? ____ . DO YOU HAVE ANY OTHER QUESTIONS OR CONCERNS NO . VITAL SIGNS WT 203.6 LBS, HT 65", BMI 33.88 INDEX, BP 129/60 MM HG, HR 51 /MIN, RR 18 /MIN, TEMP 97.0 F, OXYGEN SAT % 100%, SAFE IN ENV? (Y/N) YES, NA INITIALS SC 13:51, REVIEWED BY: MADELINE. EXAMINATION GENERAL EXAMINATION: GENERAL ALERT,NO DISTRESS . PSYCH AFFECT NORMAL . LUNGS: LUNG SOUNDS ARE CLEAR . HEART: HEART RATE REGULAR . MUSCULOSKELETAL: MST 5/5 BILAT. LOWER EXTREMITIES . LUMBAR SACRAL SPINE TENDERNESS BILAT. SIJ . DIAGNOSTIC TESTS REVIEWEDMRI L/S [id number] . ASSESSMENTS SACROILIITIS, NOT ELSEWHERE CLASSIFIED - M46.1 (PRIMARY) TREATMENT SACROILIITIS, NOT ELSEWHERE CLASSIFIED CONTINUE TRAMADOL HCL TABLET, 50 MG, 1 TABLET NEEDED, ORALLY, Q8H PRN MDD3 CONTINUE ALEVE TABLET, 220 MG, 1 TABLET WITH FOOD OR MILK NEEDED, ORALLY, EVERY 12 HRS CONTINUE GABAPENTIN CAPSULE, 300 MG, 1 CAPSULE, ORALLY SPECIAL FUNDS, TWO TIMES A DAY FOR PAINMDD2 CONTINUE SKELAXIN TABLET, 800 MG, 1 TABLET, ORALLY, BID PRN FOR SPASMS AND PAIN MDD 2 CONTINUE CYMBALTA CAPSULE DELAYED RELEASE PARTICLES, 30 MG, 1 CAPSULE, ORALLY FOR PAIN, TWICE A DAY MDD2 NOTES: W/C BILAT SIJ . PROCEDURES PN WORKMANS' COMP OPINION IN YOUR OPINION, WAS THE INCIDENT THAT THE PATIENT DESCRIBED THE COMPETENT MEDICAL CAUSE OF THIS INJURY/ILLNESS? YES ARE THE PATIENT'S COMPLAINTS CONSISTENT WITH HIS/HER HISTORY OF THE INJURY/ILLNESS? YES IS THE PATIENT'S HISTORY OF THE INJURY/ILLNESS CONSISTENT WITH YOUR OBJECTIVE FINDING? YES WHAT IS THE PERCENTAGE OF TEMPORARY IMPAIRMENT? MODERATE TO MARKED = 66.7% IS THE PATIENT WORKING? YES DOCTOR ON SITE: ZELDA JOHNSTON MD PREVENTIVE MEDICINE PAIN CLINIC TEACHING: PROCEDURE TEACHING REVIEWED INFORMATION ON SACROILIAC JOINT INJECTION PROCEDURE WITH PATIENT. ALSO REVIEWED PRE-PROCEDURE INSTRUCTIONS. PATIENT VERBALIZED AN UNDERSTANDING. BRANDIE LUCERO 12/24/2018 2:52:18 PM > . PROCEDURE CODES FA211 ESTABILISHED PATIENT [facility] CHARGE DISPOSITION & COMMUNICATION FOLLOW UP POST (REASON: W/C BILAT SIJ) ELECTRONICALLY SIGNED BY HILLARY HAMILTON ON 12/27/2018 AT 01:11 PM EST DISCLAIMER : THIS IS A VISIT SUMMARY EXTRACTED FROM THE [employer] CHART. IT IS NOT A COPY OF THE [employer] PROGRESS NOTE. MTDD
== END ==
LOC: M PAIN 13:30
PROVIDERS: ATTEND Nurse Practitioner Family
DX: M46.1 Sacroiliitis, not elsewhere classified (principal)

== ENCOUNTER 2019-01-31 01:29 | Emergency (ER) | payer BC, OTHER ==
[~2019-01-31] VITALS: Ht 165.1 cm; Wt 90.9 kg
[2019-01-31 01:31] VITALS: BP 130/61
[2019-01-31] MEDS ORDERED: KETOROLAC 30 MG/ML VIAL (J1885) IV ONE (04:15)
[2019-01-31] MEDS ORDERED: KETOROLAC 60 MG/2 ML VIAL (J1885) IM ONE (04:30)
== END 2019-01-31 05:16 | disposition home or self-care (01) ==
LOC: M ED 01:29
DX: L03.012 Cellulitis of left finger (principal); T33.822A Superficial frostbite of left foot, initial encounter; J45.909 Unspecified asthma, uncomplicated; N39.498 Other specified urinary incontinence; Z86.718 Personal history of other venous thrombosis and embolism; Z79.02 Long term (current) use of antithrombotics/antiplatelets; Z79.899 Other long term (current) drug therapy; Z88.8 Allergy status to other drugs, medicaments and biological substances; Z88.0 Allergy status to penicillin; Z88.2 Allergy status to sulfonamides; Z88.1 Allergy status to other antibiotic agents; Z91.040 Latex allergy status
CPT/HCPCS: 96372; 99282; J1885

== ENCOUNTER → 2019-02-19 | Outpatient (CLI) | payer OTHER ==
[~2019-02-19] MED LIST changes: +BUPIVACAINE HCL 0.25% 30 ML VIAL As Ordered ONE; +ISOVUE-M 300 61% 15ML VIAL (Q9967) As Ordered ONE; +LIDOCAINE 1% SDV INJ 30 ML VIAL As Ordered ONE; +TRIAMCINOLONE ACETONIDE SUSP 40 MG/ML VIAL (J3301) As Ordered ONE
--- NOTE | 2019-02-19 15:01 | REP ---
SI joint series: Bilateral seven views. History: Bilateral SI joint injection for pain. 13 seconds of fluoroscopy time is reported. Findings: A sequence of seven last image hold fluoroscopically obtained spot radiographs of the SI joints document needle position associated with injection procedure. Electronically Signed by Joaquin Carias MD 02/19/2019 02:52 P
--- NOTE | 2019-03-04 06:00 | ECWPNPC ---
PATIENT NAME: NATALIE CABALLERO : 1955 GENDER: FEMALE VISIT DATE: 02/19/2019 DISCHARGE DATE: 02/19/19 1202 VISIT LOCKED DATE TIME: PHYSICIAN: ZELDA KRAMER MD RESOURCE: ZELDA KRAMER MD REASON FOR APPOINTMENT 1. W/C BILAT SIJ HISTORY OF PRESENT ILLNESS HISTORY OF PRESENT ILLNESS: PAIN THE PATIENT DESCRIBES THE PAIN... FALL RISK SCREENING: SCREENING :NO FALLS REPORTED IN THE LAST YEAR CURRENT MEDICATIONS TAKING ALLOPURINOL 300 MG TABLET 1 TABLET ORALLY ONCE A DAY, NOTES: 02-18-19899 TAKING SINGULAIR 10 MG TABLET 1 TABLET IN THE EVENING ORALLY ONCE A DAY, NOTES: 02-18-192099 TAKING VENTOLIN HFA 108 (90 BASE) MCG/ACT AEROSOL SOLUTION 2 PUFFS INHALATION NEEDED, NOTES: NONE RECENTLY TAKING VITAMIN B COMPLEX CAPSULE DIRECTED ORALLY DAILY, NOTES: 02-18-19899 TAKING HYDROCHLOROTHIAZIDE 25 25 MG TABLET 1 TABLET ORAL DAILY, NOTES: 02-18-19899 TAKING LATANOPROST 0.005 % SOLUTION 1 DROP INTO BOTH EYES EVENING OPHTHALMIC ONCE A DAY, NOTES: 02-18-192199 TAKING SYMBICORT 80-4.5 MCG/ACT AEROSOL 2 PUFFS INHALATION TWICE A DAY, NOTES: 02-19-19799 TAKING REFRESH CELLUVISC 1 % SOLUTION 1 DROP OU OPHTHALMIC 24 TIME(S) A DAY, NOTES: NONE RECENTLY TAKING CRANBERRY 405 MG CAPSULE ORALLY DAILY, NOTES: 02-18-19899 TAKING FLONASE ALLERGY RELIEF 50 MCG/ACT SUSPENSION 1 SPRAY IN EACH NOSTRIL NASALLY ONCE A DAY NEEDED, NOTES: 02-19-19799 TAKING OXYBUTYNIN CHLORIDE 5 MG TABLET 1 TABLET ORALLY 2 TIMES A DAY, NOTES: 02-18-192099 TAKING POTASSIUM CHLORIDE 10 MEQ CAPSULE EXTENDED RELEASE 1 CAPSULE WITH FOOD ORALLY ONCE A DAY, NOTES: 02-18-19899 TAKING PROBIOTIC - CAPSULE ORALLY DAILY, NOTES: 02-18-19899 TAKING OMEPRAZOLE 20 MG CAPSULE DELAYED RELEASE 1 CAP ORALLY ONCE A DAY, NOTES: 02-18-19899 TAKING CABERGOLINE 0.5 MG TABLET 1 TAB ORALLY WEEKLY, NOTES: 02-16-19 TAKING ZYRTEC ALLERGY 10 MG TABLET 1 TABLET ORALLY ONCE A DAY, NOTES: 1-14-20 0900 TAKING ALEVE 220 MG TABLET 1 TABLET WITH FOOD OR MILK NEEDED ORALLY EVERY 12 HRS, NOTES: 3 DAYS AGO TAKING GABAPENTIN 300 MG CAPSULE 1 CAPSULE ORALLY SPECIAL FUNDS TWO TIMES A DAY FOR PAINMDD2, NOTES: 02-18-192099 TAKING SKELAXIN 800 MG TABLET 1 TABLET ORALLY BID PRN FOR SPASMS AND PAIN MDD 2, NOTES: 02-18-192099 TAKING CYMBALTA 30 MG CAPSULE DELAYED RELEASE PARTICLES 1 CAPSULE ORALLY FOR PAIN TWICE A DAY MDD2, NOTES: 02-18-192099 TAKING TRAMADOL HCL 50 MG TABLET 1 TABLET NEEDED ORALLY Q8H PRN MDD3, NOTES: 02-18-192099 NOT-TAKING FIBER 58.6 % POWDER 2 CAPSULES WITH 8 OUNCES OF LIQUID ORALLY DAILY NOT-TAKING CLINDAMYCIN HCL 150 MG CAPSULE 1 CAPSULE ORALLY BID NOT-TAKING BENTYL 20 MG TABLET 1 TABLET ORALLY EVERY 4 HOURS NEEDED NOT-TAKING BENTYL 10 MG CAPSULE 1 CAPSULE ORALLY TWO TIMES A DAY NOT-TAKING XIIDRA 5 % SOLUTION 1 DROP INTO AFFECTED EYE OPHTHALMIC TWICE A DAY NOT-TAKING PREMARIN 0.625 MG/GM CREAM VAGINAL THREE TIMES A WEEK MEDICATION LIST REVIEWED AND RECONCILED WITH THE PATIENT PAST MEDICAL HISTORY DIABETES BLOOD PRESSURE ASTHMA PITUITARY ADENOMA ARTHRITIS 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 DUE TO HYPERTENSION CHRONIC SINUSITIS TICK BITE X2 IN - TESTE FOR LYME, AWAITING RESULTS 12/24/18 ALLERGIES PENICILLIN (FOR ALLERGIES USE ONLY): RASH - ALLERGY SULFA (FOR ALLERGY USE ONLY): RASH - ALLERGY PHENERGAN: BLOOD CLOT - SIDE EFFECTS LATEX CONDOMS, RUBBER BANDS, GLOVES: RASH - ALLERGY ERYTHROMYCIN: RASH - ALLERGY NICKEL: RASH - ALLERGY SULFITES: DYSPNEA - ALLERGY MILK: GI UPSET, WATERY EYES AND SINUS CONGERSTION - SIDE EFFECTS DOXYCYCLINE: HIVES - ALLERGY SURGICAL HISTORY BTL 1986 GB 1990 ACL 2000 RIGHT ROTATOR CUFF 02/2014 LEFT TOTAL KNEE REPLACEMENT 07/2016 FAMILY HISTORY FATHER: , DIAGNOSED WITH OTHER MALIGNANT NEOPLASM OF UNSPECIFIED SITE MOTHER: , DIABETES, OTHER SPECIFIED CONDITIONS INFLUENCING HEALTH STATUS 1 SON(S) , 1 DAUGHTER(S) . DAD-SKIN CA\\NMOM-COPD, PULMONARY FIBROSIS\\NSON AND DAUGHTER-ASTHMA \\NHUSBAND - [place] IN DECEMBER. SOCIAL HISTORY GENERAL: TOBACCO USE ARE YOU A: NONSMOKER. PAIN CLINIC PFS, CLERGY, PUBLIC HEALTH REFERRALS PFS REFERRAL NEEDED?NO CLERGY REFERRAL NEEDED?NO PUBLIC HEALTH REFERRAL NEEDED?NO WAS THE PROVIDER NOTIFIED OF ANY PERTINENT INFO?YES HAS THE PATIENT BEEN EDUCATED REGARDING HIS/HER PLAN OF CARE?YES HAS THE PATIENT BEEN EDUCATED REGARDING PAIN, THE RISK FOR PAIN, THE IMPORTANCE OF EFFECTIVE PAIN MANAGEMENT, AND THE PAIN ASSESSMENT PROCESS?YES LATEX QUESTIONNAIRE LATEX ALLERGY : HAVE YOU EVER DEVELOPED ANY TYPE OF REACTION AFTER HANDLING LATEX PRODUCTS SUCH RUBBER GLOVES, CONDOMS, DIAPHRAGMS, BALLOONS, SOCKS, OR UNDERWEAR?YES - PLEASE INDICATE :RUBBER GLOVES, CONDOMS LATEX ALLERGY : HAVE YOU EVER DEVELOPED ANY TYPE OF REACTION DURING OR AFTER DENTAL APPOINTMENT, VAGINAL/RECTAL EXAMINATION, SURGICAL PROCEDURE, OR ANY OTHER EXPOSURE?NO LATEX RISK : HAVE YOU EVER HAD ANY DIFFICULTY BREATHING OR HIVES AFTER EATING OR HANDLING ANY FRUITS, OR VEGETABLES; SUCH KIWI, BANANAS, STONE FRUITS, OR CHESTNUTSNO LATEX RISK : DO YOU HAVE A PREVIOUS PERSONAL HISTORY OF MORE THAN NINE SURGERIES, SPINA BIFIDA, OR REPEATED CATHERIZATIONS? NO LATEX RISK : ARE YOU FREQUENTLY EXPOSED TO LATEX PRODUCTS IN YOUR OCCUPATION?NO DATE ASKED : 05/29/2018 LATEX ALLERGY CAFFEINE CAFFEINE USE?YES HOW OFTEN AND HOW MUCH? 1-2 CUPS COFFEE/DAY ADVANCE DIRECTIVE ADVANCE DIRECTIVE DISCUSSED WITH PATIENT:YES STATES NO HCP AT THIS TIME, HAS PAPEROWRK AT HOME. DECLINED ASSISTANCE IN FILLING IT OUT. LATTER DAY [id number] M[employer]IAN LANGUAGE LANGUAGES SPOKEN:ROMANSH DOMESTIC VIOLENCE DO YOU FEEL SAFE IN YOUR ENVIRONMENT?YES NEW PATIENT PAIN DIARY TODAY'S VISITNOTES FROM 0-10, WHAT LEVEL IS YOUR PAIN TODAY?7 ALCOHOL SCREENING DID YOU HAVE A DRINK CONTAINING ALCOHOL IN THE PAST YEAR?NO POINTS0 INTERPRETATIONNEGATIVE RECREATIONAL DRUG USE DRUG USE?NO LEARNING BARRIERS / SPECIAL NEEDS CHANGE FROM LAST VISIT?NO BARRIERS TO LEARNING?NO HEARING IMPAIRED?NO VISION IMPAIRED?YES ENLARGED OPTIC NERVE RELATED TO GESTATIONAL HYPERTENSION. COGNITIVELY IMPAIRED?NO :CORRECTIVE LENSES READINESS TO LEARN?YES LEARNING PREFERENCES?NO LEARNING CAPABILITIES PRESENT?YES EMOTIONAL BARRIERS?NO SPECIAL DEVICES?NO MEDIA RELATIONS DIRECTOR NEEDED?NO 09/10/17 1050 REVIEWED WITH PT. AD 12/06/17 1413 BV REVIEWED WITH PTREVIEWED WITH PATIENT 02/12/18 1113 JSREVIEWED WITH PATEINT 09/10/18 1352 NLJREVIEWED WITH PATIENT 11/26/18 1506 JSREVIEWED WITH PATIENT 12/24/18 6842 JS. HOSPITALIZATION/MAJOR DIAGNOSTIC PROCEDURE SURGERY RELATED ASTHMA REVIEW OF SYSTEMS REVIEWED BY: PROVIDER: . CONSTITUTIONAL: ANY CHANGE IN YOUR MEDICAL CONDITION? NO . CHILLS NO . FEVER NO . INFECTION: DO YOU HAVE NEW INFECTIONS? NO . DO YOU HAVE HISTORY OF MRSA? NO . MUSCULOSKELETAL: ANY NEW PATTERNS OF PAIN OR NUMBNESS? NO . GASTROENTEROLOGY: ANY NEW CHANGE IN BOWEL CONTROL? NO . GENITOURINARY: ANY NEW CHANGE IN BLADDER CONTROL? NO . IS THERE A CHANCE YOU COULD BE ? NO . HEMATOLOGY/LYMPH: DO YOU TAKE ANY BLOOD THINNERS? (FOR EXAMPLE- COUMADIN, PLAVIX, AGGRENOX, PLATEL, PRADAXA, OR XARELTO) NO . WHEN WAS YOUR LAST DOSE? DATE: TIME: . NEUROLOGY: HAVE YOU FALLEN IN THE PAST 12 MONTHS? NO . ANY NEW EXTREMITY NUMBNESS OR WEAKNESS? NO . CARDIOLOGY: DO YOU HAVE A PACEMAKER OR DEFIBRILLATOR? NO . RESPIRATORY: HAVE YOU BEEN SICK IN THE PAST WEEK? NO . FEVER NO . FLU LIKE SYMPTOMS? NO . COUGH NO . INTEGUMENTARY: DO YOU HAVE ANY RASHES OR OPEN SORES? NO . ALLERGIC/IMMUNO: ARE YOU ALLERGIC TO IV DYE? NO . ANY NEW ALLERGIES? YES - DOXYCYCLINE . PSYCHIATRIC: DO YOU HAVE THOUGHTS OF HURTING YOURSELF OR SOMEONE ELSE? NO . ARE YOU ABUSED, NEGLECTED, OR IN AN UNSAFE ENVIRONMENT? NO . ENDOCRINOLOGY: ARE YOU DIABETIC? NO . OTHER: DO YOU NEED ANY PRESCRIPTIONS? NO . IF YES, PLEASE LIST: ____ . ANY NEW PROBLEMS WITH YOUR MEDICATIONS? NO . WHEN DID YOU LAST EAT? 02-18-191999 . WHEN DID YOU LAST DRINK? 02-19-19 12 MIDNIGHT . WHAT DID YOU LAST DRINK? WATER . NAME OF PERSON DRIVING YOU HOME? KIMBERLYN . DO YOU HAVE ANY OTHER QUESTIONS OR CONCERNS YES - MEDICATIONS NOT FILLED UNDER WORKERS' COMPENSATION . VITAL SIGNS WT 196.8 LBS, HT 65", BMI 32.75 INDEX, BP 120/63 MM HG, HR 75 /MIN, RR 18 /MIN, TEMP 98.7 F, OXYGEN SAT % 100%, NA INITIALS SC 10:09, REVIEWED BY: LS. ASSESSMENTS SACROILIITIS, NOT ELSEWHERE CLASSIFIED - M46.1 (PRIMARY) TREATMENT SACROILIITIS, NOT ELSEWHERE CLASSIFIED [facility] FLUORO GUIDANCE (PAIN) PROCEDURES PN WORKMANS' COMP OPINION IN YOUR OPINION, WAS THE INCIDENT THAT THE PATIENT DESCRIBED THE COMPETENT MEDICAL CAUSE OF THIS INJURY/ILLNESS? YES ARE THE PATIENT'S COMPLAINTS CONSISTENT WITH HIS/HER HISTORY OF THE INJURY/ILLNESS? YES IS THE PATIENT'S HISTORY OF THE INJURY/ILLNESS CONSISTENT WITH YOUR OBJECTIVE FINDING? YES WHAT IS THE PERCENTAGE OF TEMPORARY IMPAIRMENT? MODERATE TO MARKED = 66.7% IS THE PATIENT WORKING? YES DOCTOR ON SITE: ZELDA JOHNSTON MD PN SI PRE PROCEDURE DIAGNOSIS SACROILIITIS, SACROILIAC JOINT DYSFUNCTION POST PROCEDURE DIAGNOSIS SACROILIITIS, SACROILIAC JOINT DYSFUNCTION PROCEDURE BILATERAL SACROILIAC JOINT BLOCK SURGEON DR. ZELDA KRAMER BACK FILLER OPERATOR NONE ANESTHESIA LOCAL PRE PROCEDURE NOTE PATIENT WITH HISTORY OF CHRONIC LOW BACK PAIN. I EVALUATED THE PATIENT AND REVIEWED THE CHART. I WENT OVER THE RISKS, ALTERNATIVES AND BENEFITS ASSOCIATED WITH THIS PROCEDURE. THE PATIENT WOULD LIKE TO PROCEED AND GAVE CONSENT TO PERFORM THE PROCEDURE. THE PATIENT DENIES UNEXPLAINABLE WEIGHT LOSS, FEVER, CHILLS, OR NEW CHANGES IN URINARY OR BOWEL CONTROL DESCRIPTION OF PROCEDURE THE PATIENT WAS BROUGHT TO THE PROCEDURE ROOM AND PLACED IN THE PRONE POSITION. THE LUMBOSACRAL AREA WAS CLEANED WITH CHLORAPREP SOLUTION AND DRAPED ASEPTICALLY. THE PROCEDURE WAS DONE UNDER STERILE CONDITIONS. I CHECKED LATERALITY AND THE LEVEL WHERE THE PROCEDURE WAS GOING TO BE PERFORMED WITH THE PATIENT AND THE SUPPORTING STAFF AT THE MOMENT OF THE TIME OUT IN THE PROCEDURE ROOM. UNDER FLUOROSCOPIC GUIDANCE, TARGET POINT WAS SELECTED AT THE LOWER BORDER OF THE RIGHT AND LEFT SACROILIAC JOINTS. TARGET POINT WAS SELECTED AFTER MEDIAL ROTATION AND TILT OF THE MAGNIFIER OF THE C-ARM. LIDOCAINE WAS USED TO NUMB THE SKIN AND SUBCUTANEOUS TISSUE BELOW IT. A SPINAL NEEDLE, 22-GAUGE, WAS ADVANCED UNDER FLUOROSCOPIC GUIDANCE AND FOLLOWING PATIENT FEEDBACK UNTIL THE TARGET AREA WAS TOUCHED. THE POSITION OF THE NEEDLE WAS VERIFIED WITH AP AND LATERAL VIEWS. AFTER PROPER POSITION OF THE NEEDLE WAS ACHIEVED, ISOVUE M DYE 30%, 0.25 ML, WAS INJECTED SHOWING SPREAD OF THE DYE. THEN, A SOLUTION OF 30 MG OF KENALOG WAS INJECTED IN RIGHT AND LEFT JOINTS WITH 3 ML OF BUPIVACAINE 0.125%. THERE WAS NO EVIDENCE OF BLOOD, PARESTHESIA OR CEREBROSPINAL FLUID DURING THE PROCEDURE. THE PATIENT WAS SENT TO THE RECOVERY ROOM. THE PATIENT WAS MOVING THE EXTREMITIES AND DOING WELL. THERE WAS NO COMPLICATION DURING THE PROCEDURE. FLUOROSCOPY TIME WAS 13 SECONDS POST PROCEDURE NOTE THE PATIENT WILL BE SEEN IN A FOLLOW UP IN THE NEXT FEW WEEKS. I AM LOOKING FOR LONG-LASTING PAIN RELIEF WITH THIS PROCEDURE. INSTRUCTIONS WERE GIVEN, QUESTIONS WERE ANSWERED, AND THE PATIENT EXPRESSED UNDERSTANDING AND AGREED WITH THE PLAN. I, GIAN PIKE, DOCUMENTED THE ABOVE INFORMATION ACTING A SCRIBE FOR DR. KRAMER. I HAVE REVIEWED THE ABOVE DOCUMENT, WRITTEN BY BLACK DIETRICH, AND I VERIFY THAT IT IS ACCURATE PROCEDURE CODES 34048 INJECT SACROILIAC JOINT, MODIFIERS: 50 [id number] RADXPS IN END [id number] PXD DISPOSITION & COMMUNICATION FOLLOW UP 3 WEEKS ELECTRONICALLY SIGNED BY ZELDA KRAMER MD, MD ON 03/03/2019 AT 01:13 PM EST DISCLAIMER : THIS IS A VISIT SUMMARY EXTRACTED FROM THE [employer] CHART. IT IS NOT A COPY OF THE [employer] PROGRESS NOTE. MTDOdalis
== END ==
LOC: M PAIN 10:15
PROVIDERS: ATTEND Anesthesiology
DX: M46.1 Sacroiliitis, not elsewhere classified (principal)
CPT/HCPCS: G0260; J3301; Q9967

== ENCOUNTER → 2019-03-19 | Outpatient (CLI) | payer OTHER ==
[~2019-03-19] MED LIST changes: -BUPIVACAINE HCL 0.25% 30 ML VIAL As Ordered ONE; -ISOVUE-M 300 61% 15ML VIAL (Q9967) As Ordered ONE; -LIDOCAINE 1% SDV INJ 30 ML VIAL As Ordered ONE; -TRIAMCINOLONE ACETONIDE SUSP 40 MG/ML VIAL (J3301) As Ordered ONE
--- NOTE | 2019-04-04 04:12 | ECWPNPC ---
PATIENT NAME: NATALIE CABALLERO : 1955 GENDER: FEMALE VISIT DATE: 03/19/2019 DISCHARGE DATE: 03/19/19 1344 VISIT LOCKED DATE TIME: PHYSICIAN: BRITTNEY PAULINO RESOURCE: BRITTNEY PAULINO REASON FOR APPOINTMENT 1. FOLLOW UP HISTORY OF PRESENT ILLNESS HISTORY OF PRESENT ILLNESS: HERE FOR POST PROCEDURE FOLLOW-UP. HAD BILATERAL SACROILIAC JOINT BLOCK ON 02/19/2019. REPORTING SIGNIFICANT REDUCTION IN PAIN THAT CONTINUES TODAY. CHIEF AREA OF PAIN IS CENTRAL LOW BACK. DESCRIBES PAIN ACHING. RATING PAIN LEVEL 2/10 VAS. PAIN THE PATIENT DESCRIBES THE PAIN... FALL RISK SCREENING: SCREENING :NO FALLS REPORTED IN THE LAST YEAR CURRENT MEDICATIONS TAKING ALLOPURINOL 300 MG TABLET 1 TABLET ORALLY ONCE A DAY TAKING SINGULAIR 10 MG TABLET 1 TABLET IN THE EVENING ORALLY ONCE A DAY TAKING VENTOLIN HFA 108 (90 BASE) MCG/ACT AEROSOL SOLUTION 2 PUFFS INHALATION NEEDED TAKING VITAMIN B COMPLEX CAPSULE DIRECTED ORALLY DAILY TAKING HYDROCHLOROTHIAZIDE 25 25 MG TABLET 1 TABLET ORAL DAILY TAKING LATANOPROST 0.005 % SOLUTION 1 DROP INTO BOTH EYES EVENING OPHTHALMIC ONCE A DAY TAKING SYMBICORT 80-4.5 MCG/ACT AEROSOL 2 PUFFS INHALATION TWICE A DAY TAKING REFRESH CELLUVISC 1 % SOLUTION 1 DROP OU OPHTHALMIC 24 TIME(S) A DAY TAKING CRANBERRY 405 MG CAPSULE ORALLY DAILY TAKING FLONASE ALLERGY RELIEF 50 MCG/ACT SUSPENSION 1 SPRAY IN EACH NOSTRIL NASALLY ONCE A DAY NEEDED TAKING OXYBUTYNIN CHLORIDE 5 MG TABLET 1 TABLET ORALLY 2 TIMES A DAY TAKING POTASSIUM CHLORIDE 10 MEQ CAPSULE EXTENDED RELEASE 1 CAPSULE WITH FOOD ORALLY ONCE A DAY TAKING PROBIOTIC - CAPSULE ORALLY DAILY TAKING OMEPRAZOLE 20 MG CAPSULE DELAYED RELEASE 1 CAP ORALLY ONCE A DAY TAKING CABERGOLINE 0.5 MG TABLET 1 TAB ORALLY WEEKLY TAKING ZYRTEC ALLERGY 10 MG TABLET 1 TABLET ORALLY ONCE A DAY TAKING ALEVE 220 MG TABLET 1 TABLET WITH FOOD OR MILK NEEDED ORALLY EVERY 12 HRS TAKING GABAPENTIN 300 MG CAPSULE 1 CAPSULE ORALLY SPECIAL FUNDS TWO TIMES A DAY FOR PAINMDD2 TAKING CYMBALTA 30 MG CAPSULE DELAYED RELEASE PARTICLES 1 CAPSULE ORALLY FOR PAIN TWICE A DAY MDD2 TAKING TRAMADOL HCL 50 MG TABLET 1 TABLET NEEDED ORALLY Q8H PRN MDD3 TAKING SKELAXIN 800 MG TABLET 1 TABLET ORALLY BID PRN FOR SPASMS AND PAIN MDD 2 NOT-TAKING FIBER 58.6 % POWDER 2 CAPSULES WITH 8 OUNCES OF LIQUID ORALLY DAILY NOT-TAKING CLINDAMYCIN HCL 150 MG CAPSULE 1 CAPSULE ORALLY BID NOT-TAKING BENTYL 20 MG TABLET 1 TABLET ORALLY EVERY 4 HOURS NEEDED NOT-TAKING BENTYL 10 MG CAPSULE 1 CAPSULE ORALLY TWO TIMES A DAY NOT-TAKING XIIDRA 5 % SOLUTION 1 DROP INTO AFFECTED EYE OPHTHALMIC TWICE A DAY NOT-TAKING PREMARIN 0.625 MG/GM CREAM VAGINAL THREE TIMES A WEEK MEDICATION LIST REVIEWED AND RECONCILED WITH THE PATIENT PAST MEDICAL HISTORY DIABETES BLOOD PRESSURE ASTHMA PITUITARY ADENOMA ARTHRITIS 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 DUE TO HYPERTENSION CHRONIC SINUSITIS TICK BITE X2 IN - TESTE FOR LYME, AWAITING RESULTS 12/24/18 ALLERGIES PENICILLIN (FOR ALLERGIES USE ONLY): RASH - ALLERGY SULFA (FOR ALLERGY USE ONLY): RASH - ALLERGY PHENERGAN: BLOOD CLOT - SIDE EFFECTS LATEX CONDOMS, RUBBER BANDS, GLOVES: RASH - ALLERGY ERYTHROMYCIN: RASH - ALLERGY NICKEL: RASH - ALLERGY SULFITES: DYSPNEA - ALLERGY MILK: GI UPSET, WATERY EYES AND SINUS CONGERSTION - SIDE EFFECTS DOXYCYCLINE: HIVES - ALLERGY SURGICAL HISTORY BTL 1986 GB 1990 ACL 2000 RIGHT ROTATOR CUFF 02/2014 LEFT TOTAL KNEE REPLACEMENT 07/2016 FAMILY HISTORY FATHER: , DIAGNOSED WITH OTHER MALIGNANT NEOPLASM OF UNSPECIFIED SITE MOTHER: , DIABETES, OTHER SPECIFIED CONDITIONS INFLUENCING HEALTH STATUS 1 SON(S) , 1 DAUGHTER(S) . DAD-SKIN CA\\NMOM-COPD, PULMONARY FIBROSIS\\NSON AND DAUGHTER-ASTHMA \\NHUSBAND - [place] - BONE DISORDER. SOCIAL HISTORY GENERAL: TOBACCO USE ARE YOU A: NONSMOKER. PAIN CLINIC PFS, CLERGY, PUBLIC HEALTH REFERRALS PFS REFERRAL NEEDED?NO CLERGY REFERRAL NEEDED?NO PUBLIC HEALTH REFERRAL NEEDED?NO WAS THE PROVIDER NOTIFIED OF ANY PERTINENT INFO?YES HAS THE PATIENT BEEN EDUCATED REGARDING HIS/HER PLAN OF CARE?YES HAS THE PATIENT BEEN EDUCATED REGARDING PAIN, THE RISK FOR PAIN, THE IMPORTANCE OF EFFECTIVE PAIN MANAGEMENT, AND THE PAIN ASSESSMENT PROCESS?YES LATEX QUESTIONNAIRE LATEX ALLERGY : HAVE YOU EVER DEVELOPED ANY TYPE OF REACTION AFTER HANDLING LATEX PRODUCTS SUCH RUBBER GLOVES, CONDOMS, DIAPHRAGMS, BALLOONS, SOCKS, OR UNDERWEAR?YES - PLEASE INDICATE :RUBBER GLOVES, CONDOMS LATEX ALLERGY : HAVE YOU EVER DEVELOPED ANY TYPE OF REACTION DURING OR AFTER DENTAL APPOINTMENT, VAGINAL/RECTAL EXAMINATION, SURGICAL PROCEDURE, OR ANY OTHER EXPOSURE?NO LATEX RISK : HAVE YOU EVER HAD ANY DIFFICULTY BREATHING OR HIVES AFTER EATING OR HANDLING ANY FRUITS, OR VEGETABLES; SUCH KIWI, BANANAS, STONE FRUITS, OR CHESTNUTSNO LATEX RISK : DO YOU HAVE A PREVIOUS PERSONAL HISTORY OF MORE THAN NINE SURGERIES, SPINA BIFIDA, OR REPEATED CATHERIZATIONS? NO LATEX RISK : ARE YOU FREQUENTLY EXPOSED TO LATEX PRODUCTS IN YOUR OCCUPATION?NO DATE ASKED : 05/29/2018 LATEX ALLERGY CAFFEINE CAFFEINE USE?YES HOW OFTEN AND HOW MUCH? 1-2 CUPS COFFEE/DAY ADVANCE DIRECTIVE ADVANCE DIRECTIVE DISCUSSED WITH PATIENT:YES HCP - JOHNSHIRLENE GREENE [phone] RELIGIOUS [id number] [employer] LANGUAGES SPOKEN:ALBANIAN DOMESTIC VIOLENCE DO YOU FEEL SAFE IN YOUR ENVIRONMENT?YES NEW PATIENT PAIN DIARY TODAY'S VISITNOTES FROM 0-10, WHAT LEVEL IS YOUR PAIN TODAY?7 ALCOHOL SCREENING DID YOU HAVE A DRINK CONTAINING ALCOHOL IN THE PAST YEAR?NO POINTS0 INTERPRETATIONNEGATIVE RECREATIONAL DRUG USE DRUG USE?NO LEARNING BARRIERS / SPECIAL NEEDS CHANGE FROM LAST VISIT?NO BARRIERS TO LEARNING?NO HEARING IMPAIRED?NO VISION IMPAIRED?YES ENLARGED OPTIC NERVE RELATED TO GESTATIONAL HYPERTENSION. COGNITIVELY IMPAIRED?NO :CORRECTIVE LENSES READINESS TO LEARN?YES LEARNING PREFERENCES?NO LEARNING CAPABILITIES PRESENT?YES EMOTIONAL BARRIERS?NO SPECIAL DEVICES?NO SAMPLE PASTER NEEDED?NO 09/10/17 1050 REVIEWED WITH PT. AD 12/06/17 1413 BV REVIEWED WITH PTREVIEWED WITH PATIENT 02/12/18 1113 JSREVIEWED WITH PATEINT 09/10/18 1352 NLJREVIEWED WITH PATIENT 11/26/18 1506 JSREVIEWED WITH PATIENT 12/24/18 1357 JSREVIEWED WITH PATIENT 03/19/2019 1315 JS. HOSPITALIZATION/MAJOR DIAGNOSTIC PROCEDURE SURGERY RELATED ASTHMA REVIEW OF SYSTEMS REVIEWED BY: PROVIDER: BRITTNEY THORNTON . CONSTITUTIONAL: ANY CHANGE IN YOUR MEDICAL CONDITION? NO . CHILLS NO . FEVER NO . INFECTION: DO YOU HAVE NEW INFECTIONS? NO . DO YOU HAVE HISTORY OF MRSA? NO . MUSCULOSKELETAL: ANY NEW PATTERNS OF PAIN OR NUMBNESS? NO . GASTROENTEROLOGY: ANY NEW CHANGE IN BOWEL CONTROL? NO . GENITOURINARY: ANY NEW CHANGE IN BLADDER CONTROL? NO . IS THERE A CHANCE YOU COULD BE ? NO . HEMATOLOGY/LYMPH: DO YOU TAKE ANY BLOOD THINNERS? (FOR EXAMPLE- COUMADIN, PLAVIX, AGGRENOX, PLATEL, PRADAXA, OR XARELTO) NO . WHEN WAS YOUR LAST DOSE? DATE: TIME: . NEUROLOGY: HAVE YOU FALLEN IN THE PAST 12 MONTHS? NO . ANY NEW EXTREMITY NUMBNESS OR WEAKNESS? NO . CARDIOLOGY: DO YOU HAVE A PACEMAKER OR DEFIBRILLATOR? NO . RESPIRATORY: HAVE YOU BEEN SICK IN THE PAST WEEK? NO . FEVER NO . FLU LIKE SYMPTOMS? NO . COUGH NO . INTEGUMENTARY: DO YOU HAVE ANY RASHES OR OPEN SORES? NO . ALLERGIC/IMMUNO: ARE YOU ALLERGIC TO IV DYE? NO . ANY NEW ALLERGIES? NO . PSYCHIATRIC: DO YOU HAVE THOUGHTS OF HURTING YOURSELF OR SOMEONE ELSE? NO . ARE YOU ABUSED, NEGLECTED, OR IN AN UNSAFE ENVIRONMENT? NO . ENDOCRINOLOGY: ARE YOU DIABETIC? NO . OTHER: DO YOU NEED ANY PRESCRIPTIONS? NO . IF YES, PLEASE LIST: ____ . ANY NEW PROBLEMS WITH YOUR MEDICATIONS? NO . WHEN DID YOU LAST EAT? ____ . WHEN DID YOU LAST DRINK? ____ . WHAT DID YOU LAST DRINK? ____ . NAME OF PERSON DRIVING YOU HOME? ____ . DO YOU HAVE ANY OTHER QUESTIONS OR CONCERNS NO . VITAL SIGNS WT 193.6 LBS, HT 65", BMI 32.21 INDEX, BP 123/72 MM HG, HR 64 /MIN, RR 18 /MIN, TEMP 96.8 F, OXYGEN SAT % 99%, SAFE IN ENV? (Y/N) YES, NA INITIALS MS 1313, REVIEWED BY: MADELINE. EXAMINATION GENERAL EXAMINATION: GENERALAWAKE,ALERT ,PLEASANT . PSYCHAFFECT NORMAL . LUNGS:LUNG DUPREE ARE CLEAR TO AUSCULTATION BILATERALLY. GOOD MOVEMENT OF AIR . HEART:S1, S2 IN A REGULAR RATE AND RHYTHM. NO SIGNIFICANT MURMURS, RUBS OR GALLOPS NOTED . ASSESSMENTS SACROILIITIS, NOT ELSEWHERE CLASSIFIED - M46.1 (PRIMARY) TREATMENT SACROILIITIS, NOT ELSEWHERE CLASSIFIED CONTINUE CYMBALTA CAPSULE DELAYED RELEASE PARTICLES, 30 MG, 1 CAPSULE, ORALLY FOR PAIN, TWICE A DAY MDD2 PROCEDURE CODES FA211 ESTABILISHED PATIENT [facility] CHARGE DISPOSITION & COMMUNICATION FOLLOW UP 3 MONTHS (REASON: W/C FOLLOW UP) ELECTRONICALLY SIGNED BY HILLARY HAMILTON ON 04/03/2019 AT 12:54 PM EST DISCLAIMER : THIS IS A VISIT SUMMARY EXTRACTED FROM THE [employer] CHART. IT IS NOT A COPY OF THE [employer] PROGRESS NOTE. ALLI
== END ==
LOC: M PAIN 13:00
PROVIDERS: ATTEND Nurse Practitioner Family
DX: M46.1 Sacroiliitis, not elsewhere classified (principal); E11.9 Type 2 diabetes mellitus without complications; K58.0 Irritable bowel syndrome with diarrhea; J45.909 Unspecified asthma, uncomplicated; J32.9 Chronic sinusitis, unspecified; Z79.891 Long term (current) use of opiate analgesic; Z79.899 Other long term (current) drug therapy; Z88.0 Allergy status to penicillin; Z88.2 Allergy status to sulfonamides; Z91.040 Latex allergy status; Z88.1 Allergy status to other antibiotic agents; Z88.8 Allergy status to other drugs, medicaments and biological substances; Z91.011 Allergy to milk products

== ENCOUNTER → 2019-04-27 | Outpatient (CLI) | payer BC, OTHER | LOC: M LABSMTC 13:36 | PROVIDERS: ATTEND Family Medicine | DX: Z20.828 Contact with and (suspected) exposure to other viral communicable diseases (principal) | CPT/HCPCS: 87486; 87581; 87633; 87798; U0002 ==

== ENCOUNTER → 2019-05-14 | Outpatient (CLI) | payer OTHER ==
--- NOTE | 2019-05-15 03:57 | ECWPNPC ---
PATIENT NAME: NATALIE CABALLERO : 1955 GENDER: FEMALE VISIT DATE: 05/14/2019 DISCHARGE DATE: 05/14/19 1021 VISIT LOCKED DATE TIME: PHYSICIAN: BRITTNEY PAULINO RESOURCE: BRITTNEY PAULINO REASON FOR APPOINTMENT 1. 2 MONTH HISTORY OF PRESENT ILLNESS HISTORY OF PRESENT ILLNESS: HERE FOR FOLLOW-UP OF CHRONIC LOW BACK PAIN. THIS IS A WORK RELATED INJURY WITH DATE OF INJURY 08/29/2004. RATING PAIN VAS 4/10. PAIN IS DESCRIBED CONSTANT AND ACHING ACROSS LOW BACK. PAIN IS AGGRAVATED WITH INCREASED ACTIVITY. FINDS CURRENT CHRONIC PAIN MEDICATIONS HELPFUL AT REDUCING PAIN AND KEEPING HER FUNCTIONAL. DENIES ADVERSE SIDE EFFECTS. PAIN THE PATIENT DESCRIBES THE PAIN... FALL RISK SCREENING: SCREENING :NO FALLS REPORTED IN THE LAST YEAR CURRENT MEDICATIONS TAKING ALLOPURINOL 300 MG TABLET 1 TABLET ORALLY ONCE A DAY TAKING SINGULAIR 10 MG TABLET 1 TABLET IN THE EVENING ORALLY ONCE A DAY TAKING VENTOLIN HFA 108 (90 BASE) MCG/ACT AEROSOL SOLUTION 2 PUFFS INHALATION NEEDED TAKING VITAMIN B COMPLEX CAPSULE DIRECTED ORALLY DAILY TAKING HYDROCHLOROTHIAZIDE 25 25 MG TABLET 1 TABLET ORAL DAILY TAKING LATANOPROST 0.005 % SOLUTION 1 DROP INTO BOTH EYES EVENING OPHTHALMIC ONCE A DAY TAKING SYMBICORT 80-4.5 MCG/ACT AEROSOL 2 PUFFS INHALATION TWICE A DAY TAKING REFRESH CELLUVISC 1 % SOLUTION 1 DROP OU OPHTHALMIC 24 TIME(S) A DAY TAKING CRANBERRY 405 MG CAPSULE ORALLY DAILY TAKING FLONASE ALLERGY RELIEF 50 MCG/ACT SUSPENSION 1 SPRAY IN EACH NOSTRIL NASALLY ONCE A DAY NEEDED TAKING OXYBUTYNIN CHLORIDE 5 MG TABLET 1 TABLET ORALLY 2 TIMES A DAY TAKING POTASSIUM CHLORIDE 10 MEQ CAPSULE EXTENDED RELEASE 1 CAPSULE WITH FOOD ORALLY ONCE A DAY TAKING PROBIOTIC - CAPSULE ORALLY DAILY TAKING OMEPRAZOLE 20 MG CAPSULE DELAYED RELEASE 1 CAP ORALLY ONCE A DAY NEEDED TAKING CABERGOLINE 0.5 MG TABLET 1 TAB ORALLY WEEKLY TAKING ZYRTEC ALLERGY 10 MG TABLET 1 TABLET ORALLY ONCE A DAY TAKING ALEVE 220 MG TABLET 1 TABLET WITH FOOD OR MILK NEEDED ORALLY EVERY 12 HRS TAKING GABAPENTIN 300 MG CAPSULE 1 CAPSULE ORALLY SPECIAL FUNDS TWO TIMES A DAY FOR PAINMDD2 TAKING TRAMADOL HCL 50 MG TABLET 1 TABLET NEEDED ORALLY Q8H PRN MDD3 TAKING CYMBALTA 30 MG CAPSULE DELAYED RELEASE PARTICLES 1 CAPSULE ORALLY FOR PAIN TWICE A DAY MDD2 TAKING SKELAXIN 800 MG TABLET 1 TABLET ORALLY BID PRN FOR SPASMS AND PAIN MDD 2 NOT-TAKING FIBER 58.6 % POWDER 2 CAPSULES WITH 8 OUNCES OF LIQUID ORALLY DAILY NOT-TAKING CLINDAMYCIN HCL 150 MG CAPSULE 1 CAPSULE ORALLY BID NOT-TAKING BENTYL 20 MG TABLET 1 TABLET ORALLY EVERY 4 HOURS NEEDED NOT-TAKING BENTYL 10 MG CAPSULE 1 CAPSULE ORALLY TWO TIMES A DAY NOT-TAKING XIIDRA 5 % SOLUTION 1 DROP INTO AFFECTED EYE OPHTHALMIC TWICE A DAY NOT-TAKING PREMARIN 0.625 MG/GM CREAM VAGINAL THREE TIMES A WEEK MEDICATION LIST REVIEWED AND RECONCILED WITH THE PATIENT PAST MEDICAL HISTORY DIABETES BLOOD PRESSURE ASTHMA PITUITARY ADENOMA ARTHRITIS 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 DUE TO HYPERTENSION CHRONIC SINUSITIS TICK BITE X2 IN - TESTE FOR LYME, AWAITING RESULTS 12/24/18 ALLERGIES PENICILLIN (FOR ALLERGIES USE ONLY): RASH - ALLERGY SULFA (FOR ALLERGY USE ONLY): RASH - ALLERGY PHENERGAN: BLOOD CLOT - SIDE EFFECTS LATEX CONDOMS, RUBBER BANDS, GLOVES: RASH - ALLERGY ERYTHROMYCIN: RASH - ALLERGY NICKEL: RASH - ALLERGY SULFITES: DYSPNEA - ALLERGY MILK: GI UPSET, WATERY EYES AND SINUS CONGERSTION - SIDE EFFECTS DOXYCYCLINE: HIVES - ALLERGY SURGICAL HISTORY BTL 1986 GB 1990 ACL 2000 RIGHT ROTATOR CUFF 02/2014 LEFT TOTAL KNEE REPLACEMENT 07/2016 FAMILY HISTORY FATHER: , DIAGNOSED WITH OTHER MALIGNANT NEOPLASM OF UNSPECIFIED SITE MOTHER: , DIABETES, OTHER SPECIFIED CONDITIONS INFLUENCING HEALTH STATUS 1 SON(S) , 1 DAUGHTER(S) . DAD-SKIN CA\\NMOM-COPD, PULMONARY FIBROSIS\\NSON AND DAUGHTER-ASTHMA \\NHUSBAND - [place] - BONE DISORDER. SOCIAL HISTORY GENERAL: TOBACCO USE ARE YOU A: NONSMOKER. PAIN CLINIC PFS, CLERGY, PUBLIC HEALTH REFERRALS PFS REFERRAL NEEDED?NO CLERGY REFERRAL NEEDED?NO PUBLIC HEALTH REFERRAL NEEDED?NO WAS THE PROVIDER NOTIFIED OF ANY PERTINENT INFO?YES HAS THE PATIENT BEEN EDUCATED REGARDING HIS/HER PLAN OF CARE?YES HAS THE PATIENT BEEN EDUCATED REGARDING PAIN, THE RISK FOR PAIN, THE IMPORTANCE OF EFFECTIVE PAIN MANAGEMENT, AND THE PAIN ASSESSMENT PROCESS?YES LATEX QUESTIONNAIRE LATEX ALLERGY : HAVE YOU EVER DEVELOPED ANY TYPE OF REACTION AFTER HANDLING LATEX PRODUCTS SUCH RUBBER GLOVES, CONDOMS, DIAPHRAGMS, BALLOONS, SOCKS, OR UNDERWEAR?YES - PLEASE INDICATE :RUBBER GLOVES, CONDOMS, UNDERWEAR LATEX ALLERGY : HAVE YOU EVER DEVELOPED ANY TYPE OF REACTION DURING OR AFTER DENTAL APPOINTMENT, VAGINAL/RECTAL EXAMINATION, SURGICAL PROCEDURE, OR ANY OTHER EXPOSURE?NO LATEX RISK : HAVE YOU EVER HAD ANY DIFFICULTY BREATHING OR HIVES AFTER EATING OR HANDLING ANY FRUITS, OR VEGETABLES; SUCH KIWI, BANANAS, STONE FRUITS, OR CHESTNUTSNO LATEX RISK : DO YOU HAVE A PREVIOUS PERSONAL HISTORY OF MORE THAN NINE SURGERIES, SPINA BIFIDA, OR REPEATED CATHERIZATIONS? NO LATEX RISK : ARE YOU FREQUENTLY EXPOSED TO LATEX PRODUCTS IN YOUR OCCUPATION?NO DATE ASKED : 05/14/2019 LATEX ALLERGY CAFFEINE CAFFEINE USE?YES HOW OFTEN AND HOW MUCH? 1-2 CUPS COFFEE/DAY ADVANCE DIRECTIVE ADVANCE DIRECTIVE DISCUSSED WITH PATIENT:YES HCP - JOHN GREENE [phone] [id number] GNOSTICISM LANGUAGE LANGUAGES SPOKEN:NIUEAN DOMESTIC VIOLENCE DO YOU FEEL SAFE IN YOUR ENVIRONMENT?YES NEW PATIENT PAIN DIARY TODAY'S VISITNOTES 05/14/2019 PATIENT DESCRIBES PAIN :ACHING, HAVE IT ALL THE TIME, OTHER STIFFNESS FROM 0-10, WHAT LEVEL IS YOUR PAIN TODAY?4 ALCOHOL SCREENING DID YOU HAVE A DRINK CONTAINING ALCOHOL IN THE PAST YEAR?NO POINTS0 INTERPRETATIONNEGATIVE RECREATIONAL DRUG USE DRUG USE?NO LEARNING BARRIERS / SPECIAL NEEDS CHANGE FROM LAST VISIT?NO BARRIERS TO LEARNING?NO HEARING IMPAIRED?NO VISION IMPAIRED?YES ENLARGED OPTIC NERVE RELATED TO GESTATIONAL HYPERTENSION. COGNITIVELY IMPAIRED?NO :CORRECTIVE LENSES READINESS TO LEARN?YES LEARNING PREFERENCES?NO LEARNING CAPABILITIES PRESENT?YES EMOTIONAL BARRIERS?NO SPECIAL DEVICES?NO ROLLWAY MAN NEEDED?NO HOSPITALIZATION/MAJOR DIAGNOSTIC PROCEDURE SURGERY RELATED ASTHMA REVIEW OF SYSTEMS REVIEWED BY: PROVIDER: BRITTNEY THORNTON . CONSTITUTIONAL: ANY CHANGE IN YOUR MEDICAL CONDITION? NO . CHILLS NO . FEVER NO . INFECTION: DO YOU HAVE NEW INFECTIONS? NO . DO YOU HAVE HISTORY OF MRSA? NO . MUSCULOSKELETAL: ANY NEW PATTERNS OF PAIN OR NUMBNESS? NO . GASTROENTEROLOGY: ANY NEW CHANGE IN BOWEL CONTROL? NO . GENITOURINARY: ANY NEW CHANGE IN BLADDER CONTROL? NO . IS THERE A CHANCE YOU COULD BE ? NO . HEMATOLOGY/LYMPH: DO YOU TAKE ANY BLOOD THINNERS? (FOR EXAMPLE- COUMADIN, PLAVIX, AGGRENOX, PLATEL, PRADAXA, OR XARELTO) NO . WHEN WAS YOUR LAST DOSE? DATE: TIME: . NEUROLOGY: HAVE YOU FALLEN IN THE PAST 12 MONTHS? YES, STATES FELL OVER YESTERDAY WHILE PLANTING HER GARDEN, NO INJURIES, NO ED VISIT . ANY NEW EXTREMITY NUMBNESS OR WEAKNESS? NO . CARDIOLOGY: DO YOU HAVE A PACEMAKER OR DEFIBRILLATOR? NO . RESPIRATORY: HAVE YOU BEEN SICK IN THE PAST WEEK? NO . FEVER NO . FLU LIKE SYMPTOMS? NO . COUGH NO . INTEGUMENTARY: DO YOU HAVE ANY RASHES OR OPEN SORES? NO . ALLERGIC/IMMUNO: ARE YOU ALLERGIC TO IV DYE? NO . ANY NEW ALLERGIES? NO . PSYCHIATRIC: DO YOU HAVE THOUGHTS OF HURTING YOURSELF OR SOMEONE ELSE? NO . ARE YOU ABUSED, NEGLECTED, OR IN AN UNSAFE ENVIRONMENT? NO . ENDOCRINOLOGY: ARE YOU DIABETIC? NO . OTHER: DO YOU NEED ANY PRESCRIPTIONS? YES . IF YES, PLEASE LIST: ____TRAMDOL . ANY NEW PROBLEMS WITH YOUR MEDICATIONS? NO . WHEN DID YOU LAST EAT? ____ . WHEN DID YOU LAST DRINK? ____ . WHAT DID YOU LAST DRINK? ____ . NAME OF PERSON DRIVING YOU HOME? ____ . DO YOU HAVE ANY OTHER QUESTIONS OR CONCERNS NO . VITAL SIGNS WT 205.9 LBS, HT 65", BMI 34.26 INDEX, BP 127/72 MM HG, HR 71 /MIN, RR 18 /MIN, TEMP 97.4 F, OXYGEN SAT % 100%, SAFE IN ENV? (Y/N) YES, NA INITIALS AW 0930, REVIEWED BY: MADELINE. EXAMINATION GENERAL EXAMINATION: GENERALAWAKE,ALERT ,PLEASANT . PSYCHAFFECT NORMAL . LUNGS:LUNG DUPREE ARE CLEAR TO AUSCULTATION BILATERALLY. GOOD MOVEMENT OF AIR . HEART:S1, S2 IN A REGULAR RATE AND RHYTHM. NO SIGNIFICANT MURMURS, RUBS OR GALLOPS NOTED . ASSESSMENTS SACROILIITIS, NOT ELSEWHERE CLASSIFIED - M46.1 (PRIMARY) SPONDYLOSIS OF LUMBAR REGION WITHOUT MYELOPATHY OR RADICULOPATHY - M47.816 PROCEDURES PN WORKMANS' COMP OPINION IN YOUR OPINION, WAS THE INCIDENT THAT THE PATIENT DESCRIBED THE COMPETENT MEDICAL CAUSE OF THIS INJURY/ILLNESS? YES ARE THE PATIENT'S COMPLAINTS CONSISTENT WITH HIS/HER HISTORY OF THE INJURY/ILLNESS? YES IS THE PATIENT'S HISTORY OF THE INJURY/ILLNESS CONSISTENT WITH YOUR OBJECTIVE FINDING? YES WHAT IS THE PERCENTAGE OF TEMPORARY IMPAIRMENT? MODERATE TO MARKED = 66.7% IS THE PATIENT WORKING? YES DOCTOR ON SITE: ZELDA JOHNSTON MD PROCEDURE CODES FA211 ESTABILISHED PATIENT [facility] CHARGE DISPOSITION & COMMUNICATION FOLLOW UP PT WILL CALL (REASON: W/C) ELECTRONICALLY SIGNED BY HILLARY HAMILTON ON 05/14/2019 AT 01:32 PM EDT DISCLAIMER : THIS IS A VISIT SUMMARY EXTRACTED FROM THE [employer] CHART. IT IS NOT A COPY OF THE [employer] PROGRESS NOTE. ALLI
== END ==
LOC: M PAIN 09:15
PROVIDERS: ATTEND Nurse Practitioner Family
DX: M46.1 Sacroiliitis, not elsewhere classified (principal); M47.816 Spondylosis without myelopathy or radiculopathy, lumbar region; Z79.891 Long term (current) use of opiate analgesic; Z79.899 Other long term (current) drug therapy; Z88.0 Allergy status to penicillin; Z88.1 Allergy status to other antibiotic agents; Z88.2 Allergy status to sulfonamides; Z88.8 Allergy status to other drugs, medicaments and biological substances; Z91.011 Allergy to milk products; Z91.040 Latex allergy status; Z91.048 Other nonmedicinal substance allergy status

== ENCOUNTER → 2019-09-05 | Outpatient (POV) | payer OTHER | LOC: M PAIN 10:00 | PROVIDERS: ATTEND Nurse Practitioner Family | DX: M54.5 Low back pain (principal) ==

== ENCOUNTER → 2019-10-20 | Outpatient (CLI) | payer MEDICARE, BC, OTHER ==
--- NOTE | 2019-11-06 17:25 | REP ---
CHEST X-RAY: 2-VIEWS HISTORY: Moderate persistent asthma. COMPARISON: Chest x-ray 07/24/2016. FINDINGS: The lungs are symmetrically aerated and remain clear. The pleural angles are sharp. Heart is not enlarged. There are mild degenerative changes in the thoracic spine. There are two metallic anchors in the right humeral head unchanged. No acute bony abnormality is seen. Pulmonary vasculature is not increased. Heart size is normal. IMPRESSION: No active disease. MTDD
== END ==
LOC: M RAD 11:31
PROVIDERS: ATTEND Internal Medicine Pulmonary Disease
DX: J45.40 Moderate persistent asthma, uncomplicated (principal)

== ENCOUNTER → 2020-02-13 | Outpatient (CLI) | payer OTHER ==
--- NOTE | 2020-02-17 00:23 | ECWPNPC ---
PATIENT NAME: NATALIE CABALLERO : 1955 GENDER: FEMALE VISIT DATE: 02/13/2020 DISCHARGE DATE: 02/13/20 1146 VISIT LOCKED DATE TIME: PHYSICIAN: BRITTNEY PAULINO RESOURCE: BRITTNEY PAULINO REASON FOR APPOINTMENT 1. W/C LOW BACK. HISTORY OF PRESENT ILLNESS DEPRESSION SCREENING: PHQ-2 (2015 EDITION) LITTLE INTEREST OR PLEASURE IN DOING THINGS?NOT AT ALL FEELING DOWN, DEPRESSED, OR HOPELESS?NOT AT ALL TOTAL SCORE0 GENERAL: HERE FOR FOLLOW-UP OF CHRONIC LOW BACK PAIN. THIS IS A WORK RELATED INJURY. OVERALL DOING WELL. TAKING CYMBALTA DAILY FOR CHRONIC JOINT PAIN. HAS USED TRAMADOL AND SKELAXIN IN THE PAST FOR SEVERE PAIN EPISODES BUT HASN'T NEEDED THIS MEDICATION RECENTLY.-. FALL RISK SCREENING: SCREENING :NO FALLS REPORTED IN THE LAST YEAR PAIN SCREENING: PATIENT HAS A COMPLAINT OF ACUTE OR CHRONIC PAIN :NO NURSING NOTE: -. PAIN CENTER INTAKE QUESTIONS: DO YOU HAVE A HISTORY OF MRSA? :NO DO YOU TAKE A BLOOD THINNERS? :NO DO YOU HAVE ANY BLEEDING DISORDERS? :NO ANY NEW NUMBNESS OR WEAKNESS IN YOUR LEGS OR ARMS? :NO ANY PACEMAKER,DEFIBRILLATOR, OR DORSAL COLUMN STIMULATOR? :NO DO YOU HAVE ANY RASHES OR OPEN SORES? :NO ARE YOU ALLERGIC TO IV DYE? :YES PATIENT IS ALLERGIC TO SULFITES ARE YOU DIABETIC? :NO ANY NEW PROBLEMS WITH YOUR MEDICATIONS? :NO HAVE YOU RECEIVED A VACCINE IN THE PAST 30 DAYS? :NO DO YOU PLAN TO RECEIVE A VACCINE IN THE NEXT 21 DAYS? :NO DO YOU NEED ANY PRESCRIPTION? :NO DO YOU TAKE ANY IMMUNOSUPPRESSIVE MEDICATIONS? :YES ALLOPURINOL IS THERE A CHANCE YOU COULD BE ? :NO ARE YOU BREAST FEEDING? :NO CURRENT MEDICATIONS TAKING ALLOPURINOL 300 MG TABLET 1 TABLET ORALLY ONCE A DAY TAKING SINGULAIR 10 MG TABLET 1 TABLET IN THE EVENING ORALLY ONCE A DAY TAKING VENTOLIN HFA 108 (90 BASE) MCG/ACT AEROSOL SOLUTION 2 PUFFS INHALATION NEEDED TAKING HYDROCHLOROTHIAZIDE 25 25 MG TABLET 1 CAP ORAL DAILY, NOTES: CURRENTLY TAKING 1/2 TAB TAKING LATANOPROST 0.005 % SOLUTION 1 DROP INTO BOTH EYES EVENING OPHTHALMIC ONCE A DAY TAKING SYMBICORT 80-4.5 MCG/ACT AEROSOL 2 PUFFS INHALATION TWICE A DAY TAKING REFRESH CELLUVISC 1 % SOLUTION 1 DROP OU OPHTHALMIC 24 TIME(S) A DAY TAKING CRANBERRY 405 MG CAPSULE ORALLY DAILY TAKING FLONASE ALLERGY RELIEF 50 MCG/ACT SUSPENSION 1 SPRAY IN EACH NOSTRIL NASALLY ONCE A DAY NEEDED TAKING OXYBUTYNIN CHLORIDE 5 MG TABLET 1 TABLET ORALLY 2 TIMES A DAY TAKING POTASSIUM CHLORIDE 10 MEQ CAPSULE EXTENDED RELEASE 1 CAPSULE WITH FOOD ORALLY ONCE A DAY TAKING PROBIOTIC - CAPSULE ORALLY DAILY TAKING ZYRTEC ALLERGY 10 MG TABLET 1 TABLET ORALLY ONCE A DAY TAKING ALEVE 220 MG TABLET 1 TABLET WITH FOOD OR MILK NEEDED ORALLY EVERY 12 HRS TAKING GABAPENTIN 300 MG CAPSULE 1 CAPSULE ORALLY SPECIAL FUNDS TWO TIMES A DAY FOR PAINMDD2 TAKING CYMBALTA 30 MG CAPSULE DELAYED RELEASE PARTICLES 1 CAPSULE ORALLY FOR PAIN TWICE A DAY MDD2 NOT-TAKING VITAMIN B COMPLEX CAPSULE DIRECTED ORALLY DAILY NOT-TAKING OMEPRAZOLE 20 MG CAPSULE DELAYED RELEASE 1 CAP ORALLY ONCE A DAY NEEDED NOT-TAKING CABERGOLINE 0.5 MG TABLET 1 TAB ORALLY WEEKLY NOT-TAKING TRAMADOL HCL 50 MG TABLET 1 TABLET NEEDED ORALLY Q8H PRN MDD3 NOT-TAKING SKELAXIN 800 MG TABLET 1 TABLET ORALLY BID PRN FOR SPASMS AND PAIN MDD 2 NOT-TAKING FIBER 58.6 % POWDER 2 CAPSULES WITH 8 OUNCES OF LIQUID ORALLY DAILY NOT-TAKING CLINDAMYCIN HCL 150 MG CAPSULE 1 CAPSULE ORALLY BID NOT-TAKING BENTYL 20 MG TABLET 1 TABLET ORALLY EVERY 4 HOURS NEEDED NOT-TAKING BENTYL 10 MG CAPSULE 1 CAPSULE ORALLY TWO TIMES A DAY NOT-TAKING XIIDRA 5 % SOLUTION 1 DROP INTO AFFECTED EYE OPHTHALMIC TWICE A DAY NOT-TAKING PREMARIN 0.625 MG/GM CREAM VAGINAL THREE TIMES A WEEK MEDICATION LIST REVIEWED AND RECONCILED WITH THE PATIENT PAST MEDICAL HISTORY DIABETES BLOOD PRESSURE ASTHMA PITUITARY ADENOMA ARTHRITIS 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 DUE TO HYPERTENSION CHRONIC SINUSITIS TICK BITE X2 IN - TESTE FOR LYME, AWAITING RESULTS 12/24/18 ALLERGIES PENICILLIN (FOR ALLERGIES USE ONLY): RASH - ALLERGY SULFA (FOR ALLERGY USE ONLY): RASH - ALLERGY PHENERGAN: BLOOD CLOT - SIDE EFFECTS LATEX CONDOMS, RUBBER BANDS, GLOVES: RASH - ALLERGY ERYTHROMYCIN: RASH - ALLERGY NICKEL: RASH - ALLERGY SULFITES: DYSPNEA - ALLERGY MILK: GI UPSET, WATERY EYES AND SINUS CONGERSTION - SIDE EFFECTS DOXYCYCLINE: HIVES - ALLERGY SURGICAL HISTORY BTL 1986 GB 1990 ACL 2000 RIGHT ROTATOR CUFF 02/2014 LEFT TOTAL KNEE REPLACEMENT 07/2016 FAMILY HISTORY FATHER: , DIAGNOSED WITH OTHER MALIGNANT NEOPLASM OF UNSPECIFIED SITE MOTHER: , DIABETES, OTHER SPECIFIED CONDITIONS INFLUENCING HEALTH STATUS 1 SON(S) , 1 DAUGHTER(S) . DAD-SKIN CA\\NMOM-COPD, PULMONARY FIBROSIS\\NSON AND DAUGHTER-ASTHMA \\NHUSBAND - SARCOMAARI IN TER - BONE DISORDER. SOCIAL HISTORY GENERAL: TOBACCO USE ARE YOU A: NONSMOKER. LATEX QUESTIONNAIRE LATEX ALLERGY : HAVE YOU EVER DEVELOPED ANY TYPE OF REACTION AFTER HANDLING LATEX PRODUCTS SUCH RUBBER GLOVES, CONDOMS, DIAPHRAGMS, BALLOONS, SOCKS, OR UNDERWEAR?YES - PLEASE INDICATE :RUBBER GLOVES, CONDOMS, UNDERWEAR LATEX ALLERGY : HAVE YOU EVER DEVELOPED ANY TYPE OF REACTION DURING OR AFTER DENTAL APPOINTMENT, VAGINAL/RECTAL EXAMINATION, SURGICAL PROCEDURE, OR ANY OTHER EXPOSURE?NO LATEX RISK : HAVE YOU EVER HAD ANY DIFFICULTY BREATHING OR HIVES AFTER EATING OR HANDLING ANY FRUITS, OR VEGETABLES; SUCH KIWI, BANANAS, STONE FRUITS, OR CHESTNUTSNO LATEX RISK : DO YOU HAVE A PREVIOUS PERSONAL HISTORY OF MORE THAN NINE SURGERIES, SPINA BIFIDA, OR REPEATED CATHERIZATIONS? NO LATEX RISK : ARE YOU FREQUENTLY EXPOSED TO LATEX PRODUCTS IN YOUR OCCUPATION?NO DATE ASKED : 05/14/2019 LATEX ALLERGY LUNG CANCER SCREENING SMOKING STATUS:NON SMOKER ALCOHOL SCREENING DID YOU HAVE A DRINK CONTAINING ALCOHOL IN THE PAST YEAR?NO POINTS0 INTERPRETATIONNEGATIVE RECREATIONAL DRUG USE DRUG USE?NO CAFFEINE CAFFEINE USE?YES HOW OFTEN AND HOW MUCH? 1-2 CUPS COFFEE/DAY YAZIDISM [id number] CONFUCIANISM LANGUAGE LANGUAGES SPOKEN:SYRIAC LEARNING BARRIERS / SPECIAL NEEDS CHANGE FROM LAST VISIT?NO BARRIERS TO LEARNING?NO HEARING IMPAIRED?NO VISION IMPAIRED?YES ENLARGED OPTIC NERVE RELATED TO GESTATIONAL HYPERTENSION. COGNITIVELY IMPAIRED?NO :CORRECTIVE LENSES READINESS TO LEARN?YES LEARNING PREFERENCES?NO LEARNING CAPABILITIES PRESENT?YES EMOTIONAL BARRIERS?NO SPECIAL DEVICES?NO BEEHIVE KILN CHARCOAL BURNER NEEDED?NO DOMESTIC VIOLENCE DO YOU FEEL SAFE IN YOUR ENVIRONMENT?YES TODAY'S VISITNOTES 05/14/2019 PATIENT DESCRIBES PAIN :ACHING, HAVE IT ALL THE TIME, OTHER STIFFNESS FROM 0-10, WHAT LEVEL IS YOUR PAIN TODAY?4 PAIN CLINIC PFS, CLERGY, PUBLIC HEALTH REFERRALS PFS REFERRAL NEEDED?NO CLERGY REFERRAL NEEDED?NO PUBLIC HEALTH REFERRAL NEEDED?NO WAS THE PROVIDER NOTIFIED OF ANY PERTINENT INFO?YES HAS THE PATIENT BEEN EDUCATED REGARDING HIS/HER PLAN OF CARE?YES HAS THE PATIENT BEEN EDUCATED REGARDING PAIN, THE RISK FOR PAIN, THE IMPORTANCE OF EFFECTIVE PAIN MANAGEMENT, AND THE PAIN ASSESSMENT PROCESS?YES ADVANCE DIRECTIVE ADVANCE DIRECTIVE DISCUSSED WITH PATIENT:YES HCP - JOHN GREENE [phone] HOSPITALIZATION/MAJOR DIAGNOSTIC PROCEDURE SURGERY RELATED ASTHMA REVIEW OF SYSTEMS CONSTITUTIONAL: ANY RECENT FEVER NO . CHILLS NO . WEIGHT CHANGE OF UNKNOWN REASONS NO . GASTROENTEROLOGY: NEW UNEXPLAINABLE CHANGES IN BOWEL CONTROL NO . CONSTIPATION NO . GENITOURINARY: ANY NEW CHANGE IN BLADDER CONTROL? NO . NEUROLOGY: NEW ONSET DIZZINESS OR NEUROLOGICAL CHANGES NOT MENTIONED NO . NEW NUMBNESS OR PAIN PATTERNS NOT MENTIONED AND PERTINENT TO TODAY'S VISIT NO . CARDIOLOGY: NEW CHEST PRESSURE NO . NEW CHEST PAIN NO . RESPIRATORY: UNEXPLAINABLE COUGH NO . NEW SHORTNESS OF BREATH NO . VITAL SIGNS WT 202 LBS, HT 65", BMI 33.61 INDEX, BP 127/58 MM HG, HR 75 /MIN, RR 18 /MIN, TEMP 98.3 F, OXYGEN SAT % 100%, SAFE IN ENV? (Y/N) Y, NA INITIALS SC 10:58, REVIEWED BY: OWEN. EXAMINATION GENERAL EXAMINATION: GENERALNO ACUTE DISTRESS, WELL NOURISHED AND HYDRATED. PSYCHWEEPY AT TIMES. WILL BE ATTENDING THERAPY. GRIEVING THE LOSS OF HER .. FACE:UNREMARKABLE. ASSESSMENTS SACROILIITIS, NOT ELSEWHERE CLASSIFIED - M46.1 (PRIMARY) SPONDYLOSIS OF LUMBAR REGION WITHOUT MYELOPATHY OR RADICULOPATHY - M47.816 TREATMENT SACROILIITIS, NOT ELSEWHERE CLASSIFIED CONTINUE GABAPENTIN CAPSULE, 300 MG, 1 CAPSULE, ORALLY SPECIAL FUNDS, TWO TIMES A DAY FOR PAINMDD2 CONTINUE CYMBALTA CAPSULE DELAYED RELEASE PARTICLES, 30 MG, 1 CAPSULE, ORALLY FOR PAIN, TWICE A DAY MDD2 NOTES: CONTINUE HOME EXERCISE AND STRETCHING. CONTINUE CYMBALTA. FOLLOW-UP IS SCHEDULED IN 3 MONTHS. ENCOURAGED TO CALL US SOONER SHOULD HER CONDITION CHANGE FOR SOONER APPOINTMENT. PROCEDURES PN WORKMANS' COMP OPINION IN YOUR OPINION, WAS THE INCIDENT THAT THE PATIENT DESCRIBED THE COMPETENT MEDICAL CAUSE OF THIS INJURY/ILLNESS? YES ARE THE PATIENT'S COMPLAINTS CONSISTENT WITH HIS/HER HISTORY OF THE INJURY/ILLNESS? YES IS THE PATIENT'S HISTORY OF THE INJURY/ILLNESS CONSISTENT WITH YOUR OBJECTIVE FINDING? YES WHAT IS THE PERCENTAGE OF TEMPORARY IMPAIRMENT? MODERATE TO MARKED = 66.7% IS THE PATIENT WORKING? YES DOCTOR ON SITE: ZELDA JOHNSTON MD PROCEDURE CODES FA211 ESTABILISHED PATIENT [facility] CHARGE DISPOSITION & COMMUNICATION FOLLOW UP 3 MONTHS (REASON: WORKMEN'S COMP/LOW BACK PAIN/MEDICATION MANAGEMENT) ELECTRONICALLY SIGNED BY HILLARY HAMILTON ON 02/16/2020 AT 11:11 AM EST DISCLAIMER : THIS IS A VISIT SUMMARY EXTRACTED FROM THE [employer] CHART. IT IS NOT A COPY OF THE [employer] PROGRESS NOTE. RANDALD
== END ==
LOC: M PAIN 11:30
PROVIDERS: ATTEND Nurse Practitioner Family
DX: M46.1 Sacroiliitis, not elsewhere classified (principal); M47.816 Spondylosis without myelopathy or radiculopathy, lumbar region; E11.9 Type 2 diabetes mellitus without complications; J45.909 Unspecified asthma, uncomplicated; K58.0 Irritable bowel syndrome with diarrhea; Z79.899 Other long term (current) drug therapy; Z88.0 Allergy status to penicillin; Z88.2 Allergy status to sulfonamides; Z88.8 Allergy status to other drugs, medicaments and biological substances; Z91.011 Allergy to milk products; Z91.040 Latex allergy status; Z91.048 Other nonmedicinal substance allergy status

== ENCOUNTER → 2020-05-14 | Outpatient (CLI) | payer OTHER ==
--- NOTE | 2020-05-18 08:44 | ECWPNPC ---
PATIENT NAME: NATALIE CAABLLERO : 1955 GENDER: FEMALE VISIT DATE: 05/14/2020 DISCHARGE DATE: 05/14/20 1057 VISIT LOCKED DATE TIME: PHYSICIAN: BRITTNEY PAULINO RESOURCE: BRITTNEY PAULINO REASON FOR APPOINTMENT 1. W/C LOW BACK. HISTORY OF PRESENT ILLNESS GENERAL: - - HERE FOR FOLLOW-UP OF CHRONIC LOW BACK PAIN. THIS IS A WORK RELATED INJURY. OVERALL DOING WELL. TAKING CYMBALTA DAILY FOR CHRONIC JOINT PAIN. HAS USED TRAMADOL AND SKELAXIN IN THE PAST FOR SEVERE PAIN EPISODES BUT HASN'T NEEDED THIS MEDICATION RECENTLY.SHE IS OFF GABAPENTIN AND HAS BEEN WEANING DOWN AND WILL DISCONTINUE CYMBALTA SOON.-. FALL RISK SCREENING: SCREENING : NO FALLS REPORTED IN THE LAST YEAR , : NO FALLS REPORTED IN THE LAST YEAR. PAIN SCREENING: PATIENT HAS A COMPLAINT OF ACUTE OR CHRONIC PAIN :YES LOCATION OF PAIN:LOW BACK INTENSITY OF PAIN (SCALE OF 1 TO 10):5 WHAT DOES YOUR PAIN FEEL LIKE:ACHING DURATION:MAINLY DURING THE DAY, INTERMITTENT PAIN IS INCREASED BY:OTHERS SLEEPING PAIN IS DECREASED BY:OTHERS MOVING AROUND HELPS NURSING NOTE: - -. PAIN CENTER INTAKE QUESTIONS: DO YOU HAVE A HISTORY OF MRSA? :NO DO YOU TAKE A BLOOD THINNERS? :NO DO YOU HAVE ANY BLEEDING DISORDERS? :NO ANY NEW NUMBNESS OR WEAKNESS IN YOUR LEGS OR ARMS? :NO ANY PACEMAKER,DEFIBRILLATOR, OR DORSAL COLUMN STIMULATOR? :NO DO YOU HAVE ANY RASHES OR OPEN SORES? :NO ARE YOU ALLERGIC TO IV DYE? :YES PATIENT IS ALLERGIC TO SULFITES ARE YOU DIABETIC? :NO ANY NEW PROBLEMS WITH YOUR MEDICATIONS? :NO HAVE YOU RECEIVED A VACCINE IN THE PAST 30 DAYS? :NO DO YOU PLAN TO RECEIVE A VACCINE IN THE NEXT 21 DAYS? :NO DO YOU NEED ANY PRESCRIPTION? :NO DO YOU TAKE ANY IMMUNOSUPPRESSIVE MEDICATIONS? :YES ALLOPURINOL IS THERE A CHANCE YOU COULD BE ? :NO ARE YOU BREAST FEEDING? :NO CURRENT MEDICATIONS TAKING ALLOPURINOL 300 MG TABLET 1 TABLET ORALLY ONCE A DAY TAKING SINGULAIR 10 MG TABLET 1 TABLET IN THE EVENING ORALLY ONCE A DAY TAKING VENTOLIN HFA 108 (90 BASE) MCG/ACT AEROSOL SOLUTION 2 PUFFS INHALATION NEEDED TAKING HYDROCHLOROTHIAZIDE 25 25 MG TABLET 1 CAP ORAL DAILY, NOTES: CURRENTLY TAKING 1/2 TAB TAKING SYMBICORT 80-4.5 MCG/ACT AEROSOL 2 PUFFS INHALATION TWICE A DAY TAKING REFRESH CELLUVISC 1 % SOLUTION 1 DROP OU OPHTHALMIC 24 TIME(S) A DAY TAKING CRANBERRY 405 MG CAPSULE ORALLY DAILY TAKING FLONASE ALLERGY RELIEF 50 MCG/ACT SUSPENSION 1 SPRAY IN EACH NOSTRIL NASALLY ONCE A DAY NEEDED TAKING OXYBUTYNIN CHLORIDE 5 MG TABLET 1 TABLET ORALLY 2 TIMES A DAY TAKING POTASSIUM CHLORIDE 10 MEQ CAPSULE EXTENDED RELEASE 1 CAPSULE WITH FOOD ORALLY ONCE A DAY TAKING PROBIOTIC - CAPSULE ORALLY DAILY TAKING ALEVE 220 MG TABLET 1 TABLET WITH FOOD OR MILK NEEDED ORALLY EVERY 12 HRS TAKING GABAPENTIN 300 MG CAPSULE 1 CAPSULE ORALLY [facility] TWO TIMES A DAY FOR PAINMDD2 TAKING XIIDRA 5 % SOLUTION 1 DROP INTO AFFECTED EYE OPHTHALMIC TWICE A DAY NOT-TAKING LATANOPROST 0.005 % SOLUTION 1 DROP INTO BOTH EYES EVENING OPHTHALMIC ONCE A DAY NOT-TAKING ZYRTEC ALLERGY 10 MG TABLET 1 TABLET ORALLY ONCE A DAY NOT-TAKING CYMBALTA 30 MG CAPSULE DELAYED RELEASE PARTICLES 1 CAPSULE ORALLY FOR PAIN TWICE A DAY MDD2 NOT-TAKING VITAMIN B COMPLEX CAPSULE DIRECTED ORALLY DAILY NOT-TAKING OMEPRAZOLE 20 MG CAPSULE DELAYED RELEASE 1 CAP ORALLY ONCE A DAY NEEDED NOT-TAKING CABERGOLINE 0.5 MG TABLET 1 TAB ORALLY WEEKLY NOT-TAKING TRAMADOL HCL 50 MG TABLET 1 TABLET NEEDED ORALLY Q8H PRN MDD3 NOT-TAKING SKELAXIN 800 MG TABLET 1 TABLET ORALLY BID PRN FOR SPASMS AND PAIN MDD 2 NOT-TAKING FIBER 58.6 % POWDER 2 CAPSULES WITH 8 OUNCES OF LIQUID ORALLY DAILY NOT-TAKING CLINDAMYCIN HCL 150 MG CAPSULE 1 CAPSULE ORALLY BID NOT-TAKING BENTYL 20 MG TABLET 1 TABLET ORALLY EVERY 4 HOURS NEEDED NOT-TAKING BENTYL 10 MG CAPSULE 1 CAPSULE ORALLY TWO TIMES A DAY NOT-TAKING XIIDRA 5 % SOLUTION 1 DROP INTO AFFECTED EYE OPHTHALMIC TWICE A DAY NOT-TAKING PREMARIN 0.625 MG/GM CREAM VAGINAL THREE TIMES A WEEK MEDICATION LIST REVIEWED AND RECONCILED WITH THE PATIENT PAST MEDICAL HISTORY DIABETES BLOOD PRESSURE ASTHMA PITUITARY ADENOMA ARTHRITIS 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 LATEX QUESTIONNAIRE LATEX ALLERGY : HAVE YOU EVER DEVELOPED ANY TYPE OF REACTION AFTER HANDLING LATEX PRODUCTS SUCH RUBBER GLOVES, CONDOMS, DIAPHRAGMS, BALLOONS, SOCKS, OR UNDERWEAR?YES - PLEASE INDICATE :RUBBER GLOVES, CONDOMS, UNDERWEAR LATEX ALLERGY : HAVE YOU EVER DEVELOPED ANY TYPE OF REACTION DURING OR AFTER DENTAL APPOINTMENT, VAGINAL/RECTAL EXAMINATION, SURGICAL PROCEDURE, OR ANY OTHER EXPOSURE?NO LATEX RISK : HAVE YOU EVER HAD ANY DIFFICULTY BREATHING OR HIVES AFTER EATING OR HANDLING ANY FRUITS, OR VEGETABLES; SUCH KIWI, BANANAS, STONE FRUITS, OR CHESTNUTSNO LATEX RISK : DO YOU HAVE A PREVIOUS PERSONAL HISTORY OF MORE THAN NINE SURGERIES, SPINA BIFIDA, OR REPEATED CATHERIZATIONS? NO LATEX RISK : ARE YOU FREQUENTLY EXPOSED TO LATEX PRODUCTS IN YOUR OCCUPATION?NO DATE ASKED : 05/14/2020 LATEX ALLERGY ALCOHOL USE: NO. LUNG CANCER SCREENING SMOKING STATUS:NON SMOKER ALCOHOL SCREENING DID YOU HAVE A DRINK CONTAINING ALCOHOL IN THE PAST YEAR?NO POINTS0 INTERPRETATIONNEGATIVE RECREATIONAL DRUG USE DRUG USE?NO CAFFEINE CAFFEINE USE?YES HOW OFTEN AND HOW MUCH? 1-2 CUPS COFFEE/DAY UATSDIN [id number] SYNAGOGUE LANGUAGE LANGUAGES SPOKEN:SAMI LEARNING BARRIERS / SPECIAL NEEDS CHANGE FROM LAST VISIT?NO BARRIERS TO LEARNING?NO HEARING IMPAIRED?NO VISION IMPAIRED?YES ENLARGED OPTIC NERVE RELATED TO GESTATIONAL HYPERTENSION. :CORRECTIVE LENSES COGNITIVELY IMPAIRED?NO READINESS TO LEARN?YES LEARNING PREFERENCES?NO LEARNING CAPABILITIES PRESENT?YES EMOTIONAL BARRIERS?NO SPECIAL DEVICES?NO PRECAST MOLDER NEEDED?NO DOMESTIC VIOLENCE DO YOU FEEL SAFE IN YOUR ENVIRONMENT?YES TODAY'S VISITNOTES 05/14/2019 PATIENT DESCRIBES PAIN :ACHING, HAVE IT ALL THE TIME, OTHER STIFFNESS FROM 0-10, WHAT LEVEL IS YOUR PAIN TODAY?4 - PFS REFERRAL NEEDED?NO CLERGY REFERRAL NEEDED?NO PUBLIC HEALTH REFERRAL NEEDED?NO WAS THE PROVIDER NOTIFIED OF ANY PERTINENT INFO?YES HAS THE PATIENT BEEN EDUCATED REGARDING HIS/HER PLAN OF CARE?YES HAS THE PATIENT BEEN EDUCATED REGARDING PAIN, THE RISK FOR PAIN, THE IMPORTANCE OF EFFECTIVE PAIN MANAGEMENT, AND THE PAIN ASSESSMENT PROCESS?YES ADVANCE DIRECTIVE ADVANCE DIRECTIVE DISCUSSED WITH PATIENT:YES HCP - JOHN GREENE [phone] REVIEW OF SYSTEMS CONSTITUTIONAL: ANY RECENT FEVER NO . CHILLS NO . WEIGHT CHANGE OF UNKNOWN REASONS NO . GASTROENTEROLOGY: NEW UNEXPLAINABLE CHANGES IN BOWEL CONTROL NO . CONSTIPATION NO . GENITOURINARY: ANY NEW CHANGE IN BLADDER CONTROL? NO . NEUROLOGY: NEW ONSET DIZZINESS OR NEUROLOGICAL CHANGES NOT MENTIONED NO . NEW NUMBNESS OR PAIN PATTERNS NOT MENTIONED AND PERTINENT TO TODAY'S VISIT NO . CARDIOLOGY: NEW CHEST PRESSURE NO . PATIENT DENIES NO . RESPIRATORY: UNEXPLAINABLE COUGH NO . NEW SHORTNESS OF BREATH NO . VITAL SIGNS WT 205.8 LBS, HT 65", BMI 34.24 INDEX, BP 137/63 MM HG, HR 74 /MIN, RR 18 /MIN, TEMP 98.1 F, OXYGEN SAT % 100%, SAFE IN ENV? (Y/N) YES, NA INITIALS AW [id number] MA. EXAMINATION GENERAL EXAMINATION: GENERALNO ACUTE DISTRESS, WELL NOURISHED AND HYDRATED. PSYCHWEEPY AT TIMES. WILL BE ATTENDING THERAPY. GRIEVING THE LOSS OF HER .. FACE:UNREMARKABLE. ASSESSMENTS SACROILIITIS, NOT ELSEWHERE CLASSIFIED - M46.1 (PRIMARY) SPONDYLOSIS OF LUMBAR REGION WITHOUT MYELOPATHY OR RADICULOPATHY - M47.816 TREATMENT SACROILIITIS, NOT ELSEWHERE CLASSIFIED NOTES: ADVISED TO TAKE CYMBALTA 30MG EVERY OTHER DAY X10 DAYS THEN DISCONTINUE.CONTINUE HOME EXCERSISE AND STRETCHING. PROCEDURES PN WORKMANS' COMP OPINION IN YOUR OPINION, WAS THE INCIDENT THAT THE PATIENT DESCRIBED THE COMPETENT MEDICAL CAUSE OF THIS INJURY/ILLNESS? YES ARE THE PATIENT'S COMPLAINTS CONSISTENT WITH HIS/HER HISTORY OF THE INJURY/ILLNESS? YES IS THE PATIENT'S HISTORY OF THE INJURY/ILLNESS CONSISTENT WITH YOUR OBJECTIVE FINDING? YES WHAT IS THE PERCENTAGE OF TEMPORARY IMPAIRMENT? MODERATE TO MARKED = 66.7% IS THE PATIENT WORKING? YES DOCTOR ON SITE: ZELDA JOHNSTON MD PROCEDURE CODES FA211 ESTABILISHED PATIENT [facility] FACILITY CHARGE DISPOSITION & COMMUNICATION FOLLOW UP 3 MONTHS (REASON: W/C LBP RESPONDS WELL TO RF) ELECTRONICALLY SIGNED BY HILLARY HAMILTON ON 05/17/2020 AT 01:16 PM EDT DISCLAIMER : THIS IS A VISIT SUMMARY EXTRACTED FROM THE [employer] CHART. IT IS NOT A COPY OF THE [facility] PROGRESS NOTE. MTDD
== END ==
LOC: M PAIN 10:00
PROVIDERS: ATTEND Nurse Practitioner Family
DX: M46.1 Sacroiliitis, not elsewhere classified (principal); M47.816 Spondylosis without myelopathy or radiculopathy, lumbar region; G89.29 Other chronic pain; J45.909 Unspecified asthma, uncomplicated; Z88.0 Allergy status to penicillin; Z88.1 Allergy status to other antibiotic agents; Z88.2 Allergy status to sulfonamides; Z88.8 Allergy status to other drugs, medicaments and biological substances; Z91.011 Allergy to milk products; Z91.040 Latex allergy status; Z91.09 Other allergy status, other than to drugs and biological substances; Z79.899 Other long term (current) drug therapy

== ENCOUNTER → 2020-08-11 | Outpatient (CLI) | payer OTHER ==
--- NOTE | 2020-08-13 04:43 | ECWPNPC ---
PATIENT NAME: NATALIE CABALLERO : 1955 GENDER: FEMALE VISIT DATE: 08/11/2020 DISCHARGE DATE: 08/11/20 1008 VISIT LOCKED DATE TIME: PHYSICIAN: BRITTNEY PAULINO RESOURCE: BRITTNEY PAULINO REASON FOR APPOINTMENT 1. W/C LBP RESPONDS WELL TO RF HISTORY OF PRESENT ILLNESS GENERAL: HERE FOR FOLLOW-UP OF CHRONIC GENERALIZED LOW BACK PAIN. THIS IS A WORK-RELATED INJURY. PATIENT HAS TAKEN HERSELF OFF OF CYMBALTA, TRAMADOL, SKELAXIN AND GABAPENTIN OVER THE COURSE OF THE PAST YEAR. OVERALL DOING VERY WELL. HAS RESPONDED WELL TO LUMBAR FACET THERAPEUTIC INJECTIONS IN THE PAST. CONTINUES WITH IMPROVEMENT IN LOW BACK PAIN SINCE INJECTIONS SEVERAL MONTHS AGO. REMAINING VERY ACTIVE. IF PAIN INCREASES WHERE SHE NEEDS THERAPEUTIC BLOCK ANOTHER MRI OF THE LS SPINE WOULD NEED TO BE OBTAINED.-. FALL RISK SCREENING: SCREENING : NO FALLS REPORTED IN THE LAST YEAR. PAIN SCREENING: PATIENT HAS A COMPLAINT OF ACUTE OR CHRONIC PAIN :YES LOCATION OF PAIN:LOW BACK INTENSITY OF PAIN (SCALE OF 1 TO 10):1 WHAT DOES YOUR PAIN FEEL LIKE:ACHING, CONTINOUS DURATION:CONTINOUS, CONSTANT, ALL DAY PAIN IS INCREASED BY:ACTIVITIES PAIN IS DECREASED BY:USE OF PAIN MEDICATIONS NURSING NOTE: -. PAIN CENTER INTAKE QUESTIONS: DO YOU HAVE A HISTORY OF MRSA? :NO DO YOU TAKE A BLOOD THINNERS? :NO DO YOU HAVE ANY BLEEDING DISORDERS? :NO ANY NEW NUMBNESS OR WEAKNESS IN YOUR LEGS OR ARMS? :NO ANY PACEMAKER,DEFIBRILLATOR, OR DORSAL COLUMN STIMULATOR? :NO DO YOU HAVE ANY RASHES OR OPEN SORES? :NO ARE YOU ALLERGIC TO IV DYE? :YES PATIENT IS ALLERGIC TO SULFITES ARE YOU DIABETIC? :NO ANY NEW PROBLEMS WITH YOUR MEDICATIONS? :NO HAVE YOU RECEIVED A VACCINE IN THE PAST 30 DAYS? :NO DO YOU PLAN TO RECEIVE A VACCINE IN THE NEXT 21 DAYS? :NO DO YOU NEED ANY PRESCRIPTION? :NO DO YOU TAKE ANY IMMUNOSUPPRESSIVE MEDICATIONS? :YES ALLOPURINOL IS THERE A CHANCE YOU COULD BE ? :NO ARE YOU BREAST FEEDING? :NO CURRENT MEDICATIONS TAKING ALLOPURINOL 300 MG TABLET 1 TABLET ORALLY ONCE A DAY TAKING SINGULAIR 10 MG TABLET 1 TABLET IN THE EVENING ORALLY ONCE A DAY TAKING VENTOLIN HFA 108 (90 BASE) MCG/ACT AEROSOL SOLUTION 2 PUFFS INHALATION NEEDED TAKING HYDROCHLOROTHIAZIDE 25 25 MG TABLET 1 CAP ORAL DAILY, NOTES: CURRENTLY TAKING 1/2 TAB TAKING SYMBICORT 80-4.5 MCG/ACT AEROSOL 2 PUFFS INHALATION TWICE A DAY TAKING REFRESH CELLUVISC 1 % SOLUTION 1 DROP OU OPHTHALMIC 24 TIME(S) A DAY TAKING CRANBERRY 405 MG CAPSULE ORALLY DAILY TAKING FLONASE ALLERGY RELIEF 50 MCG/ACT SUSPENSION 1 SPRAY IN EACH NOSTRIL NASALLY ONCE A DAY NEEDED TAKING OXYBUTYNIN CHLORIDE 5 MG TABLET 1 TABLET ORALLY 2 TIMES A DAY TAKING POTASSIUM CHLORIDE 10 MEQ CAPSULE EXTENDED RELEASE 1 CAPSULE WITH FOOD ORALLY ONCE A DAY TAKING PROBIOTIC - CAPSULE ORALLY DAILY TAKING ALEVE 220 MG TABLET 1 TABLET WITH FOOD OR MILK NEEDED ORALLY EVERY 12 HRS TAKING XIIDRA 5 % SOLUTION 1 DROP INTO AFFECTED EYE OPHTHALMIC TWICE A DAY TAKING LATANOPROST 0.005 % SOLUTION 1 DROP INTO AFFECTED EYE IN THE EVENING OPHTHALMIC ONCE A DAY NOT-TAKING GABAPENTIN 300 MG CAPSULE 1 CAPSULE ORALLY SPECIAL [facility] TWO TIMES A DAY FOR PAINMDD2 NOT-TAKING LATANOPROST 0.005 % SOLUTION 1 DROP INTO BOTH EYES EVENING OPHTHALMIC ONCE A DAY NOT-TAKING ZYRTEC ALLERGY 10 MG TABLET 1 TABLET ORALLY ONCE A DAY NOT-TAKING CYMBALTA 30 MG CAPSULE DELAYED RELEASE PARTICLES 1 CAPSULE ORALLY FOR PAIN TWICE A DAY MDD2 NOT-TAKING VITAMIN B COMPLEX CAPSULE DIRECTED ORALLY DAILY NOT-TAKING OMEPRAZOLE 20 MG CAPSULE DELAYED RELEASE 1 CAP ORALLY ONCE A DAY NEEDED NOT-TAKING CABERGOLINE 0.5 MG TABLET 1 TAB ORALLY WEEKLY NOT-TAKING TRAMADOL HCL 50 MG TABLET 1 TABLET NEEDED ORALLY Q8H PRN MDD3 NOT-TAKING SKELAXIN 800 MG TABLET 1 TABLET ORALLY BID PRN FOR SPASMS AND PAIN MDD 2 NOT-TAKING FIBER 58.6 % POWDER 2 CAPSULES WITH 8 OUNCES OF LIQUID ORALLY DAILY NOT-TAKING CLINDAMYCIN HCL 150 MG CAPSULE 1 CAPSULE ORALLY BID NOT-TAKING BENTYL 20 MG TABLET 1 TABLET ORALLY EVERY 4 HOURS NEEDED NOT-TAKING BENTYL 10 MG CAPSULE 1 CAPSULE ORALLY TWO TIMES A DAY NOT-TAKING XIIDRA 5 % SOLUTION 1 DROP INTO AFFECTED EYE OPHTHALMIC TWICE A DAY NOT-TAKING PREMARIN 0.625 MG/GM CREAM VAGINAL THREE TIMES A WEEK MEDICATION LIST REVIEWED AND RECONCILED WITH THE PATIENT PAST MEDICAL HISTORY DIABETES BLOOD PRESSURE ASTHMA PITUITARY ADENOMA ARTHRITIS 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 LATEX QUESTIONNAIRE LATEX ALLERGY : HAVE YOU EVER DEVELOPED ANY TYPE OF REACTION AFTER HANDLING LATEX PRODUCTS SUCH RUBBER GLOVES, CONDOMS, DIAPHRAGMS, BALLOONS, SOCKS, OR UNDERWEAR?YES - PLEASE INDICATE :RUBBER GLOVES, CONDOMS, UNDERWEAR LATEX ALLERGY : HAVE YOU EVER DEVELOPED ANY TYPE OF REACTION DURING OR AFTER DENTAL APPOINTMENT, VAGINAL/RECTAL EXAMINATION, SURGICAL PROCEDURE, OR ANY OTHER EXPOSURE?NO LATEX RISK : HAVE YOU EVER HAD ANY DIFFICULTY BREATHING OR HIVES AFTER EATING OR HANDLING ANY FRUITS, OR VEGETABLES; SUCH KIWI, BANANAS, STONE FRUITS, OR CHESTNUTSNO LATEX RISK : DO YOU HAVE A PREVIOUS PERSONAL HISTORY OF MORE THAN NINE SURGERIES, SPINA BIFIDA, OR REPEATED CATHERIZATIONS? NO LATEX RISK : ARE YOU FREQUENTLY EXPOSED TO LATEX PRODUCTS IN YOUR OCCUPATION?NO DATE ASKED : 08/11/2020 LATEX ALLERGY ALCOHOL USE: NO. LUNG CANCER SCREENING SMOKING STATUS:NON SMOKER ALCOHOL SCREENING DID YOU HAVE A DRINK CONTAINING ALCOHOL IN THE PAST YEAR?NO POINTS0 INTERPRETATIONNEGATIVE RECREATIONAL DRUG USE DRUG USE?NO CAFFEINE CAFFEINE USE?YES HOW OFTEN AND HOW MUCH? 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 VIOLENCE DO YOU FEEL SAFE IN YOUR ENVIRONMENT?YES TODAY'S VISITNOTES 05/14/2019 PATIENT DESCRIBES PAIN :ACHING, HAVE IT ALL THE TIME, OTHER STIFFNESS FROM 0-10, WHAT LEVEL IS YOUR PAIN TODAY?4 - PFS REFERRAL NEEDED?NO CLERGY REFERRAL NEEDED?NO PUBLIC HEALTH REFERRAL NEEDED?NO WAS THE PROVIDER NOTIFIED OF ANY PERTINENT INFO?YES HAS THE PATIENT BEEN EDUCATED REGARDING HIS/HER PLAN OF CARE?YES HAS THE PATIENT BEEN EDUCATED REGARDING PAIN, THE RISK FOR PAIN, THE IMPORTANCE OF EFFECTIVE PAIN MANAGEMENT, AND THE PAIN ASSESSMENT PROCESS?YES ADVANCE DIRECTIVE ADVANCE DIRECTIVE DISCUSSED WITH PATIENT:YES HCP - JOHN GREENE [phone] REVIEW OF SYSTEMS CONSTITUTIONAL: ANY RECENT FEVER NO . CHILLS NO . WEIGHT CHANGE OF UNKNOWN REASONS NO . GASTROENTEROLOGY: NEW UNEXPLAINABLE CHANGES IN BOWEL CONTROL NO . CONSTIPATION NO . GENITOURINARY: ANY NEW CHANGE IN BLADDER CONTROL? NO . NEUROLOGY: NEW ONSET DIZZINESS OR NEUROLOGICAL CHANGES NOT MENTIONED NO . NEW NUMBNESS OR PAIN PATTERNS NOT MENTIONED AND PERTINENT TO TODAY'S VISIT NO . CARDIOLOGY: NEW CHEST PRESSURE NO . PATIENT DENIES NO . RESPIRATORY: UNEXPLAINABLE COUGH NO . NEW SHORTNESS OF BREATH NO . VITAL SIGNS WT 205.2 LBS, HT 65", BMI 34.14 INDEX, BP 129/70 MM HG, HR 62 /MIN, RR 18 /MIN, TEMP 97.3 F, OXYGEN SAT % 100%, SAFE IN ENV? (Y/N) YES, NA INITIALS AW [id number] MASSEY. EXAMINATION GENERAL EXAMINATION: GENERALAWAKE,ALERT ,PLEASANT . PSYCHAFFECT NORMAL . LUNGS:LUNG DUPREE ARE CLEAR TO AUSCULTATION BILATERALLY. GOOD MOVEMENT OF AIR . HEART:S1, S2 IN A REGULAR RATE AND RHYTHM. NO SIGNIFICANT MURMURS, RUBS OR GALLOPS NOTED . ASSESSMENTS SPONDYLOSIS OF LUMBAR REGION WITHOUT MYELOPATHY OR RADICULOPATHY - M47.816 (PRIMARY) TREATMENT SPONDYLOSIS OF LUMBAR REGION WITHOUT MYELOPATHY OR RADICULOPATHY NOTES: CONTINUE HOME EXERCISE AND STRETCHING. PROCEDURES PN WORKMANS' COMP OPINION IN YOUR OPINION, WAS THE INCIDENT THAT THE PATIENT DESCRIBED THE COMPETENT MEDICAL CAUSE OF THIS INJURY/ILLNESS? YES ARE THE PATIENT'S COMPLAINTS CONSISTENT WITH HIS/HER HISTORY OF THE INJURY/ILLNESS? YES IS THE PATIENT'S HISTORY OF THE INJURY/ILLNESS CONSISTENT WITH YOUR OBJECTIVE FINDING? YES WHAT IS THE PERCENTAGE OF TEMPORARY IMPAIRMENT? MODERATE TO MARKED = 66.7% IS THE PATIENT WORKING? NO DOCTOR ON SITE: ZELDA JOHNSTON MD PROCEDURE CODES [id number] ESTABILISHED PATIENT [facility] FACILITY CHARGE DISPOSITION & COMMUNICATION FOLLOW UP 3 MONTHS (REASON: WORKMEN'S COMP./LOW BACK PAIN) ELECTRONICALLY SIGNED BY HILLARY HAMILTON ON 08/12/2020 AT 01:31 PM EDT DISCLAIMER : THIS IS A VISIT SUMMARY EXTRACTED FROM THE [employer] CHART. IT IS NOT A COPY OF THE [employer] PROGRESS NOTE. ALLI
== END ==
LOC: M PAIN 09:30
PROVIDERS: ATTEND Nurse Practitioner Family
DX: M47.816 Spondylosis without myelopathy or radiculopathy, lumbar region (principal); G89.29 Other chronic pain; J45.909 Unspecified asthma, uncomplicated; Z88.0 Allergy status to penicillin; Z88.1 Allergy status to other antibiotic agents; Z88.2 Allergy status to sulfonamides; Z88.8 Allergy status to other drugs, medicaments and biological substances; Z91.011 Allergy to milk products; Z91.040 Latex allergy status; Z79.899 Other long term (current) drug therapy

== ENCOUNTER → 2021-05-11 | Outpatient (CLI) | payer OTHER ==
[~2021-05-11] MED LIST changes: -CYMB60CA3 PO; +CYMB60CA4 PO
== END ==
LOC: M PAIN 10:45
PROVIDERS: ATTEND Anesthesiology
DX: M54.50 Low back pain, unspecified (principal); M53.3 Sacrococcygeal disorders, not elsewhere classified; G89.29 Other chronic pain; J45.909 Unspecified asthma, uncomplicated; Z88.0 Allergy status to penicillin; Z88.1 Allergy status to other antibiotic agents; Z88.2 Allergy status to sulfonamides; Z88.8 Allergy status to other drugs, medicaments and biological substances; Z91.011 Allergy to milk products; Z91.040 Latex allergy status; Z79.899 Other long term (current) drug therapy

== ENCOUNTER → 2023-07-18 | Outpatient (CLI) | payer OTHER ==
[~2023-07-18] MED LIST changes: -K-TA10TA PO; +MONT-5 PO; +POTA-164 PO; -SING10TA32 PO
== END ==
LOC: M WUC 11:23
PROVIDERS: ATTEND Physician Assistant
DX: M25.561 Pain in right knee (principal); M17.11 Unilateral primary osteoarthritis, right knee

== ENCOUNTER → 2023-07-31 | Outpatient (CLI) | payer MEDICARE, OTHER ==
[2023-07-31 10:45] LABS: HEMATOCRIT 44.7 % (36.0-47.0); HEMOGLOBIN 14.7 g/dl (12.0-15.5); MEAN CORPUSCULAR HEMOGLOBIN 31.5 pg (27.0-33.0); MEAN CORPUSCULAR HGB CONC 32.9 g/dl (32.0-36.5); MEAN CORPUSCULAR VOLUME 95.9 fl (80.0-96.0); PLATELET COUNT, AUTOMATED 418 10^3/uL (150-450); RED BLOOD COUNT 4.66 10^6/uL (4.00-5.40)
[2023-07-31 11:03] LABS: HEMOGLOBIN A1c 5.6 % (4.0-6.0)
[2023-07-31 11:14] LABS: ALBUMIN 3.9 G/DL (3.2-5.2); ALKALINE PHOSPHATASE 84 U/L (46-116); ALT/SGPT 19 U/L (7.0-40); AST/SGOT 14 U/L (<34); BILIRUBIN,TOTAL 0.5 MG/DL (0.3-1.2); BLOOD UREA NITROGEN 14 MG/DL (9-23); CARBON DIOXIDE LEVEL 29 MMOL/L (20-31); CHLORIDE LEVEL 105 MMOL/L (98-107); CHOLESTEROL LEVEL 173 MG/DL (<200); CREATININE FOR GFR 0.81 MG/DL (0.55-1.30); GLOMERULAR FILTRATION RATE > 60.0 (>45); GLUCOSE, FASTING 111 MG/DL (74-106); HDL CHOLESTEROL 52.4 MG/DL (>40); LDL CHOLESTEROL 102.4 MG/DL (<100); NON-HDL-C 120.6 MG/DL; POTASSIUM SERUM 3.8 MMOL/L (3.5-5.1); SODIUM LEVEL 141 MMOL/L (136-145); THYROID STIMULATING HORMONE 1.578 uIU/ML (0.55-4.78); TOTAL PROTEIN 6.7 G/DL (5.7-8.2); TRIGLYCERIDES LEVEL 91 MG/DL (<150)
[2023-08-01 09:58] LABS: WHITE BLOOD COUNT 5.8 10^3/uL (4.0-10.0)
== END ==
LOC: M WUC 08:11
PROVIDERS: ATTEND Physician Assistant
DX: I10 Essential (primary) hypertension (principal); E78.5 Hyperlipidemia, unspecified; R73.01 Impaired fasting glucose